=== PATIENT | male | born 1960 | race Caucasian/White ===

== ENCOUNTER 2025-04-17 09:00 | Inpatient (IN) | payer MEDICARE, MEDICAID, SELFPAY ==
[2025-04-17] VITALS (22 sets, daily range): BP systolic 114–154; BP diastolic 58–95; PULSE 70–99; RESP 13–99; TEMP 36.7–36.9; O2SAT 93–100; BMI 30.4; BMI 10.5
--- NOTE | 2025-04-17 09:22 | XR_ITS ---
Examination: Abdomen AP single view Technique: AP portable supine abdomen, single view Exam date and time: April 17 2025, 0936 hours INDICATIONS: Painful abdomen 2 weeks constipation 7 days. FINDINGS: Large amounts of stool throughout the colon No obstruction No free air Moderate osteopenia IMPRESSION: Large amounts of stool throughout the colon
--- NOTE | 2025-04-17 09:22 | EKG_ITS ---
[facility] Test Date: 2025-04-17 Pat Name: KARLENE PAGAN Department: Room: - Gender: Male [employer]: : [id number] Requested By: Letha Gil Order Number: [id number] Reading MD: Letha Gil Measurements Intervals [place] Rate: 82 P: 71 MI: 146 QRS: 76 QRSD: 109 T: 40 QT: 389 QTc: 457 Interpretive Statements SINUS RHYTHM WITH OCCASIONAL VENTRICULAR PREMATURE COMPLEXES NONSPECIFIC T-WAVE ABNORMALITY Compared to ECG 09/17/2021 10:21:31 Ventricular premature complex(es) now present T-wave abnormality still present /store/S0/[id number]/ecg/[id number].pdf
--- NOTE | 2025-04-17 09:24 | PD.EDABDPN ---
ED Abdominal Pain RME/HPI General Chief Complaint: Abdominal Pain Stated complaint: SEVERE ABD DISTENTION/PAIN; NO BM X 2 WKS Time seen by provider: 04/17/25 09:31 Arrival date/time: 04/17/25 09:00 RME / HPI RME / HPI narrative: CC: Abdominal Pain & distention Patient is a 64-year-old male with a past medical history of hypertension, hyperlipidemia, diabetes mellitus type 2 [id number], CAD s/p stents, history of diverticulosis who presented to the emergency room via private vehicle with a chief complaint of severe abdominal pain and increased distention. Stated several days of abdominal pain which was first noted March 30, 2025. Patient has not had a bowel movements over 2 weeks. No bowel movements, previously never noted blood in stool. No opioid use. Previous abdominal surgeries include appendectomy as child (required second revision) and history of hernia repair s/p mesh (2022). No vomiting. Increasing abdominal distention. Related Data Home Medications ?Medication ?Instructions ?Recorded ?Confirmed albuterol sulfate 90 mcg/actuation 90 mcg inhalation Q4HR PRN WHEEZING 08/28/21 09/18/21 aerosol inhaler (Ventolin HFA) aripiprazole 2 mg tablet 2 mg PO HS 08/28/21 09/18/21 atorvastatin 20 mg tablet 20 mg PO DAILY 08/28/21 09/18/21 bupropion HCl 150 mg 24 hr tablet, 150 mg PO DAILY 08/28/21 09/18/21 extended release losartan 25 mg tablet 25 mg PO DAILY 08/28/21 09/18/21 metformin 500 mg tablet 500 mg PO BID 08/28/21 09/18/21 tamsulosin 0.4 mg capsule 0.4 mg PO BID 08/28/21 09/18/21 tiotropium bromide 2.5 2 puff inhalation DAILY 08/28/21 09/18/21 mcg/actuation mist for inhalation (Spiriva Respimat) ascorbic acid (vitamin C) 1,000 mg 1 g PO DAILY 09/18/21 09/18/21 tablet (Vitamin C) aspirin 81 mg tablet,delayed 81 mg PO QDAY 09/18/21 09/18/21 release glucosamine sulf dipot 2 cap PO DAILY 09/18/21 09/18/21 chlr,msm,chond 550 mg-C 30 mg-francisco 1 mg capsule (Glucosamine Chondroitin) Previous Rx's ?Medication ?Instructions ?Recorded docusate sodium 100 mg capsule 100 mg PO BID #40 caps 09/18/21 (Colace) hydrocodone 5 mg-acetaminophen 325 1 tab PO Q6H PRN pain (scale score 09/18/21 mg tablet 7-10) #20 tabs ibuprofen 600 mg tablet 600 mg PO Q8H PRN pain (scale 09/18/21 score 4-6) #15 tabs Allergies Allergy/AdvReac Type Severity Reaction Status Date / Time Sulfa (Sulfonamide Allergy Difficulty Verified 04/17/25 09:01 Antibiotics) Breathing Review of Systems Review of Systems Narrative Review of Systems: General appearance: NO weight change, NO fatigue, NO weakness, NO fever, NO chills, NO night sweats, No cough Skin: NO rash, NO itching, NO sores, NO moles HEENT: NO Trauma, NO nausea, NO vomiting, NO visual changes, NO blurry vision, NO double vision, NO tinnitus, NO vertigo, NO ear discharge, NO rhinorrhea, NO stuffiness, NO sneezing, NO allergy, NO epistaxis. NO Hoarseness, NO sore throat, NO swollen neck. Cardiac: NO Palpitations, NO dyspnea on exertion, NO orthopnea, NO paroxysmal nocturnal dyspnea, NO edema Respiratory: NO Shortness of Breath, NO Wheezing, NO Cough, NO Sputum, NO hemoptysis GI:NO appetite, Yes nausea, NO vomiting, NO dysphagia, NO changes in bowel frequency, NO stool color, NO diarrhea, NO constipation, NO hemetemesis, NO hemorrhoids, NO melena, NO hematechezia, Yes abdominal pain, Yes Distention, NO jaundice Renal: NO frequency, NO hesitancy, NO urgency, NO hematuria, NO nocturia, NO incontinence MSK: NO muscle weakness, NO gout, NO arthritis, NO muscle stiffness Neuro: NO headaches, NO tremors, NO weakness, NO paralysis, NO seizures, NO loss of consciousness, NO numbness. Hem: NO anemia, NO easy bruising/bleeding, NO petechiae, NO purpura Endo: NO heat/cold intolerance, NO excessive sweating, NO polyuria, NO polydipsia, NO polyphagia, NO thyroid problems, NO diabetes Pysch: NO mood, NO anxiety, NO depression ED Exam Narrative Physical exam: General Appearance: Alert & Oriented X3, well-nourished male who is lying in bed in mild distress HEENT: Skull symmetrical and atraumatic. Conjunctivae pin and moist. Pupils equal, round, reactive to light and accommodation (PERRL). External ear without lesion or discharge. Straight, nares patient, mucosa pink, no discharge. No thyroid nodule appreciated. No cervical lymphadenopathy. Cardio: Normal Rate and Rhythm with S1 and S2 heart sounds. No murmurs or extra heart sounds auscultated. No bruits on carotid auscultation. No peripheral edema or cyanosis. Lungs: Symmetric with good expansion. Chest and back non-tender. Breath sounds vesicular without crackles, wheezing or rhonchi Abdomen: Yes Diffuse tenderness to mild palpation, Yes distended, Hypoactive Reactive Bowel Sounds Neuro: Alert, cooperative, oriented to person, place, and time. Speech clear. CN grossly intact. Upper motor strength 5/5 and Lower motor strength 5/5. Sensation intact. Course Quality Measures none Orders Category Date Time Status Admit to Inpatient Status Routine Admission 04/17/25 12:15 Active Patient Condition Routine Admission 04/17/25 12:15 Ordered Bedside Blood Glucose NOW Care 04/17/25 11:[address] Screening NOW Care 04/17/25 09:53 Active Claims Supervisor Q4H START 00 Care 04/17/25 09:25 Active EKG (ED ONLY) *Do not use* NOW Care 04/17/25 09:22 Completed Jones [Urinary Catheter] QS Care 04/17/25 09:22 Active Insert NG / OG tube PRN Care 04/17/25 09:23 Active Notify provider NEEDED Care 04/17/25 12:15 Active Saline [Insert IV] NOW Care 04/17/25 09:51 Active Strict Intake and Output Routine Care 04/17/25 09:31 Ordered Vital Signs, Non-Routine Q2H Care 04/17/25 09:30 Ordered Vital Signs, Non-Routine Q2H Care 04/17/25 11:30 Ordered Vital Signs, Non-Routine Q2H Care 04/17/25 13:30 Ordered Vital Signs, Non-Routine Q2H Care 04/17/25 15:30 Ordered Vital Signs, Non-Routine Q2H Care 04/17/25 17:30 Ordered Vital Signs, Non-Routine Q2H Care 04/17/25 19:30 Ordered Vital Signs, Non-Routine Q2H Care 04/17/25 21:30 Ordered Vital Signs, Non-Routine Q2H Care 04/17/25 23:[address] abdomen pelvis w con Stat Exams 04/17/25 09:53 Completed EKG (ED Only) Stat Exams 04/17/25 09:22 Draft KUB [XR abdomen 1V] Stat Exams 04/17/25 09:22 Completed US gall bladder Stat Exams 04/17/25 09:55 Completed Beta Hydroxybutyrate Stat Lab 04/17/25 11:03 Completed Blood Culture (Lab) Stat Lab 04/17/25 11:03 Ordered CBC Stat Lab 04/17/25 09:29 Completed Comprehensive Metabolic Panel Stat Lab 04/17/25 09:29 Completed Drug Screen,Urine Stat Lab 04/17/25 09:39 Completed Lactic Acid [Lactate (Lactic Acid)] Routine Lab 04/17/25 14:00 Ordered Lactic Acid [Lactate (Lactic Acid)] Stat Lab 04/17/25 09:40 Results Lipase Stat Lab 04/17/25 09:29 Completed Magnesium Stat Lab 04/17/25 09:29 Completed Procalcitonin Stat Lab 04/17/25 09:29 Completed Renal Function Panel Stat Lab 04/17/25 14:00 Ordered Sed Rate (ESR) Stat Lab 04/17/25 09:29 Completed Urinalysis, C/S if Indicated Stat Lab 04/17/25 09:39 Completed HYDROmorphone INJ [Dilaudid Inj] Med 04/17/25 09:51 Discontinued 1 mg IVP X1 ONE Insulin Regular Med 04/17/25 12:30 Discontinued 5 unit SC X1 ONE Ketorolac Inj [Toradol Inj] Med 04/17/25 09:26 Discontinued 30 mg IVP X1 ONE Ondansetron Inj [Zofran Inj] Med 04/17/25 09:45 Active 4 mg IVP Q6HR PRN Piper/Tazo Inj [Zosyn Inj] 4.5 gm Med 04/17/25 10:02 Discontinued Sodium Chloride 0.9% (Pop) [NS 0.9% mini bag] 100 ml IV X1 Sodium Chloride 0.9% 1000 ml [Ns] 1,000 ml Med 04/17/25 09:22 Discontinued IV 80 mls/hr Sodium Chloride 0.9% 1000 ml [Ns] 1,000 ml Med 04/17/25 10:30 Discontinued IV 999 mls/hr Code Status Routine Oth 04/17/25 12:15 Ordered Vital Signs Vital signs: Vital Signs Temperature 98.1 F 04/17/25 09:09 Pulse Rate 99 04/17/25 09:09 Respiratory Rate 16 04/17/25 09:09 Blood Pressure 135/90 H 04/17/25 09:09 Pulse Oximetry (%) 99 04/17/25 09:09 Oxygen Delivery Method Room Air 04/17/25 09:09 Abdominal Pain MDM Patient data External records reviewed:: [facility] previous records Clinical information provided by:: patient Social determinants that could affect healthcare access:: none Patient has the following chronic illnesses:: Patient is a 64 year old male with hypertension, hyperlipidemia, diabetes mellitus type 2 [id number], CAD s/p stents, history of diverticulosis How is presenting disease/condition affected by chronic disease/condition?: uneffected by (HTN DM or CAD ) Evaluation data The following diagnostics were reviewed and interpreted by me:: lab results, radiology exam(s) and EKG tracing(s) Lab and/or radiology exams considered but not ordered:: None Interpretation Summary: Patient is a 64-year-old male with a past medical history of hypertension, hyperlipidemia, diabetes mellitus type 2 [id number], CAD s/p stents, history of diverticulosis who presented with a chief complain of abdominal pain. Leukocytosis noted on CBC with WBC count of 21.7, hypokalemia likely secondary to poor oral intake-denied vomiting, lactic acidosis of 3, beta hydroxybutyrate 1.6 bicarb of 20.2 UA showing ketones and negative for UTI. KUB negative for small bowel obstruction, large amount of stool throughout the colon. CT abdomen noted to show 8 cm upper pole renal cyst, stool throughout the colon, colonic diverticulosis, concern for diverticulitis involving the sigmoid colon. #Diverticulitis #Metabolic Acidosis, anion gap #lactic Acidosis #ketoacidosis - The patient's plan was discussed with attending Dr. Domi Gil MD PGY2 Internal Medicine Medications / Prescriptions Medications or Prescriptions considered but not ordered:: None Medication administrations:: Medication Administration History Ondansetron HCl (Ondansetron Inj 2 Mg/Ml Inj 2 Ml) 4 mg IVP Q6HR PRN; Protocol PRN Reason: NAUSEA OR VOMITING Stop: 05/17/25 09:44 Last Admin: 04/17/25 10:06 Dose: 4 mg Documented By: MYLA Discontinued Medications Hydromorphone HCl (Hydromorphone Inj 2 Mg/Ml Vial) 1 mg IVP X1 ONE Stop: 04/17/25 09:52 Last Admin: 04/17/25 10:06 Dose: 1 mg Documented By: MYLA Sodium Chloride (Ns) 1,000 mls @ 80 mls/hr IV .[id number] ONE Stop: 04/17/25 21:51 Last Admin: 04/17/25 09:33 Dose: 80 mls/hr Documented By: MYLA Piperacillin Sod/Tazobactam (Sod 4.5 gm/ Sodium Chloride) 100 mls @ 200 mls/hr IV X1 ONE; Protocol Stop: 04/17/25 10:31 Last Infusion: 04/17/25 11:51 Dose: Infused Documented By: Admin: 04/17/25 10:58 Dose: 200 mls/hr Documented By: MYLA Sodium Chloride (Ns) 1,000 mls @ 999 mls/hr IV .Q1H1M ONE Stop: 04/17/25 11:30 Last Infusion: 04/17/25 11:55 Dose: Infused Documented By: Admin: 04/17/25 10:59 Dose: 999 mls/hr Documented By: MYLA Insulin Human Regular (Insulin Hum Regular 1 Unit/0.01 Ml (Per Unit)) 5 unit SC X1 ONE Stop: 04/17/25 12:31 Ketorolac Tromethamine (Ketorolac Inj 30 Mg/Ml Vial) 30 mg IVP X1 ONE Stop: 04/17/25 09:27 Last Admin: 04/17/25 09:33 Dose: 30 mg Documented By: MYLA same as above Consultations Consultation(s) initiated? (list below): No Diagnosis Differential diagnosis abdominal pain: abdominal pain, gastroenteritis, pancreatitis and small bowel obstruction Most likely diagnosis given after review of the tests above:: Patient is a 64-year-old male with a past medical history of hypertension, hyperlipidemia, diabetes mellitus type 2 [id number], CAD s/p stents, history of diverticulosis who presented with a chief complain of abdominal pain. Leukocytosis noted on CBC with WBC count of 21.7, hypokalemia likely secondary to poor oral intake-denied vomiting, lactic acidosis of 3, beta hydroxybutyrate 1.6 bicarb of 20.2 UA showing ketones and negative for UTI. KUB negative for small bowel obstruction, large amount of stool throughout the colon. CT abdomen noted to show 8 cm upper pole renal cyst, stool throughout the colon, colonic diverticulosis, concern for diverticulitis involving the sigmoid colon. #Diverticulitis #Metabolic Acidosis, anion gap #lactic Acidosis #ketoacidosis - The patient's plan was discussed with attending Dr. Domi Gil MD PGY2 Internal Medicine Admission Indicated Admission indicated?: indicated Admission Request Was there a request for admission?: Yes Admission Attestation Admission request attestation: Discussed case with Dr. Le from Hospitalist service regarding admission. Discussed patients ED course, exam findings, labs, and radiology results. The Hospitalist agrees to accept the patient for admission. Disposition Plan Disposition Plan: Admit Discharge Plan Plan Patient Disposition: Admit Acute Care w/in Hospital Prescriptions/Referrals Prescriptions/Med Rec: No Action metformin 500 mg tablet 500 mg PO BID Patient Comments: TAKE 1 TABLET BY MOUTH TWICE DAILY atorvastatin 20 mg tablet 20 mg PO DAILY Patient Comments: TAKE 1 TABLET BY MOUTH EVERY DAY tamsulosin 0.4 mg capsule 0.4 mg PO BID Patient Comments: TAKE 2 CAPSULES BY MOUTH AT NIGHT losartan 25 mg tablet 25 mg PO DAILY Patient Comments: TAKE 1 TABLET BY MOUTH DAILY albuterol sulfate [Ventolin HFA] 90 mcg/actuation HFA aerosol inhaler 90 mcg INHALATION Q4HR PRN (Reason: WHEEZING) Patient Comments: INHALE 2 PUFFS BY MOUTH EVERY 4 HOURS NEEDED bupropion HCl 150 mg tablet extended release 24 hr 150 mg PO DAILY Patient Comments: TAKE 1 TABLET BY MOUTH EVERY DAY aripiprazole 2 mg tablet 2 mg PO HS Patient Comments: TAKE 1 TABLET BY MOUTH EVERY NIGHT AT BEDTIME Spiriva Respimat 2.5 mcg/actuation mist 2 puff INHALATION DAILY Patient Comments: INHALE 2 PUFFS BY MOUTH DAILY ascorbic acid (vitamin C) [Vitamin C] 1,000 mg Tablet 1 g PO DAILY Glucosamine Chondroitin 550-30-1 mg Capsule 2 cap PO DAILY aspirin 81 mg Tablet,Delayed Release (Dr/Ec) 81 mg PO QDAY hydrocodone-acetaminophen 5-325 mg tablet 1 tab PO Q6H MDD 4 PRN (Reason: pain (scale score 7-10)) Qty: 20 0RF docusate sodium [Colace] 100 mg capsule 100 mg PO BID Qty: 40 0RF ibuprofen 600 mg tablet 600 mg PO Q8H PRN (Reason: pain (scale score 4-6)) Qty: 15 0RF Referrals: Mae Asher, BILINGUAL ADMINISTRATIVE ASSISTANT [Primary Care Provider] - In 1 week Problem List Clinical Impression: Diverticulitis Patient/Caregiver Discharge Instructions Print Language: Bulgarian Stand Alone Forms: Paulina Award Info., Patient Portal Info Letter
[2025-04-17] MEDS: KETOROLAC INJ 30 MG/ML VIAL IVP (09:33)
[2025-04-17] MEDS: SODIUM CHLORIDE 0.9% 1000 ML 1,000 ML 80 ML IV (09:33)
[2025-04-17 09:43] LABS: Basophils # (Auto) 0.1 Thou/mm3 (0.0-0.2); Basophils % (Auto) 0 % (0-2.5); Eosinophils # (Auto) 0.0 Thou/mm3 (0.0-0.5); Eosinophils % (Auto) 0 % (0-10); Hematocrit 38.4 % (41.0-53.0); Hemoglobin 13.7 g/dL (13.5-16.0); Immature Granulocytes Auto 0.17 Thou/mm3 (0.00-0.00); Lymphocytes # (Auto) 1.1 Thou/mm3 (1.0-4.8); Lymphocytes % (Auto) 5 % (10-50); Mean Corpuscular HGB Conc 35.7 g/dl (31.0-37.0); Mean Corpuscular Hemoglobin 29.1 pg (25.0-35.0); Mean Corpuscular Volume 82 fL (80-100); Monocytes # (Auto) 1.9 Thou/mm3 (0.0-0.8); Monocytes % (Auto) 9 % (0-12); Neutrophils # (Auto) 18.5 Thou/mm3 (1.8-7.7); Neutrophils % (Auto) 85 % (37-80); Nucleated Red Blood Cell # 0.00 Thou/mm3 (0.00-0.00); Nucleated Red Blood Cell % 0 /100 WBC (0); Platelet Count 300 Thou/mm3 (140-440); RDW Standard Deviation 35.1 fL (35.1-43.9); Red Blood Count 4.71 Miln/mm3 (4.50-5.90); White Blood Count 21.7 Thou/mm3 (3.8-10.6)
[2025-04-17 09:47] LABS: Lactate (Lactic Acid) 3.0 mMol/L (0.4-2.0)
[2025-04-17 09:47] LABS: Collection Type, Urine Clean Catch; Squamous Epithelial Cell,Urine 0 /hpf (0-5)
[2025-04-17 09:51] LABS: Bilirubin,Urine Negative (Negative); Blood,Urine Negative (Negative); Clarity,Urine Clear (Clear/Hazy); Color,Urine Yellow (Lt Yel-Yel); Culture Indicated,Urine Not Indicated; Glucose, Urine 3+ (Negative); Hyaline Casts,Urine < 1 /hpf (0-1); Ketones,Urine 4+ (Negative); Leukocyte Esterase,Urine Negative (Negative); Nitrite,Urine Negative (Negative); PH,Urine 6.5 (5.0-7.0); Protein,Urine 2+ (Neg - Trace); RBC,Urine 3 /hpf (0-3); Specific Gravity,Urine 1.041 (1.001-1.035); Urobilinogen,Urine 2.0 mg/dL (0.0-1.0); WBC,Urine 1 /hpf (0-5)
[2025-04-17 09:53] LABS: Alanine Aminotransferase 12 U/L (10-49); Albumin, Serum 5.2 gm/dL (3.4-4.8); Albumin/Globulin Ratio 2.3 (1.2-2.2); Alkaline Phosphatase 116 U/L (46-116); Anion Gap 15 (7-16); Aspartate Amino Transferase 14 U/L (0-34); BUN/Creatinine Ratio 18 Ratio (12-20); Bilirubin,Total 0.7 mg/dL (0.3-1.2); Blood Urea Nitrogen 16 mg/dL (9-23); Calcium 9.5 mg/dL (8.3-10.6); Calcium (Corrected) 9.5 mg/dL (8.5-10.1); Carbon Dioxide 20.2 mMol/L (20.0-31.0); Chloride 100 mMol/L (98-107); Creatinine (Component) 0.9 mg/dL (0.6-1.3); Estimated Creatinine Clearance 89.0 mL/min (>60); Globulin 2.3 gm/dL (2.3-3.5); Glucose 243 mg/dL (74-106); Lipase 26 U/L (12-53); Magnesium 1.7 mg/dL (1.6-2.6); Osmolality,Calculated 279 (275-295); Potassium 3.3 mMol/L (3.4-5.1); Sodium 135 mMol/L (136-145); Total Protein 7.5 gm/dL (5.7-8.2); eGFR > 60 See Note
--- NOTE | 2025-04-17 09:53 | XR_ITS ---
Examination: CT abdomen with intravenous contrast CT pelvis with intravenous contrast 2-D coronal reconstructions 2-D sagittal reconstructions Date and time of exam: April 17, 2025, 1114 hours INDICATIONS: Severe abdominal distention and no bowel movement 2 weeks. CTDI: vol (mGy) 8.75 DLP: (mGycm) 543 Technique: Multiple axial sections of the abdomen and pelvis have been obtained. 64 slice high-resolution scanner used. 3 mm axial sections have been obtained, post intravenous injection 60 cc [id number] 2-D sagittal, coronal reconstructions obtained. Low dose protocols were performed. One or more of the following dose reduction techniques were used; automated exposure control, adjustment of the mA and/or KV according to patient size, use of iterative reconstruction technique. Findings: Diffuse fatty infiltration throughout the liver Mildly distended gallbladder no gallstones No pancreatic or adrenal mass 8 cm upper pole right renal cyst No renal or ureteral calculi Aorta normal size Abundant stool throughout the colon Colonic diverticulosis Diverticulitis involving the sigmoid colon versus nonspecific colitis Trace free fluid in the pelvis No significant prostatomegaly Urinary bladder contracted Moderate disc narrowing L5-S1 IMPRESSION: Abundant stool throughout the entire colon Diverticulitis versus nonspecific colitis involving the sigmoid colon The sigmoid colon is diffusely thickened, recommend elective colonoscopy follow-up also to exclude underlying malignant neoplasm of the sigmoid colon
--- NOTE | 2025-04-17 09:55 | XR_ITS ---
Examination: Abdomen sonogram, Limited Date and time of exam: April 17, 2025, 11:21 a.m. INDICATIONS: Right upper abdominal pain beginning 2 weeks ago. TECHNIQUE: Real-time grayscale sonographic images of abdomen FINDINGS: Distended gallbladder, no gallstones Gallbladder wall 0.3 cm no edema Common bile duct 0.5 cm Pancreatic head 3.3 cm Hepatomegaly 19 cm fatty infiltration Normal hepatopetal portal venous flow Patent IVC IMPRESSION: Negative for cholelithiasis, negative for cholecystitis Moderate hepatomegaly
[2025-04-17] MEDS: HYDROmorphone INJ 2 MG/ML VIAL 1 MG IVP (10:06)
[2025-04-17] MEDS: ONDANSETRON INJ 2 MG/ML INJ 2 ML 4 MG IVP (10:06)
[2025-04-17 10:20] LABS: Amphetamine/Methamp Scrn,U Negative (Negative); Barbiturate Screen,Urine Negative (Negative); Benzodiazepines Screen,Urine Negative (Negative); Benzoylecgonine Screen, Ur Negative (Negative); Fentanyl Screen,Urine Negative (Negative); Opiate Screen,Urine Negative (Negative); THC Screen,Urine Positive (Negative)
[2025-04-17 10:28] LABS: Sed Rate (ESR) 66 mm/hr (0-20)
[2025-04-17 10:31] LABS: Procalcitonin 0.19 ng/ml (0.0-0.49)
[2025-04-17] MEDS: PIPER/TAZO INJ 4.5 GM in SODIUM CHLORIDE 0.9% (POP) 100 ML IV (10:58)
[2025-04-17] MEDS: SODIUM CHLORIDE 0.9% 1000 ML 1,000 ML 999 ML IV (10:59)
[2025-04-17 11:14] LABS: Beta Hydroxybutyrate 1.6 mmol/L (<0.6)
[2025-04-17 12:45] LABS: Reflex Lactate? Y
[2025-04-17] MEDS: INSULIN HUM REGULAR 1 UNIT/0.01 ML (PER UNIT) 5 UNIT SC (12:59)
[2025-04-17] MEDS: cefTRIAXone 2 GM in SODIUM CHLORIDE 0.9% (Popper) 50 ML IV (13:00)
[2025-04-17 13:12] LABS: Lactic Acid, 3 HR 1.9 mMol/L (0.4-2.0)
[2025-04-17 13:54] LABS: Glucose Estimated Average 148 mg/dL (80-131); Hemoglobin A1C 6.8 % Hgb (4.8-6.0)
[2025-04-17 14:06] LABS: Lactate (Lactic Acid) 2.7 mMol/L (0.4-2.0)
[2025-04-17] MEDS: LACTULOSE SYRUP 20 GM/30 ML UDC PO (14:16)
[2025-04-17 14:26] LABS: Albumin, Serum 4.7 gm/dL (3.4-4.8); Anion Gap 12 (7-16); BUN/Creatinine Ratio 16 Ratio (12-20); Blood Urea Nitrogen 14 mg/dL (9-23); Calcium 9.0 mg/dL (8.3-10.6); Calcium (Corrected) 9.0 mg/dL (8.5-10.1); Carbon Dioxide 22.9 mMol/L (20.0-31.0); Chloride 103 mMol/L (98-107); Creatinine (Component) 0.9 mg/dL (0.6-1.3); Estimated Creatinine Clearance 89.0 mL/min (>60); Glucose 173 mg/dL (74-106); Osmolality,Calculated 280 (275-295); Phosphorous 1.6 mg/dL (2.4-5.1); Potassium 3.4 mMol/L (3.4-5.1); Sodium 138 mMol/L (136-145); eGFR > 60 See Note
--- NOTE | 2025-04-17 15:15 | PC.NURSE ---
spoke with resident at bedside about K+ order and he will change K+ to po tab.
--- NOTE | 2025-04-17 15:19 | PC.NURSE ---
report given to nurse on m/s floor. nurse will resume care for pt. bed [id number]
--- NOTE | 2025-04-17 15:56 | ESHP_ITS ---
<Statement entered by Yas Le MD - 04/17/25 17:42> Patient was seen and examined by me personally. I have directly supervised and reviewed documentation by the team resident and agree with its findings with any exceptions or additional findings as below. Plan of care was discussed with the attending, Dr. Gardiner. Patient is a 64-year-old male with past medical history of diverticulosis who presented to the ED on 04/27/2025 with lower abdominal pain and severe constipation, stating that he has not had a proper bowel movement in 2 weeks. He has tried various laxatives including Colace and suppositories but states that he was only able to have very small amounts of ball-like stools and feels increasingly distended. Patient has had similar episodes in the past but not this severe and was always able to eventually pass stools. Patient will be admitted for severe obstipation likely leading to diverticulitis and will be started on IV antibiotics including ceftriaxone and metronidazole. Will keep the patient NPO except sips of water and start lactulose. Patient was given senna. Will try to avoid opioid analgesics as they can worsen the constipation. Tomorrow will reassess and consider Golytely and possible manual disimpaction should laxatives fail. Yas Le, PGY-3 Documentation for date of: 04/17/25 HPI History of Present Illness History of present illness: Patient is a 64-year-old M with a PMH of diverticulosis, previous significant abdominal surgeries (1974 appendectomy with rupture requiring second surgery for wound clean-out and 2021 laparoscopic-assisted repair of incarcerated umbilical hernia with mesh), CAD status post 2016 coronary stent placement x 2, COPD, asthma, T2DM, HTN, and HLD who presented on 04/17/25 with a chief complaint of abdominal pain and intractable constipation. He reports that the abdominal pain started 2 weeks ago and that he also has not had any BM since the onset of this pain. He endorses feeling an urge to defecate but denies being able to have any BM nor passing any flatulence since arriving at the ED. He states that he has had similar prior episodes of abdominal pain and constipation beginning after one of his abdominal surgeries but that they have always been responsive to laxatives or stool softeners. At the time of interview, patient reported the pain as a 6 or 7 out of 10 but endorses that he had recently been given some morphine while in the ED. He denies any symptoms of nausea or vomiting. PMH: As above PSH: As above Medications: Medication reconciliation ordered, pending Allergies: Sulfa drugs (reaction: anaphylaxis) FH: Father of Parkinson's and colorectal cancer. Mother from Alzheimer's. Both had HTN. SH: Non-significant drinking history, smoked an average of 1 pack/day from age [age], no recreational drug use In the ED, vitals showed: BP 135/90 HR 99 RR 16 Temp 98.1 SpO2 99% on room air CBC showed WBC 21.7, ESR 66. CMP showed sodium 135, potassium 3.3, blood glucose 243, hemoglobin A1c 6.8, lactic acid 3.0, phosphorus 1.6, magnesium 1.7, BHB 1.6, and procalcitonin 0.19. UA showed specific gravity 1.041, 2+ protein, 3+ glucose, 4+ ketones (not suggestive of UTI). UDS (+) for marijuana. Imagin/18 abdominal XR showed large amounts of stool throughout the colon. 04/17 CTAP showed abundant stool throughout the entire colon, diverticulitis or nonspecific colitis involving the sigmoid colon, diffuse thickening of the sigmoid colon, colonic diverticulosis, and diffuse fatty infiltration throughout the liver. 04/17 EKG showed sinus rhythm 82 with occasional VPCs and mildly prolonged QTc 457. 04/17 gallbladder US showed moderate hepatomegaly but was negative for cholecystitis or cholelithiasis. In the ED, patient was given Ketorolac IV, Dilaudid IV, Zofran IV, Zosyn IV + Rocephin IV, regular human insulin SC, Senna + Lactulose PO, and 2 L NS fluid. Patient was admitted for the work-up and management of diverticulitis and obstipation. Review of Systems Review of Systems Systems Reviewed: All systems reviewed, normal except as documented Exam Vital Signs Temp Pulse Resp BP Pulse Ox O2 Del Method 98.2 F 80 21 H 154/87 H 99 Room Air 04/17/25 13:52 04/17/25 14:00 04/17/25 14:00 04/17/25 14:00 04/17/25 14:00 04/17/25 13:52 Narrative Exam General: A/O x3, uncomfortable. Skin: Warm, dry, intact, no obvious rash. Head: Normocephalic, atraumatic. Eyes: PERRL, EOMI. Anicteric, vision grossly intact. Ears: No ear pain, no ear discharge, Hearing grossly intact. Nose: No nasal discharge. Mouth/Throat: Oral mucosa moist. No obvious lesions in oropharynx. Neck: Neck supple, non-tender, no cervical lymphadenopathy. Cardiovascular: Tachycardic rate and rhythm, no murmur, no JVD or carotid bruits. +S1/S2. Respiratory: Bilateral lungs are clear to auscultation, respirations unlabored, no crackles, no wheezing. No accessory muscle use. Gastrointestinal: Distended abdomen that is tender to palpation, especially at lower abdominal regions, with pain that radiates to the back. Soft, no palpable masses. No guarding or rebound tenderness. Peristalsis present. Extremities: Symmetrical, no significant deformities. No edema, no cyanosis, no clubbing. 2+ radial pulse bilaterally, 2+ posterior tibial pulse bilaterally. Neuro: No focal deficits observed. Conversant, moving all extremities. No overt cerebellar signs/incoordination. Psychiatric: Cooperative, appropriate affect. Results: Labs 04/17/25 09:29 04/17/25 13:55 Labs: Short CBC 04/17/25 Range/Units 09: WBC 21.7 H (3.8-10.6) Thou/mm3 Hgb 13.7 (13.5-16.0) g/dL Hct 38.4 L (41.0-53.0) % Plt Count 300 (140-440) Thou/mm3 [facility] 04/17/25 04/17/25 09:29 13:55 Sodium 135 L 138 Potassium 3.3 L 3.4 Chloride 100 103 Carbon Dioxide 20.2 22.9 BUN 16 14 Creatinine 0.9 0.9 Glucose 243 H 173 H D Calcium 9.5 9.0 Liver Function 04/17/25 04/17/25 Range/Units 09:29 13:55 Total Bilirubin 0.7 (0.3-1.2) mg/dL AST 14 (0-34) U/L ALT 12 (10-49) U/L Alkaline Phosphatase 116 (46-116) U/L Albumin 5.2 H 4.7 D (3.4-4.8) gm/dL Urine 04/17/25 Range/Units 09:39 Urine Color Yellow (Lt Yel-Yel) Urine Clarity Clear (Clear/Hazy) Urine pH 6.5 (5.0-7.0) Ur Specific Orwell 1.041 H (1.001-1.035) Urine Protein 2+ A (Neg - Trace) Urine Glucose (UA) 3+ A (Negative) Quality Measures Quality Measures none Medications Home Medications and Allergies Home Medications ?Medication ?Instructions ?Recorded ?Confirmed ?Type albuterol sulfate 90 mcg/actuation 90 mcg inhalation Q 4HR PRN WHEEZING 08/28/21 09/18/21 History aerosol inhaler (Ventolin HFA) aripiprazole 2 mg tablet 2 mg PO HS 08/28/21 09/18/21 History atorvastatin 20 mg tablet 20 mg PO DAILY 08/28/2108/30 History bupropion HCl 150 mg 24 hr tablet, 150 mg PO DAILY 09/18/21 History extended release losartan 25 mg tablet 25 mg PO DAILY 08/28/2108/30 History metformin 500 mg tablet 500 mg PO BID 08/28/2109/18 History tamsulosin 0.4 mg capsule 0.4 mg PO BID 08/28/2109/18 History tiotropium bromide 2.5 2 puff inhalation DAILY 07/3109/18/21 History mcg/actuation mist for inhalation (Spiriva Respimat) ascorbic acid (vitamin C) 1,000 mg 1 g PO DAILY 09/18/21 History tablet (Vitamin C) aspirin 81 mg tablet,delayed 81 mg PO QDAY 09/18/21 History release glucosamine sulf dipot 2 cap PO DAILY 09/18/2108/30 History chlr,msm,chond 550 mg-C 30 mg-francisco 1 mg capsule (Glucosamine Chondroitin) Allergies Allergy/AdvReac Type Severity Reaction Status Date / Time Sulfa (Sulfonamide Allergy Difficulty Verified 04/17/25 09:01 Antibiotics) Breathing Visit Medications Acetaminophen (Acetaminophen 325 Mg Tablet) 650 mg PO Q6H PRN PRN Reason: Fever >100.4 or Pain 1-10 Stop: 05/17/25 13:26 Enoxaparin Sodium (Enoxaparin Sod Inj 40 Mg/0.4 Ml Syringe) 40 mg SC QDAY [facility] Stop: 05/02/25 08:59 Metronidazole (Flagyl 500 Mg Iv) 500 mg in 100 mls @ 200 mls/hr IV Q8HR [facility] Stop: 04/24/25 18:59 Ceftriaxone Sodium 2 gm/ (Sodium Chloride) 50 mls @ 100 mls/hr IV QDAY [facility] Stop: 04/24/25 12:43 Last Infusion: 04/17/25 14:11 Dose: Infused Sodium Chloride (Ns) 1,000 mls @ 100 mls/hr IV .Q10H [facility] Stop: 05/17/25 15:36 Potassium Phosphate (Pot Phos 15 Mmol In Ns 250 Ml) 15 mmol in 250 mls @ 62.5 mls/hr IV Q4H [facility] Stop: 04/17/25 23:38 Magnesium Sulfate (Magnesium Sulfate Ivpb) 4 gm in 50 mls @ 12.5 mls/hr IV X1 ONE Stop: 04/17/25 19:39 Ketorolac Tromethamine (Ketorolac Inj 30 Mg/Ml Vial) 15 mg IVP Q6HR PRN PRN Reason: pain 7-10 Stop: 04/22/25 15:39 Lactulose (Lactulose Syrup 20 Gm/30 Ml Udc) 30 gm PO TID [facility]; Protocol Stop: 05/17/25 15:44 Ondansetron HCl (Ondansetron Inj 2 Mg/Ml Inj 2 Ml) 4 mg IVP Q6HR PRN; Protocol PRN Reason: NAUSEA OR VOMITING Stop: 05/17/25 09:44 Last Admin: 04/17/25 10:06 Dose: 4 mg Sennosides (Senna Tablet) 1 tab PO QDAY [facility]; Protocol Stop: 05/17/25 13:44 Last Admin: 04/17/25 14:16 Dose: 1 tab Discontinued Medications Hydromorphone HCl (Hydromorphone Inj 2 Mg/Ml Vial) 1 mg IVP X1 ONE Stop: 04/17/25 09:52 Last Admin: 04/17/25 10:06 Dose: 1 mg Sodium Chloride (Ns) 1,000 mls @ 80 mls/hr IV .[id number] ONE Stop: 04/17/25 21:51 Last Admin: 04/17/25 09:33 Dose: 80 mls/hr Piperacillin Sod/Tazobactam (Sod 4.5 gm/ Sodium Chloride) 100 mls @ 200 mls/hr IV X1 ONE; Protocol Stop: 04/17/25 10:31 Last Infusion: 04/17/25 11:51 Dose: Infused Sodium Chloride (Ns) 1,000 mls @ 999 mls/hr IV .[id number] ONE Stop: 04/17/25 11:30 Last Infusion: 04/17/25 11:55 Dose: Infused Insulin Human Regular (Insulin Hum Regular 1 Unit/0.01 Ml (Per Unit)) 5 unit SC X1 ONE Stop: 04/17/25 12:31 Last Admin: 04/17/25 12:59 Dose: 5 unit Ketorolac Tromethamine (Ketorolac Inj 30 Mg/Ml Vial) 30 mg IVP X1 ONE Stop: 04/17/25 09:27 Last Admin: 04/17/25 09:33 Dose: 30 mg Lactulose (Lactulose Syrup 20 Gm/30 Ml Udc) 20 gm PO TID LYRIC; Protocol Stop: 05/17/25 13:59 Last Admin: 04/17/25 14:16 Dose: 20 gm Potassium Chloride (Potassium Chloride 10% 20 Meq/15 Ml Udc) 40 meq GT X1 ONE Stop: 04/17/25 13:37 Last Admin: 04/17/25 15:20 Dose: Not Given Assessment & Plan Plan Patient is a 64-year-old M with a PMH of diverticulosis, previous significant abdominal surgeries (1974 appendectomy with rupture requiring second surgery for wound clean-out and 2021 laparoscopic-assisted repair of incarcerated umbilical hernia with mesh), CAD status post 2016 coronary stent placement x 2, COPD, asthma, T2DM, HTN, and HLD who presented on 04/17/25 with a chief complaint of abdominal pain and intractable constipation. Patient was admitted for the work- up and management of diverticulitis and obstipation. #Acute diverticulitis i/s/o severe diverticulosis #Obstipation #Hx of diverticulosis #Hx of multiple abdominal surgeries Initial presentation: abdominal pain and inability to have a BM for over 2 weeks, afebrile 04/17 CTAP showed abundant stool throughout the entire colon, diverticulitis or nonspecific colitis involving the sigmoid colon, diffuse thickening of the sigmoid colon, and colonic diverticulosis Patient's diverticulitis is likely 2/2 prolonged stool build-up from obstipation forming hardened fecaliths that have blocked colonic diverticula, allowing for a sequestered nidus for bacterial growth Obstipation itself is likely 2/2 patient's significant history of abdominal surgery which may have caused adhesions leading to impaired peristaltic movement through the bowel Rx: -Rocephin 2 g IV qD [04/17--] -Flagyl 500 mg IV TID [04/17--] -Senna 1 tab qD -Lactulose syrup 30 g TID -Pain control #Lactic acidosis, mild and resolving 04/17 admission lactic acid 3.0, down-trended to 2.7 on the same day Likely 2/2 acute diverticulitis causing immune activation, cytokine activity, and possible local tissue hypoxia Rx: -No need to continue trending lactic acid as of 04/17 #Hypertension 04/17 admission BP 135/90 Rx: -Continue to monitor BP, may start home medications if uncontrolled #T2DM 04/17 admission blood glucose 243, hemoglobin A1c 6.8 Possibly on home metformin 500 mg BID (pending medication reconciliation) Rx: -Continue to monitor blood glucose levels, will consider starting ISS if uncontrolled Hospital Management: Disposition: Med Surg Diet: NPO (may take PO meds w/ sips of water) GI Prophylaxis: Not Indicated Bowel Prophylaxis: Senna 1 tab qD, lactulose syrup 30 g TID DVT Prophylaxis: Lovenox 40 mg SC qD CODE STATUS: Full Code I have examined the patient and conferred with my attending, Dr. Gardiner, and my senior resident, Dr. Le, regarding them. Jl Durant DO PGY-1 Internal Medicine Attending Provider Attestation/Addendum I or my resident physicians have discussed care with the ED physician and I have made the decision to admit. I have discussed and was present for the essential components of the history, physical examination, diagnosis, and treatment plan with the resident. I agree with the patient's care as documented by the resident and amended herein by me. Bong Gardiner DO. Although this document has been carefully reviewed, there may still be some phonetic and other typographical errors. These errors are purely grammatical due to imperfections in the software program and should not be construed in any way to compromise the substance of the patient's medical care during this visit.
[2025-04-17 17:05] LABS: Reflex Lactate? Y
[2025-04-17] MEDS: Magnesium Sulfate 4 GM Ivpb 4 GM/50 ML BAG IV (17:05)
[2025-04-17] MEDS: POT PHOS 15 mMol in NS 250 ML 15 MMOL/250 ML BAG 62.5 MMOL IV ×2 (17:06→21:50)
[2025-04-17] MEDS: KETOROLAC INJ 30 MG/ML VIAL 15 MG IVP ×2 (17:06→23:48)
[2025-04-17] MEDS: LACTULOSE SYRUP 20 GM/30 ML UDC 30 GM PO (17:07)
[2025-04-17] MEDS: SODIUM CHLORIDE 0.9% 1000 ML 1,000 ML 100 ML IV (17:12)
[2025-04-17 17:57] LABS: Lactic Acid, 3 HR 1.2 mMol/L (0.4-2.0)
[2025-04-17] MEDS: ACETAMINOPHEN IVPB 1,000 MG/100 ML VIAL 250 MG IV (18:49)
[2025-04-17] MEDS: metroNIDAZOLE/NS 500 MG IVPB 500 MG/100 ML BAG 200 MG IV (20:02)
[2025-04-17] MEDS: HYDROmorphone INJ 2 MG/ML VIAL 0.5 MG IVP (20:35)
--- NOTE | 2025-04-17 20:46 | XR_ITS ---
Examination: CT abdomen with intravenous contrast CT pelvis with intravenous contrast 2-D coronal reconstructions 2-D sagittal reconstructions Date and time of exam: April 17, 2025 2107 hours COMPARISON: April 17, 2025 1118 hours INDICATIONS: Abdominal pain rebound tenderness, diverticulitis on noncontrast study. CTDI: vol (mGy) 9.52 DLP: (mGycm) 550 Technique: Multiple axial sections of the abdomen and pelvis have been obtained. 64 slice high-resolution scanner used. 3 mm axial sections have been obtained, post intravenous injection 60 cc [id number] 2-D sagittal, coronal reconstructions obtained. Low dose protocols were performed. One or more of the following dose reduction techniques were used; automated exposure control, adjustment of the mA and/or KV according to patient size, use of iterative reconstruction technique. Findings: Air in the liver which may right be in the portal venous system No solid liver lesion No definite gallstones Biliary tree is poorly visualized Spleen not enlarged No pancreatic mass 8 cm upper pole right renal cyst No pancreatitis No hydronephrosis Aortic calcification no aneurysmal dilatation Inflammatory change around the sigmoid colon with air droplets which project in the mesentery outside the bowel in this area suspicious for venous air seen with ischemic bowel Peritoneal's pattern in the pelvis Urinary bladder intact Prostatomegaly IMPRESSION: Abnormal sigmoid colon with wall thickening and marked inflammatory change and air droplets in the wall of the colon and outside the wall of the colon which appear to be an venous channels, likely ischemic sigmoid colon, recommend surgical consultation
--- NOTE | 2025-04-17 20:58 | PC.NURSE ---
to ct scan per wheelchair accompanied by global position system technician. Saline locked iv.
--- NOTE | 2025-04-17 22:08 | PC.NURSE ---
seen and examined by Dr. Patel.
--- NOTE | 2025-04-17 22:53 | PC.NURSE ---
re guerrier cath order this morning, verified w/ pt. Per pt cannot handle guerrier cath, has been voiding ok per pt.
[2025-04-18] VITALS (7 sets, daily range): BP systolic 112–147; BP diastolic 69–85; PULSE 75–89; RESP 18–99; TEMP 36.3–37; O2SAT 92–98
--- NOTE | 2025-04-18 01:50 | PC.NURSE ---
seen and examined by Dr. Malone- maykel/ orders made and carried out.
--- NOTE | 2025-04-18 01:54 | PD.SURCONS ---
HPI Consult details Consult date: 04/18/25 Reason for consultation narrative: Diverticulitis History of present illness: 64-year-old obese male with history of diabetes, hypertension, hyperlipidemia, CAD status post stent placement, diverticular disease presented to the emergency department with worsening abdominal pain. His symptoms started about 2 weeks ago after he took Imodium. He started developing abdominal pain that has been getting progressively worse. His last bowel movement was about a week ago according to the patient. He denies history of blood per rectum, changes in bowel habits or history of blood per rectum. He also denies dysuria, fecal urea or pneumaturia. His last colonoscopy was in July 2021 that revealed diverticular disease and polyps (tubular adenoma). CT scan revealed large amount of stool throughout the colon with sigmoid diverticulitis without evidence of abscess. Review of Systems Constitutional Constitutional: Denies chills and Denies fever(s) Cardiovascular Cardiovascular: Denies chest pain Respiratory Respiratory: Denies cough Gastrointestinal Gastrointestinal: Reports abdominal pain, Denies nausea and Denies vomiting Genitourinary Genitourinary: Denies difficulty urinating Hematologic/Lymphatic Hematologic/Lymphatic: Denies easy bleeding and Denies easy bruising Past Medical History Surgical History OTHER SURGICAL HX: Appendectomy, tonsillectomy, umbilical hernia repair with mesh, cardiac catheterization with stent placement Social History SMOKING STATUS: Former smoker SUBSTANCE USE: does not use ALCOHOL: Current Meds Home Medications and Allergies Home Medications ?Medication ?Instructions ?Recorded ?Confirmed ?Type albuterol sulfate 90 mcg/actuation 90 mcg inhalation Q4HR PRN WHEEZING 08/28/21 04/17/25 History aerosol inhaler (Ventolin HFA) aripiprazole 2 mg tablet 2 mg PO HS 08/28/21 04/17/25 History atorvastatin 20 mg tablet 20 mg PO HS 08/28/21 04/17/25 History bupropion HCl 150 mg 24 hr tablet, 150 mg PO DAILY 08/28/21 04/17/25 History extended release losartan 25 mg tablet 25 mg PO DAILY 08/28/21 04/17/25 History metformin 500 mg tablet 500 mg PO BID 08/28/21 04/17/25 History tamsulosin 0.4 mg capsule 0.8 mg PO HS 08/28/21 04/17/25 History tiotropium bromide 2.5 2 puff inhalation DAILY 08/28/21 04/17/25 History mcg/actuation mist for inhalation (Spiriva Respimat) ascorbic acid (vitamin C) 1,000 mg 1 g PO DAILY 09/18/21 04/17/25 History tablet (Vitamin C) aspirin 81 mg tablet,delayed 81 mg PO QDAY 09/18/21 04/17/25 History release glucosamine sulf dipot 1 cap PO BID 09/18/21 04/17/25 History chlr,msm,chond 550 mg-C 30 mg-francisco 1 mg capsule (Glucosamine Chondroitin) [id number] 2 tab PO BID PRN abdominal pain 04/17/25 04/17/25 History 500 mg-60 mg-15 mg tablet (Midol Complete) aspirin 81 mg tablet 81 mg PO QDAY 04/17/25 04/17/25 History fluticasone fur. 100 mcg-umeclid 1 inh inhalation QDAY 04/17/25 04/17/25 History 62.5 mcg-vilant 25 mcg inhalat.powder (Trelegy Ellipta) hydroxyzine HCl 25 mg tablet 25 mg PO .Qevening 04/17/25 04/17/25 History ibuprofen 200 mg tablet 200 mg PO QDAY PRN abdominal pain 04/17/25 04/17/25 History losartan 50 mg tablet 50 mg PO HS 04/17/25 04/17/25 History melatonin 5 mg tablet 25 mg PO HS 04/17/25 04/17/25 History meloxicam 15 mg tablet 15 mg PO DAILY 04/17/25 04/17/25 History montelukast 10 mg tablet 10 mg PO DAILY 04/17/25 04/17/25 History ondansetron HCl 4 mg tablet 4 mg PO Q8H PRN nausea and vomiting 04/17/25 04/17/25 History pantoprazole 40 mg tablet,delayed 40 mg PO HS 04/17/25 04/17/25 History release sennosides 8.6 mg-docusate sodium 1 tab-cap PO QDAY PRN constipation 04/17/25 04/17/25 History 50 mg tablet (Colace 2-In-1) Allergies Allergy/AdvReac Type Severity Reaction Status Date / Time Sulfa (Sulfonamide Allergy Difficulty Verified 04/17/25 09:01 Antibiotics) Breathing Exam Vital Signs Temp Pulse Resp BP Pulse Ox O2 Del Method 98.2 F 74 20 114/58 L 98 Room Air 04/17/25 23:31 04/17/25 23:31 04/17/25 23:31 04/17/25 23:31 04/17/25 23:31 04/17/25 23:31 Constitutional Constitutional: no acute distress Routine Abdominal Exam Comments: Abdomen is soft and nondistended. He has localized tenderness to palpation over left lower abdomen, no rebound tenderness or peritonitis at this time Results Results: Laboratory Laboratory results: results reviewed Results: Imaging CT scan - abdomen: report reviewed and image reviewed CT scan - pelvis: report reviewed and image reviewed Assessment & Plan Additional Assessment Additional comments: Acute sigmoid diverticulitis. Plan Keep n.p.o. with IV fluids and IV antibiotics. If his symptoms improve we will continue to course. However, if his symptoms worsen and or clinical course deteriorate he will require exploratory laparotomy with colostomy. I will follow.
[2025-04-18] MEDS: SODIUM CHLORIDE 0.9% 1000 ML 1,000 ML 100 ML IV ×2 (03:49→14:49)
[2025-04-18 05:25] LABS: Basophils # (Auto) 0.1 Thou/mm3 (0.0-0.2); Basophils % (Auto) 0 % (0-2.5); Eosinophils # (Auto) 0.0 Thou/mm3 (0.0-0.5); Eosinophils % (Auto) 0 % (0-10); Hematocrit 33.5 % (41.0-53.0); Hemoglobin 12.0 g/dL (13.5-16.0); Immature Granulocytes Auto 0.30 Thou/mm3 (0.00-0.00); Lymphocytes # (Auto) 0.9 Thou/mm3 (1.0-4.8); Lymphocytes % (Auto) 4 % (10-50); Mean Corpuscular HGB Conc 35.8 g/dl (31.0-37.0); Mean Corpuscular Hemoglobin 29.2 pg (25.0-35.0); Mean Corpuscular Volume 82 fL (80-100); Monocytes # (Auto) 2.0 Thou/mm3 (0.0-0.8); Monocytes % (Auto) 9 % (0-12); Neutrophils # (Auto) 18.3 Thou/mm3 (1.8-7.7); Neutrophils % (Auto) 85 % (37-80); Nucleated Red Blood Cell # 0.00 Thou/mm3 (0.00-0.00); Nucleated Red Blood Cell % 0 /100 WBC (0); Platelet Count 212 Thou/mm3 (140-440); RDW Standard Deviation 36.2 fL (35.1-43.9); Red Blood Count 4.11 Miln/mm3 (4.50-5.90); White Blood Count 21.5 Thou/mm3 (3.8-10.6)
[2025-04-18] MEDS: metroNIDAZOLE/NS 500 MG IVPB 500 MG/100 ML BAG 200 MG IV ×3 (05:32→22:03)
[2025-04-18] MEDS: ACETAMINOPHEN 325 MG TABLET 650 MG PO ×3 (05:47→19:36)
[2025-04-18 06:06] LABS: Alanine Aminotransferase 16 U/L (10-49); Albumin, Serum 4.1 gm/dL (3.4-4.8); Albumin/Globulin Ratio 2.3 (1.2-2.2); Alkaline Phosphatase 108 U/L (46-116); Anion Gap 14 (7-16); Aspartate Amino Transferase 17 U/L (0-34); BUN/Creatinine Ratio 18 Ratio (12-20); Bilirubin,Total 0.2 mg/dL (0.3-1.2); Blood Urea Nitrogen 14 mg/dL (9-23); Calcium 8.2 mg/dL (8.3-10.6); Calcium (Corrected) 8.2 mg/dL (8.5-10.1); Carbon Dioxide 19.3 mMol/L (20.0-31.0); Chloride 107 mMol/L (98-107); Creatinine (Component) 0.8 mg/dL (0.6-1.3); Estimated Creatinine Clearance 40.6 mL/min (>60); Globulin 1.8 gm/dL (2.3-3.5); Glucose 243 mg/dL (74-106); Magnesium 2.0 mg/dL (1.6-2.6); Osmolality,Calculated 287 (275-295); Phosphorous 3.2 mg/dL (2.4-5.1); Potassium 3.6 mMol/L (3.4-5.1); Sodium 140 mMol/L (136-145); Total Protein 5.9 gm/dL (5.7-8.2); eGFR > 60 See Note
[2025-04-18] MEDS: cefTRIAXone 2 GM in SODIUM CHLORIDE 0.9% (Popper) 50 ML IV (08:06)
[2025-04-18] MEDS: ENOXAPARIN SOD INJ 40 MG/0.4 ML SYRINGE SC (08:07)
--- NOTE | 2025-04-18 08:58 | PC.SS ---
Patient Fawad Blank is a 64 Year old male admitted for Diverticulitis. SS met with patient and patient's life partner at bedside to discuss discharge plan and verify demographic information. Patient reports he lives at home with his life partner, Virginia Acevedo who he reports is his surrogate decision maker, [phone]. Patient reports that prior to being admitted he was able to complete all ADL's independently. Patient does not utilize any source of DME to assist with ambulation. Choice of pharmacy [facility]. PCP is Mae Asher. At time of discharge patient would like to discharge home. Family requesting Ambulance transport. SS will need to assist with and set up transportation through [facility]. No further needs at the time. Discharge Plan: Home Next of kin: Life partner, Francesca Acevedo PCP Mae Asher
[2025-04-18] MEDS: LIDOCAINE 5% 1 PATCH TOP (10:34)
--- NOTE | 2025-04-18 11:41 | PC.SS ---
SS follow up note; Patient is on IV ABX. Patient will discharge home when medically cleared.
--- NOTE | 2025-04-18 14:26 | ESPR_ITS ---
<Statement entered by Yas Le MD - 04/18/25 15:33> Patient was seen and examined by me personally. I have directly supervised and reviewed documentation by the team resident and agree with its findings with any exceptions or additional findings as below. Plan of care was discussed with the attending, Dr. Gardiner. Overnight, patient continued to have pain and IV Tylenol was ordered. Patient got IV Torodol at the maximum frequency as well. Night resident was called and came to bedside to evaluate the patient. Reportedly had rebound abdominal tenderness despite medications therefore a repeat CT abdomen/pelvis with contrast was ordered which read as abnormal sigmoid colon with air droplets in the wall of the colon and outside the wall of the colon which appear to be in venous channels, possible ischemic sigmoid colon, therefore recommended surgical consultation. Dr. Malone was consulted and saw the patient, determined no need for surgical intervention at this time however will continue to follow closely and recommended strict NPO and holding laxatives. At this time will continue with IV ceftriaxone and IV metronidazole for diverticulosis and with bowel rest. Yas Le, PGY-3 Documentation for date of: 04/18/25 Subjective Subjective Interval history: Overnight, patient's pain worsened and was refractory to Tylenol IV and Torodol IV. The night resident was called to evaluate the patient at bedside and patient was reportedly exhibiting rebound abdominal tenderness which prompted a repeat CTAP with contrast to be ordered; it showed abnormal sigmoid colon with wall thickening and marked inflammatory and air droplets in the wall of the colon which was concerning for ischemic sigmoid colon. General Surgery (Dr. Malone) was consulted and recommended that the patient be kept NPO with IV fluids and IV antibiotics and be given a chance to spontaneously have a BM with the contingency plan of exploratory laparotomy with colostomy should the patient's presentation acutely deteriorate. It was also recommended that we refrain from using any laxatives or suppositories on the patient at this time. Today, patient was examined at bedside; they appear A&Ox3 and in NAD. Patient actually reports feeling somewhat better today after having a small bowel movement in the morning but continues to have difficulty having a complete BM. Vitals/labs today significant for WBC 21.7->21.5, hemoglobin 12.0, blood glucose 243, corrected calcium 9.0->8.2. Physical exam notable for continued abdominal distention but bowel sounds are present. Other than continuing to monitor patient for possible need of surgical intervention, patient will continue being treated with Rocephin IV and Flagyl IV for diverticulosis and maintained on bowel rest. Exam Vital Signs Temp Pulse Resp BP Pulse Ox O2 Del Method 98.6 F 82 18 122/80 98 Room Air 04/18/25 12:00 04/18/25 12:00 04/18/25 12:00 04/18/25 12:00 04/18/25 12:00 04/18/25 12:00 Narrative Exam General: A/O x3, uncomfortable. Skin: Warm, dry, intact, no obvious rash. Head: Normocephalic, atraumatic. Eyes: PERRL, EOMI. Anicteric, vision grossly intact. Ears: No ear pain, no ear discharge, Hearing grossly intact. Nose: No nasal discharge. Mouth/Throat: Oral mucosa moist. No obvious lesions in oropharynx. Neck: Neck supple, non-tender, no cervical lymphadenopathy. Cardiovascular: Tachycardic rate and rhythm, no murmur, no JVD or carotid bruits. +S1/S2. Respiratory: Bilateral lungs are clear to auscultation, respirations unlabored, no crackles, no wheezing. No accessory muscle use. Gastrointestinal: Distended abdomen that is tender to palpation, especially at lower abdominal regions, with pain that radiates to the back. Soft, no palpable masses. No guarding or rebound tenderness. Peristalsis present. Extremities: Symmetrical, no significant deformities. No edema, no cyanosis, no clubbing. 2+ radial pulse bilaterally, 2+ posterior tibial pulse bilaterally. Neuro: No focal deficits observed. Conversant, moving all extremities. No overt cerebellar signs/incoordination. Psychiatric: Cooperative, appropriate affect. Objective Labs 04/18/25 04:52 04/18/25 04:52 Labs: Laboratory Results - last 24 hr 04/17/25 04/17/25 04/18/25 13:55 17:46 04:52 WBC 21.5 H RBC 4.11 L Hgb 12.0 L Hct 33.5 L MCV 82 MCH 29.2 MCHC 35.8 RDW Std Deviation 36.2 Plt Count 212 D Neut % (Auto) 85 H Lymph % (Auto) 4 L [place] % (Auto) 9 Eos % (Auto) 0 Baso % (Auto) 0 Neut # (Auto) 18.3 H Lymph # (Auto) 0.9 L [place] # (Auto) 2.0 H Eos # (Auto) 0.0 Baso # (Auto) 0.1 Immature Gran # (Auto) 0.30 H Absolute Nucleated RBC 0.00 Immature Gran % 1 H Nucleated RBC % 0 Sodium 138 140 Potassium 3.4 3.6 Chloride 103 107 Carbon Dioxide 22.9 19.3 L Anion Gap 12 14 BUN 14 14 Creatinine 0.9 0.8 Estim Creat Clear Calc 89.0 40.6 L eGFR > 60 > 60 BUN/Creatinine Ratio 16 18 Glucose 173 H D 243 H D Calculated Osmolality 280 287 Lactic Acid 1.2 Calcium 9.0 8.2 L Corrected Calcium 9.0 8.2 L Phosphorus 1.6 L 3.2 Magnesium 2.0 Total Bilirubin 0.2 L D AST 17 ALT 16 Alkaline Phosphatase 108 Total Protein 5.9 Albumin 4.7 D 4.1 D Globulin 1.8 L Albumin/Globulin Ratio 2.3 H Quality Measures Quality Measures none Assessment & Plan Assessment Current Active Medications: Generic Name Dose Route Start Last Admin Trade Name Freq PRN Reason Stop Dose Admin Acetaminophen 650 mg 04/17/25 13:27 04/18/25 11:40 Acetaminophen 325 Mg Tablet PO 05/17/25 13:26 650 mg Q6H PRN Administration Fever >100.4 or Pain 1-10 Enoxaparin Sodium 40 mg 04/18/25 09:00 04/18/25 08:07 Enoxaparin Sod Inj 40 Mg/0.4 Ml Syringe SC 05/02/25 08:59 40 mg QDAY LYRIC Administration Metronidazole 500 mg in 100 mls @ 200 mls/hr 04/17/25 19:00 04/18/25 05:32 Flagyl 500 Mg Iv IV 04/24/25 18:59 200 mls/hr Q8HR LYRIC Administration Ceftriaxone Sodium 2 gm/ 50 mls @ 100 mls/hr 04/17/25 12:44 04/18/25 08:06 Sodium Chloride IV 04/24/25 12:43 100 mls/hr QDAY LYRIC Administration Sodium Chloride 1,000 mls @ 100 mls/hr 04/17/25 15:37 04/18/25 03:49 Ns IV 05/17/25 15:36 100 mls/hr .Q10H LYRIC Administration Ondansetron HCl 4 mg 04/17/25 09:45 04/17/25 10:06 Ondansetron Inj 2 Mg/Ml Inj 2 Ml IVP 05/17/25 09:44 4 mg Q6HR PRN Administration NAUSEA OR VOMITING Protocol Plan Patient is a 64-year-old M with a PMH of diverticulosis, previous significant abdominal surgeries (1974 appendectomy with rupture requiring second surgery for wound clean-out and 2021 laparoscopic-assisted repair of incarcerated umbilical hernia with mesh), CAD status post 2016 coronary stent placement x 2, COPD, asthma, T2DM, HTN, and HLD who presented on 04/17/25 with a chief complaint of abdominal pain and intractable constipation. Patient was admitted for the work- up and management of diverticulitis and obstipation. #Acute diverticulitis i/s/o severe diverticulosis #Obstipation #Hx of diverticulosis #Hx of multiple abdominal surgeries Initial presentation: abdominal pain and inability to have a BM for over 2 weeks, afebrile 04/17 CTAP showed abundant stool throughout the entire colon, diverticulitis or nonspecific colitis involving the sigmoid colon, diffuse thickening of the sigmoid colon, and colonic diverticulosis Patient's diverticulitis is likely 2/2 prolonged stool build-up from obstipation forming hardened fecaliths that have blocked colonic diverticula, allowing for a sequestered nidus for bacterial growth Obstipation itself is likely 2/2 patient's significant history of abdominal surgery which may have caused adhesions leading to impaired peristaltic movement through the bowel In the evening of 04/17, patient was reported to have rebound tenderness which led to a repeat CTAP with contrast that showed findings concerning for ischemic sigmoid colon Rx: -NPO with IV fluids -Rocephin 2 g IV qD [04/17--] -Flagyl 500 mg IV TID [04/17--] -Pain control -Avoid laxatives and suppositories -Continue to monitor for successful BM, may require an exploratory laparotomy with colostomy by General Surgery if symptoms worsen or clinical picture deteriorates #Lactic acidosis, mild and resolving 04/17 admission lactic acid 3.0, down-trended to 2.7 on the same day Likely 2/2 acute diverticulitis causing immune activation, cytokine activity, and possible local tissue hypoxia Rx: -No need to continue trending lactic acid as of 04/17 #Hypertension 04/17 admission BP 135/90 Rx: -Continue to monitor BP, may start home medications if uncontrolled #T2DM 04/17 admission blood glucose 243, hemoglobin A1c 6.8 On home metformin 500 mg BID Rx: -Continue to monitor blood glucose levels q6HR -Will consider starting ISS if uncontrolled Hospital Management: Disposition: Med Surg Diet: NPO (may take PO meds w/ sips of water) GI Prophylaxis: Not Indicated Bowel Prophylaxis: Per General Surgery, avoid for now DVT Prophylaxis: Lovenox 40 mg SC qD CODE STATUS: Full Code I have examined the patient and conferred with my attending, Dr. Gardiner, and my senior resident, Dr. Le, regarding them. Jl Durant DO PGY-1 Internal Medicine Attending Provider Attestation/Addendum I have discussed and was present for the essential components of the history, physical examination, diagnosis, and treatment plan with the resident. I agree with the patient's care as documented by the resident and amended herein by me. Bong Gardiner DO. Although this document has been carefully reviewed, there may still be some phonetic and other typographical errors. These errors are purely grammatical due to imperfections in the software program and should not be construed in any way to compromise the substance of the patient's medical care during this visit. Will continue broad-spectrum antibiotics to include ceftriaxone and Flagyl, patient made n.p.o., will hold all laxatives for now, general surgery consulted will follow, patient stable for now actually feels improved today, will continue to monitor closely, likely DC in 2 to 3 days pending improvement and specialist recommendations
[2025-04-19] VITALS (33 sets, daily range): BP systolic 81–189; BP diastolic 56–117; PULSE 79–132; RESP 12–28; TEMP 36.4–37.1; O2SAT 93–100; BMI 31.8
[2025-04-19] MEDS: MORPHINE SULF INJ 4 MG/ML VIAL 2 MG IVP ×2 (00:04→05:22)
[2025-04-19] MEDS: SODIUM CHLORIDE 0.9% 1000 ML 1,000 ML 100 ML IV ×2 (00:46→19:28)
--- NOTE | 2025-04-19 04:17 | XR_ITS ---
EXAMINATION: AP chest single view TECHNIQUE: AP portable upright chest single view Date and time: April 19, 2025, 0440 hours INDICATIONS: Post orogastric tube placement FINDINGS: Orogastric tube sidehole at the GE junction Normal heart size Lungs are clear. IMPRESSION: Advance the orogastric tube 5 cm
--- NOTE | 2025-04-19 04:22 | PC.NURSE ---
seen and examined by Dr. Steph brar/ orders made and carried out.
[2025-04-19] MEDS: metroNIDAZOLE/NS 500 MG IVPB 500 MG/100 ML BAG 200 MG IV ×2 (05:23→21:03)
--- NOTE | 2025-04-19 05:44 | XR_ITS ---
Examination: CT abdomen with intravenous contrast CT pelvis with intravenous contrast 2-D coronal reconstructions 2-D sagittal reconstructions Date and time of exam: April 19, 2025, 1018 hours, comparison April 17, 2025 INDICATIONS: Abdominal pain rebound tenderness, peritoneum peritonitis clinical diagnosis, abnormal sigmoid colon with marked wall thickening and inflammatory change air droplets in the wall of the colon on CT study April 17, 2025. CTDI: vol (mGy) 8.66 DLP: (mGycm) 600 Technique: Multiple axial sections of the abdomen and pelvis have been obtained. 64 slice high-resolution scanner used. 3 mm axial sections have been obtained, post intravenous injection 70 cc [id number] 2-D sagittal, coronal reconstructions obtained. Low dose protocols were performed. One or more of the following dose reduction techniques were used; automated exposure control, adjustment of the mA and/or KV according to patient size, use of iterative reconstruction technique. Findings: Pericardial effusion anteriorly measuring up to 13 mm Prominent pneumoperitoneum Fluid peripheral subcapsular to the liver, fatty infiltration throughout the liver Large right renal cyst again noted The spleen is not enlarged No pancreatic mass No renal or ureteral calculi Abdominal artery calcification no aneurysmal dilatation Multiple free droplets of air outside the irvin of the colon and small bowel Markedly abnormal sigmoid colon with wall thickening and inflammatory change and air droplets in the wall of the sigmoid colon Contracted urinary bladder Prominent osteopenia IMPRESSION: Pericardial effusion Prominent pneumoperitoneum Free fluid in the abdomen including peripheral to the liver Markedly abnormal sigmoid colon, wall thickening, marked inflammatory change air droplets in the wall of the sigmoid colon and outside of the sigmoid colon, consider ischemic colon, clinical correlation advised
[2025-04-19 05:54] LABS: Basophils # (Auto) 0.1 Thou/mm3 (0.0-0.2); Basophils % (Auto) 1 % (0-2.5); Eosinophils # (Auto) 0.0 Thou/mm3 (0.0-0.5); Eosinophils % (Auto) 1 % (0-10); Hematocrit 38.3 % (41.0-53.0); Hemoglobin 13.2 g/dL (13.5-16.0); Immature Granulocytes Auto 0.03 Thou/mm3 (0.00-0.00); Lymphocytes # (Auto) 0.6 Thou/mm3 (1.0-4.8); Lymphocytes % (Auto) 9 % (10-50); Mean Corpuscular HGB Conc 34.5 g/dl (31.0-37.0); Mean Corpuscular Hemoglobin 28.8 pg (25.0-35.0); Mean Corpuscular Volume 83 fL (80-100); Monocytes # (Auto) 0.5 Thou/mm3 (0.0-0.8); Monocytes % (Auto) 7 % (0-12); Neutrophils # (Auto) 5.6 Thou/mm3 (1.8-7.7); Neutrophils % (Auto) 82 % (37-80); Nucleated Red Blood Cell # 0.00 Thou/mm3 (0.00-0.00); Nucleated Red Blood Cell % 0 /100 WBC (0); Platelet Count 334 Thou/mm3 (140-440); RDW Standard Deviation 38.8 fL (35.1-43.9); Red Blood Count 4.59 Miln/mm3 (4.50-5.90); White Blood Count 6.8 Thou/mm3 (3.8-10.6)
--- NOTE | 2025-04-19 06:01 | PC.NURSE ---
called watch train inspector re stat ct abdomen/pelvis with contrast ordered- Per watch train inspector pt had 2 ct scan abdomen with contrast done yesterday, and he will first check if it's okay to do a 3rd one or wait a few more days before getting another one due to the contrast.
[2025-04-19 06:15] LABS: Alanine Aminotransferase 17 U/L (10-49); Albumin, Serum 4.1 gm/dL (3.4-4.8); Albumin/Globulin Ratio 2.1 (1.2-2.2); Alkaline Phosphatase 111 U/L (46-116); Anion Gap 14 (7-16); Aspartate Amino Transferase 15 U/L (0-34); BUN/Creatinine Ratio 16 Ratio (12-20); Bilirubin,Total 0.6 mg/dL (0.3-1.2); Blood Urea Nitrogen 13 mg/dL (9-23); Calcium 9.4 mg/dL (8.3-10.6); Calcium (Corrected) 9.4 mg/dL (8.5-10.1); Carbon Dioxide 21.7 mMol/L (20.0-31.0); Chloride 105 mMol/L (98-107); Creatinine (Component) 0.8 mg/dL (0.6-1.3); Estimated Creatinine Clearance 100.4 mL/min (>60); Globulin 2.0 gm/dL (2.3-3.5); Glucose 258 mg/dL (74-106); Osmolality,Calculated 290 (275-295); Potassium 3.4 mMol/L (3.4-5.1); Sodium 141 mMol/L (136-145); Total Protein 6.1 gm/dL (5.7-8.2); eGFR > 60 See Note
[2025-04-19] MEDS: ENOXAPARIN SOD INJ 40 MG/0.4 ML SYRINGE SC (08:49)
[2025-04-19] MEDS: cefTRIAXone 2 GM in SODIUM CHLORIDE 0.9% (Popper) 50 ML IV (09:31)
--- NOTE | 2025-04-19 10:31 | PD.SURPROG ---
Documentation for date of: 04/19/25 Subjective Subjective Narrative: Patient is seen and examined. He states that his pain is improving. He had an episode of emesis last night, an NG tube was placed. Exam Vital Signs Temp Pulse Resp BP Pulse Ox O2 Del Method O2 Flow Rate 97.6 F 86 18 126/68 93 L Nasal Cannula 2 04/19/25 07:31 04/19/25 07:31 04/19/25 07:31 04/19/25 07:31 04/19/25 07:31 04/19/25 07:31 04/19/25 07:31 Constitutional Constitutional: no acute distress Routine Abdominal Exam Comments: Abdomen is soft and nondistended. He has localized left lower quadrant tenderness and suprapubic tenderness to palpation with guarding, no rebound tenderness or peritonitis at this time Assessment & Plan Assessment Additional comments: Sigmoid diverticulitis. His pain is improving and his WBC is normal Plan Continue IV antibiotics. May clamp the NG tube and keep NPO. May use incentive spirometer and increase ambulation
[2025-04-19] MEDS: INSULIN LISPRO (AdmeLOG) 1 UNIT/0.01 ML UNIT SC ×3 (11:58→23:39)
--- NOTE | 2025-04-19 16:16 | PD.RESPRO ---
Documentation for date of: 04/19/25 Subjective Subjective Interval history: Patient is seen and examined at bedside. Overnight, patient noted to have worsening abdominal pain for which NG tube was placed and repeat CT angio abdomen/pelvis is done and noted to have pneumoperitoneum this morning. On examination, patient noted to have brownish fluid from the NG tube suction and reported that he is feeling better but on examination noted to have severe tenderness. Consulted general surgeon, Dr. Malone and he took the patient to the OR. Exam Vital Signs Temp Pulse Resp BP Pulse Ox O2 Del Method O2 Flow Rate 98.8 F 103 H 20 127/72 96 Nasal Cannula 2 04/19/25 11:42 04/19/25 11:42 04/19/25 11:42 04/19/25 11:42 04/19/25 11:42 04/19/25 11:42 04/19/25 11:42 Narrative Exam General: Awake. HEENT: Normocephalic, atraumatic, mucous membranes moist. Heart: Regular rate and rhythm, no murmurs. Lungs: Clear to auscultation with no wheezing or crackles. Abdomen: Soft, moderate to severely distended, severe tenderness throuhout the abdomen, decreased to absent bowel sounds. ? Neurologic: Alert and oriented x3, no gross neurological deficit, and patient able to move all 4 extremities. Extremities: No edema. Skin: No rash or ecchymoses. Objective Labs 04/19/25 04:55 04/19/25 04:55 Labs: Laboratory Results - last 24 hr 04/19/25 04:55 WBC 6.8 D RBC 4.59 Hgb 13.2 L Hct 38.3 L MCV 83 MCH 28.8 MCHC 34.5 RDW Std Deviation 38.8 Plt Count 334 D Neut % (Auto) 82 H Lymph % (Auto) 9 L [place] % (Auto) 7 Eos % (Auto) 1 Baso % (Auto) 1 Neut # (Auto) 5.6 Lymph # (Auto) 0.6 L [place] # (Auto) 0.5 Eos # (Auto) 0.0 Baso # (Auto) 0.1 Immature Gran # (Auto) 0.03 H Absolute Nucleated RBC 0.00 Immature Gran % 0 Nucleated RBC % 0 Sodium 141 Potassium 3.4 Chloride 105 Carbon Dioxide 21.7 Anion Gap 14 BUN 13 Creatinine 0.8 Estim Creat Clear Calc 100.4 eGFR > 60 BUN/Creatinine Ratio 16 Glucose 258 H Calculated Osmolality 290 Calcium 9.4 Corrected Calcium 9.4 Total Bilirubin 0.6 AST 15 ALT 17 Alkaline Phosphatase 111 Total Protein 6.1 Albumin 4.1 Globulin 2.0 L Albumin/Globulin Ratio 2.1 Quality Measures Quality Measures none Assessment & Plan Assessment Current Active Medications: Generic Name Dose Route Start Last Admin Trade Name Freq PRN Reason Stop Dose Admin Acetaminophen 650 mg 04/19/25 08:33 Acetaminophen 325 Mg Tablet PO 05/17/25 13:26 Q6H PRN Fever >100.4 or Pain 1-3 Dextrose 25 ml 04/19/25 08:30 Dextrose 50%-Water Inj 50 Ml Syringe IV 05/19/25 08:29 Q15MIN PRN BG 50-70 responsive npo pt Dextrose 50 ml 04/19/25 08:30 Dextrose 50%-Water Inj 50 Ml Syringe IV 05/19/25 08:29 Q15MIN PRN BG <50 OR BG <70 & pt unresponsive Enoxaparin Sodium 40 mg 04/18/25 09:00 04/19/25 08:49 Enoxaparin Sod Inj 40 Mg/0.4 Ml Syringe SC 05/02/25 08:59 40 mg QDAY LYRIC Administration Glucagon 1 mg 04/19/25 08:30 Glucagon Inj 1 Mg Vial IM Q15MIN PRN BG <70, and no IV access Hydromorphone HCl 0.5 mg 04/19/25 08:32 Hydromorphone Inj 2 Mg/Ml Vial IVP 04/24/25 08:31 Q4HR PRN BREAKTHROUGH PAIN (SEVERE) Metronidazole 500 mg in 100 mls @ 200 mls/hr 04/17/25 19:00 04/19/25 14:06 Flagyl 500 Mg Iv IV 04/24/25 18:59 Not Given Q8HR LYRIC Ceftriaxone Sodium 2 gm/ 50 mls @ 100 mls/hr 04/17/25 12:44 04/19/25 09:31 Sodium Chloride IV 04/24/25 12:43 100 mls/hr QDAY LYRIC Administration Sodium Chloride 1,000 mls @ 100 mls/hr 04/17/25 15:37 04/19/25 00:46 Ns IV 05/17/25 15:36 100 mls/hr .Q10H LYRIC Administration Insulin Human Lispro 0 unit 04/19/25 12:00 04/19/25 11:58 Insulin Lispro (Admelog) 1 Unit/0.01 Ml Unit SC 05/19/25 11:59 3 unit Q6HR LYRIC Administration Protocol Ondansetron HCl 4 mg 04/17/25 09:45 04/17/25 10:06 Ondansetron Inj 2 Mg/Ml Inj 2 Ml IVP 05/17/25 09:44 4 mg Q6HR PRN Administration NAUSEA OR VOMITING Protocol Plan Patient is a 64-year-old M with a PMH of diverticulosis, previous significant abdominal surgeries (1974 appendectomy with rupture requiring second surgery for wound clean-out and 2021 laparoscopic-assisted repair of incarcerated umbilical hernia with mesh), CAD status post 2016 coronary stent placement x 2, COPD, asthma, T2DM, HTN, and HLD who presented on 04/17/25 with a chief complaint of abdominal pain and intractable constipation. Patient was admitted for the work-up and management of diverticulitis and obstipation. #Bowel perforation #Pneumoperitoneum in setting of bowel perforation and diverticulitis #Acute diverticulitis #Exploratory laparotomy #Obstipation #Hx of diverticulosis #Hx of multiple abdominal surgeries Initial presentation: abdominal pain and inability to have a BM for over 2 weeks, afebrile 04/17 CTAP showed abundant stool throughout the entire colon, diverticulitis or nonspecific colitis involving the sigmoid colon, diffuse thickening of the sigmoid colon, and colonic diverticulosis Patient's diverticulitis is likely 2/2 prolonged stool build-up from obstipation forming hardened fecaliths that have blocked colonic diverticula, allowing for a sequestered nidus for bacterial growth Obstipation itself is likely 2/2 patient's significant history of abdominal surgery which may have caused adhesions leading to impaired peristaltic movement through the bowel In the evening of 04/17, patient was reported to have rebound tenderness which led to a repeat CTAP with contrast that showed findings concerning for ischemic sigmoid colon Rx: -NPO with IV fluids -Exploratory Laparotomy -Rocephin 2 g IV qD [04/17--] -Flagyl 500 mg IV TID [04/17--] -Pain control #Lactic acidosis, resolved 04/17 admission lactic acid 3.0, down-trended to 1.7 on 04/17 Likely 2/2 acute diverticulitis causing immune activation, cytokine activity, and possible local tissue hypoxia Rx: -No need to continue trending lactic acid as of 04/17 #Hypertension 04/17 admission BP 135/90 Rx: -Continue to monitor BP, may start home medications if uncontrolled #T2DM 04/17 admission blood glucose 243, hemoglobin A1c 6.8 On home metformin 500 mg BID Rx: -Continue to monitor blood glucose levels q6HR -Will consider starting ISS if uncontrolled Hospital Management: Disposition: Med Surg Diet: NPO (may take PO meds w/ sips of water) GI Prophylaxis: Not Indicated Bowel Prophylaxis: Per General Surgery, avoid for now DVT Prophylaxis: Lovenox 40 mg SC qD CODE STATUS: Full Code Patient plan of care was discussed with the attending physician, Dr. Abdifatah Scott, PGY2 Attending Provider Attestation/Addendum I have discussed and was present for the essential components of the history, physical examination, diagnosis, and treatment plan with the resident. I agree with the patient's care as documented by the resident and amended herein by me. Bong Gardiner DO. Although this document has been carefully reviewed, there may still be some phonetic and other typographical errors. These errors are purely grammatical due to imperfections in the software program and should not be construed in any way to compromise the substance of the patient's medical care during this visit.
--- NOTE | 2025-04-19 17:24 | PD.SUROPNT ---
Date of Procedure 04/19/25 Pre Op Diagnosis Perforated sigmoid diverticulitis Post Op Diagnosis Perforated sigmoid diverticulitis with feculent peritonitis Procedure Exploratory laparotomy sigmoid colectomy and abdominal washout Findings Dilated and inflamed sigmoid colon with perforation, copious amount of feces and feculent fluid throughout the abdomen Procedure Description Patient brought into operating room and spine position. After administration of general endotracheal anesthesia, patient's abdomen prepped and draped in standard surgical manner. A laparotomy incision was made from the umbilicus and extended to suprapubic region. Anterior abdominal fascia was divided. Patient was noted to have a periumbilical mesh from previous operation with some adhesions of omentum. Upon entering the abdominal cavity patient was noted to have copious amount of foul-smelling feculent fluid and significant amount of feces throughout the abdomen. The incision was extended to above the umbilicus and a Bookwalter retractor was placed for adequate exposure. The abdomen and pelvis then copiously and thoroughly washed and irrigated. There were significant amount of inflammatory reaction in the pelvis. The small bowel was from the sigmoid colon and retracted cephalad. The sigmoid colon was significantly dilated, with purpleish discoloration and perforation. Sigmoid colon and descending colon was mobilized by dividing the white line of [place]. The junction between sigmoid colon and descending colon was divided with MELANIE stapling device. The mesocolon was ligated with Enseal harmonic device. Inferior mesenteric artery and vein were ligated with 0 silk tie. The proximal aspect of the rectum was mobilized by dividing the mesorectum. The proximal rectum was divided with TA stapling device. The mesentery was ligated with Enseal harmonic device. Sigmoid colon was removed. Abdomen and pelvis copiously and thoroughly washed and irrigated. Because of the amount of contamination I elected to leave the abdomen open and bring the patient back in 24 to 48 hours for abdominal washout and creation of colostomy. Omentum was retracted to the pelvis to cover the bowel. I sterile plastic covering was placed over the omentum and this was covered with a wet towel. Wound VAC sponge was placed over the wet towel and the wound VAC was connected to suction. Patient remained intubated and will be transferred to intensive care unit. Instruments, needles and sponge counts were reported to be correct x 2. Anesthesia GETA Pathology / specimen Other (Sigmoid colon) Estimated Blood Loss 50 Condition Stable Disposition ICU Surgeon Tania Malone MD Surgical Staff Operation Date: 04/21/25 09:15 <No data on this case meets the specified criteria>
[2025-04-19] MEDS: DEXMEDETOMIDINE 400 MCG IVPB 400 MCG/100 ML BAG IV (18:16)
[2025-04-19] MEDS: fentaNYL 2,500 MCG/250 ML BAG 2,500 MCG/250 ML BAG IV (18:17)
--- NOTE | 2025-04-19 18:20 | EKG_ITS ---
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
--- NOTE | 2025-04-19 18:20 | XR_ITS ---
EXAMINATION: AP chest single view TECHNIQUE: AP portable semiupright chest single view Date and time: April 19, 2025, 1831 hours INDICATIONS: Chest pain post laparotomy today. FINDINGS: Opacity left base, atelectasis versus pneumonia Endotracheal tube tip 5.4 cm above puma Orogastric tube sidehole is at the GE junction Normal heart size IMPRESSION: Atelectasis versus mild aspiration pneumonia right base, clinical correlation advised Advance the orogastric tube 5 cm
[2025-04-19] MEDS: MIDAZOLAM INJ 1 MG/ML VIAL 2 ML 2 MG IVP (18:34)
[2025-04-19] MEDS: PROPOFOL 1,000 MG IVPB 1,000 MG/100 ML VIAL 2.764 MG IV (18:34)
--- NOTE | 2025-04-19 18:38 | PC.RT ---
Patient recieved from OR intubated with an 8.0 ETT at 23 cm to the teeth, and patient placed on mechanical ventilation, targeting 6-7 mL/kg with VT of 500, RR 16, .+5. ETT patent and secured. Patient tolerating settings as charted. ventilator alarms on and audible.
--- NOTE | 2025-04-19 18:46 | PC.RT ---
ETT advanced from 23 cm to the teeth to 25 cm to the teeth per Yuliya
[2025-04-19 19:18] LABS: Base Excess -6 (-3-3); HCO3 21 mEq/L (20-26); Inspired Oxygen, FIO2 21 %; O2 Saturation 100 % (91-98); PCO2 44 mmHg (32.0-48.0); PO2 297 mmHg (83-108); pH, Arterial 7.29 (7.35-7.45)
[2025-04-19 19:19] LABS: Allen Test Performed/OK; Puncture Site Left Radial
[2025-04-19] MEDS: Magnesium Sulfate 2 GM Ivpb 2 GM/50 ML BAG IV ×3 (19:28→20:48)
--- NOTE | 2025-04-19 19:31 | ESPR_ITS ---
Documentation for date of: 04/19/25 Subjective Subjective Interval history: This patient is a 64-year-old male with a history of diverticulosis, appendectomy, s/p repair of incarcerated hernia, CAD status post stents x 2, COPD, asthma, hypertension, HLD, and T2DM who presented to [facility] ED on 04/17 for lower abdominal pain and lack of bowel movement for 1 to 2 weeks. The patient was initially admitted to the medical floors for management of diverticulitis and obstipation, but was upgraded to the ICU for continued mechanical ventilation after an exploratory laparotomy performed on 04/19. According to chart review, the patient was taking loperamide prior to his symptoms about 2 weeks ago, and since then, the patient has been having abdominal pain and lack of bowel movements. Initial CT abdomen/pelvis showed wall thickening and marked inflammatory changes in the sigmoid colon, suspicious for venous air seen with ischemic bowel. The patient was initially managed conservatively with being made n.p.o. with IV fluids and a combination of ceftriaxone and metronidazole. However, on 04/19, repeat CT abdomen/pelvis showed prominent pneumoperitoneum and free fluid in the abdomen, so the patient was urgently taken to the operating room for exploratory laparotomy. During the procedure, it was found that the patient had a perforated sigmoid diverticulitis with feculent peritonitis. The patient's sigmoid colon was removed and the abdomen and pelvis were copiously washed and irrigated during the procedure. General surgery left the abdomen open and plans to have an abdominal washout, creation of colostomy, and closure of the abdomen on Saturday 04/21. Until then, general surgery would like to keep the patient intubated and sedated, hence the need for ICU level care. Exam Vital Signs Temp Pulse Resp BP Pulse Ox O2 Del Method O2 Flow Rate 98.8 F 130 H 20 189/117 H 100 Nasal Cannula 2 04/19/25 11:42 04/19/25 18:09 04/19/25 11:42 04/19/25 18:09 04/19/25 18:09 04/19/25 11:42 04/19/25 11:42 FiO2 100 04/19/25 18:09 Narrative Exam Physical Exam: General: Sedated, no acute distress. Intubated. Skin: Warm, dry, intact. Head: Normocephalic, atraumatic. Throat: No obvious lesions in oropharynx. NG tube in place. Cardiovascular: Tachycardic rate and regular rhythm, no murmur, +S1/S2. Respiratory: Lungs are clear to auscultation, respirations unlabored, no crackles, no wheezing. Gastrointestinal: Distended with longitudinal incision across a significant length of patient's abdomen, covered by black material over the incision. Transparent wound vac in place with wound vac tube present. : Scrotum erythematous in color but did not appear swollen or inflammed. Jones catheter in place. Extremities: No edema, no cyanosis, no clubbing. 1-2s capillary refill in fingers bilaterally. Lower extremities pale, cool to touch, with 1+ edema and difficulty appreciating capillary refill, but 2+ pedal pulse present bilaterally. Objective Labs 04/19/25 04:55 04/19/25 04:55 Labs: Laboratory Results - last 24 hr 04/19/25 04/19/25 04:55 19:07 WBC 6.8 D RBC 4.59 Hgb 13.2 L Hct 38.3 L MCV 83 MCH 28.8 MCHC 34.5 RDW Std Deviation 38.8 Plt Count 334 D Neut % (Auto) 82 H Lymph % (Auto) 9 L [place] % (Auto) 7 Eos % (Auto) 1 Baso % (Auto) 1 Neut # (Auto) 5.6 Lymph # (Auto) 0.6 L [place] # (Auto) 0.5 Eos # (Auto) 0.0 Baso # (Auto) 0.1 Immature Gran # (Auto) 0.03 H Absolute Nucleated RBC 0.00 Immature Gran % 0 Nucleated RBC % 0 Puncture Site Left Radial ABG pH 7.29 L ABG pCO2 44 ABG pO2 297 H ABG HCO3 21 ABG O2 Saturation 100 H ABG Base Excess -6 L FiO2 21 Sodium 141 Potassium 3.4 Chloride 105 Carbon Dioxide 21.7 Anion Gap 14 BUN 13 Creatinine 0.8 Estim Creat Clear Calc 100.4 eGFR > 60 BUN/Creatinine Ratio 16 Glucose 258 H Calculated Osmolality 290 Calcium 9.4 Corrected Calcium 9.4 Total Bilirubin 0.6 AST 15 ALT 17 Alkaline Phosphatase 111 Total Protein 6.1 Albumin 4.1 Globulin 2.0 L Albumin/Globulin Ratio 2.1 ABG Interpretation ABG results: 04/19/25 19:07 ABG pH 7.29 L ABG pCO2 44 ABG pO2 297 H ABG HCO3 21 ABG O2 Saturation 100 H ABG Base Excess -6 L Quality Measures Quality Measures VTE prophylaxis Assessment & Plan Assessment Current Active Medications: Generic Name Dose Route Start Last Admin Trade Name Tamir PRN Reason Stop Dose Admin Acetaminophen 650 mg 04/19/25 08:33 Acetaminophen 325 Mg Tablet PO 05/17/25 13:26 Q6H PRN Fever >100.4 or Pain 1-3 Dextrose 25 ml 04/19/25 08:30 Dextrose 50%-Water Inj 50 Ml Syringe IV 05/19/25 08:29 Q15MIN PRN BG 50-70 responsive npo pt Dextrose 50 ml 04/19/25 08:30 Dextrose 50%-Water Inj 50 Ml Syringe IV 05/19/25 08:29 Q15MIN PRN BG <50 OR BG <70 & pt unresponsive Enoxaparin Sodium 40 mg 04/18/25 09:00 04/19/25 08:49 Enoxaparin Sod Inj 40 Mg/0.4 Ml Syringe SC 05/02/25 08:59 40 mg QDAY LYRIC Administration Glucagon 1 mg 04/19/25 08:30 Glucagon Inj 1 Mg Vial IM Q15MIN PRN BG <70, and no IV access Hydromorphone HCl 0.5 mg 04/19/25 08:32 Hydromorphone Inj 2 Mg/Ml Vial IVP 04/24/25 08:31 Q4HR PRN BREAKTHROUGH PAIN (SEVERE) Metronidazole 500 mg in 100 mls @ 200 mls/hr 04/17/25 19:00 04/19/25 14:06 Flagyl 500 Mg Iv IV 04/24/25 18:59 Not Given Q8HR LYRIC Ceftriaxone Sodium 2 gm/ 50 mls @ 100 mls/hr 04/17/25 12:44 04/19/25 09:31 Sodium Chloride IV 04/24/25 12:43 100 mls/hr QDAY LYRIC Administration Sodium Chloride 1,000 mls @ 100 mls/hr 04/17/25 15:37 04/19/25 19:28 Ns IV 05/17/25 15:36 100 mls/hr .Q10H LYRIC Administration Fentanyl Citrate 2,500 mcg in 250 mls @ 2.5 mls/hr 04/19/25 18:03 04/19/25 19:00 Sublimaze Inj 2,500 Mcg/250 Ml Bag IV 04/24/25 18:02 100 mcg/hr .Q24H PRN 10 mls/hr PER PROTOCOL Titration Protocol 25 MCG/HR Propofol 1,000 mg in 100 mls @ 2.764 mls/hr 04/19/25 18:18 04/19/25 19:05 Diprivan Ivpb IV 05/19/25 18:17 30 mcg/kg/min .Q24H PRN 16.584 mls/hr PER PROTOCOL Titration Protocol 5 MCG/KG/MIN Magnesium Sulfate 2 gm in 50 mls @ 25 mls/hr 04/19/25 19:05 04/19/25 19:28 Magnesium Sulfate Ivpb IV 04/19/25 21:04 25 mls/hr X1 ONE Administration Insulin Human Lispro 0 unit 04/19/25 12:00 04/19/25 11:58 Insulin Lispro (Admelog) 1 Unit/0.01 Ml Unit SC 05/19/25 11:59 3 unit Q6HR LYRIC Administration Protocol Ondansetron HCl 4 mg 04/17/25 09:45 04/17/25 10:06 Ondansetron Inj 2 Mg/Ml Inj 2 Ml IVP 05/17/25 09:44 4 mg Q6HR PRN Administration NAUSEA OR VOMITING Protocol Pantoprazole Sodium 40 mg 04/19/25 18:45 04/19/25 19:28 Pantoprazole Inj 40 Mg Vial IVP 05/19/25 18:44 40 mg QDAY LYRIC Administration Sodium Chloride 5 ml 04/19/25 18:06 Sodium Chloride Rt 10% 15 Ml Nebu INH 05/19/25 18:05 X1 PRN SECRETIONS Plan This patient is a 64-year-old male with a history of diverticulosis, appendectomy, s/p repair of incarcerated hernia, CAD status post stents x 2, COPD, asthma, hypertension, HLD, and T2DM who presented to [facility] ED on 04/17 for lower abdominal pain and lack of bowel movement for 1 to 2 weeks. The patient was initially admitted to the medical floors for management of diverticulitis and obstipation, but was upgraded to the ICU for continued mechanical ventilation after an exploratory laparotomy performed on 04/19. NEURO #Sedated Dx: Patient is sedated postop, will remain sedated until patient is taken for closure on 04/21 Rx: Fentanyl gtt. Propofol gtt. 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 Cobb and the patient's family regarding the patient's cardiac history and if the patient should resume his home aspirin 81 mg daily PULM #Intubated, on mechanical ventilation Dx: Patient was sedated, intubated, and mechanically ventilated during his exploratory laparotomy on 04/19 and remains intubated on transferred to the ICU on 04/19 Rx: Will continue mechanical ventilation without plans to wean the patient off until 04/21 when the patient is planned to have closure of his abdomen Will start with low tidal volume of 6 cc/kg and PEEP 5-10 as to not put too much pressure on the patient's abdomen CXR ordered post op 04/19, pending GI #Perforated diverticulitis #Surgical removal of sigmoid colon Dx: CT abdomen/pelvis on showed prominent pneumoperitoneum and free fluid in the patient's abdomen, so the patient was taken urgently to the operating room for exploratory laparotomy Patient was found to have perforated sigmoid diverticulitis with feculent peritonitis during 04/19 exploratory laparotomy Per operative note, the patient's sigmoid colon was removed Blood cultures collected 04/17 negative for growth after 48 hours Rx: General Surgery plans to perform washout, create colostomy, and close the abdomen on 04/21 Continue ceftriaxone and metronidazole (04/17?) Patient n.p.o. NG and wound VAC tube set to low intermittent suction Repeat CBC and CMP postop Follow-up: If patient shows signs of shock, will have low threshold to broaden antibiotic coverage with Zosyn NEPHRO #Lactic acidosis, resolved #Hypokalemia, resolved #Hyponatremia, resolved URO #Jones catheter inserted Dx: Patient was transferred to the ICU with Jones catheter in place Patient does take tamsulosin at home, but does not have any documented history of BPH at this institution Rx: Will keep Jones catheter in place for closer monitoring of urine output as a surrogate for renal perfusion HEME #Leukocytosis Dx: Patient presented with WBC of 21.7 on admission Patient did have a sharp drop of WBC to 6.8 on 04/19 in the a.m. prior to surgery Leukocytosis is likely secondary to the patient's diverticulitis on admission Rx: Continue with antibiotics as noted above Repeat CBC Will expect continued elevation as the patient is postop ENDO #Jrn-coiccia-yqzsuyjoc type 2 diabetes mellitus Dx: Patient has takes metformin at home Hemoglobin A1c 6.8% on admission Rx: Sliding scale insulin Bedside glucose checks every 6 hours Will plan for carb consistent diet once patient has been cleared for oral diet ID #No active problems MSK #No active problems SKIN #No active problems Feeding/fluids: NPO Analgesia: Fentanyl Sedation: Propofol and Fentanyl Thromboprophylaxis: Lovenox Head up position: 30 degrees Ulcer prophylaxis: Protonix Glycemic control: Q6h glucose checks Spontaneous breathing trial: N/A, AC/VC Bowel care: N/A Indwelling catheters: Jones Deescalation of antibiotics: Ceftriaxone & Metronidazole CODE STATUS: Full Reason for ICU care: Intubated patient mechanically ventilated and sedated s/p ex lap Patient plan of care was discussed with the attending tractor operator helper, Dr. Teixeira. Schuyler Kovacs, PGY-1
--- NOTE | 2025-04-19 19:53 | ECHO_ITS ---
Patient Info Name: Fawad Blank Age: 64 years : 1960 Gender: Male Ht: 168 cm Wt: 92 kg BSA: 2.10 m2 BP: 91 / 58 mmHg HR: 86 bpm Exam Date: 04/20/2025 8:58 AM Admit Date: 04/17/2025 Site: [facility] Room Number: [id number] Patient Status: I Technical Quality: Poor Exam Type: CA echo doppler complete Reason for Poor Study: patient intubated, poor echocardiographic windows Epic [facility] Specialists: Shira Garcia Ordering Physician: Schuyler Kovacs Study Info Indications BLE edema, want to assess for any heart failure - Primary Location: S2SX Left Ventricular Outflow Tract Name Value Normal LVOT 2D LVOT Diameter 2.0 cm LVOT Doppler LVOT Peak Velocity 67 cm/s LVOT Mean Gradient 1 mmHg LVOT VTI 11 cm LVOT VTI/AV VTI Ratio 0.9 LVOT Stroke Volume 34 ml Mitral Valve Name Value Normal MV Doppler MV Decel Mcdonough 160 cm/s2 MV PHT 64 ms MV Area (PHT) 3.4 cm2 4.0-5.0 MV Diastolic Function MV E Peak Velocity 35 cm/s MV A Peak Velocity 58 cm/s MV E/A 0.6 MV Annular TDI MV Septal e' Velocity 7.9 cm/s MV E/e' (Septal) 4.5 MV Lateral e' Velocity 9.4 cm/s MV E/e' (Lateral) 3.8 MV e' Average 8.62 cm/s MV E/e' (Average) 4.1 Tricuspid Valve Name Value Normal TV Regurgitation Doppler TR Peak Velocity 150 cm/s Estimated PAP/RSVP RA Pressure 8 mmHg <=5 PA Systolic Pressure 17 mmHg <36 RV Systolic Pressure 17 mmHg <36 Aortic Valve Name Value Normal AV Doppler AV Peak Velocity 94 cm/s AV Mean Gradient 2 mmHg AV VTI 13 cm AV Area (Cont Eq VTI) 2.7 cm2 >=3.0 AV Area (Cont Eq Amandeep) 2.2 cm2 AV DI (Amandeep) 0.71 AV Regurgitation 2D LVOT Area 3.1 cm2 Ventricles Name Value Normal LV Dimensions 2D/MM IVS Diastolic Thickness (2D) 1.0 cm 0.6-1.0 LVID Diastole (2D) 4.8 cm 4.2-5.8 LVIW Diastolic Thickness (2D) 1.0 cm 0.6-1.0 LVID Systole (2D) 3.7 cm 2.5-4.0 LVOT Diameter 2.0 cm LV Mass (2D Cubed) 170.19 g 88.00-224.00 LV Mass Index (2D Cubed) 81 g/m2 49-115 Relative Wall Thickness (2D) 0.42 <=0.42 IVS/LVIW Diastolic Thickness (2D) 1.00 0.00-1.50 LV Fractional Shortening/Ejection Fraction 2D/MM LV Fractional Shortening (2D) 23 % 25-43 LV EF (2D Teichholz) 46 % Atria Name Value Normal LA Dimensions LA Volume (4C A-L) 23 ml LA Volume (BP A-L) 34 ml Left Ventricle Left ventricular chamber dimension is normal. Left ventricular systolic function is mildly reduced with visually estimated ejection fraction of 45-50%. There is normal geometry noted in the left ventricle. Left ventricular segmental wall motion is normal. There is grade I diastolic dysfunction in the left ventricle. Right Ventricle Right ventricular chamber dimension is normal. Right ventricular systolic function is normal. Left Atrium Left atrial chamber dimension is normal. Right Atrium Right atrial chamber dimension is normal. Aortic Valve The aortic valve is trileaflet. There is no aortic valve sclerosis. There is no aortic valve stenosis with a peak velocity of 94 cm/s, mean gradient of 2 mmHg, and aortic valve area of 2.7 cm2. There is no aortic valve regurgitation. Pulmonic Valve The pulmonic valve is normal. There is no pulmonic valve stenosis. There is no pulmonic regurgitation. Mitral Valve The mitral valve has not well visualized leaflets. There is no mitral valve stenosis. There is no mitral valve regurgitation. Tricuspid Valve The tricuspid valve leaflets are not well visualized. There is no tricuspid valve stenosis. There is trace tricuspid valve regurgitation. No pulmonary hypertension, estimated pulmonary arterial systolic pressure is 17 mmHg and systemic blood pressure of 91 mmHg in systole. Pericardium/Pleural The pericardium appears normal. There is trivial pericardial effusion with no tamponade. Pleural effusion visualized. Inferior Vena Cava Normal inferior vena cava with >50% collapse upon inspiration consistent with normal right atrial pressure, 8 mmHg. Aorta The aortic measurements are indexed to age and body surface area. The aortic root at the sinus of Valsalva is not well visualized. The prox ascending aorta is not well visualized. Summary 1. Left ventricle size is normal and systolic function is midly reduced. Estimated ejection fraction is 45-50%. There is grade I diastolic dysfunction. 2. The right ventricle is not well visualized. 3. There is trace tricuspid valve regurgitation. 4. Normal IVC with estimated RA pressure 8 mmHg. 5. No pulmonary hypertension, estimated pulmonary arterial systolic pressure is 17 mmHg and systemic blood pressure of 91 mmHg in systole. Report Signatures Finalized by Shant Rangel on 04/20/2025 05:15 PM
[2025-04-19 19:58] LABS: Alanine Aminotransferase 14 U/L (10-49); Albumin, Serum 3.6 gm/dL (3.4-4.8); Albumin/Globulin Ratio 1.9 (1.2-2.2); Alkaline Phosphatase 94 U/L (46-116); Anion Gap 12 (7-16); Aspartate Amino Transferase 18 U/L (0-34); BUN/Creatinine Ratio 17 Ratio (12-20); Bilirubin,Total 0.5 mg/dL (0.3-1.2); Blood Urea Nitrogen 17 mg/dL (9-23); Calcium 8.8 mg/dL (8.3-10.6); Calcium (Corrected) 9.1 mg/dL (8.5-10.1); Carbon Dioxide 22.2 mMol/L (20.0-31.0); Chloride 110 mMol/L (98-107); Creatinine (Component) 1.0 mg/dL (0.6-1.3); Estimated Creatinine Clearance 80.4 mL/min (>60); Globulin 1.9 gm/dL (2.3-3.5); Glucose 230 mg/dL (74-106); Magnesium 1.7 mg/dL (1.6-2.6); Osmolality,Calculated 295 (275-295); Phosphorous 3.2 mg/dL (2.4-5.1); Potassium 3.7 mMol/L (3.4-5.1); Sodium 144 mMol/L (136-145); Total Protein 5.5 gm/dL (5.7-8.2); eGFR > 60 See Note
[2025-04-19 20:42] LABS: Basophils # (Auto) 0.0 Thou/mm3 (0.0-0.2); Basophils % (Auto) 0 % (0-2.5); Eosinophils # (Auto) 0.0 Thou/mm3 (0.0-0.5); Eosinophils % (Auto) 0 % (0-10); Hematocrit 41.3 % (41.0-53.0); Hemoglobin 14.3 g/dL (13.5-16.0); Immature Granulocytes Auto 0.55 Thou/mm3 (0.00-0.00); Lymphocytes # (Auto) 0.7 Thou/mm3 (1.0-4.8); Lymphocytes % (Auto) 9 % (10-50); Mean Corpuscular HGB Conc 34.6 g/dl (31.0-37.0); Mean Corpuscular Hemoglobin 28.9 pg (25.0-35.0); Mean Corpuscular Volume 83 fL (80-100); Monocytes # (Auto) 0.5 Thou/mm3 (0.0-0.8); Monocytes % (Auto) 7 % (0-12); Neutrophils # (Auto) 5.8 Thou/mm3 (1.8-7.7); Neutrophils % (Auto) 77 % (37-80); Nucleated Red Blood Cell # 0.00 Thou/mm3 (0.00-0.00); Nucleated Red Blood Cell % 0 /100 WBC (0); Platelet Count 369 Thou/mm3 (140-440); RDW Standard Deviation 39.7 fL (35.1-43.9); Red Blood Count 4.95 Miln/mm3 (4.50-5.90); White Blood Count 7.6 Thou/mm3 (3.8-10.6)
[2025-04-19] MEDS: RINGERS LACTATED 1000 ML 1,000 ML 999 ML IV ×3 (20:43→23:40)
[2025-04-19 23:25] LABS: Base Excess -2 (-3-3); HCO3 24 mEq/L (20-26); Inspired Oxygen, FIO2 60 %; O2 Saturation 79 % (91-98); PCO2 45 mmHg (32.0-48.0); pH, Arterial 7.34 (7.35-7.45)
[2025-04-19] MEDS: PROPOFOL 1,000 MG IVPB 1,000 MG/100 ML VIAL 16.584 MG IV (23:25)
[2025-04-19 23:29] LABS: PO2 43 mmHg (83-108)
[2025-04-19 23:30] LABS: Allen Test Performed/OK; Puncture Site Left Radial
[2025-04-20] VITALS (116 sets, daily range): BP systolic 74–124; BP diastolic 41–88; PULSE 52–140; RESP 14–24; TEMP 37.1–38.3; O2SAT 95–100; BMI 31.8
--- NOTE | 2025-04-20 | XR_ITS ---
Examination: Retroperitoneal ultrasound, complete Technique: Multiple high resolution grayscale images of the retroperitoneum obtained, including kidneys and bladder. Exam date and time: April 20, 2025, 0049 hours INDICATIONS: Decreased urine output today FINDINGS: Right kidney 16.9 cm renal cortex 2.0 cm 9.3 cm cyst upper pole Left kidney 14.1 cm renal cortex 1.9 cm Moderate renal scarring No hydronephrosis No diagnostic visualization of the bladder IMPRESSION: Large right renal cyst Moderate renal scarring No hydronephrosis or renal calculi
[2025-04-20] MEDS: Norepinephrine/D5W 8mg/250ml 8 MG/250 ML BAG 8.638 MG IV (00:52)
[2025-04-20 01:03] LABS: Hematocrit 36.5 % (41.0-53.0); Hemoglobin 12.5 g/dL (13.5-16.0)
[2025-04-20 01:26] LABS: Albumin, Serum 2.9 gm/dL (3.4-4.8); Anion Gap 10 (7-16); BUN/Creatinine Ratio 13 Ratio (12-20); Blood Urea Nitrogen 17 mg/dL (9-23); Calcium 8.4 mg/dL (8.3-10.6); Calcium (Corrected) 9.3 mg/dL (8.5-10.1); Carbon Dioxide 24.2 mMol/L (20.0-31.0); Chloride 109 mMol/L (98-107); Creatinine (Component) 1.3 mg/dL (0.6-1.3); Estimated Creatinine Clearance 61.8 mL/min (>60); Glucose 199 mg/dL (74-106); Osmolality,Calculated 292 (275-295); Phosphorous 2.6 mg/dL (2.4-5.1); Potassium 3.6 mMol/L (3.4-5.1); Sodium 143 mMol/L (136-145); eGFR > 60 See Note
--- NOTE | 2025-04-20 02:11 | PRELIM_ITS ---
Renal/Retroperitoneal ultrasound. April 20, 2025 at 0049 hours Clinical history: Decreased urine output. Findings: The evaluation is limited due to patient condition. Right: The right kidney measures 16.9 x 6.9 x 6.7 cm with cortical thickness of 2 cm and demonstrates 9.3 x 9.2 x 7 cm cyst in the superior pole. There is cortical scarring. There is no hydronephrosis or renal calculus. The corticomedullary differentiation is maintained. Left: The left kidney measures 14.1 x 6.8 x 5.9 cm with cortical thickness of 1.9 cm and demonstrates cortical scarring. There is no hydronephrosis or renal calculus. The corticomedullary differentiation is maintained. The urinary bladder and prostate are not demonstrated, due to overlying dressing. Impression: Limited evaluation as described. Large right renal cyst. Bilateral renal cortical scarring. Other findings as described above. Report Electronically Signed By: David Rodriguez 04/20/2025 2:10:47 AM [EST]
--- NOTE | 2025-04-20 03:13 | XR_ITS ---
EXAMINATION: AP chest single view TECHNIQUE: AP portable supine chest single view Date and time: April 20, 2025, 0329 hours, comparison April 19, 2025 INDICATIONS: Post central line placement, hypoxic respiratory failure FINDINGS: Interval right internal jugular central line tip right atrium satisfactory position No pneumothorax Pneumonia right base obscuring detail right hemidiaphragm Endotracheal tube tip 6.6 cm above puma Mild prominence left ventricle Mild to moderate vascular congestion Orogastric tube in the stomach satisfactory position IMPRESSION: Interval right internal jugular central line, tip in satisfactory position, no pneumothorax
--- NOTE | 2025-04-20 03:27 | ESOP_ITS ---
PROCEDURES: Procedure Date / Time 04/20/25 0327 Procedural Time Out Time out performed: Yes at 2:40 Central Line Placement Right IJ: Indication(s): shock Informed consent obtained: obtained from surrogate decision maker Time out done, and the following verified: correct patient, side and site, procedure, patient position and implants and/or equipment Patient placed on monitor/pulse ox: Yes Hand Hygiene: scrub Max Sterile Barrier Techniques used: cap, mask, sterile gown, sterile gloves and sterile full body drape Central line prep: Chlorhexidine scrub and sterile drapes applied Local anesthesia used: lidocaine 1% Amount of anesthesia used (mL): 5 Ultrasound used for placement: Yes Sterile Technique if Ultrasound used, including sterile gel: yes Central line lumen inserted: triple Post procedure: sutured in place, good blood return, all ports aspirated, flushed, capped and sterile dressing applied Patient tolerated procedure: well and no complications EBL(ml): 5 Complications: none Procedure comment: Proceedure Name: Right IJV central Line placement Consent: From surrogate decision maker Indication: Shock A time out was performed. Hands were washed immediately prior to the procedure. Wore a surgical cap, mask with protective eyewear, full gown and sterile gloves throughout the procedure. The patient was placed in Trendelenburg position. Right chest region was prepped using chlorhexidine scrub and draped in sterile fashion using a full drape and sterile probe cover and sterile gel employed. The medial and lateral heads of the sternocleidomastoid muscle were identified along with carotid pulse. Right Internal Jugular vein was identified using ultrasound. Anesthesia was achieved over the vein using 1% lidocaine. Using real-time out of plane guidance, the introducer needle was inserted into the left Internal Jugular vein under direct ultrasound visualization. Venous blood was withdrawn. The syringe was removed and a guidewire was advanced into the introducer needle. The guidewire was visualized in the Internal Jugular Vein by ultrasound. A small incision was made at the skin surface with a scalpel. Introducer needle was exchanged for a dilator over the guidewire. After appropriate, dilation was obtained. Dilator was exchanged over the wire for a c entral venous catheter. The wire was removed and catheter was sutured in place. A sterile sorbaview shield was placed over the catheter at the insertion site. Patient tolerated procedure without any hemodynamic compromise. At time of procedure completion, all ports aspirated and flushed properly. Post-procedure chest x-ray confirmed correct placement. Estimated blood loss is around 5cc. Proceedure performed under the supervision of senior Dr. Arnett. Rebecca Henao, PGY-2
[2025-04-20] MEDS: VASOPRESSIN IN NS IVPB 20 UNIT/100 ML BAG 9 UNIT IV ×3 (03:47→20:30)
[2025-04-20 04:44] LABS: Base Excess -3 (-3-3); HCO3 22 mEq/L (20-26); Inspired Oxygen, FIO2 50 %; O2 Saturation 100 % (91-98); PCO2 39 mmHg (32.0-48.0); PO2 146 mmHg (83-108); pH, Arterial 7.37 (7.35-7.45)
[2025-04-20 04:46] LABS: Allen Test Performed/OK; Puncture Site Left Radial
[2025-04-20] MEDS: INSULIN LISPRO (AdmeLOG) 1 UNIT/0.01 ML UNIT SC ×4 (05:20→23:37)
[2025-04-20] MEDS: PROPOFOL 1,000 MG IVPB 1,000 MG/100 ML VIAL 22.113 MG IV (05:20)
[2025-04-20] MEDS: metroNIDAZOLE/NS 500 MG IVPB 500 MG/100 ML BAG 200 MG IV (05:21)
[2025-04-20 06:05] LABS: Lactate (Lactic Acid) 3.1 mMol/L (0.4-2.0)
[2025-04-20 06:06] LABS: Basophils # (Auto) 0.0 Thou/mm3 (0.0-0.2); Basophils % (Auto) 0 % (0-2.5); Eosinophils # (Auto) 0.0 Thou/mm3 (0.0-0.5); Eosinophils % (Auto) 0 % (0-10); Hematocrit 38.7 % (41.0-53.0); Hemoglobin 12.9 g/dL (13.5-16.0); Immature Granulocytes Auto 0.96 Thou/mm3 (0.00-0.00); Lymphocytes # (Auto) 1.0 Thou/mm3 (1.0-4.8); Lymphocytes % (Auto) 5 % (10-50); Mean Corpuscular HGB Conc 33.3 g/dl (31.0-37.0); Mean Corpuscular Hemoglobin 28.4 pg (25.0-35.0); Mean Corpuscular Volume 85 fL (80-100); Monocytes # (Auto) 0.8 Thou/mm3 (0.0-0.8); Monocytes % (Auto) 4 % (0-12); Neutrophils # (Auto) 16.1 Thou/mm3 (1.8-7.7); Neutrophils % (Auto) 85 % (37-80); Nucleated Red Blood Cell # 0.00 Thou/mm3 (0.00-0.00); Nucleated Red Blood Cell % 0 /100 WBC (0); Platelet Count 374 Thou/mm3 (140-440); RDW Standard Deviation 42.8 fL (35.1-43.9); Red Blood Count 4.54 Miln/mm3 (4.50-5.90); White Blood Count 19.0 Thou/mm3 (3.8-10.6)
[2025-04-20 06:28] LABS: B-Type Natriuretic Peptide 74 pg/mL (0-100)
[2025-04-20 06:35] LABS: Alanine Aminotransferase 11 U/L (10-49); Albumin, Serum 3.2 gm/dL (3.4-4.8); Albumin/Globulin Ratio 2.1 (1.2-2.2); Anion Gap 14 (7-16); Aspartate Amino Transferase 17 U/L (0-34); BUN/Creatinine Ratio 14 Ratio (12-20); Bilirubin,Total 0.3 mg/dL (0.3-1.2); Blood Urea Nitrogen 20 mg/dL (9-23); Calcium 8.5 mg/dL (8.3-10.6); Calcium (Corrected) 9.1 mg/dL (8.5-10.1); Carbon Dioxide 21.4 mMol/L (20.0-31.0); Chloride 108 mMol/L (98-107); Creatinine (Component) 1.4 mg/dL (0.6-1.3); Estimated Creatinine Clearance 57.4 mL/min (>60); Globulin 1.5 gm/dL (2.3-3.5); Glucose 186 mg/dL (74-106); Magnesium 2.9 mg/dL (1.6-2.6); Osmolality,Calculated 292 (275-295); Phosphorous 3.1 mg/dL (2.4-5.1); Potassium 3.8 mMol/L (3.4-5.1); Sodium 143 mMol/L (136-145); Total Protein 4.7 gm/dL (5.7-8.2); eGFR 56 See Note
[2025-04-20 06:36] LABS: Alkaline Phosphatase 78 U/L (46-116)
[2025-04-20] MEDS: ENOXAPARIN SOD INJ 40 MG/0.4 ML SYRINGE SC (08:34)
[2025-04-20] MEDS: PIPER/TAZO 3.375 GM PREMIX 3.375 GM/50 ML BAG IV ×4 (08:34→23:37)
[2025-04-20 08:59] LABS: Reflex Lactate? Y
[2025-04-20 09:57] LABS: Lactate (Lactic Acid) 2.7 mMol/L (0.4-2.0)
[2025-04-20 09:58] LABS: Base Excess, Venous -3 (-3-3); O2 Saturation, Venous 83 % (96-97); PCO2, Venous 46 mmHg (36-56); PO2, Venous 47 mmHg (15-58); pH, Venous 7.31 (7.33-7.66)
--- NOTE | 2025-04-20 10:24 | ESPR_ITS ---
<Statement entered by Moe Garcia MD - 04/20/25 16:33> I have reviewed the note and agree with the resident's assessment & plan with exceptions as below. I have personally reviewed labs, imaging, home meds/prior records, examined the patient, formulated and discussed management plan with my attending. Patient was seen examined bedside's morning. No acute overnight events. Switch patient's antibiotics from Rocephin and metronidazole to Zosyn given that patient's clinical status has changed and has been requiring vasopressors and has a wound VAC secondary to necessity for another surgical intervention likely tomorrow morning. Did a sedation holiday and patient's neurological status he was able to follow commands and he was also tracking with his eyes. Ordered blood cultures again today. Patient's urine output has been minimal throughout the night and dayshift therefore will give another 500 cc bolus this afternoon given that his output from the wound VAC has been 600 and from the NG tube has been 200. Will continue to monitor patient's lactic acid which continues to downtrend and we will continue to monitor closely urine output. Otherwise pending surgical intervention tomorrow. Moe Garcia PGY2 Disclaimer: Even though this this note was dictated by speech recognition and even though it was carefully revised there may still be minor errors in asbestos abatement worker due to voice recognition software. Documentation for date of: 04/20/25 Subjective Subjective Interval history: This patient is a 64-year-old male with a history of diverticulosis, appendectomy, s/p repair of incarcerated hernia, CAD status post stents x 2, COPD, asthma, hypertension, HLD, and T2DM who presented to [facility] ED on 04/17 for lower abdominal pain and lack of bowel movement for 1 to 2 weeks. The patient was initially admitted to the medical floors for management of diverticulitis and obstipation, but was upgraded to the ICU for continued mechanical ventilation after an exploratory laparotomy performed on 04/19. According to chart review, the patient was taking loperamide prior to his symptoms about 2 weeks ago, and since then, the patient has been having abdominal pain and lack of bowel movements. Initial CT abdomen/pelvis showed wall thickening and marked inflammatory changes in the sigmoid colon, suspicious for venous air seen with ischemic bowel. The patient was initially managed conservatively with being made n.p.o. with IV fluids and a combination of ceftriaxone and metronidazole. However, on 04/19, repeat CT abdomen/pelvis showed prominent pneumoperitoneum and free fluid in the abdomen, so the patient was urgently taken to the operating room for exploratory laparotomy. During the procedure, it was found that the patient had a perforated sigmoid diverticulitis with feculent peritonitis. The patient's sigmoid colon was removed and the abdomen and pelvis were copiously washed and irrigated during the procedure. General surgery left the abdomen open and plans to have an abdominal washout, creation of colostomy, and closure of the abdomen on Saturday 04/21. Until then, general surgery would like to keep the patient intubated and sedated, hence the need for ICU level care. Interval History: Overnight, the patient had significant and sustained drop in blood pressure. Night team did bedside ultrasound to visualize the IVC, and noted that it was small and compressible, so the patient was given 3 L of LR. Since the patient remained hypotensive after the 3 L, central line was placed and the patient was started on Levophed and vasopressin. The patient had 400 mL of urine output over the past 24 hours. Patient remained sedated without significant changes on physical exam this morning, however the patient did spike a fever of 100.8 earlier in the morning. Sedation was briefly decreased to assess the patient's mental status, to which the patient was able to follow simple commands. Sedation was increased back to RASS of -2. Echocardiogram was taken and read, which showed an ejection fraction of 45 to 50% with grade 1 diastolic dysfunction. The patient's ceftriaxone and metronidazole was broadened to Zosyn given the patient's worsening hemodynamic status and fevers, concerning for septic shock. Repeat blood cultures were drawn as patient continued to have fevers throughout the day. Renal function throughout the day continue to worsen as urine output was low throughout the day, and morning labs did show worsening renal function. Will have night team follow-up with a repeat renal panel in the evening to continue to monitor renal function. Patient is scheduled to have closure of abdomen with washout and colostomy creation tomorrow 04/21. Exam Vital Signs Temp Pulse Resp BP Pulse Ox O2 Del Method O2 Flow Rate 98.8 F 87 22 H 103/65 99 Nasal Cannula 2 04/19/25 11:42 04/20/25 07:15 04/20/25 07:00 04/20/25 07:15 04/20/25 07:15 04/19/25 11:42 04/19/25 11:42 FiO2 50 04/20/25 07:00 Narrative Exam General: Sedated, no acute distress. Intubated. Skin: Warm, dry, intact. Head: Normocephalic, atraumatic. Throat: No obvious lesions in oropharynx. NG tube in place. Cardiovascular: Tachycardic rate and regular rhythm, no murmur, +S1/S2. Respiratory: Lungs are clear to auscultation, respirations unlabored, no crackles, no wheezing. Gastrointestinal: Distended with longitudinal incision across a significant length of patient's abdomen, covered by black material over the incision. Transparent wound vac in place with wound vac tube present. : Scrotum erythematous in color but did not appear swollen or inflammed. Jones catheter in place. Extremities: No edema, no cyanosis, no clubbing. 1-2s capillary refill in fingers bilaterally. Lower extremities pale, cool to touch, with 1+ edema and difficulty appreciating capillary refill, but 2+ pedal pulse present bilaterally. Objective Labs 04/20/25 04:02 04/20/25 13:35 Labs: Laboratory Results - last 24 hr 04/19/25 04/19/25 04/19/25 19:07 19:25 20:14 WBC 7.6 RBC 4.95 Hgb 14.3 Hct 41.3 MCV 83 MCH 28.9 MCHC 34.6 RDW Std Deviation 39.7 Plt Count 369 D Neut % (Auto) 77 Lymph % (Auto) 9 L Williamson % (Auto) 7 Eos % (Auto) 0 Baso % (Auto) 0 Neut # (Auto) 5.8 Lymph # (Auto) 0.7 L Williamson # (Auto) 0.5 Eos # (Auto) 0.0 Baso # (Auto) 0.0 Immature Gran # (Auto) 0.55 H Absolute Nucleated RBC 0.00 Immature Gran % 7 H Nucleated RBC % 0 Puncture Site Left Radial ABG pH 7.29 L ABG pCO2 44 ABG pO2 297 H ABG HCO3 21 ABG O2 Saturation 100 H ABG Base Excess -6 L VBG pH VBG pCO2 VBG pO2 VBG O2 Sat (Yelena) VBG Base Excess FiO2 21 Sodium 144 Potassium 3.7 Chloride 110 H Carbon Dioxide 22.2 Anion Gap 12 BUN 17 Creatinine 1.0 Estim Creat Clear Calc 80.4 eGFR > 60 BUN/Creatinine Ratio 17 Glucose 230 H Calculated Osmolality 295 Lactic Acid Calcium 8.8 Corrected Calcium 9.1 Phosphorus 3.2 Magnesium 1.7 Total Bilirubin 0.5 AST 18 ALT 14 Alkaline Phosphatase 94 B-Natriuretic Peptide Total Protein 5.5 L Albumin 3.6 D Globulin 1.9 L Albumin/Globulin Ratio 1.9 04/19/25 04/20/25 04/20/25 22:38 00:59 04:02 WBC 19.0 H D RBC 4.54 Hgb 12.5 L 12.9 L Hct 36.5 L 38.7 L MCV 85 MCH 28.4 MCHC 33.3 RDW Std Deviation 42.8 Plt Count 374 Neut % (Auto) 85 H Lymph % (Auto) 5 L Williamson % (Auto) 4 Eos % (Auto) 0 Baso % (Auto) 0 Neut # (Auto) 16.1 H Lymph # (Auto) 1.0 Williamson # (Auto) 0.8 Eos # (Auto) 0.0 Baso # (Auto) 0.0 Immature Gran # (Auto) 0.96 H Absolute Nucleated RBC 0.00 Immature Gran % 5 H Nucleated RBC % 0 Puncture Site Left Radial ABG pH 7.34 L ABG pCO2 45 ABG pO2 43 L* D ABG HCO3 24 ABG O2 Saturation 79 L ABG Base Excess -2 VBG pH VBG pCO2 VBG pO2 VBG O2 Sat (Yelena) VBG Base Excess FiO2 60 Sodium 143 143 Potassium 3.6 3.8 Chloride 109 H 108 H Carbon Dioxide 24.2 21.4 Anion Gap 10 14 BUN 17 20 Creatinine 1.3 1.4 H Estim Creat Clear Calc 61.8 57.4 L eGFR > 60 56 L BUN/Creatinine Ratio 13 14 Glucose 199 H 186 H Calculated Osmolality 292 292 Lactic Acid Calcium 8.4 8.5 Corrected Calcium 9.3 9.1 Phosphorus 2.6 3.1 Magnesium 2.9 H Total Bilirubin 0.3 AST 17 ALT 11 Alkaline Phosphatase 78 B-Natriuretic Peptide 74 Total Protein 4.7 L Albumin 2.9 L D 3.2 L Globulin 1.5 L Albumin/Globulin Ratio 2.1 04/20/25 04/20/25 04/20/25 04:38 05:40 09:42 WBC RBC Hgb Hct MCV MCH MCHC RDW Std Deviation Plt Count Neut % (Auto) Lymph % (Auto) Williamson % (Auto) Eos % (Auto) Baso % (Auto) Neut # (Auto) Lymph # (Auto) Williamson # (Auto) Eos # (Auto) Baso # (Auto) Immature Gran # (Auto) Absolute Nucleated RBC Immature Gran % Nucleated RBC % Puncture Site Left Radial ABG pH 7.37 ABG pCO2 39 ABG pO2 146 H D ABG HCO3 22 ABG O2 Saturation 100 H ABG Base Excess -3 VBG pH 7.31 L VBG pCO2 46 VBG pO2 47 VBG O2 Sat (Yelena) 83 L VBG Base Excess -3 FiO2 50 Sodium Potassium Chloride Carbon Dioxide Anion Gap BUN Creatinine Estim Creat Clear Calc eGFR BUN/Creatinine Ratio Glucose Calculated Osmolality Lactic Acid 3.1 H 2.7 H Calcium Corrected Calcium Phosphorus Magnesium Total Bilirubin AST ALT Alkaline Phosphatase B-Natriuretic Peptide Total Protein Albumin Globulin Albumin/Globulin Ratio ABG Interpretation ABG results: 04/19/25 04/19/25 04/20/25 19:07 22:38 04:38 ABG pH 7.29 L 7.34 L 7.37 ABG pCO2 44 45 39 ABG pO2 297 H 43 L* D 146 H D ABG HCO3 21 24 22 ABG O2 Saturation 100 H 79 L 100 H ABG Base Excess -6 L -2 -3 VBG pH VBG pCO2 VBG pO2 VBG Base Excess 04/20/25 09:42 ABG pH ABG pCO2 ABG pO2 ABG HCO3 ABG O2 Saturation ABG Base Excess VBG pH 7.31 L VBG pCO2 46 VBG pO2 47 VBG Base Excess -3 Quality Measures Quality Measures VTE prophylaxis Assessment & Plan Assessment Current Active Medications: Generic Name Dose Route Start Last Admin Trade Name Freq PRN Reason Stop Dose Admin Acetaminophen 650 mg 04/19/25 08:33 Acetaminophen 325 Mg Tablet PO 05/17/25 13:26 Q6H PRN Fever >100.4 or Pain 1-3 Dextrose 25 ml 04/19/25 08:30 Dextrose 50%-Water Inj 50 Ml Syringe IV 05/19/25 08:29 Q15MIN PRN BG 50-70 responsive npo pt Dextrose 50 ml 04/19/25 08:30 Dextrose 50%-Water Inj 50 Ml Syringe IV 05/19/25 08:29 Q15MIN PRN BG <50 OR BG <70 & pt unresponsive Enoxaparin Sodium 40 mg 04/18/25 09:00 04/20/25 08:34 Enoxaparin Sod Inj 40 Mg/0.4 Ml Syringe SC 05/02/25 08:59 40 mg QDAY LYRIC Administration Glucagon 1 mg 04/19/25 08:30 Glucagon Inj 1 Mg Vial IM Q15MIN PRN BG <70, and no IV access Hydromorphone HCl 0.5 mg 04/19/25 08:32 Hydromorphone Inj 2 Mg/Ml Vial IVP 04/24/25 08:31 Q4HR PRN BREAKTHROUGH PAIN (SEVERE) Fentanyl Citrate 2,500 mcg in 250 mls @ 2.5 mls/hr 04/19/25 18:03 04/20/25 08:15 Sublimaze Inj 2,500 Mcg/250 Ml Bag IV 04/24/25 18:02 50 mcg/hr .Q24H PRN 5 mls/hr PER PROTOCOL Titration Protocol 25 MCG/HR Propofol 1,000 mg in 100 mls @ 2.764 mls/hr 04/19/25 18:18 04/20/25 08:50 Diprivan Ivpb IV 05/19/25 18:17 25 mcg/kg/min .Q24H PRN 13.82 mls/hr PER PROTOCOL Titration Protocol 5 MCG/KG/MIN Norepinephrine/Dextrose 8 mg in 250 mls @ 8.638 mls/hr 04/20/25 00:49 04/20/25 08:00 Levophed In D5w 8mg/250ml IV 05/20/25 00:48 0.09 mcg/kg/min .Q24H PRN 15.548 mls/hr PER PROTOCOL Titration Protocol 0.05 MCG/KG/MIN Vasopressin/Sodium Chloride 20 unit in 100 mls @ 9 mls/hr 04/20/25 02:18 04/20/25 03:47 Vasostrict/Ns Ivpb IV 05/20/25 02:17 0.03 unit/min .Q11H7M PRN 9 mls/hr PER PROTOCOL Administration Protocol 0.03 UNIT/MIN Piperacillin/Tazobactam/Dextrose 3.375 gm in 50 mls @ 100 mls/hr 04/20/25 07:46 04/20/25 08:34 Zosyn IV 04/27/25 07:45 100 mls/hr Q6HR LYRIC Administration Protocol Insulin Human Lispro 0 unit 04/19/25 12:00 04/20/25 05:20 Insulin Lispro (Admelog) 1 Unit/0.01 Ml Unit SC 05/19/25 11:59 2 unit Q6HR LYRIC Administration Protocol Ondansetron HCl 4 mg 04/17/25 09:45 04/17/25 10:06 Ondansetron Inj 2 Mg/Ml Inj 2 Ml IVP 05/17/25 09:44 4 mg Q6HR PRN Administration NAUSEA OR VOMITING Protocol Pantoprazole Sodium 40 mg 04/19/25 18:45 04/20/25 08:34 Pantoprazole Inj 40 Mg Vial IVP 05/19/25 18:44 40 mg QDAY LYRIC Administration Sodium Chloride 5 ml 04/19/25 18:06 Sodium Chloride Rt 10% 15 Ml Nebu INH 05/19/25 18:05 X1 PRN SECRETIONS Plan This patient is a 64-year-old male with a history of diverticulosis, appendectomy, s/p repair of incarcerated hernia, CAD status post stents x 2, COPD, asthma, hypertension, HLD, and T2DM who presented to [facility] ED on 04/17 for lower abdominal pain and lack of bowel movement for 1 to 2 weeks. The patient was initially admitted to the medical floors for management of diverticulitis and obstipation, but was upgraded to the ICU for continued mechanical ventilation after an exploratory laparotomy performed on 04/19. NEURO #Sedated Dx: Patient is sedated postop, will remain sedated until patient is taken for closure on 04/21 Rx: Fentanyl gtt. Propofol gtt. RASS goal -2 CARDIO #Shock DDx: Distributive shock Dx: Patient remained hypotensive with MAP below 65 even with 3 L of LR on 04/19- 04/20 overnight Patient spiked fevers Patient had feculent peritonitis secondary to perforated diverticulitis, which puts patient at significant risk of infection Blood cultures initially collected 04/17 negative after 48 hours Sputum culture collected 04/19, pending Rx: Antibiotics broadened form ceftriaxone and metronidazole (04/17?04/20) to Zosyn (04/20-) to treat suspected underlying infection Blood cultures repeated, collected 04/20 Levophed gtt. Vasopressin gtt. 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 Cobb in [place] Echocardiogram taken 04/20 shows ejection fraction of 45 to 50% with grade 1 diastolic dysfunction Rx: Patient to follow up with outpatient cardiology Consider GDMT once patient has been stabilized, off pressors, off sedation, and extubated PULM #Intubated, on mechanical ventilation Dx: Patient was sedated, intubated, and mechanically ventilated during his exploratory laparotomy on 04/19 and remains intubated on transferred to the ICU on 04/19 Rx: Will continue mechanical ventilation without plans to wean the patient off until 04/21 when the patient is planned to have closure of his abdomen GI #Perforated diverticulitis #Surgical removal of sigmoid colon #Feculent peritonitis Dx: CT abdomen/pelvis on showed prominent pneumoperitoneum and free fluid in the patient's abdomen, so the patient was taken urgently to the operating room for exploratory laparotomy Patient was found to have perforated sigmoid diverticulitis with feculent peritonitis during 04/19 exploratory laparotomy Per operative note, the patient's sigmoid colon was removed Blood cultures collected 04/17 negative for growth after 48 hours Rx: General Surgery plans to perform washout, create colostomy, and close the abdomen on 04/21 Zosyn 3.375 g every 6 hours (04/20-) Discontinued ceftriaxone and metronidazole (04/17?04/20) Patient n.p.o. NG and wound VAC tube set to low intermittent suction NEPHRO #Acute kidney injury DDx: Prerenal, ATN Dx: Patient's creatinine increased to 1.4 on 04/20 in AM with decreased urine output Likely secondary to hypoperfusion to kidneys from shock Rx: Manage underlying shock with vasopressors and fluid resuscitation Continue Zosyn, renally dosed Follow-up on repeat renal panel 04/20 in the evening #Lactic acidosis Dx: Patient initially presented with a lactic acid of 3.0 on 04/17 in ED Lactic acid initially decreased, however noted to be elevated on 04/20 at 3.1, and has since been downtrending #Right renal cyst Dx: CT abdomen/pelvis 04/17 and 04/19 as well as renal ultrasound identified large renal cyst Rx: Patient to follow up outpatient #Hypokalemia, resolved #Hyponatremia, resolved URO #Jones catheter inserted Dx: Patient was transferred to the ICU with Jones catheter in place Patient does take tamsulosin at home, but does not have any documented history of BPH at this institution Rx: Will keep Jones catheter in place for closer monitoring of urine output as a surrogate for renal perfusion HEME #Leukocytosis Dx: Patient presented with WBC of 21.7 on admission Patient did have a sharp drop of WBC to 6.8 on 04/19 in the a.m. prior to surgery Leukocytosis is likely secondary to the patient's diverticulitis on admission Rx: Continue with antibiotics as noted above Follow CBC daily Will expect continued elevation as the patient is postop ENDO #[id number] type 2 diabetes mellitus Dx: Patient has takes metformin at home Hemoglobin A1c 6.8% on admission Rx: Sliding scale insulin Bedside glucose checks every 6 hours Will plan for carb consistent diet once patient has been cleared for oral diet ID #No active problems MSK #No active problems SKIN #No active problems Feeding/fluids: NPO Analgesia: Fentanyl Sedation: Propofol and Fentanyl Thromboprophylaxis: Lovenox Head up position: 30 degrees Ulcer prophylaxis: Protonix Glycemic control: Q6h glucose checks Spontaneous breathing trial: N/A, AC/PRVC Bowel care: N/A Indwelling catheters: Jones Deescalation of antibiotics: Zosyn CODE STATUS: Full Reason for ICU care: Intubated patient mechanically ventilated and sedated s/p ex lap; shock requiring vasopressors Patient plan of care was discussed with the attending precision honing machine operator, Dr. Teixeira and senior resident Dr. Leiva (PGY-2). Schuyler Kovacs, PGY-1
--- NOTE | 2025-04-20 10:27 | PD.INTPROG ---
Documentation for date of: 04/20/25 Subjective Subjective Interval history: This is a 64yo M who presented to the hospital on 17 April. He presented for abdominal pain was found to have obstipation and then diverticulitis. Follow-up CT showed air droplets in the wall of the colon and a Surgical eval was obtained. Conservative management was recommended on the the patient had increasing abdominal pain a repeat CT was performed. At this point in time a pneumoperitoneum was noted and the patient was taken to the OR for surgical exploration. The patient was found to have stool in the abdomen and a washout was performed. The sigmoid colon was resected. The patient was left open and in discontinuity and brought to the ICU intubated. Overnight the patient became hypotensive and was initially given 3 L of IV fluids. Patient had persistent hypotension with limited response to fluids and therefore vasopressors were started. This morning the patient has had a low urinary output. He remains with a RASS of -2. Plan is to return to the OR tomorrow with surgery. Critical Care Note Critical care time (min.): 40 Exam Vital Signs Temp Pulse Resp BP Pulse Ox O2 Del Method O2 Flow Rate 98.8 F 87 22 H 103/65 99 Nasal Cannula 2 04/19/25 11:42 04/20/25 07:15 04/20/25 07:00 04/20/25 07:15 04/20/25 07:15 04/19/25 11:42 04/19/25 11:42 FiO2 50 04/20/25 08:00 Narrative Exam General-no acute distress, intubated, sedated, normal body habitus HEENT-normocephalic, atraumatic, sclera icteric, pupils are pinpoint, oral mucosa is hydrated, ET tube and NG tube in place Chest-lungs clear to auscultation bilaterally, heart regular, no bruits murmurs auscultated times exam Abdomen-no bowel sounds appreciated, wound VAC in place, no facial grimacing on palpation, abdomen appears soft Extremities-no edema, pulses palpable, no clubbing, no cyanosis, no mottling Vent PRVC Drips Fentanyl Propofol Levophed Vasopressin Physical Exam Completion Physical Exam Complete?: Yes 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 04/21/25 04:52 04/21/25 04:52 Labs: Laboratory Results - last 24 hr 04/19/25 04/19/2504/19/25 19:07 19:25 20:14 WBC 7.6 RBC 4.95 Hgb 14.3 Hct 41.3 MCV 83 MCH 28.9 MCHC 34.6 RDW Std Deviation 39.7 Plt Count 369 D Neut % (Auto) 77 Lymph % (Auto) 9 L Pender % (Auto) 7 Eos % (Auto) 0 Baso % (Auto) 0 Neut # (Auto) 5.8 Lymph # (Auto) 0.7 L Pender # (Auto) 0.5 Eos # (Auto) 0.0 Baso # (Auto) 0.0 Immature Gran # (Auto) 0.55 H Absolute Nucleated RBC 0.00 Immature Gran % 7 H Nucleated RBC % 0 Puncture Site Left Radial ABG pH 7.29 L ABG pCO2 44 ABG pO2 297 H ABG HCO3 21 ABG O2 Saturation 100 H ABG Base Excess -6 L VBG pH VBG pCO2 VBG pO2 VBG O2 Sat (Yelena) VBG Base Excess FiO2 21 Sodium 144 Potassium 3.7 Chloride 110 H Carbon Dioxide 22.2 Anion Gap 12 BUN 17 Creatinine 1.0 Estim Creat Clear Calc 80.4 eGFR > 60 BUN/Creatinine Ratio 17 Glucose 230 H Calculated Osmolality 295 Lactic Acid Calcium 8.8 Corrected Calcium 9.1 Phosphorus 3.2 Magnesium 1.7 Total Bilirubin 0.5 AST 18 ALT 14 Alkaline Phosphatase 94 B-Natriuretic Peptide Total Protein 5.5 L Albumin 3.6 D Globulin 1.9 L Albumin/Globulin Ratio 1.9 04/19/25 04/20/25 04/20/25 22:38 00:59 04:02 WBC 19.0 H D RBC 4.54 Hgb 12.5 L 12.9 L Hct 36.5 L 38.7 L MCV 85 MCH 28.4 MCHC 33.3 RDW Std Deviation 42.8 Plt Count 374 Neut % (Auto) 85 H Lymph % (Auto) 5 L Pender % (Auto) 4 Eos % (Auto) 0 Baso % (Auto) 0 Neut # (Auto) 16.1 H Lymph # (Auto) 1.0 Pender # (Auto) 0.8 Eos # (Auto) 0.0 Baso # (Auto) 0.0 Immature Gran # (Auto) 0.96 H Absolute Nucleated RBC 0.00 Immature Gran % 5 H Nucleated RBC % 0 Puncture Site Left Radial ABG pH 7.34 L ABG pCO2 45 ABG pO2 43 L* D ABG HCO3 24 ABG O2 Saturation 79 L ABG Base Excess -2 VBG pH VBG pCO2 VBG pO2 VBG O2 Sat (Yelena) VBG Base Excess FiO2 60 Sodium 143 143 Potassium 3.6 3.8 Chloride 109 H 108 H Carbon Dioxide 24.2 21.4 Anion Gap 10 14 BUN 17 20 Creatinine 1.3 1.4 H Estim Creat Clear Calc 61.8 57.4 L eGFR > 60 56 L BUN/Creatinine Ratio 13 14 Glucose 199 H 186 H Calculated Osmolality 292 292 Lactic Acid Calcium 8.4 8.5 Corrected Calcium 9.3 9.1 Phosphorus 2.6 3.1 Magnesium 2.9 H Total Bilirubin 0.3 AST 17 ALT 11 Alkaline Phosphatase 78 B-Natriuretic Peptide 74 Total Protein 4.7 L Albumin 2.9 L D 3.2 L Globulin 1.5 L Albumin/Globulin Ratio 2.1 04/20/25 04/20/25 04/20/25 04:38 05:40 09:42 WBC RBC Hgb Hct MCV MCH MCHC RDW Std Deviation Plt Count Neut % (Auto) Lymph % (Auto) Pender % (Auto) Eos % (Auto) Baso % (Auto) Neut # (Auto) Lymph # (Auto) Pender # (Auto) Eos # (Auto) Baso # (Auto) Immature Gran # (Auto) Absolute Nucleated RBC Immature Gran % Nucleated RBC % Puncture Site Left Radial ABG pH 7.37 ABG pCO2 39 ABG pO2 146 H D ABG HCO3 22 ABG O2 Saturation 100 H ABG Base Excess -3 VBG pH 7.31 L VBG pCO2 46 VBG pO2 47 VBG O2 Sat (Yelena) 83 L VBG Base Excess -3 FiO2 50 Sodium Potassium Chloride Carbon Dioxide Anion Gap BUN Creatinine Estim Creat Clear Calc eGFR BUN/Creatinine Ratio Glucose Calculated Osmolality Lactic Acid 3.1 H 2.7 H Calcium Corrected Calcium Phosphorus Magnesium Total Bilirubin AST ALT Alkaline Phosphatase B-Natriuretic Peptide Total Protein Albumin Globulin Albumin/Globulin Ratio Assessment & Plan Additional Assessment Additional Assessment: In summary this is 64-year-old male admitted to the ICU status post ex lap with washout and resection of sigmoid colon s/p perf currently intubated and 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 Cheetah for hemodynamics was placed, no evidence of cardiogenic or obstructive etiology. Patient received 3 L of fluid for hypovolemia and appears to have a distributive picture likely secondary to sepsis and patient's GI contamination of his abdominal cavity. Patient's propofol and fentanyl for sedation is also likely contributing to his vasodilated state. He is on vasopressin and low-dose Levophed at this point in time. Continue with broad-spectrum antibiotics. Follow-up on cultures Resp Acute resp failure- intubated and on MV, fu on ABG and CXR Renal SHEMAR-patient has had a slight increase in his creatinine from baseline 0.9-1.4. He has had a decrease in his urinary output with only approximately 400 cc in the last 24 hours. Continue to monitor I's and O's, avoid nephrotoxins as able Lactic acidosis-secondary to shock and currently improving GI s/p colon perf 2/2 diverticulitis now s/p ex lap with abd washout- pt is for return to OR tmw for ostomy and closure - NPO for now - NGT LIS GI proph- PPI Endo stable Heme Leukocytosis-secondary to sepsis and recent surgical procedure Anemia-minimal, monitor Dvt proph- lovenox ID Sepsis- intraabdominal source , on zosyn. if decompensates low thresh hold to start micafungin case d/w ICU team labs, imaging, records reviewed ~40ccmin required for eval, exam, review, intervention, discussion and formulation of POC for this critically ill pt with septic shock s/p ex lap Provider Notation Provider Notation: Although this document has been carefully reviewed, there may still be some phonetic and other typographical errors. These errors are purely grammatical due to imperfections in the software program and should not be construed in any way to compromise the substance of the patient's medical care during this visit. Thank you for the opportunity and privilege in assisting you with this patient's care and management.
[2025-04-20] MEDS: PROPOFOL 1,000 MG IVPB 1,000 MG/100 ML VIAL 19.349 MG IV ×3 (11:15→20:29)
[2025-04-20] MEDS: Norepinephrine/D5W 8mg/250ml 8 MG/250 ML BAG 15.548 MG IV (11:36)
--- NOTE | 2025-04-20 12:32 | PD.SURPROG ---
Documentation for date of: 04/20/25 Subjective Subjective Narrative: Patient is seen and examined. He is intubated and sedated Exam Vital Signs Temp Pulse Resp BP Pulse Ox O2 Del Method O2 Flow Rate 100.8 F H 95 22 H 94/60 98 Mechanical Ventilation 2 04/20/25 08:00 04/20/25 11:36 04/20/25 07:00 04/20/25 11:36 04/20/25 10:15 04/20/25 08:00 04/19/25 11:42 FiO2 50 04/20/25 08:00 Constitutional Constitutional: no acute distress Routine Abdominal Exam Comments: Abdomen is mildly distended. Wound VAC in place and intact Assessment & Plan Assessment Additional comments: Postop day #1 status post exploratory laparotomy with sigmoid colectomy and abdominal washout Plan Continue care as directed. Will take patient back to the operating room for reexploration, abdominal washout, possible bowel resection with end colostomy tomorrow. Risks, benefits and alternatives explained to patient's via telephone conversation and all her questions answered. She voiced understanding, agreed and gave verbal consent to proceed with the operation. PROCEDURES: Procedures Exploratory laparotomy sigmoid colectomy and abdominal washout
[2025-04-20 12:55] LABS: Reflex Lactate? Y
[2025-04-20 13:33] LABS: Lactate (Lactic Acid) 2.3 mMol/L (0.4-2.0)
[2025-04-20] MEDS: ACETAMINOPHEN IVPB 1,000 MG/100 ML VIAL 250 MG IV (13:46)
[2025-04-20 14:15] LABS: Albumin, Serum 3.2 gm/dL (3.4-4.8); Anion Gap 11 (7-16); BUN/Creatinine Ratio 17 Ratio (12-20); Blood Urea Nitrogen 34 mg/dL (9-23); Calcium 8.2 mg/dL (8.3-10.6); Calcium (Corrected) 8.8 mg/dL (8.5-10.1); Carbon Dioxide 23.1 mMol/L (20.0-31.0); Chloride 108 mMol/L (98-107); Creatinine (Component) 2.0 mg/dL (0.6-1.3); Estimated Creatinine Clearance 40.2 mL/min (>60); Glucose 203 mg/dL (74-106); Osmolality,Calculated 296 (275-295); Phosphorous 4.3 mg/dL (2.4-5.1); Potassium 3.9 mMol/L (3.4-5.1); Sodium 142 mMol/L (136-145); eGFR 37 See Note
[2025-04-20] MEDS: RINGERS LACTATED 500 ML 500 ML 999 ML IV (15:40)
--- NOTE | 2025-04-20 15:55 | PC.SS ---
Update:Patient intubated/sedated. On pressor support. Receiving IV antibiotics. NG tube in place. Currently NPO. Surgery planned for tomorrow. Dr. Malone consulting.
[2025-04-20 16:31] LABS: Reflex Lactate? Y
[2025-04-20] MEDS: fentaNYL 2,500 MCG/250 ML BAG 2,500 MCG/250 ML BAG 15 MCG IV (17:07)
[2025-04-20 17:35] LABS: Lactate (Lactic Acid) 2.4 mMol/L (0.4-2.0)
[2025-04-20 19:40] LABS: Albumin, Serum 3.1 gm/dL (3.4-4.8); Anion Gap 10 (7-16); BUN/Creatinine Ratio 19 Ratio (12-20); Blood Urea Nitrogen 37 mg/dL (9-23); Calcium 8.6 mg/dL (8.3-10.6); Calcium (Corrected) 9.3 mg/dL (8.5-10.1); Carbon Dioxide 23.7 mMol/L (20.0-31.0); Chloride 108 mMol/L (98-107); Creatinine (Component) 2.0 mg/dL (0.6-1.3); Estimated Creatinine Clearance 40.2 mL/min (>60); Glucose 189 mg/dL (74-106); Osmolality,Calculated 296 (275-295); Phosphorous 3.5 mg/dL (2.4-5.1); Potassium 3.6 mMol/L (3.4-5.1); Sodium 142 mMol/L (136-145); eGFR 37 See Note
[2025-04-20 20:31] LABS: Reflex Lactate? Y
[2025-04-20 21:27] LABS: Lactic Acid, 3 HR 2.4 mMol/L (0.4-2.0)
--- NOTE | 2025-04-20 23:55 | EKG_ITS ---
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 : 1960 Requested By: Jacques Hickman Order Number: [id number] Reading MD: Jacques Hickman Measurements Intervals [place] Rate: 120 P: IN: QRS: 34 QRSD: 117 T: -37 QT: 267 QTc: 377 Interpretive Statements ATRIAL FIBRILLATION WITH RAPID VENTRICULAR RESPONSE LOW QRS VOLTAGE IN PRECORDIAL LEADS MODERATE INTRAVENTRICULAR CONDUCTION DELAY MINIMAL ST DEPRESSION ABNORMAL QRS-T ANGLE Compared to ECG 04/19/2025 19:30:52 Intraventricular conduction delay now present ST (T wave) deviation now present Sinus tachycardia no longer present T-wave abnormality no longer present /store/S0/[id number]/[id number].pdf
[2025-04-21] VITALS (118 sets, daily range): BP systolic 65–154; BP diastolic 45–113; PULSE 57–140; RESP 13–27; TEMP 37.4–38; O2SAT 89–100; BMI 31.8
[2025-04-21] MEDS: AMIODARONE 150 MG IVPB 150 MG/100 ML BAG 600 MG IV (00:16)
[2025-04-21] MEDS: AMIODARONE 360 MG IVPB 360 MG/200 ML BAG 33.333 MG IV (00:21)
[2025-04-21] MEDS: Norepinephrine/D5W 8mg/250ml 8 MG/250 ML BAG 25.913 MG IV (02:32)
[2025-04-21] MEDS: PROPOFOL 1,000 MG IVPB 1,000 MG/100 ML VIAL 19.349 MG IV (03:11)
[2025-04-21 04:34] LABS: Allen Test Performed/OK; Base Excess -2 (-3-3); HCO3 24 mEq/L (20-26); Inspired Oxygen, FIO2 50 %; O2 Saturation 98 % (91-98); PCO2 44 mmHg (32.0-48.0); PO2 96 mmHg (83-108); Puncture Site Left Brachial; pH, Arterial 7.35 (7.35-7.45)
[2025-04-21] MEDS: INSULIN LISPRO (AdmeLOG) 1 UNIT/0.01 ML UNIT SC (05:12)
[2025-04-21] MEDS: PIPER/TAZO 3.375 GM PREMIX 3.375 GM/50 ML BAG IV ×4 (05:12→23:05)
[2025-04-21 05:33] LABS: Basophils # (Auto) 0.0 Thou/mm3 (0.0-0.2); Basophils % (Auto) 0 % (0-2.5); Eosinophils # (Auto) 0.0 Thou/mm3 (0.0-0.5); Eosinophils % (Auto) 0 % (0-10); Hematocrit 33.3 % (41.0-53.0); Hemoglobin 11.1 g/dL (13.5-16.0); Immature Granulocytes Auto 1.71 Thou/mm3 (0.00-0.00); Lymphocytes # (Auto) 1.2 Thou/mm3 (1.0-4.8); Lymphocytes % (Auto) 6 % (10-50); Mean Corpuscular HGB Conc 33.3 g/dl (31.0-37.0); Mean Corpuscular Hemoglobin 28.5 pg (25.0-35.0); Mean Corpuscular Volume 85 fL (80-100); Monocytes # (Auto) 0.8 Thou/mm3 (0.0-0.8); Monocytes % (Auto) 4 % (0-12); Neutrophils # (Auto) 16.7 Thou/mm3 (1.8-7.7); Neutrophils % (Auto) 82 % (37-80); Nucleated Red Blood Cell # 0.08 Thou/mm3 (0.00-0.00); Nucleated Red Blood Cell % 0 /100 WBC (0); Platelet Count 307 Thou/mm3 (140-440); RDW Standard Deviation 44.5 fL (35.1-43.9); Red Blood Count 3.90 Miln/mm3 (4.50-5.90); White Blood Count 20.5 Thou/mm3 (3.8-10.6)
[2025-04-21 05:46] LABS: Alanine Aminotransferase 15 U/L (10-49); Albumin, Serum 3.1 gm/dL (3.4-4.8); Anion Gap 10 (7-16); Aspartate Amino Transferase 30 U/L (0-34); BUN/Creatinine Ratio 26 Ratio (12-20); Bilirubin,Total 0.3 mg/dL (0.3-1.2); Blood Urea Nitrogen 41 mg/dL (9-23); Calcium 8.4 mg/dL (8.3-10.6); Calcium (Corrected) 9.1 mg/dL (8.5-10.1); Carbon Dioxide 24.8 mMol/L (20.0-31.0); Chloride 106 mMol/L (98-107); Creatinine (Component) 1.6 mg/dL (0.6-1.3); Estimated Creatinine Clearance 50.2 mL/min (>60); Glucose 221 mg/dL (74-106); Magnesium 2.9 mg/dL (1.6-2.6); Osmolality,Calculated 298 (275-295); Phosphorous 3.6 mg/dL (2.4-5.1); Potassium 3.4 mMol/L (3.4-5.1); Sodium 141 mMol/L (136-145); Total Protein 5.1 gm/dL (5.7-8.2); eGFR 48 See Note
[2025-04-21 05:47] LABS: Albumin/Globulin Ratio 1.6 (1.2-2.2); Alkaline Phosphatase 85 U/L (46-116); Globulin 2.0 gm/dL (2.3-3.5)
[2025-04-21] MEDS: AMIODARONE 360 MG IVPB 360 MG/200 ML BAG 16.667 MG IV ×2 (06:06→15:59)
--- NOTE | 2025-04-21 06:10 | XR_ITS ---
EXAMINATION: AP chest single view TECHNIQUE: AP portable semiupright chest single view Date and time: April 21, 2025, 0649 hours, comparison April 20, 2025 INDICATIONS: Hypoxic respiratory failure FINDINGS: Large tension right pneumothorax, greater than 70% Shift of the heart mediastinum and trachea to the left Pneumonia left base Right internal jugular central line tip satisfactory position Tracheal tube tip 6.6 cm above puma Vascular congestion Orogastric tube in the stomach IMPRESSION: Large tension right pneumothorax
[2025-04-21] MEDS: VASOPRESSIN IN NS IVPB 20 UNIT/100 ML BAG 9 UNIT IV (06:12)
[2025-04-21 06:54] LABS: Path Review Blood Smear Sent to Pathologist
[2025-04-21] MEDS: PROPOFOL 1,000 MG IVPB 1,000 MG/100 ML VIAL 27.641 MG IV (08:00)
[2025-04-21] MEDS: POTASSIUM CHL 20 mEq IVPB 20 MEQ/100 ML BAG 50 MEQ IV ×2 (08:47→10:15)
[2025-04-21] MEDS: fentaNYL 2,500 MCG/250 ML BAG 2,500 MCG/250 ML BAG 25 MCG IV (09:00)
[2025-04-21] MEDS: ENOXAPARIN SOD INJ 40 MG/0.4 ML SYRINGE SC (09:36)
[2025-04-21] MEDS: MIDAZOLAM INJ 1 MG/ML VIAL 2 ML 2 MG IVP (09:40)
--- NOTE | 2025-04-21 10:11 | XR_ITS ---
EXAMINATION: AP chest single view TECHNIQUE: AP portable supine chest single view Date and time: April 21, 2025, 10:22 a.m., comparison April 21, 2025 0649 hours INDICATIONS: Tension pneumothorax post chest tube placement FINDINGS: Interval insertion chest tube with reexpansion right lung, minimal inferior right lateral pneumothorax Chest film is otherwise unchanged including satisfactory position central line tip IMPRESSION: Interval insertion right chest tube with satisfactory reexpansion right lung
--- NOTE | 2025-04-21 11:18 | PD.INTPROC ---
PROCEDURES: Procedure Date / Time 04/21/25 1118 Percutaneous Chest Tube Indication(s): Pneumothorax Informed consent obtained: obtained from surrogate decision maker Time out done and verified the following: correct patient, side and site, procedure and patient position Site cleansed with: Chlorhexidine Site: right, anterior and axillary Anesthetic used: 1% Lidocaine Catheter sized used: 14 F Seldinger technique used: yes Chest tube connected to evacuation container: yes CXR ordered post procedure: yes EBL(ml): 5
--- NOTE | 2025-04-21 11:54 | ESPR_ITS ---
<Statement entered by Moe Garcia MD - 04/21/25 17:50> I have reviewed the note and agree with the resident's assessment & plan with exceptions as below. I have personally reviewed labs, imaging, home meds/prior records, examined the patient, formulated and discussed management plan with my attending. Patient was seen and examined at bedside this morning. Overnight patient did have a episode of A-fib with RVR therefore was placed on amiodarone drip and converted back to sinus rhythm shortly after. Patient also had chest x-ray done this morning which showed right-sided pneumothorax, but yesterday afternoon and overnight no changes in ventilatory changes nor any increase in peak pressures or plateau pressures and no desaturations were noted. Chest tube was placed with reexpansion of the lung on repeat chest x-ray. Patient also had surgical intervention today and had a colostomy bag placed. Otherwise patient's vasopressor support has decreased and currently only on Levophed this afternoon. Will continue to wean off vasopressors and tomorrow will assess patient's mental status and possibility of extubation if patient meets parameters. Otherwise we will continue Zosyn given GNR's on the blood cultures. Moe Garcia PGY2 Disclaimer: Even though this this note was dictated by speech recognition and even though it was carefully revised there may still be minor errors in tub attendant due to voice recognition software. Documentation for date of: 04/21/25 Subjective Subjective Interval history: This patient is a 64-year-old male with a history of diverticulosis, appendectomy, s/p repair of incarcerated hernia, CAD status post stents x 2, COPD, asthma, hypertension, HLD, and T2DM who presented to [facility] ED on 04/17 for lower abdominal pain and lack of bowel movement for 1 to 2 weeks. The patient was initially admitted to the medical floors for management of diverticulitis and obstipation, but was upgraded to the ICU for continued mechanical ventilation after an exploratory laparotomy performed on 04/19. According to chart review, the patient was taking loperamide prior to his symptoms about 2 weeks ago, and since then, the patient has been having abdominal pain and lack of bowel movements. Initial CT abdomen/pelvis showed wall thickening and marked inflammatory changes in the sigmoid colon, suspicious for venous air seen with ischemic bowel. The patient was initially managed conservatively with being made n.p.o. with IV fluids and a combination of ceftriaxone and metronidazole. However, on 04/19, repeat CT abdomen/pelvis showed prominent pneumoperitoneum and free fluid in the abdomen, so the patient was urgently taken to the operating room for exploratory laparotomy. During the procedure, it was found that the patient had a perforated sigmoid diverticulitis with feculent peritonitis. The patient's sigmoid colon was removed and the abdomen and pelvis were copiously washed and irrigated during the procedure. General surgery left the abdomen open and plans to have an abdominal washout, creation of colostomy, and closure of the abdomen on Saturday 04/21. Until then, general surgery would like to keep the patient intubated and sedated, hence the need for ICU level care. Interval History: 04/20/2025 Overnight, the patient had significant and sustained drop in blood pressure. Night team did bedside ultrasound to visualize the IVC, and noted that it was small and compressible, so the patient was given 3 L of LR. Since the patient remained hypotensive after the 3 L, central line was placed and the patient was started on Levophed and vasopressin. The patient had 400 mL of urine output over the past 24 hours. Patient remained sedated without significant changes on physical exam this morning, however the patient did spike a fever of 100.8 earlier in the morning. Sedation was briefly decreased to assess the patient's mental status, to which the patient was able to follow simple commands. Sedation was increased back to RASS of -2. Echocardiogram was taken and read, which showed an ejection fraction of 45 to 50% with grade 1 diastolic dysfunction. The patient's ceftriaxone and metronidazole was broadened to Zosyn given the patient's worsening hemodynamic status and fevers, concerning for septic shock. Repeat blood cultures were drawn as patient continued to have fevers throughout the day. Renal function throughout the day continue to worsen as urine output was low throughout the day, and morning labs did show worsening renal function. Will have night team follow-up with a repeat renal panel in the evening to continue to monitor renal function. Patient is scheduled to have closure of abdomen with washout and colostomy creation tomorrow 04/21. 04/21/2025 Overnight, the patient had an episode of A-fib with RVR, so the patient was started on amiodarone drip, which resolved the A-fib with RVR. Urine output over the past 24 hours improved and blood cultures resulted as gram-negative rods in both bottles. Obtained repeat chest x-ray this morning, which showed tension pneumothorax on the right lung, however the patient did not have any acute changes in his hemodynamic status and Levophed was actually down titrated throughout the evening and in the morning. Case was discussed with anesthesiology, who recommended management prior to bringing the patient to the OR and possible placement of arterial line for closer blood pressure monitoring. Attending physician Dr. Teixeira placed chest tube into the right lung and connected the chest tube to Pleur-evac. Checks x-ray was taken after procedure to confirm placement of the chest tube. Arterial line was attempted, but unsuccessful before the patient was taken to the OR. In the OR, the patient had reexploration of the abdomen with abdominal washout, partial colectomy with end colostomy. The patient was successfully transferred back to the ICU and was noted to be hypertensive upon arrival. Repeat chest x-ray was taken to confirm placement of chest tube and ET tube postsurgery. Will continue to manage the patient's GNR bacteremia with Zosyn until final results allow for narrowing of antibiotics. Patient is started on parenteral nutrition by general surgery. Exam Vital Signs Temp Pulse Resp BP Pulse Ox O2 Del Method O2 Flow Rate 99.7 F 65 20 90/53 L 99 Mechanical Ventilation 2 04/21/25 08:00 04/21/25 10:41 04/21/25 07:00 04/21/25 10:41 04/21/25 10:41 04/21/25 08:00 04/19/25 11:42 FiO2 40 04/21/25 10:41 Narrative Exam General: Sedated, no acute distress. Intubated. Skin: Warm, dry, intact. Head: Normocephalic, atraumatic. Throat: No obvious lesions in oropharynx. NG tube in place. Cardiovascular: Tachycardic rate and regular rhythm, no murmur, +S1/S2. Respiratory: Lungs are clear to auscultation, respirations unlabored, no crackles, no wheezing. Chest tube in place. Gastrointestinal: Distended with longitudinal incision, stapled and wound dressed, across a significant length of patient's abdomen. Colostomy bag in place with bright red tissue in place and small red drainage. : Scrotum erythematous in color but did not appear swollen or inflammed. Jones catheter in place. Extremities: No edema, no cyanosis, no clubbing. 1-2s capillary refill in fingers bilaterally. Lower extremities pale, cool to touch, with 1+ edema and 2- 3s capillary refill, 2+ pedal pulse present bilaterally. Objective Labs 04/22/25 04:42 04/22/25 04:42 Labs: Laboratory Results - last 24 hr 04/20/25 04/20/25 04/20/25 13:30 13:35 17:12 WBC RBC Hgb Hct MCV MCH MCHC RDW Std Deviation Plt Count Neut % (Auto) Lymph % (Auto) [place] % (Auto) Eos % (Auto) Baso % (Auto) Neut # (Auto) Lymph # (Auto) [place] # (Auto) Eos # (Auto) Baso # (Auto) Immature Gran # (Auto) Absolute Nucleated RBC Immature Gran % Nucleated RBC % Smear Path Review Puncture Site ABG pH ABG pCO2 ABG pO2 ABG HCO3 ABG O2 Saturation ABG Base Excess FiO2 Sodium 142 Potassium 3.9 Chloride 108 H Carbon Dioxide 23.1 Anion Gap 11 BUN 34 H Creatinine 2.0 H D Estim Creat Clear Calc 40.2 L eGFR 37 L BUN/Creatinine Ratio 17 Glucose 203 H Calculated Osmolality 296 H Lactic Acid 2.3 H 2.4 H Calcium 8.2 L Corrected Calcium 8.8 Phosphorus 4.3 Magnesium Total Bilirubin AST ALT Alkaline Phosphatase Total Protein Albumin 3.2 L Globulin Albumin/Globulin Ratio 04/20/25 04/20/25 04/21/25 19:00 21:05 04:23 WBC RBC Hgb Hct MCV MCH MCHC RDW Std Deviation Plt Count Neut % (Auto) Lymph % (Auto) [place] % (Auto) Eos % (Auto) Baso % (Auto) Neut # (Auto) Lymph # (Auto) [place] # (Auto) Eos # (Auto) Baso # (Auto) Immature Gran # (Auto) Absolute Nucleated RBC Immature Gran % Nucleated RBC % Smear Path Review Puncture Site Left Brachial ABG pH 7.35 ABG pCO2 44 ABG pO2 96 D ABG HCO3 24 ABG O2 Saturation 98 ABG Base Excess -2 FiO2 50 Sodium 142 Potassium 3.6 Chloride 108 H Carbon Dioxide 23.7 Anion Gap 10 BUN 37 H Creatinine 2.0 H Estim Creat Clear Calc 40.2 L eGFR 37 L BUN/Creatinine Ratio 19 Glucose 189 H Calculated Osmolality 296 H Lactic Acid 2.4 H Calcium 8.6 Corrected Calcium 9.3 Phosphorus 3.5 Magnesium Total Bilirubin AST ALT Alkaline Phosphatase Total Protein Albumin 3.1 L Globulin Albumin/Globulin Ratio 04/21/25 04:52 WBC 20.5 H RBC 3.90 L Hgb 11.1 L Hct 33.3 L MCV 85 MCH 28.5 MCHC 33.3 RDW Std Deviation 44.5 H Plt Count 307 D Neut % (Auto) 82 H Lymph % (Auto) 6 L [place] % (Auto) 4 Eos % (Auto) 0 Baso % (Auto) 0 Neut # (Auto) 16.7 H Lymph # (Auto) 1.2 [place] # (Auto) 0.8 Eos # (Auto) 0.0 Baso # (Auto) 0.0 Immature Gran # (Auto) 1.71 H Absolute Nucleated RBC 0.08 H Immature Gran % 8 H Nucleated RBC % 0 Smear Path Review Sent to Pathologist Puncture Site ABG pH ABG pCO2 ABG pO2 ABG HCO3 ABG O2 Saturation ABG Base Excess FiO2 Sodium 141 Potassium 3.4 Chloride 106 Carbon Dioxide 24.8 Anion Gap 10 BUN 41 H Creatinine 1.6 H Estim Creat Clear Calc 50.2 L eGFR 48 L BUN/Creatinine Ratio 26 H Glucose 221 H Calculated Osmolality 298 H Lactic Acid Calcium 8.4 Corrected Calcium 9.1 Phosphorus 3.6 Magnesium 2.9 H Total Bilirubin 0.3 AST 30 ALT 15 Alkaline Phosphatase 85 Total Protein 5.1 L Albumin 3.1 L Globulin 2.0 L Albumin/Globulin Ratio 1.6 ABG Interpretation ABG results: 04/19/25 04/19/25 04/20/25 19:07 22:38 04:38 ABG pH 7.29 L 7.34 L 7.37 ABG pCO2 44 45 39 ABG pO2 297 H 43 L* D 146 H D ABG HCO3 21 24 22 ABG O2 Saturation 100 H 79 L 100 H ABG Base Excess -6 L -2 -3 VBG pH VBG pCO2 VBG pO2 VBG Base Excess 04/20/25 04/21/25 09:42 04:23 ABG pH 7.35 ABG pCO2 44 ABG pO2 96 D ABG HCO3 24 ABG O2 Saturation 98 ABG Base Excess -2 VBG pH 7.31 L VBG pCO2 46 VBG pO2 47 VBG Base Excess -3 Quality Measures Quality Measures VTE prophylaxis Assessment & Plan Assessment Current Active Medications: Generic Name Dose Route Start Last Admin Trade Name Maikolq PRN Reason Stop Dose Admin Acetaminophen 650 mg 04/19/25 08:33 Acetaminophen 325 Mg Tablet PO 05/17/25 13:26 Q6H PRN Fever >100.4 or Pain 1-3 Dextrose 25 ml 04/19/25 08:30 Dextrose 50%-Water Inj 50 Ml Syringe IV 05/19/25 08:29 Q15MIN PRN BG 50-70 responsive npo pt Dextrose 50 ml 04/19/25 08:30 Dextrose 50%-Water Inj 50 Ml Syringe IV 05/19/25 08:29 Q15MIN PRN BG <50 OR BG <70 & pt unresponsive Enoxaparin Sodium 40 mg 04/18/25 09:00 04/21/25 09:36 Enoxaparin Sod Inj 40 Mg/0.4 Ml Syringe SC 05/02/25 08:59 40 mg QDAY LYRIC Administration Glucagon 1 mg 04/19/25 08:30 Glucagon Inj 1 Mg Vial IM Q15MIN PRN BG <70, and no IV access Hydromorphone HCl 0.5 mg 04/19/25 08:32 Hydromorphone Inj 2 Mg/Ml Vial IVP 04/24/25 08:31 Q4HR PRN BREAKTHROUGH PAIN (SEVERE) Fentanyl Citrate 2,500 mcg in 250 mls @ 2.5 mls/hr 04/19/25 18:03 04/21/25 11:00 Sublimaze Inj 2,500 Mcg/250 Ml Bag IV 04/24/25 18:02 0 mcg/hr .Q24H PRN 0 mls/hr PER PROTOCOL Titration Protocol 25 MCG/HR Propofol 1,000 mg in 100 mls @ 2.764 mls/hr 04/19/25 18:18 04/21/25 11:00 Diprivan Ivpb IV 05/19/25 18:17 0 mcg/kg/min .Q24H PRN 0 mls/hr PER PROTOCOL Titration Protocol 5 MCG/KG/MIN Norepinephrine/Dextrose 8 mg in 250 mls @ 8.638 mls/hr 04/20/25 00:49 04/21/25 11:00 Levophed In D5w 8mg/250ml IV 05/20/25 00:48 0.17 mcg/kg/min .Q24H PRN 29.368 mls/hr PER PROTOCOL Titration Protocol 0.05 MCG/KG/MIN Vasopressin/Sodium Chloride 20 unit in 100 mls @ 9 mls/hr 04/20/25 02:18 04/21/25 11:00 Vasostrict/Ns Ivpb IV 05/20/25 02:17 0.03 unit/min .Q11H7M PRN 9 mls/hr PER PROTOCOL Titration Protocol 0.03 UNIT/MIN Piperacillin/Tazobactam/Dextrose 3.375 gm in 50 mls @ 100 mls/hr 04/20/25 07:46 04/21/25 05:12 Zosyn IV 04/27/25 07:45 100 mls/hr Q6HR LYRIC Administration Protocol Acetaminophen 1,000 mg in 100 mls @ 250 mls/hr 04/20/25 14:00 04/20/25 14:10 Ofirmev Inj IV Infused Q8HR PRN Infusion FEVER >101 Amiodarone HCl/Dextrose 360 mg in 200 mls @ 16.667 mls/hr 04/21/25 00:04 04/21/25 06:06 Nexterone Ivpb IV 04/22/25 00:03 16.667 mls/hr .Q12H LYRIC Administration Insulin Human Lispro 0 unit 04/19/25 12:00 04/21/25 05:12 Insulin Lispro (Admelog) 1 Unit/0.01 Ml Unit SC 05/19/25 11:59 3 unit Q6HR LYRIC Administration Protocol Ondansetron HCl 4 mg 04/17/25 09:45 04/17/25 10:06 Ondansetron Inj 2 Mg/Ml Inj 2 Ml IVP 05/17/25 09:44 4 mg Q6HR PRN Administration NAUSEA OR VOMITING Protocol Pantoprazole Sodium 40 mg 04/19/25 18:45 04/21/25 08:40 Pantoprazole Inj 40 Mg Vial IVP 05/19/25 18:44 40 mg QDAY LYRIC Administration Sodium Chloride 5 ml 04/19/25 18:06 Sodium Chloride Rt 10% 15 Ml Nebu INH 05/19/25 18:05 X1 PRN SECRETIONS Plan This patient is a 64-year-old male with a history of diverticulosis, appendectomy, s/p repair of incarcerated hernia, CAD status post stents x 2, COPD, asthma, hypertension, HLD, and T2DM who presented to [facility] ED on 04/17 for lower abdominal pain and lack of bowel movement for 1 to 2 weeks. The patient was initially admitted to the medical floors for management of diverticulitis and obstipation, but was upgraded to the ICU for continued mechanical ventilation after an exploratory laparotomy performed on 04/19. NEURO #Sedated Dx: Patient is sedated postop, will remain sedated until patient is taken for closure on 04/21 Rx: Fentanyl gtt. Propofol gtt. RASS goal -2 CARDIO #Shock DDx: Distributive shock Dx: Patient remained hypotensive with MAP below 65 even with 3 L of LR on 04/19- 04/20 overnight Patient spiked fevers on 04/20 Patient had feculent peritonitis secondary to perforated diverticulitis, which puts patient at significant risk of infection Blood cultures initially collected 04/17 negative after 48 hours Sputum culture collected 04/19, pending Blood cultures collected 04/20, positive for GNR, pending final report Rx: Antibiotics broadened form ceftriaxone and metronidazole (04/17?04/20) to Zosyn (04/20-) to treat suspected underlying infection Levophed gtt. Vasopressin gtt. 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 Keep potassium above 4 and magnesium above 2 Will hold off on anticoagulation at this time given that the patient has had a recent major surgery and had underlying shock, GNR bacteremia, and right lung pneumothorax that may have been the inciting events that resulted in atrial fibrillation Will recommend patient to follow-up with outpatient cardiology PULM #Intubated, on mechanical ventilation Dx: Patient was sedated, intubated, and mechanically ventilated during his exploratory laparotomy on 04/19 and remains intubated on transferred to the ICU on 04/19 Rx: Will continue mechanical ventilation without plans to wean the patient off until 04/21 when the patient is planned to have closure of his abdomen #Pneumothorax, right lung, s/p chest tube placement 04/21 Dx: Chest x-ray ordered 04/21 in the AM identified right-sided tension pneumothorax, however patient did not have any hemodynamic derangements Repeat chest x-rays on 04/21 confirmed stable placement of chest tube Rx: Chest tube placed and connected to Pleur-evac on 04/21 Daily chest x-ray GI #Perforated diverticulitis #Surgical removal of sigmoid colon #Feculent peritonitis Dx: CT abdomen/pelvis on showed prominent pneumoperitoneum and free fluid in the patient's abdomen, so the patient was taken urgently to the operating room for exploratory laparotomy Patient was found to have perforated sigmoid diverticulitis with feculent peritonitis during 04/19 exploratory laparotomy Per operative note, the patient's sigmoid colon was removed Blood cultures collected 04/17 negative for growth after 48 hours General Surgery performed washout, created colostomy, and closed the abdomen on 04/21 Rx: Zosyn 3.375 g every 6 hours (04/20-) Discontinued ceftriaxone and metronidazole (04/17?04/20) Patient n.p.o. Parenteral nutrition per General Surgery NEPHRO #Acute kidney injury, improving DDx: Prerenal, ATN Dx: Patient's creatinine increased to 1.4 on 04/20 in AM with decreased urine output Likely secondary to hypoperfusion to kidneys from shock Rx: Manage underlying shock with vasopressors and fluid resuscitation Continue Zosyn, renally dosed #Lactic acidosis Dx: Patient initially presented with a lactic acid of 3.0 on 04/17 in ED Lactic acid initially decreased, however noted to be elevated on 04/20 at 3.1, and has since been downtrending Rx: Given recent abdominal procedure, will expect continued elevation from baseline #Right renal cyst Dx: CT abdomen/pelvis 04/17 and 04/19 as well as renal ultrasound identified large renal cyst Rx: Patient to follow up outpatient #Hypokalemia, resolved #Hyponatremia, resolved URO #Jones catheter inserted Dx: Patient was transferred to the ICU with Jones catheter in place Patient does take tamsulosin at home, but does not have any documented history of BPH at this institution Rx: Will keep Jones catheter in place for closer monitoring of urine output as a surrogate for renal perfusion HEME #Leukocytosis Dx: Patient presented with WBC of 21.7 on admission Patient did have a sharp drop of WBC to 6.8 on 04/19 in the a.m. prior to surgery Leukocytosis is likely secondary to the patient's diverticulitis on admission Rx: Continue with antibiotics as noted above Follow CBC daily Will expect continued elevation as the patient is postop ENDO #[id number] type 2 diabetes mellitus Dx: Patient has takes metformin at home Hemoglobin A1c 6.8% on admission Rx: Sliding scale insulin Bedside glucose checks every 6 hours Will plan for carb consistent diet once patient has been cleared for oral diet ID #GNR bacteremia Dx: Patient noted to have GNR positive blood cultures collected 04/20 Likely source is from feculent peritonitis after the perforated diverticulitis as the patient's blood cultures were negative from 04/17 Rx: Continue with antibiotics as noted above, will narrow upon final results of blood cultures MSK #No active problems SKIN #No active problems Feeding/fluids: NPO, Parenteral nutrition; Levophed, Vasopressin Analgesia: Fentanyl Sedation: Propofol and Fentanyl Thromboprophylaxis: Lovenox Head up position: 30 degrees Ulcer prophylaxis: Protonix Glycemic control: Q6h glucose checks Spontaneous breathing trial: N/A, AC/PRVC Bowel care: N/A Indwelling catheters: Jones Deescalation of antibiotics: Zosyn CODE STATUS: Full Reason for ICU care: Intubated patient mechanically ventilated and sedated s/p ex lap; shock requiring vasopressors Patient plan of care was discussed with the attending superintendent renting managing, Dr. Teixeira and senior resident Dr. Leiva (PGY-2). Schuyler Kovacs, PGY-1 Attending Provider Attestation/Addendum Patient seen and examined, discussed with resident team. In brief is a 64-year-old male who developed a large pneumothorax this morning of his status post chest tube placement. He had septic shock with peritonitis secondary to perforated colon and is on broad-spectrum antibiotics. His blood cultures do show gram-negative rods. He is scheduled to return to the OR today for washout, closure and colostomy placement. No significant change in his physical exam. He did develop some brief episode of A-fib with RVR requiring amio overnight. Attempt was made to place an A-line however unsuccessful. Overall the patient is stable at this time Case discussed with ICU team Discussed with surgery Labs, imaging and records reviewed Approximately 48 critical care minutes required for evaluation, exam, review, intervention, discussion and formulation of plan of care for this critically ill patient with septic shock and pneumothorax at high risk for further and ongoing decompensation
--- NOTE | 2025-04-21 12:44 | ESOP_ITS ---
Date of Procedure 04/21/25 Pre Op Diagnosis Open abdomen status post sigmoid colectomy with abdominal washout for perforated diverticulitis with feculent peritonitis Post Op Diagnosis Open abdomen status post sigmoid colectomy with abdominal washout for perforated diverticulitis with feculent peritonitis Procedure Reexploration of the abdomen with abdominal washout. Partial colectomy with end colostomy Findings Small bowel and the colon appeared viable without significant inflammation or evidence of perforation. There was no evidence of feces or feculent peritonitis. There was some fibrinous exudate throughout the outer lumen of small bowel Procedure Description Patient brought into the operating room in supine position. After a dministration of general endotracheal anesthesia, patient's abdomen prepped and draped in standard surgical manner. The previously placed wound VAC apparatus was removed. A wet towel and plastic covering that was previously placed were removed. The abdomen was inspected, there was no evidence of feculent peritonitis or infection. The small bowel was eviscerated, there were some minimal amount of adhesions, there was no evidence of infection or perforation. However, there was large amount of fibrinous exudates throughout the outer lumen of small bowel. The abdomen and pelvis copiously and thoroughly washed and irrigated, all the fluids were suctioned and the suction fluid returned clear. The rectal stump was inspected, the stump was intact without leakage or any bleeding. 0 Prolene sutures placed at the rectal stump for future identification during colostomy reversal operation. The end of descending colon with a staple line was then inspected, there were some purpleish discoloration, 1 inch of distal descending colon was divided and removed. 3 cm circular incision was made in left abdomen and dissection was deepened into soft tissue. Anterior abdominal fascia was opened in vertical fashion, rectus muscle was split, posterior abdominal fascia and peritoneum were opened. The opening was accommodating 3 finger breaths. The end of descending colon was brought out of this opening to be matured as end colostomy. There was no tension or kinking. Abdomen and pelvis once again copiously and thoroughly washed and irrigated, all the fluids were suctioned and the suction fluid returned clear. Hemostasis was adequate and satisfactory. Anterior abdominal fascia was closed with running 0 PDS as well as interrupted sutures with #1 Vicryl. The wound was copiously washed and irrigated with Betadine as well as warm saline. Incision was closed with filiberto, an approximately 1 cm opening was left at the inferior aspect of the incision and a drain was placed. The colostomy was then matured in usual Noy fashion with 3-0 Vicryl sutures. Appropriate colostomy appliance is applied. Incision was covered with sterile dressings. Patient tolerated procedure well. He remained intubated and transferred to intensive care unit in stable condition. Instruments, needles and sponge counts were reported to be correct x 2. Anesthesia GETA Pathology / specimen None Estimated Blood Loss 50 Condition Critical Disposition ICU Surgeon Tania Malone MD Surgical Staff Operation Date: 04/21/25 10:15 Case Staff Anesthesiologist: Maciej Shah RNtelephone operator chief: Simon Ko
--- NOTE | 2025-04-21 13:35 | XR_ITS ---
EXAMINATION: AP chest single view TECHNIQUE: AP portable supine chest single view Date and time: April 21, 2025, 1348 hours, comparison April 21, 2025 10:23 a.m. INDICATIONS: History tension pneumothorax post right chest tube placement today. FINDINGS: Right surgical chest tube satisfactory position Right lung is well expanded, minimal air beneath the right lateral lung less than 10% Right internal jugular central line tip right atrium Endotracheal tube remains in satisfactory position Mild enlargement cardiac contour Atelectasis right base Pneumonia left base Orogastric tube in the stomach IMPRESSION: Right chest tube satisfactory position with satisfactory expansion right lung
--- NOTE | 2025-04-21 14:13 | PD.ANESPROG ---
Documentation for date of: 04/21/25 ANESTHESIA NOTE: This patient had initial GETA for emergent ex lap on 04/19/25. 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 Also hx of HTN, DM, COPD. He was having abdominal pain and had nausea and vomiting the night prior. For his initial ex lap on 04/19/25, on arrival to OR, his pre-existing NGT put out about 200 cc of dark liquid on active suction, then he was induced and intubated uneventfully. He overall tolerated the surgery well. He initially needed intermittent IV Phenylephrine and Vasopressin boluses to maintain his BP and rest of his vitals were stable. Ex lap showed significant stool contamination of the abdominal cavity and so the surgeon had decided to keep abdomen open and to admit him to ICU intubated. I gave him about 1600 of crystalloid and 250 cc of 5% Albumin. Towards the end, he was stable without needing any vasopressors. On arrival to ICU, care was transferred over to ICU team with report given. He was infact hypertensive, SBP 140s, and I had given him IV Versed and Fentanyl for sedation and gave another IV Fentanyl bolus in ICU, and further sedation to be started in ICU. Today, for his scheduled repeat ex lap and washout, when I arrived for pre-op eval, I noted this morning's CXR after central line placement showed R tension pthx with mediastinal shift. On my visit to ICU, he was on Propofol and Fentanyl drips, on Vaso and Levo drips for hypotension after initial ex lap, and on Amio drip for A fib RVR earlier. His SBP was 80s on L arm NIBP cuff. He has had low UOP also. I immediately discussed with the ICU resident and recommended pre-op pthx decompression and updated the surgeon also, and I also recommended A line placement in the meantime. Then I did another emergent case in OR, and in the meantime chest tube was placed and ICU resident was attempting A line placement. Then once the OR was ready, A line was unsuccessful, then he was taken to OR with team. His Amio, Vaso and Levo drips were continued with small up/down titration of his Levo. He tolerated the surgery well, vitals remained stable throughout. He received 1400 cc of NS intra-op. Intra-op, I attempted multiple US guided A line attempts with 20 g catheters with sterile technique, some with no blood return despite proper needle placement on US guidance and some with good arterial blood return but failed to thread the wire every time. His R radial site had multiple attempts already, US showed small caliber artery with no flow on color doppler and ulnar branch did show positive pulsatile color flow, I tried once but no blood return. L radial artery showed small caliber vessel again and no flow on color doppler, I tried once but no blood return. I scanned his R AC also for brachial and found two arterial vessels with positive pulsatile color flow and tried twice on both vessels and received good arterial blood return each time but the wire wouldn't thread. So I finally aborted further attempts. His L arm NIBP cuff was reliable throughout the case and his BP remained stable throughout with the 2 vasopressors. End US scan of R AC vessels did show positive pulsatile color doppler. Dressing was applied to R AC. EBL 5 cc. No gross hematoma. B/l hands were on slightly cold to touch, cap refill 5 seconds, R hand Pox read 99-100% with good waveform. At the end, he was transferred back to ICU stable and care transferred to ICU team and report given. Maciej Shah MD Anesthesia Progress Note Progress Note Most recent Vital Signs: Last Vital Signs Temp 99.7 F 04/21/25 08:00 Pulse 65 04/21/25 10:41 Resp 20 04/21/25 07:00 BP 90/53 L 04/21/25 10:41 Pulse Ox 99 04/21/25 10:41 O2 Del Method Mechanical Ventilation 04/21/25 08:00 O2 Flow Rate 2 04/19/25 11:42 FiO2 40 04/21/25 10:41
[2025-04-21] MEDS: Norepinephrine/D5W 8mg/250ml 8 MG/250 ML BAG 5.183 MG IV (16:00)
--- NOTE | 2025-04-21 17:52 | PD.RESPROC ---
PROCEDURES: Procedure Date / Time 04/21/25 9:45 Procedural Time Out Time out performed: yes Procedure Narrative Procedure Narrative: A time out was performed. My hands were washed immediately prior to the procedure. I wore a surgical cap, mask, sterile gown and sterile gloves throughout the procedure.The Right wrist was prepped using chlorhexidine scrub and draped in sterile fashion. The radial pulse was identified and the wrist was positioned in the usual fashion. Using the Arrow Radial Arterial Line Kit, a needle was inserted into the radial artery. Arterial blood was seen to pulsate in the flash chamber. The internal guidewire was advanced, but resistance was felt and retracted guidewire. On US artery seemed to have collapsed therefore procedure was aborted as patient was going for surgery and no emergent need for A-line. Case discussed and supervised by attending Dr. Puneet Garcia MD PGY1 Arterial Line Indication(s): frequent arterial line sampling and shock Informed consent obtained: obtained from surrogate decision maker Time out done, and the following verified: correct patient, side and site, procedure, patient position and implants and/or equipment Size (Gauge): 14 Technique used: direct puncture technique Patient tolerated procedure: well and no complications EBL(ml): 3 Complications: none Site: right and radial Procedure comment: Unsuccessfull A-line
[2025-04-21] MEDS: INSULIN HUM REGULAR 1 UNIT/0.01 ML (PER UNIT) SC (18:08)
[2025-04-22] VITALS (32 sets, daily range): BP systolic 85–147; BP diastolic 54–89; PULSE 30–90; RESP 6–23; TEMP 36.1–37.5; O2SAT 93–98; BMI 32.5
[2025-04-22] MEDS: INSULIN HUM REGULAR 1 UNIT/0.01 ML (PER UNIT) SC ×2 (00:02→06:03)
[2025-04-22] MEDS: AMIODARONE 360 MG IVPB 360 MG/200 ML BAG 16.667 MG IV (02:55)
[2025-04-22 04:45] LABS: Base Excess 1 (-3-3); HCO3 27 mEq/L (20-26); Inspired Oxygen, FIO2 30 %; O2 Saturation 95 % (91-98); PCO2 50 mmHg (32.0-48.0); PO2 73 mmHg (83-108); pH, Arterial 7.34 (7.35-7.45)
[2025-04-22 04:48] LABS: Allen Test Performed/OK; Puncture Site Left Radial
--- NOTE | 2025-04-22 05:00 | XR_ITS ---
EXAMINATION: AP chest single view TECHNIQUE: AP portable semiupright chest single view, comparison April 21 2025 INDICATIONS: History tension pneumothorax post chest tube placement FINDINGS: Right chest tube satisfactory position Satisfactory expansion right lung Atelectasis in the right lower lobe Right internal jugular central line tip SVC satisfactory position Probable mild atelectasis at the left base Orogastric tube is in the stomach the tip is below the level of the film IMPRESSION: Right chest tube satisfactory position Satisfactory expansion right lung
[2025-04-22 05:18] LABS: Basophils # (Auto) 0.0 Thou/mm3 (0.0-0.2); Basophils % (Auto) 0 % (0-2.5); Eosinophils # (Auto) 0.0 Thou/mm3 (0.0-0.5); Eosinophils % (Auto) 0 % (0-10); Hematocrit 36.0 % (41.0-53.0); Hemoglobin 12.3 g/dL (13.5-16.0); Immature Granulocytes Auto 2.70 Thou/mm3 (0.00-0.00); Lymphocytes # (Auto) 1.3 Thou/mm3 (1.0-4.8); Lymphocytes % (Auto) 8 % (10-50); Mean Corpuscular HGB Conc 34.2 g/dl (31.0-37.0); Mean Corpuscular Hemoglobin 29.4 pg (25.0-35.0); Mean Corpuscular Volume 86 fL (80-100); Monocytes # (Auto) 0.7 Thou/mm3 (0.0-0.8); Monocytes % (Auto) 4 % (0-12); Neutrophils # (Auto) 12.7 Thou/mm3 (1.8-7.7); Neutrophils % (Auto) 73 % (37-80); Nucleated Red Blood Cell # 0.04 Thou/mm3 (0.00-0.00); Nucleated Red Blood Cell % 0 /100 WBC (0); Platelet Count 221 Thou/mm3 (140-440); RDW Standard Deviation 45.7 fL (35.1-43.9); Red Blood Count 4.18 Miln/mm3 (4.50-5.90); White Blood Count 17.4 Thou/mm3 (3.8-10.6)
[2025-04-22] MEDS: PIPER/TAZO 3.375 GM PREMIX 3.375 GM/50 ML BAG IV ×4 (05:30→23:55)
[2025-04-22 06:02] LABS: Alanine Aminotransferase 17 U/L (10-49); Albumin, Serum 2.9 gm/dL (3.4-4.8); Albumin/Globulin Ratio 1.3 (1.2-2.2); Alkaline Phosphatase 90 U/L (46-116); Anion Gap 9 (7-16); Aspartate Amino Transferase 35 U/L (0-34); BUN/Creatinine Ratio 32 Ratio (12-20); Bilirubin,Total 0.2 mg/dL (0.3-1.2); Blood Urea Nitrogen 35 mg/dL (9-23); Calcium 8.0 mg/dL (8.3-10.6); Calcium (Corrected) 8.9 mg/dL (8.5-10.1); Carbon Dioxide 26.2 mMol/L (20.0-31.0); Chloride 109 mMol/L (98-107); Creatinine (Component) 1.1 mg/dL (0.6-1.3); Estimated Creatinine Clearance 73.0 mL/min (>60); Globulin 2.3 gm/dL (2.3-3.5); Glucose 237 mg/dL (74-106); Magnesium 2.5 mg/dL (1.6-2.6); Osmolality,Calculated 302 (275-295); Phosphorous 2.3 mg/dL (2.4-5.1); Potassium 3.7 mMol/L (3.4-5.1); Sodium 144 mMol/L (136-145); Total Protein 5.2 gm/dL (5.7-8.2); eGFR > 60 See Note
[2025-04-22] MEDS: POT PHOS 15 mMol in NS 250 ML 15 MMOL/250 ML BAG 62.5 MMOL IV (06:25)
[2025-04-22] MEDS: ENOXAPARIN SOD INJ 40 MG/0.4 ML SYRINGE SC (08:00)
--- NOTE | 2025-04-22 08:09 | PC.SS ---
SS update: ASW spoke to charge nurse to receive updates, patient will be extubated today, on iv antibiotics.
--- NOTE | 2025-04-22 11:08 | PD.RESPRO ---
Documentation for date of: 04/22/25 Subjective Subjective Interval history: This patient is a 64-year-old male with a history of diverticulosis, appendectomy, s/p repair of incarcerated hernia, CAD status post stents x 2, COPD, asthma, hypertension, HLD, and T2DM who presented to [facility] ED on 04/17 for lower abdominal pain and lack of bowel movement for 1 to 2 weeks. The patient was initially admitted to the medical floors for management of diverticulitis and obstipation, but was upgraded to the ICU for continued mechanical ventilation after an exploratory laparotomy performed on 04/19. According to chart review, the patient was taking loperamide prior to his symptoms about 2 weeks ago, and since then, the patient has been having abdominal pain and lack of bowel movements. Initial CT abdomen/pelvis showed wall thickening and marked inflammatory changes in the sigmoid colon, suspicious for venous air seen with ischemic bowel. The patient was initially managed conservatively with being made n.p.o. with IV fluids and a combination of ceftriaxone and metronidazole. However, on 04/19, repeat CT abdomen/pelvis showed prominent pneumoperitoneum and free fluid in the abdomen, so the patient was urgently taken to the operating room for exploratory laparotomy. During the procedure, it was found that the patient had a perforated sigmoid diverticulitis with feculent peritonitis. The patient's sigmoid colon was removed and the abdomen and pelvis were copiously washed and irrigated during the procedure. General surgery left the abdomen open and plans to have an abdominal washout, creation of colostomy, and closure of the abdomen on Saturday 04/21. Until then, general surgery would like to keep the patient intubated and sedated, hence the need for ICU level care. Interval History: 04/20/2025 Overnight, the patient had significant and sustained drop in blood pressure. Night team did bedside ultrasound to visualize the IVC, and noted that it was small and compressible, so the patient was given 3 L of LR. Since the patient remained hypotensive after the 3 L, central line was placed and the patient was started on Levophed and vasopressin. The patient had 400 mL of urine output over the past 24 hours. Patient remained sedated without significant changes on physical exam this morning, however the patient did spike a fever of 100.8 earlier in the morning. Sedation was briefly decreased to assess the patient's mental status, to which the patient was able to follow simple commands. Sedation was increased back to RASS of -2. Echocardiogram was taken and read, which showed an ejection fraction of 45 to 50% with grade 1 diastolic dysfunction. The patient's ceftriaxone and metronidazole was broadened to Zosyn given the patient's worsening hemodynamic status and fevers, concerning for septic shock. Repeat blood cultures were drawn as patient continued to have fevers throughout the day. Renal function throughout the day continue to worsen as urine output was low throughout the day, and morning labs did show worsening renal function. Will have night team follow-up with a repeat renal panel in the evening to continue to monitor renal function. Patient is scheduled to have closure of abdomen with washout and colostomy creation tomorrow 04/21. 04/21/2025 Overnight, the patient had an episode of A-fib with RVR, so the patient was started on amiodarone drip, which resolved the A-fib with RVR. Urine output over the past 24 hours improved and blood cultures resulted as gram-negative rods in both bottles. Obtained repeat chest x-ray this morning, which showed tension pneumothorax on the right lung, however the patient did not have any acute changes in his hemodynamic status and Levophed was actually down titrated throughout the evening and in the morning. Case was discussed with anesthesiology, who recommended management prior to bringing the patient to the OR and possible placement of arterial line for closer blood pressure monitoring. Attending physician Dr. Teixeira placed chest tube into the right lung and connected the chest tube to Pleur-evac. Checks x-ray was taken after procedure to confirm placement of the chest tube. Arterial line was attempted, but unsuccessful before the patient was taken to the OR. In the OR, the patient had reexploration of the abdomen with abdominal washout, partial colectomy with end colostomy. The patient was successfully transferred back to the ICU and was noted to be hypertensive upon arrival. Repeat chest x-ray was taken to confirm placement of chest tube and ET tube postsurgery. Will continue to manage the patient's GNR bacteremia with Zosyn until final results allow for narrowing of antibiotics. Patient is started on parenteral nutrition by general surgery. 04/22/2025: Patient was seen and examined at bedside morning. No acute overnight events. Patient has been more alert and more awake in mild sedation and this morning he was able to follow all instructions and answer yes or no questions. This morning patient was placed on spontaneous breathing trial after all sedation was shut off and patient passes spontaneous breathing trial with good neph, RSBI, and cuff leak. At this time patient was successfully extubated. Has been having good urine output and creatinine has down trended. General surgery stated that they were okay to start clear liquid diet for now with patient sitting up right while eating or drinking. Patient is currently off all vasopressors. Morning chest x-ray showed improvement on the right lung pneumothorax. Patient still has GNR bacteremia therefore we will continue with Zosyn for now. Discontinue patient's amiodarone as patient has sinus rhythm likely had paroxysmal A-fib in the setting of sepsis and pneumothorax. Otherwise patient stable enough to be downgraded to medical floors today after close monitoring postextubation and if remains stable with downgrade this afternoon. Exam Vital Signs Temp Pulse Resp BP Pulse Ox O2 Del Method O2 Flow Rate 99.1 F 78 12 101/63 98 Mechanical Ventilation 2 04/22/25 08:00 04/22/25 09:00 04/22/25 08:00 04/22/25 09:00 04/22/25 09:00 04/22/25 03:00 04/19/25 11:42 FiO2 30 04/22/25 08:00 Narrative Exam Gen: A&O X 3, NAD HEENT: NCAT, EOMI, Pupils reactive ERICK, not icteric. External ears normal. No rhinorrhea. Dry mucous membranes. Neck: Supple, full range of motion, no observable masses, No meningeal sign. Lungs: No Respiratory distress, clear bilateral, but mildly decreased in R lower. CV: RRR, no murmurs. Abdomen: Soft, mildly distended, No rebound tenderness, Midline incision with clean filiberto and no discharge, L colectomy bag with minimal to no content. MSK: No joint swelling, no redness, peripheral pulses presents, trace peripheral edema. Skin: No rashes, petechiae, lesions. Neuro: No focal neurological deficits appreciated, sensory and motor intact, following commands. Psych: Cooperative, appropriate mood and effect. Objective Labs 04/22/25 04:42 04/22/25 04:42 Labs: Laboratory Results - last 24 hr 04/22/25 04/22/25 04:25 04:42 WBC 17.4 H RBC 4.18 L Hgb 12.3 L Hct 36.0 L MCV 86 MCH 29.4 MCHC 34.2 RDW Std Deviation 45.7 H Plt Count 221 D Neut % (Auto) 73 Lymph % (Auto) 8 L [place] % (Auto) 4 Eos % (Auto) 0 Baso % (Auto) 0 Neut # (Auto) 12.7 H Lymph # (Auto) 1.3 [place] # (Auto) 0.7 Eos # (Auto) 0.0 Baso # (Auto) 0.0 Immature Gran # (Auto) 2.70 H Absolute Nucleated RBC 0.04 H Immature Gran % 16 H Nucleated RBC % 0 Puncture Site Left Radial ABG pH 7.34 L ABG pCO2 50 H ABG pO2 73 L D ABG HCO3 27 H ABG O2 Saturation 95 ABG Base Excess 1 FiO2 30 Sodium 144 Potassium 3.7 Chloride 109 H Carbon Dioxide 26.2 Anion Gap 9 BUN 35 H Creatinine 1.1 D Estim Creat Clear Calc 73.0 eGFR > 60 BUN/Creatinine Ratio 32 H Glucose 237 H Calculated Osmolality 302 H Calcium 8.0 L Corrected Calcium 8.9 Phosphorus 2.3 L Magnesium 2.5 Total Bilirubin 0.2 L AST 35 H ALT 17 Alkaline Phosphatase 90 Total Protein 5.2 L Albumin 2.9 L Globulin 2.3 Albumin/Globulin Ratio 1.3 ABG Interpretation ABG results: 04/19/25 04/19/25 04/20/25 19:07 22:38 04:38 ABG pH 7.29 L 7.34 L 7.37 ABG pCO2 44 45 39 ABG pO2 297 H 43 L* D 146 H D ABG HCO3 21 24 22 ABG O2 Saturation 100 H 79 L 100 H ABG Base Excess -6 L -2 -3 VBG pH VBG pCO2 VBG pO2 VBG Base Excess 04/20/25 04/21/25 04/22/25 09:42 04:23 04:25 ABG pH 7.35 7.34 L ABG pCO2 44 50 H ABG pO2 96 D 73 L D ABG HCO3 24 27 H ABG O2 Saturation 98 95 ABG Base Excess -2 1 VBG pH 7.31 L VBG pCO2 46 VBG pO2 47 VBG Base Excess -3 Quality Measures Quality Measures VTE prophylaxis Assessment & Plan Assessment Current Active Medications: Generic Name Dose Route Start Last Admin Trade Name Freq PRN Reason Stop Dose Admin Acetaminophen 650 mg 04/19/25 08:33 Acetaminophen 325 Mg Tablet PO 05/17/25 13:26 Q6H PRN Fever >100.4 or Pain 1-3 Dextrose 25 ml 04/19/25 08:30 Dextrose 50%-Water Inj 50 Ml Syringe IV 05/19/25 08:29 Q15MIN PRN BG 50-70 responsive npo pt Dextrose 50 ml 04/19/25 08:30 Dextrose 50%-Water Inj 50 Ml Syringe IV 05/19/25 08:29 Q15MIN PRN BG <50 OR BG <70 & pt unresponsive Enoxaparin Sodium 40 mg 04/18/25 09:00 04/22/25 08:00 Enoxaparin Sod Inj 40 Mg/0.4 Ml Syringe SC 05/02/25 08:59 40 mg QDAY LYRIC Administration Glucagon 1 mg 04/19/25 08:30 Glucagon Inj 1 Mg Vial IM Q15MIN PRN BG <70, and no IV access Hydromorphone HCl 0.5 mg 04/19/25 08:32 Hydromorphone Inj 2 Mg/Ml Vial IVP 04/24/25 08:31 Q4HR PRN BREAKTHROUGH PAIN (SEVERE) Fentanyl Citrate 2,500 mcg in 250 mls @ 2.5 mls/hr 04/19/25 18:03 04/22/25 08:45 Sublimaze Inj 2,500 Mcg/250 Ml Bag IV 04/24/25 18:02 0 mcg/hr .Q24H PRN 0 mls/hr PER PROTOCOL Titration Protocol 25 MCG/HR Propofol 1,000 mg in 100 mls @ 2.764 mls/hr 04/19/25 18:18 04/21/25 16:00 Diprivan Ivpb IV 05/19/25 18:17 0 mcg/kg/min .Q24H PRN 0 mls/hr PER PROTOCOL Titration Protocol 5 MCG/KG/MIN Norepinephrine/Dextrose 8 mg in 250 mls @ 8.638 mls/hr 04/20/25 00:49 04/22/25 00:00 Levophed In D5w 8mg/250ml IV 05/20/25 00:48 0 mcg/kg/min .Q24H PRN 0 mls/hr PER PROTOCOL Titration Protocol 0.05 MCG/KG/MIN Vasopressin/Sodium Chloride 20 unit in 100 mls @ 9 mls/hr 04/20/25 02:18 04/21/25 14:15 Vasostrict/Ns Ivpb IV 05/20/25 02:17 0 unit/min .Q11H7M PRN 0 mls/hr PER PROTOCOL Titration Protocol 0.03 UNIT/MIN Piperacillin/Tazobactam/Dextrose 3.375 gm in 50 mls @ 100 mls/hr 04/20/25 07:46 04/22/25 05:30 Zosyn IV 04/27/25 07:45 100 mls/hr Q6HR LYRIC Administration Protocol Acetaminophen 1,000 mg in 100 mls @ 250 mls/hr 04/20/25 14:00 04/20/25 14:10 Ofirmev Inj IV Infused Q8HR PRN Infusion FEVER >101 Fat Emulsion Intravenous 500 mls @ 32 mls/hr 04/23/25 18:00 Intralipid 20% Iv IV 05/23/25 17:59 [id number] LYRIC Potassium Acetate 40 meq/ 1,031 mls @ 10 mls/hr 04/21/25 18:00 04/22/25 06:00 Multivitamins/Minerals 10 ml/ IV 04/22/25 17:59 20 mls/hr Thiamine HCl 100 mg/ Amino .Q24H LYRIC Infusion Acids Potassium Acetate 20 meq/ 1,036 mls @ 30 mls/hr 04/22/25 18:00 Potassium Phosphate 15 mmol/ IV 04/23/25 17:59 Calcium Gluconate 1 gm/ .Q24H LYRIC Multivitamins/Minerals 10 ml/ Thiamine HCl 100 mg/ Amino Acids Insulin Human Regular 0 unit 04/21/25 14:42 04/22/25 06:03 Insulin Hum Regular 1 Unit/0.01 Ml (Per Unit) SC 05/19/25 11:59 4 unit Q6HR LYRIC Administration Protocol Ondansetron HCl 4 mg 04/17/25 09:45 04/17/25 10:06 Ondansetron Inj 2 Mg/Ml Inj 2 Ml IVP 05/17/25 09:44 4 mg Q6HR PRN Administration NAUSEA OR VOMITING Protocol Pantoprazole Sodium 40 mg 04/19/25 18:45 04/22/25 08:00 Pantoprazole Inj 40 Mg Vial IVP 05/19/25 18:44 40 mg QDAY LYRIC Administration Sodium Chloride 5 ml 04/19/25 18:06 Sodium Chloride Rt 10% 15 Ml Nebu INH 05/19/25 18:05 X1 PRN SECRETIONS Plan This patient is a 64-year-old male with a history of diverticulosis, appendectomy, s/p repair of incarcerated hernia, CAD status post stents x 2, COPD, asthma, hypertension, HLD, and T2DM who presented to [facility] ED on 04/17 for lower abdominal pain and lack of bowel movement for 1 to 2 weeks. The patient was initially admitted to the medical floors for management of diverticulitis and obstipation, but was upgraded to the ICU for continued mechanical ventilation after an exploratory laparotomy performed on 04/19. 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 Cobb in [place] Echocardiogram taken 04/20 shows ejection fraction of 45 to 50% with grade 1 diastolic dysfunction Rx: Patient to follow up with outpatient cardiology Consider GDMT one medication at a time at low dose as patient currenlty off pressors, off sedation, and extubated #Atrial fibrilation, with RVR, resolved Patient had paroxysmal atrial fibrillation likely in the setting of sepsis and pneumothorax Patient converted back to sinus rhythm shortly after was found to be on A-fib Currently on sinus rhythm therefore we will discontinue amiodarone at this time. PULM #Pneumothorax, right lung, s/p chest tube placement 04/21 Dx: Could be secondary to barotrauma versus slow leak from previous central line even though chest x-ray after central line was placed did not show any pneumothorax and so satisfactory placement of the central line at this time therefore less likely. Chest x-ray ordered 04/21 in the AM identified right-sided tension pneumothorax, however patient did not have any hemodynamic derangements Repeat chest x-rays on 04/21 confirmed stable placement of chest tube Repeat chest x-ray on 04/22/2025 confirmed reexpansion of the right lung and stable placement of chest tube. Rx: Chest tube placed and connected to Pleur-evac on 04/21 Daily chest x-ray GI #Perforated diverticulitis #Surgical removal of sigmoid colon s/p colostomy bag #Feculent peritonitis Dx: CT abdomen/pelvis on showed prominent pneumoperitoneum and free fluid in the patient's abdomen, so the patient was taken urgently to the operating room for exploratory laparotomy Patient was found to have perforated sigmoid diverticulitis with feculent peritonitis during 04/19 exploratory laparotomy Per operative note, the patient's sigmoid colon was removed Blood cultures collected 04/20/2025 showed GNR in the blood. General Surgery performed washout, created colostomy, and closed the abdomen on 04/21 Rx: Zosyn 3.375 g every 6 hours (04/20-) Discontinued ceftriaxone and metronidazole (04/17?04/20) Start clear liquid diet as per general surgery NEPHRO #Acute kidney injury, resolved #Lactic acidosis, resolved #Right renal cyst Dx: CT abdomen/pelvis 04/17 and 04/19 as well as renal ultrasound identified large renal cyst Rx: Patient to follow up outpatient #Hypokalemia, resolved #Hyponatremia, resolved URO No active disease HEME #Leukocytosis Dx: Patient presented with WBC of 21.7 on admission Patient did have a sharp drop of WBC to 6.8 on 04/19 in the a.m. prior to surgery Leukocytosis is likely infectious in etiology versus reactive Currently downtrending Rx: Continue with antibiotics as noted above Follow CBC daily Will expect continued elevation as the patient is postop ENDO #[id number] type 2 diabetes mellitus Dx: Patient has takes metformin at home Hemoglobin A1c 6.8% on admission Rx: Sliding scale insulin Clear liquid diet with carb consistent low ID #GNR bacteremia Dx: Patient noted to have GNR positive blood cultures collected 04/20 Likely source is from feculent peritonitis after the perforated diverticulitis as the patient's blood cultures were negative from 04/17 Rx: Continue with antibiotics as noted above, will narrow upon final results of blood cultures MSK #No active problems SKIN #No active problems Feeding/fluids: CLL carb cons Analgesia: None Sedation:none Thromboprophylaxis: Lovenox Head up position: 30 degrees Ulcer prophylaxis: Protonix Glycemic control: AC Spontaneous breathing trial: Passes, extubated Bowel care: N/A Indwelling catheters: None Deescalation of antibiotics: Zosyn CODE STATUS: Full Reason for ICU care: Extubated and will downgrade Case disclosed with Attending Dr. Puneet Garcia PGY2 Disclaimer: Even though this this note was dictated by speech recognition and even though it was carefully revised there may still be minor errors in visual coordinator due to voice recognition software.
--- NOTE | 2025-04-22 11:18 | PD.SURPROG ---
Documentation for date of: 04/22/25 Subjective Subjective Narrative: Patient is seen and examined in ICU. He was extubated earlier today, maintaining his airway. He has been off pressors. He is alert and awake and his pain is well-controlled. Exam Vital Signs Temp Pulse Resp BP Pulse Ox O2 Del Method O2 Flow Rate 99.1 F 78 12 101/63 98 Mechanical Ventilation 2 04/22/25 08:00 04/22/25 09:00 04/22/25 08:00 04/22/25 09:00 04/22/25 09:00 04/22/25 03:00 04/19/25 11:42 FiO2 30 04/22/25 08:00 Constitutional Constitutional: no acute distress Routine Abdominal Exam Comments: Abdomen is soft and mildly distended. Incision with dressings clean, dry and intact. Colostomy is present, patent and edematous Assessment & Plan Assessment Additional comments: Postop day #3 status post exploratory laparotomy, sigmoid colectomy and abdominal washout Postop day #1 status post reexploration, partial colectomy with end colostomy Plan Continue IV antibiotics. DC NG tube and start patient on clear liquids. PROCEDURES: Procedures Reexploration of the abdomen with abdominal washout. Partial colectomy with end colostomy
[2025-04-22] MEDS: LACTULOSE SYRUP 20 GM/30 ML UDC 30 GM NG (11:24)
[2025-04-22] MEDS: INSULIN LISPRO (AdmeLOG) 1 UNIT/0.01 ML UNIT SC ×2 (11:57→16:57)
--- NOTE | 2025-04-22 12:24 | ESPR_ITS ---
Documentation for date of: 04/22/25 Subjective Subjective Interval history: This is a 64yo M who presented to the hospital on 17 April. He presented for abdominal pain was found to have obstipation and then diverticulitis. Follow-up CT showed air droplets in the wall of the colon and a Surgical eval was obtained. Conservative management was recommended on the the patient had increasing abdominal pain a repeat CT was performed. At this point in time a pneumoperitoneum was noted and the patient was taken to the OR for surgical exploration. The patient was found to have stool in the abdomen and a washout was performed. The sigmoid colon was resected. The patient was left open and in discontinuity and brought to the ICU intubated. Overnight the patient became hypotensive and was initially given 3 L of IV fluids. Patient had persistent hypotension with limited response to fluids and therefore vasopressors were started. This morning the patient has had a low urinary output. He remains with a RASS of -2. Plan is to return to the OR tomorrow with surgery. 04/22-went back to the OR yesterday with closure of his abdomen and placement of a left-sided colostomy bag, he tolerated procedure well. Yesterday he was found to have very large pneumothorax on the right and a central line was placed. There were no acute overnight events Critical Care Note Critical care time (min.): 42 Exam Vital Signs Temp Pulse Resp BP Pulse Ox O2 Del Method O2 Flow Rate 99.1 F 83 20 104/69 95 Mechanical Ventilation 2 04/22/25 08:00 04/22/25 11:00 04/22/25 11:00 04/22/25 11:00 04/22/25 11:00 04/22/25 03:00 04/19/25 11:42 FiO2 30 04/22/25 08:00 Narrative Exam General-no acute distress, awake alert and following commands, normal body habitus HEENT-normocephalic, atraumatic, pupils are pinpoint, sclera anicteric, oral mucosa is hydrated, ET tube and OG tube in place Chest-lungs clear to auscultation bilaterally, heart regular, no gross murmurs auscultated on exam, no tenderness on palpation of chest wall, right-sided chest tube in place Abdomen-soft, nontender, bowel sounds present, no rebound or guarding, colostomy bag in place, midline surgical site intact and without any discharge noted Extremities-no edema, no focal deficit, no mottling, no clubbing Vent PSV Physical Exam Completion Physical Exam Complete?: Yes 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 04/22/25 04:42 04/22/25 04:42 Labs: Laboratory Results - last 24 hr 04/22/25 04/22/25 04:25 04:42 WBC 17.4 H RBC 4.18 L Hgb 12.3 L Hct 36.0 L MCV 86 MCH 29.4 MCHC 34.2 RDW Std Deviation 45.7 H Plt Count 221 D Neut % (Auto) 73 Lymph % (Auto) 8 L [place] % (Auto) 4 Eos % (Auto) 0 Baso % (Auto) 0 Neut # (Auto) 12.7 H Lymph # (Auto) 1.3 [place] # (Auto) 0.7 Eos # (Auto) 0.0 Baso # (Auto) 0.0 Immature Gran # (Auto) 2.70 H Absolute Nucleated RBC 0.04 H Immature Gran % 16 H Nucleated RBC % 0 Puncture Site Left Radial ABG pH 7.34 L ABG pCO2 50 H ABG pO2 73 L D ABG HCO3 27 H ABG O2 Saturation 95 ABG Base Excess 1 FiO2 30 Sodium 144 Potassium 3.7 Chloride 109 H Carbon Dioxide 26.2 Anion Gap 9 BUN 35 H Creatinine 1.1 D Estim Creat Clear Calc 73.0 eGFR > 60 BUN/Creatinine Ratio 32 H Glucose 237 H Calculated Osmolality 302 H Calcium 8.0 L Corrected Calcium 8.9 Phosphorus 2.3 L Magnesium 2.5 Total Bilirubin 0.2 L AST 35 H ALT 17 Alkaline Phosphatase 90 Total Protein 5.2 L Albumin 2.9 L Globulin 2.3 Albumin/Globulin Ratio 1.3 Assessment & Plan Additional Assessment Additional Assessment: In summary this is 64-year-old male admitted to the ICU status post ex lap with washout and resection of sigmoid colon s/p perf currently intubated and on 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, wakes up well and follows commands CV Shock-secondary to sepsis -Currently resolved and off of vasopressors HFrEF-mild decrease noted on echo from the with an EF of 45 to 50% -Will start low-dose beta-negrita -Continue to follow as outpatient with cardiology Resp Acute resp failure- intubated and on MV, fu on ABG and CXR - Currently on PSV and doing well - Will obtain weaning parameters and plan for extubation [id number] chest tube in place with chest x-ray showing well- expanded right lung - It is noted that the patient had a right-sided IJ placed however this was placed on the and the follow-up chest x-ray after the procedure did not show any pneumothorax - Unclear if the pneumothorax which was first noted on the was secondary to barotrauma from the event or from the prior procedure Renal SHEMAR-patient has had a slight increase in his creatinine from baseline 0.9-1.4. He has had a decrease in his urinary output with only approximately 400 cc in the last 24 hours. Continue to monitor I's and O's, avoid nephrotoxins as able -Good urinary output -Has returned to within normal limits Lactic acidosis-secondary to shock and currently improving GI s/p colon perf 2/2 diverticulitis now s/p ex lap with abd washout-patient is status post closure -Status post colostomy -Okay with surgery to start clear liquids GI proph- PPI Endo stable Heme Leukocytosis-secondary to sepsis and recent surgical procedure -Currently trending down Anemia-minimal, monitor -Remains stable Dvt proph- lovenox ID Sepsis- intraabdominal source , on zosyn. - Doing well - Gram-negative rods in blood cultures pending further speciation case d/w ICU team, d/w surgery labs, imaging, records reviewed ~42ccmin required for eval, exam, review, intervention, discussion and formulation of POC for this critically ill pt with septic shock s/p ex lap Provider Notation Provider Notation: Although this document has been carefully reviewed, there may still be some phonetic and other typographical errors. These errors are purely grammatical due to imperfections in the software program and should not be construed in any way to compromise the substance of the patient's medical care during this visit. Thank you for the opportunity and privilege in assisting you with this patient's care and management.
--- NOTE | 2025-04-22 14:55 | ESPR_ITS ---
Documentation for date of: 04/22/25 Subjective Subjective Interval history: Seen today after ICU downgrade. No complaints, denies abdominal pain, N/V, dyspnea. Reports hunger and thirst, clear liquid diet started; tolerating well. Feels better overall. Exam Vital Signs Temp Pulse Resp BP Pulse Ox O2 Del Method O2 Flow Rate 98.9 F 89 12 124/74 94 L Mechanical Ventilation 2 04/22/25 12:00 04/22/25 14:00 04/22/25 14:00 04/22/25 14:00 04/22/25 14:00 04/22/25 03:00 04/19/25 11:42 FiO2 30 04/22/25 08:00 Narrative Exam General: Awake, alert, conversational. Lungs: No distress, breath sounds slightly decreased at R base (chest tube in place). CV: RRR, no murmurs. Abdomen: Soft, mildly distended. Midline incision clean/dry, colostomy pink, patent, edematous. No rebound or guarding. Extremities: Trace edema. Neuro: No focal deficits, following commands. Skin: No rash. Lines/Tubes: Chest tube in place, NG removed per surgery. Objective Labs 04/25/25 05:20 04/25/25 05:20 Labs: Laboratory Results - last 24 hr 04/22/25 04/22/25 04:25 04:42 WBC 17.4 H RBC 4.18 L Hgb 12.3 L Hct 36.0 L MCV 86 MCH 29.4 MCHC 34.2 RDW Std Deviation 45.7 H Plt Count 221 D Neut % (Auto) 73 Lymph % (Auto) 8 L [place] % (Auto) 4 Eos % (Auto) 0 Baso % (Auto) 0 Neut # (Auto) 12.7 H Lymph # (Auto) 1.3 [place] # (Auto) 0.7 Eos # (Auto) 0.0 Baso # (Auto) 0.0 Immature Gran # (Auto) 2.70 H Absolute Nucleated RBC 0.04 H Immature Gran % 16 H Nucleated RBC % 0 Puncture Site Left Radial ABG pH 7.34 L ABG pCO2 50 H ABG pO2 73 L D ABG HCO3 27 H ABG O2 Saturation 95 ABG Base Excess 1 FiO2 30 Sodium 144 Potassium 3.7 Chloride 109 H Carbon Dioxide 26.2 Anion Gap 9 BUN 35 H Creatinine 1.1 D Estim Creat Clear Calc 73.0 eGFR > 60 BUN/Creatinine Ratio 32 H Glucose 237 H Calculated Osmolality 302 H Calcium 8.0 L Corrected Calcium 8.9 Phosphorus 2.3 L Magnesium 2.5 Total Bilirubin 0.2 L AST 35 H ALT 17 Alkaline Phosphatase 90 Total Protein 5.2 L Albumin 2.9 L Globulin 2.3 Albumin/Globulin Ratio 1.3 ABG Interpretation ABG results: 04/19/25 04/19/25 04/20/25 19:07 22:38 04:38 ABG pH 7.29 L 7.34 L 7.37 ABG pCO2 44 45 39 ABG pO2 297 H 43 L* D 146 H D ABG HCO3 21 24 22 ABG O2 Saturation 100 H 79 L 100 H ABG Base Excess -6 L -2 -3 VBG pH VBG pCO2 VBG pO2 VBG Base Excess 04/20/25 04/21/25 04/22/25 09:42 04:23 04:25 ABG pH 7.35 7.34 L ABG pCO2 44 50 H ABG pO2 96 D 73 L D ABG HCO3 24 27 H ABG O2 Saturation 98 95 ABG Base Excess -2 1 VBG pH 7.31 L VBG pCO2 46 VBG pO2 47 VBG Base Excess -3 Quality Measures Quality Measures VTE prophylaxis Assessment & Plan Assessment Current Active Medications: Generic Name Dose Route Start Last Admin Trade Name Freq PRN Reason Stop Dose Admin Acetaminophen 650 mg 04/19/25 08:33 Acetaminophen 325 Mg Tablet PO 05/17/25 13:26 Q6H PRN Fever >100.4 or Pain 1-3 Carvedilol 3.125 mg 04/22/25 17:30 Carvedilol 3.125 Mg Tablet PO 05/22/25 17:29 BIDWM LYRIC Dextrose 25 ml 04/22/25 11:17 Dextrose 50%-Water Inj 50 Ml Syringe IV 05/22/25 11:16 Q15MIN PRN BG 50-70 responsive npo pt Dextrose 50 ml 04/22/25 11:17 Dextrose 50%-Water Inj 50 Ml Syringe IV 05/22/25 11:16 Q15MIN PRN BG <50 OR BG <70 & pt unresponsive Enoxaparin Sodium 40 mg 04/18/25 09:00 04/22/25 08:00 Enoxaparin Sod Inj 40 Mg/0.4 Ml Syringe SC 05/02/25 08:59 40 mg QDAY LYRIC Administration Glucagon 1 mg 04/22/25 11:17 Glucagon Inj 1 Mg Vial IM Q15MIN PRN BG <70, and no IV access Hydromorphone HCl 1 mg 04/22/25 12:16 Hydromorphone Inj 2 Mg/Ml Vial IVP 04/24/25 08:31 Q4HR PRN BREAKTHROUGH PAIN (SEVERE) Piperacillin/Tazobactam/Dextrose 3.375 gm in 50 mls @ 100 mls/hr 04/20/25 07:46 04/22/25 11:24 Zosyn IV 04/27/25 07:45 100 mls/hr Q6HR LYRIC Administration Protocol Insulin Human Lispro 0 unit 04/22/25 11:30 04/22/25 11:57 Insulin Lispro (Admelog) 1 Unit/0.01 Ml Unit SC 05/22/25 11:29 2 unit AC LYRIC Administration Protocol Ondansetron HCl 4 mg 04/17/25 09:45 04/17/25 10:06 Ondansetron Inj 2 Mg/Ml Inj 2 Ml IVP 05/17/25 09:44 4 mg Q6HR PRN Administration NAUSEA OR VOMITING Protocol Pantoprazole Sodium 40 mg 04/19/25 18:45 04/22/25 08:00 Pantoprazole Inj 40 Mg Vial IVP 05/19/25 18:44 40 mg QDAY LYRIC Administration Sodium Chloride 5 ml 04/19/25 18:06 Sodium Chloride Rt 10% 15 Ml Nebu INH 05/19/25 18:05 X1 PRN SECRETIONS Plan 64-year-old male with perforated sigmoid diverticulitis, feculent peritonitis that led to exploratory laparotomy (04/19) for which a washout, partial colectomy and end colostomy (04/21) was completed, right pneumothorax s/p chest tube (04/21), septic shock and SHEMAR now resolved. Extubated, off pressors, improving clinically. Downgraded from ICU today. # Perforated diverticulitis post-op with feculent peritonitis POD#3 from exploratory laparotomy with sigmoid colectomy POD#1 from washout, partial colectomy and end colostomy. Plan: * Continue Zosyn, pending culture speciation and sensitivities. * Clear liquid diet per surgery * Monitor ostomy output. * Daily CBC and CMP. * Pain control PRN. * Continue PPI. # GNR bacteremia Blood cultures 04/20 grew gram-negative rods. Afebrile, hemodynamically stable. Plan: * Continue Zosyn will narrow once speciation final. # Right pneumothorax s/p chest tube (04/21) Tension PTX on 04/21 -> chest tube placed Improved on 04/22 CXR. No respiratory distress. Plan: * Continue chest tube to Pleurevac per surgery. * Repeat CXR in AM. * Monitor for air leak. # Septic shock, resolved Off pressors, stable MAP, normal lactate, improving urine output. Plan: * Continue current antibiotic coverage. # Acute kidney injury, resolved Creatinine back to baseline (1.1) with good UOP. Plan: * Monitor BMP daily. * Avoid nephrotoxins. # Paroxysmal A-fib with RVR (04/21), resolved Likely secondary to sepsis and pneumothorax. Sinus rhythm today. Plan: * Stop amiodarone (per ICU team). * Telemetry monitoring. * Replete electrolytes (K >4, Mg >2). 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 Plan: * Will restart GDMT one med at a time. * Continue telemetry. # Postoperative leukocytosis Down-trending, likely reactive. Plan: * Continue antibiotics. * Daily CBC. # Type 2 diabetes A1c 6.8%. Plan: * Sliding scale insulin. * Clear liquids diet Health Maintenance: Disposition: Downgraded from ICU to medical floors. Diet: Clear liquid DVT prophylaxis: Lovenox. GI prophylaxis: Protonix. Bowel regimen: None currently; monitor ostomy output. Code Status: Full Code. ----- Plan discussed with attending physician Dr. Abdifatah Tena MD PGY-1 Internal Medicine Attending Provider Attestation/Addendum I have discussed and was present for the essential components of the history, physical examination, diagnosis, and treatment plan with the resident. I agree with the patient's care as documented by the resident and amended herein by me. Bong Gardiner DO. Although this document has been carefully reviewed, there may still be some phonetic and other typographical errors. These errors are purely grammatical due to imperfections in the software program and should not be construed in any way to compromise the substance of the patient's medical care during this visit.
[2025-04-23] VITALS (10 sets, daily range): BP systolic 153–168; BP diastolic 95–106; PULSE 81–94; RESP 16–25; TEMP 36.1–36.7; O2SAT 92–97; BMI 32.5
[2025-04-23] MEDS: PIPER/TAZO 3.375 GM PREMIX 3.375 GM/50 ML BAG IV ×3 (06:05→17:10)
[2025-04-23 06:10] LABS: Basophils # (Auto) 0.0 Thou/mm3 (0.0-0.2); Basophils % (Auto) 0 % (0-2.5); Eosinophils # (Auto) 0.0 Thou/mm3 (0.0-0.5); Eosinophils % (Auto) 0 % (0-10); Hematocrit 35.2 % (41.0-53.0); Hemoglobin 12.1 g/dL (13.5-16.0); Immature Granulocytes Auto 5.52 Thou/mm3 (0.00-0.00); Lymphocytes # (Auto) 1.5 Thou/mm3 (1.0-4.8); Lymphocytes % (Auto) 6 % (10-50); Mean Corpuscular HGB Conc 34.4 g/dl (31.0-37.0); Mean Corpuscular Hemoglobin 29.2 pg (25.0-35.0); Mean Corpuscular Volume 85 fL (80-100); Monocytes # (Auto) 0.8 Thou/mm3 (0.0-0.8); Monocytes % (Auto) 3 % (0-12); Neutrophils # (Auto) 18.8 Thou/mm3 (1.8-7.7); Neutrophils % (Auto) 70 % (37-80); Nucleated Red Blood Cell # 0.02 Thou/mm3 (0.00-0.00); Nucleated Red Blood Cell % 0 /100 WBC (0); Platelet Count 223 Thou/mm3 (140-440); RDW Standard Deviation 44.9 fL (35.1-43.9); Red Blood Count 4.15 Miln/mm3 (4.50-5.90); White Blood Count 26.7 Thou/mm3 (3.8-10.6)
[2025-04-23 06:30] LABS: Alanine Aminotransferase 20 U/L (10-49); Albumin, Serum 3.0 gm/dL (3.4-4.8); Albumin/Globulin Ratio 1.2 (1.2-2.2); Alkaline Phosphatase 100 U/L (46-116); Anion Gap 9 (7-16); Aspartate Amino Transferase 38 U/L (0-34); BUN/Creatinine Ratio 35 Ratio (12-20); Bilirubin,Total 0.3 mg/dL (0.3-1.2); Blood Urea Nitrogen 28 mg/dL (9-23); Calcium 8.4 mg/dL (8.3-10.6); Calcium (Corrected) 9.2 mg/dL (8.5-10.1); Carbon Dioxide 27.9 mMol/L (20.0-31.0); Chloride 106 mMol/L (98-107); Creatinine (Component) 0.8 mg/dL (0.6-1.3); Estimated Creatinine Clearance 101.5 mL/min (>60); Globulin 2.5 gm/dL (2.3-3.5); Glucose 236 mg/dL (74-106); Magnesium 2.0 mg/dL (1.6-2.6); Osmolality,Calculated 298 (275-295); Phosphorous 2.2 mg/dL (2.4-5.1); Potassium 3.8 mMol/L (3.4-5.1); Sodium 143 mMol/L (136-145); Total Protein 5.5 gm/dL (5.7-8.2); eGFR > 60 See Note
--- NOTE | 2025-04-23 07:00 | XR_ITS ---
EXAMINATION: AP chest single view TECHNIQUE: AP portable semiupright chest single view Date and time: April 23, 2025, 0618 hours INDICATIONS: History tension right pneumothorax post chest tube placement COMPARISON: April 22, 2025. FINDINGS: Right chest tube satisfactory position Films demonstrate right apical pneumothorax and possible right lateral lower pneumothorax, estimated 20% No significant shift of the heart to the left Internal jugular line satisfactory position Mild prominence left ventricle IMPRESSION: More prominent right pneumothorax
[2025-04-23] MEDS: INSULIN LISPRO (AdmeLOG) 1 UNIT/0.01 ML UNIT SC ×4 (07:50→20:29)
[2025-04-23] MEDS: ENOXAPARIN SOD INJ 40 MG/0.4 ML SYRINGE SC (09:16)
--- NOTE | 2025-04-23 09:52 | PC.SS ---
Rounding: POD #2 Dr. Malone, advance diet as tolerated, pending BM
--- NOTE | 2025-04-23 11:25 | PD.SURPROG ---
Documentation for date of: 04/23/25 Subjective Subjective Narrative: Patient is seen and examined. He is complaining of incisional pain. He is tolerating liquid diet without nausea or vomiting Exam Vital Signs Temp Pulse Resp BP Pulse Ox O2 Del Method O2 Flow Rate 97.0 F 86 19 159/105 H 93 L Nasal Cannula 1 04/23/25 08:00 04/23/25 11:20 04/23/25 11:20 04/23/25 08:00 04/23/25 11:20 04/23/25 08:00 04/23/25 11:20 FiO2 30 04/22/25 08:00 Constitutional Constitutional: no acute distress Routine Abdominal Exam Comments: Abdomen is soft and mildly distended. Incision with dressings clean, dry and intact. Colostomy is present and functioning with copious amount of soft stool in the bag Assessment & Plan Assessment Additional comments: Postop day #4 status post exploratory laparotomy, sigmoid colectomy and abdominal washout Postop day #2 status post reexploration, partial colectomy with end colostomy Plan Continue IV antibiotics. Advance to full liquids and Glucerna supplements. Physical therapy to increase ambulation. Continue oxygen therapy and repeat daily x-ray for pneumothorax PROCEDURES: Procedures Reexploration of the abdomen with abdominal washout. Partial colectomy with end colostomy
[2025-04-23] MEDS: DOCUSATE SOD 100 MG CAPSULE PO ×2 (11:52→20:29)
[2025-04-23] MEDS: ZINC SULFATE 220 MG CAPSULE PO (11:52)
--- NOTE | 2025-04-23 13:51 | ESPR_ITS ---
<Statement entered by Sarkis Scott MD - 04/23/25 18:53> I have personally seen and examined the patient, agree with residents assessment and plan Patient plan of care was discussed with the attending physician, Dr. Abdifatah Scott, PGY2 Documentation for date of: 04/23/25 Subjective Subjective Interval history: Seen at bedside this morning. Patient has no complaints. Breathing is good, no shortness of breath. No chest pain. No abdominal pain. Good urine output per patient and nursing. Tolerating clear liquids without nausea or vomiting. No fevers, chills, or other concerns. Exam Vital Signs Temp Pulse Resp BP Pulse Ox O2 Del Method O2 Flow Rate 97.4 F 89 17 153/100 H 93 L Nasal Cannula 1 04/23/25 12:00 04/23/25 12:00 04/23/25 12:00 04/23/25 12:00 04/23/25 12:00 04/23/25 12:00 04/23/25 12:00 FiO2 30 04/22/25 08:00 Narrative Exam General: Comfortable, no acute distress. Resp: Decreased breath sounds on right; chest tube in place. No visible respiratory distress. CV: RRR, no murmurs. Abdomen: Soft, mildly distended, non-tender. Incision clean/dry. Colostomy pink, patent, edematous. Ext: Trace edema. Neuro: Alert, oriented, following commands. Skin: No rash. Objective Labs 04/25/25 05:20 04/25/25 05:20 Labs: Laboratory Results - last 24 hr 04/23/25 05:44 WBC 26.7 H D RBC 4.15 L Hgb 12.1 L Hct 35.2 L MCV 85 MCH 29.2 MCHC 34.4 RDW Std Deviation 44.9 H Plt Count 223 Neut % (Auto) 70 Lymph % (Auto) 6 L [place] % (Auto) 3 Eos % (Auto) 0 Baso % (Auto) 0 Neut # (Auto) 18.8 H Lymph # (Auto) 1.5 [place] # (Auto) 0.8 Eos # (Auto) 0.0 Baso # (Auto) 0.0 Immature Gran # (Auto) 5.52 H Absolute Nucleated RBC 0.02 H Immature Gran % 21 H Nucleated RBC % 0 Sodium 143 Potassium 3.8 Chloride 106 Carbon Dioxide 27.9 Anion Gap 9 BUN 28 H Creatinine 0.8 Estim Creat Clear Calc 101.5 eGFR > 60 BUN/Creatinine Ratio 35 H Glucose 236 H Calculated Osmolality 298 H Calcium 8.4 Corrected Calcium 9.2 Phosphorus 2.2 L Magnesium 2.0 Total Bilirubin 0.3 AST 38 H ALT 20 Alkaline Phosphatase 100 Total Protein 5.5 L Albumin 3.0 L Globulin 2.5 Albumin/Globulin Ratio 1.2 ABG Interpretation ABG results: 04/19/25 04/19/25 04/20/25 19:07 22:38 04:38 ABG pH 7.29 L 7.34 L 7.37 ABG pCO2 44 45 39 ABG pO2 297 H 43 L* D 146 H D ABG HCO3 21 24 22 ABG O2 Saturation 100 H 79 L 100 H ABG Base Excess -6 L -2 -3 VBG pH VBG pCO2 VBG pO2 VBG Base Excess 04/20/25 04/21/25 04/22/25 09:42 04:23 04:25 ABG pH 7.35 7.34 L ABG pCO2 44 50 H ABG pO2 96 D 73 L D ABG HCO3 24 27 H ABG O2 Saturation 98 95 ABG Base Excess -2 1 VBG pH 7.31 L VBG pCO2 46 VBG pO2 47 VBG Base Excess -3 Quality Measures Quality Measures VTE prophylaxis Assessment & Plan Assessment Current Active Medications: Generic Name Dose Route Start Last Admin Trade Name Freq PRN Reason Stop Dose Admin Acetaminophen 650 mg 04/19/25 08:33 Acetaminophen 325 Mg Tablet PO 05/17/25 13:26 Q6H PRN Fever >100.4 or Pain 1-3 Ascorbic Acid 500 mg 04/23/25 21:00 Ascorbic Acid 250 Mg Tablet PO 05/23/25 20:59 BID LYRIC Carvedilol 3.125 mg 04/22/25 17:30 04/23/25 07:50 Carvedilol 3.125 Mg Tablet PO 05/22/25 17:29 3.125 mg BIDWM LYRIC Administration Dextrose 25 ml 04/22/25 11:17 Dextrose 50%-Water Inj 50 Ml Syringe IV 05/22/25 11:16 Q15MIN PRN BG 50-70 responsive npo pt Dextrose 50 ml 04/22/25 11:17 Dextrose 50%-Water Inj 50 Ml Syringe IV 05/22/25 11:16 Q15MIN PRN BG <50 OR BG <70 & pt unresponsive Docusate Sodium 100 mg 04/23/25 11:30 04/23/25 11:52 Docusate Sod 100 Mg Capsule PO 05/23/25 11:29 100 mg BID LYRIC Administration Protocol Enoxaparin Sodium 40 mg 04/18/25 09:00 04/23/25 09:16 Enoxaparin Sod Inj 40 Mg/0.4 Ml Syringe SC 05/02/25 08:59 40 mg QDAY LYRIC Administration Glucagon 1 mg 04/22/25 11:17 Glucagon Inj 1 Mg Vial IM Q15MIN PRN BG <70, and no IV access Hydromorphone HCl 1 mg 04/22/25 12:16 Hydromorphone Inj 2 Mg/Ml Vial IVP 04/24/25 08:31 Q4HR PRN BREAKTHROUGH PAIN (SEVERE) Piperacillin/Tazobactam/Dextrose 3.375 gm in 50 mls @ 100 mls/hr 04/20/25 07:46 04/23/25 11:53 Zosyn IV 04/27/25 07:45 100 mls/hr Q6HR LYRIC Administration Protocol Insulin Human Lispro 0 unit 04/23/25 08:00 04/23/25 11:52 Insulin Lispro (Admelog) 1 Unit/0.01 Ml Unit SC 05/23/25 07:59 2 unit ACHS LYRIC Administration Protocol Ondansetron HCl 4 mg 04/17/25 09:45 04/17/25 10:06 Ondansetron Inj 2 Mg/Ml Inj 2 Ml IVP 05/17/25 09:44 4 mg Q6HR PRN Administration NAUSEA OR VOMITING Protocol Pantoprazole Sodium 40 mg 04/19/25 18:45 04/23/25 09:16 Pantoprazole Inj 40 Mg Vial IVP 05/19/25 18:44 40 mg QDAY LYRIC Administration Sodium Chloride 5 ml 04/19/25 18:06 Sodium Chloride Rt 10% 15 Ml Nebu INH 05/19/25 18:05 X1 PRN SECRETIONS Zinc Sulfate 220 mg 04/23/25 11:30 04/23/25 11:52 Zinc Sulfate 220 Mg Capsule PO 05/23/25 11:29 220 mg QDAY LYRIC Administration Plan 64-year-old male postop from perforated sigmoid diverticulitis with feculent peritonitis ? colectomy + end colostomy; right pneumothorax s/p chest tube; ESBL E. coli bacteremia. Now clinically improved but with worsening pneumothorax on CXR and rising leukocytosis (WBC 26.7). # Worsening right pneumothorax s/p chest tube (04/21) Despite clinically stable breathing, imaging shows increased PTX. Plan: * Evaluate chest tube: check air leak, kinks, drainage. * Notify Dr Malone about progression of pneumothorax. * Repeat CXR in AM. * Continue O2 support. # Perforated diverticulitis post-op with feculent peritonitis POD#4 from exploratory laparotomy with sigmoid colectomy POD#2 from washout, partial colectomy and end colostomy. Plan: * Continue Zosyn. * Clear liquid diet per surgery * Monitor ostomy output. * Daily CBC and CMP. * Pain control PRN. * Continue PPI. # ESBL E. coli bacteremia Clinically stable but WBC rising significantly. Afebrile, hemodynamically stable. Plan: * Continue Zosyn. # Leukocytosis with left shift, worsening (WBC 26.7, 21% immature grans) Likely infectious but patient clinically well. Plan: * Continue antibiotics, will consider escalation depending on trend. * Monitor vitals . * Repeat CBC tomorrow. # Septic shock, resolved Off pressors, stable MAP, normal lactate, improving urine output. Plan: * Continue current antibiotic coverage. # Acute kidney injury, resolved Creatinine back to baseline (0.8) with good UOP. Plan: * Monitor BMP daily. * Avoid nephrotoxins. # Paroxysmal A-fib with RVR (04/21), resolved Likely secondary to sepsis and pneumothorax. Sinus rhythm today. Plan: * Stop amiodarone (per ICU team). * Telemetry monitoring. * Replete electrolytes (K >4, Mg >2). 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 Plan: * Will restart GDMT one med at a time. * Continue telemetry. # Type 2 diabetes A1c 6.8%. Plan: * Sliding scale insulin. * Clear liquids diet Health Maintenance: Disposition: Downgraded from ICU to medical floors. Diet: Clear liquid DVT prophylaxis: Lovenox. GI prophylaxis: Protonix. Bowel regimen: None currently; monitor ostomy output. Code Status: Full Code. ----- Plan discussed with attending physician Dr. Gardiner and senior resident Dr. Sonia Tena MD PGY-1 Internal Medicine Attending Provider Attestation/Addendum I have discussed and was present for the essential components of the history, physical examination, diagnosis, and treatment plan with the resident. I agree with the patient's care as documented by the resident and amended herein by me. Bong Gardiner, DO. Although this document has been carefully reviewed, there may still be some phonetic and other typographical errors. These errors are purely grammatical due to imperfections in the software program and should not be construed in any way to compromise the substance of the patient's medical care during this visit.
[2025-04-23] MEDS: ASCORBIC ACID 250 MG TABLET 500 MG PO (20:29)
[2025-04-24] VITALS (10 sets, daily range): BP systolic 144–160; BP diastolic 89–106; PULSE 68–89; RESP 15–22; TEMP 35.6–36.1; O2SAT 93–98; BMI 33.3
[2025-04-24] MEDS: PIPER/TAZO 3.375 GM PREMIX 3.375 GM/50 ML BAG IV ×4 (00:04→18:12)
[2025-04-24] MEDS: ACETAMINOPHEN 325 MG TABLET 650 MG PO (05:25)
[2025-04-24] MEDS: HYDROmorphone INJ 2 MG/ML VIAL 1 MG IVP (05:51)
--- NOTE | 2025-04-24 07:00 | XR_ITS ---
EXAMINATION: AP chest single view TECHNIQUE: AP portable upright chest single view Date and time: April 24, 2025, 0501 hours INDICATIONS: Right apicolateral pneumothorax on chest film April 23, 2025 FINDINGS: Right chest tube satisfactory position Small pneumothorax lateral inferior to the right lung, less than 10% Mild enlargement left ventricle Mild atelectasis right lower lobe IMPRESSION: Right chest tube satisfactory position, minor pneumothorax lateral inferior to the right lung
[2025-04-24 07:46] LABS: Basophils # (Auto) 0.0 Thou/mm3 (0.0-0.2); Basophils % (Auto) 0 % (0-2.5); Eosinophils # (Auto) 0.0 Thou/mm3 (0.0-0.5); Eosinophils % (Auto) 0 % (0-10); Hematocrit 35.1 % (41.0-53.0); Hemoglobin 11.8 g/dL (13.5-16.0); Immature Granulocytes Auto 3.35 Thou/mm3 (0.00-0.00); Lymphocytes # (Auto) 1.3 Thou/mm3 (1.0-4.8); Lymphocytes % (Auto) 6 % (10-50); Mean Corpuscular HGB Conc 33.6 g/dl (31.0-37.0); Mean Corpuscular Hemoglobin 28.3 pg (25.0-35.0); Mean Corpuscular Volume 84 fL (80-100); Monocytes # (Auto) 1.0 Thou/mm3 (0.0-0.8); Monocytes % (Auto) 5 % (0-12); Neutrophils # (Auto) 14.8 Thou/mm3 (1.8-7.7); Neutrophils % (Auto) 73 % (37-80); Nucleated Red Blood Cell # 0.00 Thou/mm3 (0.00-0.00); Nucleated Red Blood Cell % 0 /100 WBC (0); Platelet Count 187 Thou/mm3 (140-440); RDW Standard Deviation 44.1 fL (35.1-43.9); Red Blood Count 4.17 Miln/mm3 (4.50-5.90); White Blood Count 20.5 Thou/mm3 (3.8-10.6)
[2025-04-24 08:32] LABS: Alanine Aminotransferase < 7 U/L (10-49); Albumin, Serum 2.8 gm/dL (3.4-4.8); Albumin/Globulin Ratio 1.2 (1.2-2.2); Anion Gap 9 (7-16); Aspartate Amino Transferase 31 U/L (0-34); BUN/Creatinine Ratio 30 Ratio (12-20); Bilirubin,Total 0.4 mg/dL (0.3-1.2); Blood Urea Nitrogen 21 mg/dL (9-23); Calcium 8.5 mg/dL (8.3-10.6); Calcium (Corrected) 9.5 mg/dL (8.5-10.1); Carbon Dioxide 28.4 mMol/L (20.0-31.0); Chloride 104 mMol/L (98-107); Creatinine (Component) 0.7 mg/dL (0.6-1.3); Estimated Creatinine Clearance 117.3 mL/min (>60); Globulin 2.4 gm/dL (2.3-3.5); Glucose 234 mg/dL (74-106); Magnesium 1.7 mg/dL (1.6-2.6); Osmolality,Calculated 292 (275-295); Phosphorous 2.5 mg/dL (2.4-5.1); Potassium 3.8 mMol/L (3.4-5.1); Sodium 141 mMol/L (136-145); Total Protein 5.2 gm/dL (5.7-8.2); eGFR > 60 See Note
[2025-04-24] MEDS: DOCUSATE SOD 100 MG CAPSULE PO ×2 (08:33→20:50)
[2025-04-24] MEDS: ZINC SULFATE 220 MG CAPSULE PO (08:33)
[2025-04-24] MEDS: ASCORBIC ACID 250 MG TABLET 500 MG PO ×2 (08:33→20:49)
[2025-04-24] MEDS: ENOXAPARIN SOD INJ 40 MG/0.4 ML SYRINGE SC (08:34)
[2025-04-24] MEDS: INSULIN LISPRO (AdmeLOG) 1 UNIT/0.01 ML UNIT SC ×4 (08:35→21:02)
[2025-04-24 08:56] LABS: Alkaline Phosphatase 85 U/L (46-116)
[2025-04-24] MEDS: MORPHINE SULF INJ 4 MG/ML VIAL 2 MG IVP ×2 (10:23→14:32)
--- NOTE | 2025-04-24 10:56 | ESPR_ITS ---
Documentation for date of: 04/24/25 Subjective Subjective Interval history: Patient seen this morning, breathing better on 5 L NC, saturating well. No chest pain, no abdominal pain, no bloating. Right hip pain only complaint. No pain around chest tube, ostomy functioning well. Reports good energy levels, no nausea/vomiting, tolerating diet. Exam Vital Signs Temp Pulse Resp BP Pulse Ox O2 Del Method O2 Flow Rate 96.1 F L 77 20 144/89 H 97 Nasal Cannula 5 04/24/25 08:00 04/24/25 08:33 04/24/25 08:00 04/24/25 08:33 04/24/25 08:00 04/24/25 08:00 04/24/25 08:00 FiO2 30 04/22/25 08:00 Narrative Exam General: Comfortable, no acute distress. Resp: Decreased breath sounds on right; chest tube in place. No visible respiratory distress. CV: RRR, no murmurs. Abdomen: Soft, mildly distended, non-tender. Incision clean/dry. Colostomy pink, patent, edematous. Ext: Trace edema. Neuro: Alert, oriented, following commands. Skin: No rash. Objective Labs 04/25/25 05:20 04/25/25 05:20 Labs: Laboratory Results - last 24 hr 04/24/25 06:59 WBC 20.5 H D RBC 4.17 L Hgb 11.8 L Hct 35.1 L MCV 84 MCH 28.3 MCHC 33.6 RDW Std Deviation 44.1 H Plt Count 187 D Neut % (Auto) 73 Lymph % (Auto) 6 L [place] % (Auto) 5 Eos % (Auto) 0 Baso % (Auto) 0 Neut # (Auto) 14.8 H Lymph # (Auto) 1.3 [place] # (Auto) 1.0 H Eos # (Auto) 0.0 Baso # (Auto) 0.0 Immature Gran # (Auto) 3.35 H Absolute Nucleated RBC 0.00 Immature Gran % 16 H Nucleated RBC % 0 Sodium 141 Potassium 3.8 Chloride 104 Carbon Dioxide 28.4 Anion Gap 9 BUN 21 Creatinine 0.7 Estim Creat Clear Calc 117.3 eGFR > 60 BUN/Creatinine Ratio 30 H Glucose 234 H Calculated Osmolality 292 Calcium 8.5 Corrected Calcium 9.5 Phosphorus 2.5 Magnesium 1.7 Total Bilirubin 0.4 AST 31 ALT < 7 L Alkaline Phosphatase 85 Total Protein 5.2 L Albumin 2.8 L Globulin 2.4 Albumin/Globulin Ratio 1.2 ABG Interpretation ABG results: 04/19/25 04/19/25 04/20/25 19:07 22:38 04:38 ABG pH 7.29 L 7.34 L 7.37 ABG pCO2 44 45 39 ABG pO2 297 H 43 L* D 146 H D ABG HCO3 21 24 22 ABG O2 Saturation 100 H 79 L 100 H ABG Base Excess -6 L -2 -3 VBG pH VBG pCO2 VBG pO2 VBG Base Excess 04/20/25 04/21/25 04/22/25 09:42 04:23 04:25 ABG pH 7.35 7.34 L ABG pCO2 44 50 H ABG pO2 96 D 73 L D ABG HCO3 24 27 H ABG O2 Saturation 98 95 ABG Base Excess -2 1 VBG pH 7.31 L VBG pCO2 46 VBG pO2 47 VBG Base Excess -3 Quality Measures Quality Measures VTE prophylaxis Assessment & Plan Assessment Current Active Medications: Generic Name Dose Route Start Last Admin Trade Name Freq PRN Reason Stop Dose Admin Acetaminophen 650 mg 04/19/25 08:33 04/24/25 05:25 Acetaminophen 325 Mg Tablet PO 05/17/25 13:26 650 mg Q6H PRN Administration Fever >100.4 or Pain 1-3 Hydrocodone Bitart/Acetaminophen 1 tab 04/24/25 10:15 Hydrocodone/Apap 5/325 Tablet PO 04/29/25 10:12 Q6HR PRN PAIN 4-6 Ascorbic Acid 500 mg 04/23/25 21:00 04/24/25 08:33 Ascorbic Acid 250 Mg Tablet PO 05/23/25 20:59 500 mg BID LYRIC Administration Carvedilol 3.125 mg 04/22/25 17:30 04/24/25 08:33 Carvedilol 3.125 Mg Tablet PO 05/22/25 17:29 3.125 mg BIDWM LYRIC Administration Dextrose 25 ml 04/22/25 11:17 Dextrose 50%-Water Inj 50 Ml Syringe IV 05/22/25 11:16 Q15MIN PRN BG 50-70 responsive npo pt Dextrose 50 ml 04/22/25 11:17 Dextrose 50%-Water Inj 50 Ml Syringe IV 05/22/25 11:16 Q15MIN PRN BG <50 OR BG <70 & pt unresponsive Docusate Sodium 100 mg 04/23/25 11:30 04/24/25 08:33 Docusate Sod 100 Mg Capsule PO 05/23/25 11:29 100 mg BID LYRIC Administration Protocol Enoxaparin Sodium 40 mg 04/18/25 09:00 04/24/25 08:34 Enoxaparin Sod Inj 40 Mg/0.4 Ml Syringe SC 05/02/25 08:59 40 mg QDAY LYRIC Administration Glucagon 1 mg 04/22/25 11:17 Glucagon Inj 1 Mg Vial IM Q15MIN PRN BG <70, and no IV access Piperacillin/Tazobactam/Dextrose 3.375 gm in 50 mls @ 100 mls/hr 04/20/25 07:46 04/24/25 05:24 Zosyn IV 04/27/25 07:45 100 mls/hr Q6HR LYRIC Administration Protocol Insulin Human Lispro 0 unit 04/23/25 08:00 04/24/25 08:35 Insulin Lispro (Admelog) 1 Unit/0.01 Ml Unit SC 05/23/25 07:59 2 unit ACHS LYRIC Administration Protocol Morphine Sulfate 2 mg 04/24/25 10:13 04/24/25 10:23 Morphine Sulf Inj 4 Mg/Ml Vial IVP 2 mg Q4HR PRN Administration pain 7-10 Ondansetron HCl 4 mg 04/17/25 09:45 04/17/25 10:06 Ondansetron Inj 2 Mg/Ml Inj 2 Ml IVP 05/17/25 09:44 4 mg Q6HR PRN Administration NAUSEA OR VOMITING Protocol Pantoprazole Sodium 40 mg 04/19/25 18:45 04/24/25 08:34 Pantoprazole Inj 40 Mg Vial IVP 05/19/25 18:44 40 mg QDAY LYRIC Administration Sodium Chloride 5 ml 04/19/25 18:06 Sodium Chloride Rt 10% 15 Ml Nebu INH 05/19/25 18:05 X1 PRN SECRETIONS Zinc Sulfate 220 mg 04/23/25 11:30 04/24/25 08:33 Zinc Sulfate 220 Mg Capsule PO 05/23/25 11:29 220 mg QDAY LYRCI Administration Plan 64-year-old male with perforated sigmoid diverticulitis complicated by feculent peritonitis, status post exploratory laparotomy and sigmoid colectomy, re- exploration with partial colectomy and end colostomy, ESBL E. coli bacteremia, and right pneumothorax status post chest tube placement. Currently improving with WBC trending down to 20. # Improving right pneumothorax, now <10% S/p chest tube placement 04/21 CXR today shows interval improvement from 20% to <10%. Breathing better on 5 L NC. Plan: * Continue monitoring chest tube for air leak, tidaling, kinks. * Daily CXR or sooner if symptoms worsen. * Maintain SpO2 >94%. * Will discuss removal timing with surgery once pneumothorax resolves. # Perforated diverticulitis post-op with feculent peritonitis POD#5 from exploratory laparotomy with sigmoid colectomy POD#3 from washout, partial colectomy and end colostomy. Plan: * Continue Zosyn (04/20- ) * Started levoquin 750 IV qday per surgery. (04/24- ) * Dysphagia 3 diet per surgery * Monitor ostomy output. * Daily CBC and CMP. * Pain control PRN. * Continue PPI. # ESBL E. coli bacteremia Clinically stable but WBC rising significantly. Afebrile, hemodynamically stable. Plan: * Continue Zosyn. # Leukocytosis with left shift, improving (WBC 20.5) Likely infectious but patient clinically well. Plan: * Continue antibiotics, will consider descalation depending on trend. * Monitor vitals . * Repeat CBC tomorrow. # Septic shock, resolved Off pressors, stable MAP, normal lactate, improving urine output. Plan: * Continue current antibiotic coverage. # Acute kidney injury, resolved Creatinine back to normal with good UOP. Plan: * Monitor BMP daily. * Avoid nephrotoxins. # Paroxysmal A-fib with RVR (04/21), resolved Likely secondary to sepsis and pneumothorax. Sinus rhythm today. Plan: * Stop amiodarone (per ICU team). * Telemetry monitoring. * Replete electrolytes (K >4, Mg >2). 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 Plan: * Will restart GDMT one med at a time. * Continue telemetry. # Type 2 diabetes A1c 6.8%. Plan: * Sliding scale insulin. * Clear liquids diet Health Maintenance: Disposition: Downgraded from ICU to medical floors. Diet: Dysphagia 3 diet. DVT prophylaxis: Lovenox. GI prophylaxis: Protonix. Bowel regimen: None currently; monitor ostomy output. Code Status: Full Code. ----- Plan discussed with attending physician Dr. Abe Tena MD PGY-1 Internal Medicine Attending Provider Attestation/Addendum I have examined the patient, reviewed labs and imaging findings, discussed the case with the resident(s), and reviewed entered orders. I agree with the plan of care as outlined in this note. Dr. Abe MD
[2025-04-24] MEDS: HYDROcodone/APAP 5/325 TABLET 1 TAB PO ×2 (11:49→18:12)
--- NOTE | 2025-04-24 11:52 | PD.SURPROG ---
Documentation for date of: 04/24/25 Subjective Subjective Narrative: Patient is seen and examined. He is tolerating liquids without nausea or vomiting and his colostomy is functioning. He has had some incisional and right-sided abdominal pain Exam Vital Signs Temp Pulse Resp BP Pulse Ox O2 Del Method O2 Flow Rate 96.1 F L 77 20 144/89 H 97 Nasal Cannula 5 04/24/25 08:00 04/24/25 08:33 04/24/25 08:00 04/24/25 08:33 04/24/25 08:00 04/24/25 08:00 04/24/25 08:00 FiO2 30 04/22/25 08:00 Constitutional Constitutional: no acute distress Routine Chest/Breast/Axilla Exam Comments: Right-sided chest tube in place and intact without airleak at this time Routine Abdominal Exam Comments: His abdomen is soft and mildly distended. Incision is clean, dry and intact. Colostomy is present and functioning Assessment & Plan Assessment Additional comments: Postop day #5 status post exploratory laparotomy, sigmoid colectomy and abdominal washout Postop day #3 status post reexploration, partial colectomy with end colostomy Plan Continue IV antibiotics, will also add oral Bactrim for double coverage. Patient is advised to increase ambulation, will consult physical therapy. Use incentive spirometer. Advance to soft diet PROCEDURES: Procedures Reexploration of the abdomen with abdominal washout. Partial colectomy with end colostomy
[2025-04-24] MEDS: LEVOFLOXACIN/D5W 750MG IVPB 750 MG/150 ML BAG 100 MG IV (14:32)
--- NOTE | 2025-04-24 14:46 | PC.PT ---
Patient was approached at 1030 and 1440 for PT evaluation. Patient refused both times due to severe pain in the abdomen even with pain medication prior to evaluation. Per RN, Dr. Malone instructed patient to participate and PT was called to return in the afternoon to assess patient again. Patient again requested to be seen tomorrow due to his intense abdominal pain that was not controlled by pain meds. Will re-attempt PT evaluation again tomorrow 04/25/25.
[2025-04-24] MEDS: HYDROmorphone INJ 2 MG/ML VIAL 0.5 MG IVP ×2 (16:08→22:08)
[2025-04-25] VITALS (11 sets, daily range): BP systolic 117–156; BP diastolic 92–113; PULSE 94–108; RESP 13–36; TEMP 36.1–36.7; O2SAT 91–96; BMI 33.5; BMI 12.0
[2025-04-25] MEDS: PIPER/TAZO 3.375 GM PREMIX 3.375 GM/50 ML BAG IV ×2 (00:07→06:09)
[2025-04-25] MEDS: HYDROcodone/APAP 5/325 TABLET 1 TAB PO ×2 (00:07→09:11)
[2025-04-25] MEDS: HYDROmorphone INJ 2 MG/ML VIAL 0.5 MG IVP ×4 (04:07→22:43)
[2025-04-25 06:06] LABS: Basophils # (Auto) 0.0 Thou/mm3 (0.0-0.2); Basophils % (Auto) 0 % (0-2.5); Eosinophils # (Auto) 0.0 Thou/mm3 (0.0-0.5); Eosinophils % (Auto) 0 % (0-10); Hematocrit 42.8 % (41.0-53.0); Hemoglobin 14.6 g/dL (13.5-16.0); Immature Granulocytes Auto 2.26 Thou/mm3 (0.00-0.00); Lymphocytes # (Auto) 1.1 Thou/mm3 (1.0-4.8); Lymphocytes % (Auto) 3 % (10-50); Mean Corpuscular HGB Conc 34.1 g/dl (31.0-37.0); Mean Corpuscular Hemoglobin 29.0 pg (25.0-35.0); Mean Corpuscular Volume 85 fL (80-100); Monocytes # (Auto) 1.6 Thou/mm3 (0.0-0.8); Monocytes % (Auto) 4 % (0-12); Neutrophils # (Auto) 32.0 Thou/mm3 (1.8-7.7); Neutrophils % (Auto) 86 % (37-80); Nucleated Red Blood Cell # 0.02 Thou/mm3 (0.00-0.00); Nucleated Red Blood Cell % 0 /100 WBC (0); Platelet Count 259 Thou/mm3 (140-440); RDW Standard Deviation 43.8 fL (35.1-43.9); Red Blood Count 5.04 Miln/mm3 (4.50-5.90)
[2025-04-25 06:20] LABS: Alanine Aminotransferase 18 U/L (10-49); Albumin, Serum 2.9 gm/dL (3.4-4.8); Albumin/Globulin Ratio 1.0 (1.2-2.2); Alkaline Phosphatase 82 U/L (46-116); Anion Gap 10 (7-16); Aspartate Amino Transferase 22 U/L (0-34); BUN/Creatinine Ratio 38 Ratio (12-20); Bilirubin,Total 0.8 mg/dL (0.3-1.2); Blood Urea Nitrogen 23 mg/dL (9-23); Calcium 8.3 mg/dL (8.3-10.6); Calcium (Corrected) 9.2 mg/dL (8.5-10.1); Carbon Dioxide 27.6 mMol/L (20.0-31.0); Chloride 100 mMol/L (98-107); Creatinine (Component) 0.6 mg/dL (0.6-1.3); Estimated Creatinine Clearance 137.4 mL/min (>60); Globulin 2.8 gm/dL (2.3-3.5); Glucose 241 mg/dL (74-106); Magnesium 1.6 mg/dL (1.6-2.6); Osmolality,Calculated 287 (275-295); Phosphorous 3.0 mg/dL (2.4-5.1); Potassium 3.9 mMol/L (3.4-5.1); Sodium 138 mMol/L (136-145); Total Protein 5.7 gm/dL (5.7-8.2); eGFR > 60 See Note
[2025-04-25 07:06] LABS: White Blood Count 37.1 Thou/mm3 (3.8-10.6)
[2025-04-25] MEDS: INSULIN LISPRO (AdmeLOG) 1 UNIT/0.01 ML UNIT SC ×4 (07:37→21:09)
--- NOTE | 2025-04-25 08:17 | PD.SURPROG ---
Documentation for date of: 04/25/25 Subjective Subjective Narrative: Patient is seen and examined. He still having incisional pain. He is tolerating diet without nausea or vomiting and the colostomy is functioning. He is not ambulating much Exam Vital Signs Temp Pulse Resp BP Pulse Ox O2 Del Method O2 Flow Rate 98.0 F 106 H 22 H 137/107 H 91 L Nasal Cannula 4 04/25/25 04:00 04/25/25 07:41 04/25/25 07:19 04/25/25 07:41 04/25/25 07:19 04/25/25 04:00 04/25/25 07:19 FiO2 30 04/22/25 08:00 Constitutional Constitutional: no acute distress Routine Abdominal Exam Comments: Abdomen is soft and distended. Incision is clean, dry and intact. Colostomy is present, patent and productive Assessment & Plan Assessment Additional comments: Postop day #6 status post exploratory laparotomy, sigmoid colectomy and abdominal washout Postop day #4 status post reexploration, partial colectomy with end colostomy Plan Continue IV antibiotics. Daily chest x-ray to evaluate for resolution of pneumothorax. Use incentive spirometer and increase ambulation PROCEDURES: Procedures Reexploration of the abdomen with abdominal washout. Partial colectomy with end colostomy
--- NOTE | 2025-04-25 08:19 | XR_ITS ---
EXAMINATION: AP chest single view TECHNIQUE: AP portable semiupright chest single view Date and time: April 25, 2025, 0847 hours, comparison April 24, 2025 INDICATIONS: History tension pneumothorax post right chest tube placement. FINDINGS: Right chest tube satisfactory position Atelectasis right lower lobe with elevation right hemidiaphragm No current pneumothorax Mild prominence left ventricle IMPRESSION: Right chest tube satisfactory position No current pneumothorax
--- NOTE | 2025-04-25 08:24 | PC.SS ---
Update: Plan is to advance patient's diet. Dr. Malone consulting.
[2025-04-25] MEDS: INSULIN DEGLUDEC 5 UNIT/0.05 ML (PER 5 UNITS) 8 UNIT SC (09:10)
[2025-04-25] MEDS: DOCUSATE SOD 100 MG CAPSULE PO ×2 (09:11→21:08)
[2025-04-25] MEDS: ZINC SULFATE 220 MG CAPSULE PO (09:11)
[2025-04-25] MEDS: ENOXAPARIN SOD INJ 40 MG/0.4 ML SYRINGE SC (09:11)
[2025-04-25] MEDS: ASCORBIC ACID 250 MG TABLET 500 MG PO ×2 (09:11→21:09)
[2025-04-25 10:20] LABS: Path Review Blood Smear Sent to Pathologist
[2025-04-25] MEDS: LEVOFLOXACIN/D5W 750MG IVPB 750 MG/150 ML BAG 100 MG IV (10:37)
[2025-04-25 12:23] LABS: Basophils # (Auto) 0.0 Thou/mm3 (0.0-0.2); Basophils % (Auto) 0 % (0-2.5); Eosinophils # (Auto) 0.0 Thou/mm3 (0.0-0.5); Eosinophils % (Auto) 0 % (0-10); Hematocrit 38.3 % (41.0-53.0); Hemoglobin 13.1 g/dL (13.5-16.0); Immature Granulocytes Auto 1.79 Thou/mm3 (0.00-0.00); Lymphocytes # (Auto) 1.2 Thou/mm3 (1.0-4.8); Lymphocytes % (Auto) 3 % (10-50); Mean Corpuscular HGB Conc 34.2 g/dl (31.0-37.0); Mean Corpuscular Hemoglobin 29.0 pg (25.0-35.0); Mean Corpuscular Volume 85 fL (80-100); Monocytes # (Auto) 1.4 Thou/mm3 (0.0-0.8); Monocytes % (Auto) 4 % (0-12); Neutrophils # (Auto) 33.0 Thou/mm3 (1.8-7.7); Neutrophils % (Auto) 88 % (37-80); Nucleated Red Blood Cell # 0.02 Thou/mm3 (0.00-0.00); Nucleated Red Blood Cell % 0 /100 WBC (0); Platelet Count 232 Thou/mm3 (140-440); RDW Standard Deviation 43.5 fL (35.1-43.9); Red Blood Count 4.52 Miln/mm3 (4.50-5.90)
[2025-04-25 12:28] LABS: White Blood Count 37.4 Thou/mm3 (3.8-10.6)
--- NOTE | 2025-04-25 13:11 | ESPR_ITS ---
<Statement entered by Sarkis Scott MD - 04/25/25 16:15> Patient is seen and examined at bedside. No acute overnight events. Vitals are stable. Patient appears to be more tired and complaining of abdominal pain. CBC done today showed elevated WBC, 37.1 and repeat WBC is almost the same. Blood glucose is 241 on a.m. labs. 8 units of insulin degludec is given and 12 units of insulin degludec at bedtime is scheduled. Infectious disease, Dr Francois is consulted and he recommended p.o. meds and discontinued the IV medications. Still noted to have air bubbling in the Pleur-evac. Repeat chest x-ray showed resolution of pneumothorax. Anticipating removal of chest tube and 24 to 48 [address]. General surgeon, Dr. Malone is following the patient and recommended to continue current management. I have personally seen and examined the patient, agree with residents assessment and plan Patient plan of care was discussed with the attending physician, Dr. Abe Scott, PGY2 Documentation for date of: 04/25/25 Subjective Subjective Interval history: No acute overnight events. Dietary reports that the patient has not been eating, checked with the patient states he does not have an appetite, helped feed him breakfast he ate about a third of the meal and drank a glucerna shake. No complaints of pain, chest discomfort, or worsening shortness of breath. No new symptoms other than decreased appetite and some fatigue. Exam Vital Signs Temp Pulse Resp BP Pulse Ox O2 Del Method O2 Flow Rate 97.3 F 96 17 117/93 H 93 L Nasal Cannula 4 04/25/25 12:00 04/25/25 12:00 04/25/25 12:00 04/25/25 12:00 04/25/25 12:00 04/25/25 12:00 04/25/25 12:00 FiO2 30 04/22/25 08:00 Narrative Exam General: Comfortable, no acute distress. Resp: Decreased breath sounds on right; chest tube in place. No visible respiratory distress. CV: RRR, no murmurs. Abdomen: Soft, mildly distended, non-tender. Incision clean/dry. Colostomy pink, patent, edematous. Ext: Trace edema. Neuro: Alert, oriented, following commands. Skin: No rash. Objective Labs 04/25/25 11:58 04/26/25 05:10 Labs: Laboratory Results - last 24 hr 04/25/25 04/25/25 05:20 11:58 WBC 37.1 H* D 37.4 H* RBC 5.04 4.52 Hgb 14.6 D 13.1 L Hct 42.8 38.3 L MCV 85 85 MCH 29.0 29.0 MCHC 34.1 34.2 RDW Std Deviation 43.8 43.5 Plt Count 259 D 232 Neut % (Auto) 86 H 88 H Lymph % (Auto) 3 L 3 L [place] % (Auto) 4 4 Eos % (Auto) 0 0 Baso % (Auto) 0 0 Neut # (Auto) 32.0 H 33.0 H Lymph # (Auto) 1.1 1.2 [place] # (Auto) 1.6 H 1.4 H Eos # (Auto) 0.0 0.0 Baso # (Auto) 0.0 0.0 Immature Gran # (Auto) 2.26 H 1.79 H Absolute Nucleated RBC 0.02 H 0.02 H Immature Gran % 6 H 5 H Nucleated RBC % 0 0 Smear Path Review Sent to Pathologist Cancelled Sodium 138 Potassium 3.9 Chloride 100 Carbon Dioxide 27.6 Anion Gap 10 BUN 23 Creatinine 0.6 Estim Creat Clear Calc 137.4 eGFR > 60 BUN/Creatinine Ratio 38 H Glucose 241 H Calculated Osmolality 287 Calcium 8.3 Corrected Calcium 9.2 Phosphorus 3.0 Magnesium 1.6 Total Bilirubin 0.8 AST 22 ALT 18 Alkaline Phosphatase 82 Total Protein 5.7 Albumin 2.9 L Globulin 2.8 Albumin/Globulin Ratio 1.0 L ABG Interpretation ABG results: 04/19/25 04/19/25 04/20/25 19:07 22:38 04:38 ABG pH 7.29 L 7.34 L 7.37 ABG pCO2 44 45 39 ABG pO2 297 H 43 L* D 146 H D ABG HCO3 21 24 22 ABG O2 Saturation 100 H 79 L 100 H ABG Base Excess -6 L -2 -3 VBG pH VBG pCO2 VBG pO2 VBG Base Excess 04/20/25 04/21/25 04/22/25 09:42 04:23 04:25 ABG pH 7.35 7.34 L ABG pCO2 44 50 H ABG pO2 96 D 73 L D ABG HCO3 24 27 H ABG O2 Saturation 98 95 ABG Base Excess -2 1 VBG pH 7.31 L VBG pCO2 46 VBG pO2 47 VBG Base Excess -3 Quality Measures Quality Measures VTE prophylaxis Assessment & Plan Assessment Current Active Medications: Generic Name Dose Route Start Last Admin Trade Name Tamir PRN Reason Stop Dose Admin Acetaminophen 650 mg 04/19/25 08:33 04/24/25 05:25 Acetaminophen 325 Mg Tablet PO 05/17/25 13:26 650 mg Q6H PRN Administration Fever >100.4 or Pain 1-3 Hydrocodone Bitart/Acetaminophen 1 tab 04/24/25 15:41 04/25/25 09:11 Hydrocodone/Apap 5/325 Tablet PO 04/29/25 10:12 1 tab Q6HR PRN Administration PAIN 4-10 Ascorbic Acid 500 mg 04/23/25 21:00 04/25/25 09:11 Ascorbic Acid 250 Mg Tablet PO 05/23/25 20:59 500 mg BID LYRIC Administration Carvedilol 3.125 mg 04/22/25 17:30 04/25/25 07:41 Carvedilol 3.125 Mg Tablet PO 05/22/25 17:29 3.125 mg BIDWM LYRIC Administration Dextrose 25 ml 04/22/25 11:17 Dextrose 50%-Water Inj 50 Ml Syringe IV 05/22/25 11:16 Q15MIN PRN BG 50-70 responsive npo pt Dextrose 50 ml 04/22/25 11:17 Dextrose 50%-Water Inj 50 Ml Syringe IV 05/22/25 11:16 Q15MIN PRN BG <50 OR BG <70 & pt unresponsive Docusate Sodium 100 mg 04/23/25 11:30 04/25/25 09:11 Docusate Sod 100 Mg Capsule PO 05/23/25 11:29 100 mg BID LYRIC Administration Protocol Enoxaparin Sodium 40 mg 04/18/25 09:00 04/25/25 09:11 Enoxaparin Sod Inj 40 Mg/0.4 Ml Syringe SC 05/02/25 08:59 40 mg QDAY LYRIC Administration Glucagon 1 mg 04/22/25 11:17 Glucagon Inj 1 Mg Vial IM Q15MIN PRN BG <70, and no IV access Hydromorphone HCl 0.5 mg 04/24/25 15:38 04/25/25 10:37 Hydromorphone Inj 2 Mg/Ml Vial IVP 04/29/25 15:37 0.5 mg Q6H PRN Administration BREAKTHROUGH PAIN (SEVERE) Protocol Levofloxacin/Dextrose 750 mg in 150 mls @ 100 mls/hr 04/24/25 13:30 04/25/25 10:37 Levaquin Ivpb IV 05/01/25 13:29 100 mls/hr QDAY LYRIC Administration Piperacillin/Tazobactam/Dextrose 3.375 gm in 50 mls @ 12.5 mls/hr 04/25/25 14:00 Zosyn IV 05/02/25 13:59 Q8HR LYRIC Protocol Insulin Human Lispro 0 unit 04/23/25 08:00 04/25/25 11:50 Insulin Lispro (Admelog) 1 Unit/0.01 Ml Unit SC 05/23/25 07:59 3 unit ACHS LYRIC Administration Protocol Ondansetron HCl 4 mg 04/17/25 09:45 04/17/25 10:06 Ondansetron Inj 2 Mg/Ml Inj 2 Ml IVP 05/17/25 09:44 4 mg Q6HR PRN Administration NAUSEA OR VOMITING Protocol Pantoprazole Sodium 40 mg 04/19/25 18:45 04/25/25 09:11 Pantoprazole Inj 40 Mg Vial IVP 05/19/25 18:44 40 mg QDAY LYRIC Administration Sodium Chloride 5 ml 04/19/25 18:06 Sodium Chloride Rt 10% 15 Ml Nebu INH 05/19/25 18:05 X1 PRN SECRETIONS Zinc Sulfate 220 mg 04/23/25 11:30 04/25/25 09:11 Zinc Sulfate 220 Mg Capsule PO 05/23/25 11:29 220 mg QDAY LYRIC Administration Plan 64-year-old male postop from perforated sigmoid diverticulitis with colectomy and colostomy, ESBL E. coli bacteremia, and right pneumothorax s/p chest tube placement; clinically improving with stable infection, improving pneumothorax, and ongoing management of poor oral intake and hyperglycemia. # Improving right pneumothorax, now resolved S/p chest tube placement 04/21 CXR on 04/24 shows interval improvement from 20% to <10%. Breathing better on 5 L NC. CXR 04/25 shows complete resolution. Plan: * Keep chest tube another [address] Malone * CXR tomorrow AM * Continue incentive spirometry * Encourage ambulation as tolerated # Perforated diverticulitis post-op with feculent peritonitis POD#6 from exploratory laparotomy with sigmoid colectomy POD#4 from washout, partial colectomy and end colostomy. Plan: * Continue Zosyn (04/20- ) * Started levoquin 750 IV qday per surgery. (04/24- ) * Dysphagia 3 diet per surgery * Monitor ostomy output. * Daily CBC and CMP. * Pain control PRN. * Continue PPI. # ESBL E. coli bacteremia Clinically stable but WBC rising significantly. Afebrile, hemodynamically stable. Plan: * Continue Zosyn. # Leukocytosis with left shift, improving (WBC 37) Likely infectious but patient clinically well. Plan: * Continue antibiotics, will consider escalation depending on trend. * Pending recs from ID Dr Francois * Monitor vitals . * Repeat CBC tomorrow. # Septic shock, resolved Off pressors, stable MAP, normal lactate, improving urine output. Plan: * Continue current antibiotic coverage. # Acute kidney injury, resolved Creatinine back to normal with good UOP. Plan: * Monitor BMP daily. * Avoid nephrotoxins. # Paroxysmal A-fib with RVR (04/21), resolved Likely secondary to sepsis and pneumothorax. Sinus rhythm today. Plan: * Stop amiodarone (per ICU team). * Telemetry monitoring. * Replete electrolytes (K >4, Mg >2). 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 Plan: * Will restart GDMT one med at a time. * Continue telemetry. # Type 2 diabetes A1c 6.8%. Plan: * Sliding scale insulin. * Clear liquids diet Health Maintenance: Disposition: Downgraded from ICU to medical floors. Diet: Dysphagia 3 diet. DVT prophylaxis: Lovenox. GI prophylaxis: Protonix. Bowel regimen: None currently; monitor ostomy output. Code Status: Full Code. ----- Plan discussed with attending physician Dr. Fish and senior resident Dr. Sonia Tena MD PGY-1 Internal Medicine Attending Provider Attestation/Addendum I have examined the patient, reviewed labs and imaging findings, discussed the case with the resident(s), and reviewed entered orders. I agree with the plan of care as outlined in this note. Dr. Abe MD
--- NOTE | 2025-04-25 13:21 | PD.IDPROG ---
Subjective Subjective Interval history: asked to see today. 64 y/o with pmh as noted. wbc higher so everyone is worried. Exam Vital Signs Temp Pulse Resp BP Pulse Ox O2 Del Method O2 Flow Rate 97.3 F 96 17 117/93 H 93 L Nasal Cannula 4 04/25/25 12:00 04/25/25 12:00 04/25/25 12:00 04/25/25 12:00 04/25/25 12:00 04/25/25 12:00 04/25/25 12:00 FiO2 30 04/22/25 08:00 Narrative Exam abd benign but pt prefers not to move stating that his abd hurts if he does so Objective - Internal Medicine Labs 04/25/25 11:58 04/25/25 05:20 Labs: Laboratory Results - last 24 hr 04/25/25 04/25/25 05:20 11:58 WBC 37.1 H* D 37.4 H* RBC 5.04 4.52 Hgb 14.6 D 13.1 L Hct 42.8 38.3 L MCV 85 85 MCH 29.0 29.0 MCHC 34.1 34.2 RDW Std Deviation 43.8 43.5 Plt Count 259 D 232 Neut % (Auto) 86 H 88 H Lymph % (Auto) 3 L 3 L [place] % (Auto) 4 4 Eos % (Auto) 0 0 Baso % (Auto) 0 0 Neut # (Auto) 32.0 H 33.0 H Lymph # (Auto) 1.1 1.2 [place] # (Auto) 1.6 H 1.4 H Eos # (Auto) 0.0 0.0 Baso # (Auto) 0.0 0.0 Immature Gran # (Auto) 2.26 H 1.79 H Absolute Nucleated RBC 0.02 H 0.02 H Immature Gran % 6 H 5 H Nucleated RBC % 0 0 Smear Path Review Sent to Pathologist Cancelled Sodium 138 Potassium 3.9 Chloride 100 Carbon Dioxide 27.6 Anion Gap 10 BUN 23 Creatinine 0.6 Estim Creat Clear Calc 137.4 eGFR > 60 BUN/Creatinine Ratio 38 H Glucose 241 H Calculated Osmolality 287 Calcium 8.3 Corrected Calcium 9.2 Phosphorus 3.0 Magnesium 1.6 Total Bilirubin 0.8 AST 22 ALT 18 Alkaline Phosphatase 82 Total Protein 5.7 Albumin 2.9 L Globulin 2.8 Albumin/Globulin Ratio 1.0 L ABG Interpretation ABG results: 04/19/25 04/19/25 04/20/25 19:07 22:38 04:38 ABG pH 7.29 L 7.34 L 7.37 ABG pCO2 44 45 39 ABG pO2 297 H 43 L* D 146 H D ABG HCO3 21 24 22 ABG O2 Saturation 100 H 79 L 100 H ABG Base Excess -6 L -2 -3 VBG pH VBG pCO2 VBG pO2 VBG Base Excess 04/20/25 04/21/25 04/22/25 09:42 04:23 04:25 ABG pH 7.35 7.34 L ABG pCO2 44 50 H ABG pO2 96 D 73 L D ABG HCO3 24 27 H ABG O2 Saturation 98 95 ABG Base Excess -2 1 VBG pH 7.31 L VBG pCO2 46 VBG pO2 47 VBG Base Excess -3 Assessment & Plan A&P Narrative abd. process with 2 prior surgeries noted. 04/19 and 04/21 hld htn dm II. metformin rx, A1c 6.8 noted on admit bph changed to all po rx for abd process. zosyn will work but levaquin is same po as iv. he complains that po does not work but iv is problematic for correction rx. Time Spent With Patient Time: Total time spent is greater than 50% in coordination of care (as documented) at patient's floor/unit and/or counseling patient:
--- NOTE | 2025-04-25 14:30 | ESCONSULT_ITS ---
RE: KARLENE PAGAN : 1960 DATE OF CONSULTATION: 04/25/2025 REFERRING PHYSICIAN:Hospitalist team REASON FOR CONSULTATION: Diverticulitis with 2 prior surgeries this admission and slow recovery and possibly a chronic abscess HISTORY OF PRESENT ILLNESS: The patient is a 64-year-old heavy-set man. He has been for 6 years, he lives with his , takes meds for hyperlipidemia, BPH, which he has not been taking lately and doxy, which he is not been taking and some inhalers which he apparently has been taking and COPD/asthma history. He does not know why he was taking aripiprazole before but he was on atorvastatin and some other medications as listed. He is on losartan 50 mg at bedtime, as well as melatonin and meloxicam. He does report some chronic constipation and BPH and diabetes A1c was 6.8 on admission. PAST SURGICAL HISTORY: Includes 2 surgeries this admission. No other prior surgeries. Surgeries appeared to have been done on 04/19 and 04/21. At each time, feculent peritonitis was discovered. Repeat blood cultures a couple days ago showed an E. coli that was resistant to some of the other to various antibiotics, but should have been sensitive to Zosyn. Patient has not been febrile since. White count is a bit higher today though, so that is a source of some concern. It is not entirely clear when the antibiotics were changed. Looks like he was on Zosyn from the through and IV Flagyl was used for a period of time as well but that has subsequently stopped. It does not usually add much to Zosyn which has good anaerobic coverage. The patient reports sensitivity to sulfa drugs. His last tetanus shot was less than 10 years ago. He does have a flu shot most every year and has had 4 COVID vaccines and has had pneumococcal vaccines as well. FAMILY HISTORY: Positive for his father having colon cancer but dying from Parkinson's disease or complications. Mother from complications of Alzheimer's disease. SOCIAL HISTORY: Lives at home with his of 6 years, his first . PHYSICAL EXAMINATION: Patient is has a benign abdomen but he complains of some abdominal pain that worsens when he tries to do much, so he does not do much. He is not getting around much. He has had a couple of surgeries it looks like and according to his was constipated for about a week prior to admission so also has a lot of abdominal pain. ASSESSMENT: Diverticulitis with perforated peritonitis. This patient is doing fairly well but still is somewhat ill. I am going to switch his medicines to oral. He is taking orally, so I am going to give him oral Flagyl and oral Levaquin. Those should be adequate for him. He is a good size at 213 pounds with a BMI of 33.6, so that is an acceptable regimen for him. I will check on him Wednesday if he remains. If he needs higher doses of medication you may make changes but please stay with the Levaquin and Flagyl for now. I will check on him Wednesday as again as it is mentioned but I will be away on Wednesday. DT: 13:53:19 TT: 14:29:00 Ref: [id number] - TID: [id number] MTDD
--- NOTE | 2025-04-25 14:59 | PC.SS ---
Rounding Note: Patient receiving IV antibiotics. Chest tube in place. Dr. Chandler and Dr. Malone consulting.
[2025-04-25 16:27] LABS: Band Neutrophils (Manual) 20 % (0-6); Lymphocytes (Manual) 4 % (20-44); Monocytes (Manual) 4 % (2-9); Neutrophils (Manual) 72 % (50-70)
[2025-04-25] MEDS: INSULIN DEGLUDEC 5 UNIT/0.05 ML (PER 5 UNITS) 12 UNIT SC (21:10)
[2025-04-25] MEDS: SODIUM CHLORIDE RT SOL 0.9% 3 ML NEBU INH (21:50)
[2025-04-25] MEDS: ALBUTEROL RT 2.5 MG/0.5 ML NEBU INH (21:50)
[2025-04-26] VITALS (12 sets, daily range): BP systolic 104–144; BP diastolic 77–96; PULSE 90–98; RESP 16–26; TEMP 35.9–36.4; O2SAT 93–97; BMI 33.5
[2025-04-26] MEDS: ALBUTEROL RT 2.5 MG/0.5 ML NEBU INH (03:25)
[2025-04-26] MEDS: SODIUM CHLORIDE RT SOL 0.9% 3 ML NEBU INH (03:26)
[2025-04-26] MEDS: HYDROmorphone INJ 2 MG/ML VIAL 0.5 MG IVP ×3 (05:02→17:29)
[2025-04-26 06:15] LABS: Alanine Aminotransferase 16 U/L (10-49); Albumin, Serum 2.9 gm/dL (3.4-4.8); Albumin/Globulin Ratio 1.1 (1.2-2.2); Alkaline Phosphatase 90 U/L (46-116); Anion Gap 9 (7-16); Aspartate Amino Transferase 27 U/L (0-34); BUN/Creatinine Ratio 33 Ratio (12-20); Bilirubin,Total 0.5 mg/dL (0.3-1.2); Blood Urea Nitrogen 26 mg/dL (9-23); Calcium 8.4 mg/dL (8.3-10.6); Calcium (Corrected) 9.3 mg/dL (8.5-10.1); Carbon Dioxide 28.2 mMol/L (20.0-31.0); Chloride 97 mMol/L (98-107); Creatinine (Component) 0.8 mg/dL (0.6-1.3); Estimated Creatinine Clearance 102.9 mL/min (>60); Globulin 2.7 gm/dL (2.3-3.5); Glucose 218 mg/dL (74-106); Magnesium 1.7 mg/dL (1.6-2.6); Osmolality,Calculated 279 (275-295); Phosphorous 2.6 mg/dL (2.4-5.1); Potassium 4.2 mMol/L (3.4-5.1); Sodium 134 mMol/L (136-145); Total Protein 5.6 gm/dL (5.7-8.2); eGFR > 60 See Note
[2025-04-26 06:48] LABS: Hepatitis C Antibody Non Reactive (Non React)
[2025-04-26 06:55] LABS: HIV (1&2) Antibody Rapid Non-Reactive
[2025-04-26] MEDS: INSULIN LISPRO (AdmeLOG) 1 UNIT/0.01 ML UNIT SC ×3 (07:52→17:28)
--- NOTE | 2025-04-26 07:56 | XR_ITS ---
EXAMINATION: AP chest single view TECHNIQUE: AP portable semiupright chest single view Date and time: April 26, 2025, 0835 hours, comparison April 25, 2025 INDICATIONS: History right pneumothorax post chest tube placement FINDINGS: Right chest tube satisfactory position Atelectasis in the right lower lung zone Minimal right pleural fluid Soft tissue air along the lateral right chest wall Normal heart size Minor atelectasis left base Reduced inspiratory effort IMPRESSION: Right chest tube satisfactory position with satisfactory expansion right lung
--- NOTE | 2025-04-26 08:00 | PD.SURPROG ---
Documentation for date of: 04/26/25 Subjective Subjective Narrative: The patient's WBC has gone up suddenly to 37,000. Patient is complaining of abdominal pain Exam Vital Signs Temp Pulse Resp BP Pulse Ox O2 Del Method O2 Flow Rate 96.9 F 93 25 H 119/86 H 95 Humidified Nasal Cannula 5 04/26/25 04:00 04/26/25 07:43 04/26/25 04:00 04/26/25 07:43 04/26/25 04:00 04/26/25 04:00 04/26/25 04:00 FiO2 30 04/25/25 16:00 His vital signs are normal other than tachycardia Routine Abdominal Exam Comments: Lower portion of the abdominal incision is draining some cloudy fluid and the nurses describe it as stool Assessment & Plan Assessment Additional comments: Impression: Status post diverticulitis treated with Diego procedure Pneumothorax on the right side Plan Plan: Lungs seem to be expanded and the tube could be removed today. PROCEDURES: Procedures Reexploration of the abdomen with abdominal washout. Partial colectomy with end colostomy
--- NOTE | 2025-04-26 08:15 | PC.NURSE ---
DR. WATTS ROUNDING THIS MORNING, WAS MADE AWARE OF MODERATE YELLOW DRAINAGE COMING FROM OPEN WOUND AND ABDOMEN DISTENSION. PER MD HE WILL PUT IN ORDERS.
[2025-04-26] MEDS: ZINC SULFATE 220 MG CAPSULE PO (08:24)
[2025-04-26] MEDS: ASCORBIC ACID 250 MG TABLET 500 MG PO ×2 (08:24→21:09)
[2025-04-26] MEDS: HYDROcodone/APAP 5/325 TABLET 1 TAB PO ×2 (08:24→14:10)
[2025-04-26] MEDS: LEVOFLOXACIN 250 MG TABLET 500 MG PO (08:24)
[2025-04-26] MEDS: ENOXAPARIN SOD INJ 40 MG/0.4 ML SYRINGE SC (08:24)
[2025-04-26] MEDS: DOCUSATE SOD 100 MG CAPSULE PO ×2 (08:24→21:13)
[2025-04-26 08:58] LABS: Basophils # (Auto) 0.1 Thou/mm3 (0.0-0.2); Basophils % (Auto) 0 % (0-2.5); Eosinophils # (Auto) 0.0 Thou/mm3 (0.0-0.5); Eosinophils % (Auto) 0 % (0-10); Hematocrit 39.8 % (41.0-53.0); Hemoglobin 13.3 g/dL (13.5-16.0); Immature Granulocytes Auto 1.44 Thou/mm3 (0.00-0.00); Lymphocytes # (Auto) 1.0 Thou/mm3 (1.0-4.8); Lymphocytes % (Auto) 3 % (10-50); Mean Corpuscular HGB Conc 33.4 g/dl (31.0-37.0); Mean Corpuscular Hemoglobin 28.4 pg (25.0-35.0); Mean Corpuscular Volume 85 fL (80-100); Monocytes # (Auto) 1.1 Thou/mm3 (0.0-0.8); Monocytes % (Auto) 3 % (0-12); Neutrophils # (Auto) 35.1 Thou/mm3 (1.8-7.7); Neutrophils % (Auto) 91 % (37-80); Nucleated Red Blood Cell # 0.00 Thou/mm3 (0.00-0.00); Nucleated Red Blood Cell % 0 /100 WBC (0); Platelet Count 288 Thou/mm3 (140-440); RDW Standard Deviation 43.2 fL (35.1-43.9); Red Blood Count 4.69 Miln/mm3 (4.50-5.90)
[2025-04-26 09:08] LABS: White Blood Count 38.7 Thou/mm3 (3.8-10.6)
[2025-04-26 11:30] LABS: Path Review Blood Smear Sent to Pathologist
--- NOTE | 2025-04-26 12:38 | PC.NURSE ---
DR. BRAUN AT BEDSIDE REMOVED CHEST TUBE, PT TOLERATED WELL.
--- NOTE | 2025-04-26 13:30 | PC.NURSE ---
PT REFUSED TO WORK WITH PHYSICAL THERAPY.
--- NOTE | 2025-04-26 13:43 | PC.NURSE ---
DR. BRAUN AT B ED=
--- NOTE | 2025-04-26 15:59 | ESPR_ITS ---
Documentation for date of: 04/26/25 Subjective Subjective Interval history: No acute events overnight.?Patient seen and examined at bedside this AM, continues to have severe pain in the abdomen. He states that the pain prevents him from moving and he dislikes when staff have to move him to get cleaned. Reports that the condom catheter has some leakage which contributes to needing to be cleaned more often. He reports being most comfortable laying completely flat, and will not even lean forward to sit up. Per PT notes patient was able to move to the edge of the bed with max assistance but required a lot of reassurance and easily fatigued following. Labs and vitals were reviewed.?WBC still elevated at 38.7. ID who was consulted changed antibiotics from IV Zosyn to PO levofloxacin and PO metronidazole. Abdominal exam remains the same. Will continue to follow trend. Chest tube was taken out today after clamping for an hour without complications. Output for the last 24 hours is about 110 ml of light yellow translucent fluid. Patient is reporting very little appetite, is trying to take in Glucerna. Because of poor meal intake patient will be started on PPN. Review of systems otherwise negative except what is mentioned above. Exam Vital Signs Temp Pulse Resp BP Pulse Ox O2 Del Method O2 Flow Rate 96.6 F L 91 20 123/96 H 93 L Humidified Nasal Cannula 5 04/26/25 11:56 04/26/25 12:00 04/26/25 11:56 04/26/25 11:56 04/26/25 11:56 04/26/25 11:56 04/26/25 11:56 FiO2 30 04/26/25 11:56 Narrative Exam General: Comfortable, no acute distress. Resp: Decreased breath sounds on right; chest tube in place. No visible respiratory distress. CV: RRR, no murmurs. Abdomen: Soft, mildly distended, non-tender. Incision clean/dry. Colostomy pink, patent, edematous. Ext: Trace edema. Neuro: Alert, oriented, following commands. Skin: No rash. Objective Labs 04/27/25 05:13 04/27/25 05:13 Labs: Laboratory Results - last 24 hr 04/25/25 04/26/25 04/26/25 05:20 05:10 08:45 WBC Cancelled 38.7 H* RBC Cancelled 4.69 Hgb Cancelled 13.3 L Hct Cancelled 39.8 L MCV Cancelled 85 MCH Cancelled 28.4 MCHC Cancelled 33.4 RDW Std Deviation Cancelled 43.2 Plt Count Cancelled 288 D Neut % (Auto) Cancelled 91 H Lymph % (Auto) Cancelled 3 L Jones % (Auto) Cancelled 3 Eos % (Auto) Cancelled 0 Baso % (Auto) Cancelled 0 Neut # (Auto) Cancelled 35.1 H Lymph # (Auto) Cancelled 1.0 Jones # (Auto) Cancelled 1.1 H Eos # (Auto) Cancelled 0.0 Baso # (Auto) Cancelled 0.1 Immature Gran # (Auto) Cancelled 1.44 H Absolute Nucleated RBC Cancelled 0.00 Immature Gran % Cancelled 4 H Neutrophils % (Manual) 72 H Monocytes % (Manual) 4 Nucleated RBC % Cancelled 0 Band Neutrophils 20 H Lymphocytes (Manual) 4 L Smear Path Review Cancelled Sent to Pathologist Sodium 134 L Potassium 4.2 Chloride 97 L Carbon Dioxide 28.2 Anion Gap 9 BUN 26 H Creatinine 0.8 Estim Creat Clear Calc 102.9 eGFR > 60 BUN/Creatinine Ratio 33 H Glucose 218 H Calculated Osmolality 279 Calcium 8.4 Corrected Calcium 9.3 Phosphorus 2.6 Magnesium 1.7 Total Bilirubin 0.5 AST 27 ALT 16 Alkaline Phosphatase 90 Total Protein 5.6 L Albumin 2.9 L Globulin 2.7 Albumin/Globulin Ratio 1.1 L Hepatitis C Antibody Non Reactive HIV 1&2 Antibody Rapid Non-Reactive ABG Interpretation ABG results: 04/19/25 04/19/25 04/20/25 19:07 22:38 04:38 ABG pH 7.29 L 7.34 L 7.37 ABG pCO2 44 45 39 ABG pO2 297 H 43 L* D 146 H D ABG HCO3 21 24 22 ABG O2 Saturation 100 H 79 L 100 H ABG Base Excess -6 L -2 -3 VBG pH VBG pCO2 VBG pO2 VBG Base Excess 04/20/25 04/21/25 04/22/25 09:42 04:23 04:25 ABG pH 7.35 7.34 L ABG pCO2 44 50 H ABG pO2 96 D 73 L D ABG HCO3 24 27 H ABG O2 Saturation 98 95 ABG Base Excess -2 1 VBG pH 7.31 L VBG pCO2 46 VBG pO2 47 VBG Base Excess -3 Quality Measures Quality Measures VTE prophylaxis Assessment & Plan Assessment Current Active Medications: Generic Name Dose Route Start Last Admin Trade Name Freq PRN Reason Stop Dose Admin Acetaminophen 650 mg 04/19/25 08:33 04/24/25 05:25 Acetaminophen 325 Mg Tablet PO 05/17/25 13:26 650 mg Q6H PRN Administration Fever >100.4 or Pain 1-3 Hydrocodone Bitart/Acetaminophen 1 tab 04/24/25 15:41 04/26/25 14:10 Hydrocodone/Apap 5/325 Tablet PO 04/29/25 10:12 1 tab Q6HR PRN Administration PAIN 4-10 Albuterol 2.5 mg 04/25/25 21:39 04/26/25 03:25 Albuterol Rt 2.5 Mg/0.5 Ml Nebu INH 05/25/25 22:59 2.5 mg Q4HRRT PRN Administration SHORTNESS OF BREATH OR WHEEZE Ascorbic Acid 500 mg 04/23/25 21:00 04/26/25 08:24 Ascorbic Acid 250 Mg Tablet PO 05/23/25 20:59 500 mg BID LYRIC Administration Carvedilol 3.125 mg 04/22/25 17:30 04/26/25 07:43 Carvedilol 3.125 Mg Tablet PO 05/22/25 17:29 3.125 mg BIDWM LYRIC Administration Dextrose 25 ml 04/22/25 11:17 Dextrose 50%-Water Inj 50 Ml Syringe IV 05/22/25 11:16 Q15MIN PRN BG 50-70 responsive npo pt Dextrose 50 ml 04/22/25 11:17 Dextrose 50%-Water Inj 50 Ml Syringe IV 05/22/25 11:16 Q15MIN PRN BG <50 OR BG <70 & pt unresponsive Docusate Sodium 100 mg 04/23/25 11:30 04/26/25 08:24 Docusate Sod 100 Mg Capsule PO 05/23/25 11:29 100 mg BID LYRIC Administration Protocol Enoxaparin Sodium 40 mg 04/18/25 09:00 04/26/25 08:24 Enoxaparin Sod Inj 40 Mg/0.4 Ml Syringe SC 05/02/25 08:59 40 mg QDAY LYRIC Administration Glucagon 1 mg 04/22/25 11:17 Glucagon Inj 1 Mg Vial IM Q15MIN PRN BG <70, and no IV access Hydromorphone HCl 0.5 mg 04/24/25 15:38 04/26/25 11:34 Hydromorphone Inj 2 Mg/Ml Vial IVP 04/29/25 15:37 0.5 mg Q6H PRN Administration BREAKTHROUGH PAIN (SEVERE) Protocol Fat Emulsion Intravenous 500 mls @ 32 mls/hr 04/27/25 18:00 Intralipid 20% Iv IV 05/27/25 17:59 [id number] [facility] Multivitamins/Minerals 10 ml/ 2,015 mls @ 45 mls/hr 04/26/25 18:00 Sodium Phosphate 15 mmol/ IV 04/27/25 17:59 Amino Acids Q24H [facility] Insulin Degludec 12 unit 04/25/25 21:00 04/25/25 21:10 Insulin Degludec 5 Unit/0.05 Ml (Per 5 Units) SC 05/25/25 20:59 12 unit HS LYRIC Administration Insulin Human Lispro 0 unit 04/26/25 18:00 Insulin Lispro (Admelog) 1 Unit/0.01 Ml Unit SC 05/26/25 17:59 Q6HR [facility] Protocol Levofloxacin 500 mg 04/26/25 09:00 04/26/25 08:24 Levofloxacin 250 Mg Tablet PO 05/03/25 08:59 500 mg QDAY LYRIC Administration Metronidazole 500 mg 04/25/25 14:00 04/26/25 14:09 Metronidazole 250 Mg Tablet PO 05/02/25 13:59 500 mg TID LYRIC Administration Ondansetron HCl 4 mg 04/17/25 09:45 04/17/25 10:06 Ondansetron Inj 2 Mg/Ml Inj 2 Ml IVP 05/17/25 09:44 4 mg Q6HR PRN Administration NAUSEA OR VOMITING Protocol Pantoprazole Sodium 40 mg 04/27/25 09:00 Pantoprazole 40 Mg Tablet PO 05/27/25 08:59 QDAY [facility] Protocol Sodium Chloride 5 ml 04/19/25 18:06 Sodium Chloride Rt 10% 15 Ml Nebu INH 05/19/25 18:05 X1 PRN SECRETIONS Sodium Chloride 3 ml 04/25/25 21:39 04/26/25 03:26 Sodium Chloride Rt Malou 0.9% 3 Ml Nebu INH 05/25/25 21:38 3 ml Q4HR PRN Administration SOLN Thiamine HCl 100 mg 04/26/25 18:00 Thiamine Inj 100 Mg/Ml Vial 2 Ml IVP 05/26/25 17:59 QDAY LYRIC Zinc Sulfate 220 mg 04/23/25 11:30 04/26/25 08:24 Zinc Sulfate 220 Mg Capsule PO 05/23/25 11:29 220 mg QDAY LYRIC Administration Plan 64-year-old male postop from perforated sigmoid diverticulitis with colectomy and colostomy, ESBL E. coli bacteremia, and right pneumothorax s/p chest tube placement; clinically improving with stable infection, improving pneumothorax, and ongoing management of poor oral intake and hyperglycemia. # Perforated diverticulitis with feculent peritonitis s/p colostomy placement POD#7 from exploratory laparotomy with sigmoid colectomy POD#5 from washout, partial colectomy and end colostomy. Plan: * ID discontinued IV Zosyn (04/20-04/25) * ID discontinued IV levofloxacin 750 IV qday per surgery. (04/24-04/25) * Continue PO levofloxacin 500 qday * Continue PO metronidazole 500 mg TID * Dysphagia 3 diet per surgery * Monitor ostomy output. * Continue zinc 220 mg qday * Continue ascorbic acid 500 mg BID * Daily CBC and CMP. * Pain control PRN. * Continue PPI. # ESBL E. coli bacteremia Clinically stable but WBC rising significantly. Afebrile, hemodynamically stable. Plan: * Continue PO levofloxacin 500 qday * Continue PO metronidazole 500 mg TID # Leukocytosis with left shift, (WBC 37) Likely infectious but patient clinically has unchanged physical examination. 04/25/2025 ID changed antibiotic choice from IV Zosyn to PO levofloxacin and PO metronidazole Plan: * Continue antibiotics, will consider escalation depending on trend. * Monitor vitals. * Serial examinations. * Repeat CBC tomorrow. # Poor PO intake Patient on dysphagia diet however not meeting nutritional needs. Reports poor appetite. 04/26/2025 PPN was started. Plan: * Consulted monotype machinist * Started PPN * Continue thiamine 100 mg IV qday # Right pneumothorax, resolved S/p chest tube placement 04/21 CXR on 04/24 shows interval improvement from 20% to <10%. Breathing better on 5 L NC. CXR 04/25 shows complete resolution. 04/26 removed chest tube, 110 ml of translucent yellow fluid Plan: * Continue incentive spirometry * Work with PT towards ambulation # Paroxysmal A-fib with RVR (04/21), resolved Likely secondary to sepsis and pneumothorax. Sinus rhythm today. Plan: * Stop amiodarone (per ICU team). * Telemetry monitoring. * Replete electrolytes (K >4, Mg >2). 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 Plan: * Will restart GDMT one med at a time. * Continue carvedilol 3.125 mg BID * Continue telemetry. # Type 2 diabetes A1c 6.8%. Plan: * Insulin degludec 12 U HS * Sliding scale insulin. * Clear liquids diet # Septic shock, resolved Off pressors, stable MAP, normal lactate, improving urine output. Plan: * Continue current antibiotic coverage. # Acute kidney injury, resolved Creatinine back to normal with good UOP. Plan: * Monitor BMP daily. * Avoid nephrotoxins. Health Maintenance: Disposition: Telemetry. Diet: Dysphagia 3 diet. DVT prophylaxis: Lovenox. GI prophylaxis: Protonix. Bowel regimen: None currently; monitor ostomy output. Code Status: Full Code. ----- Patient plan of care was discussed with the attending physician, Dr. Fish. Yas Le, PGY-3 Attending Provider Attestation/Addendum I have examined the patient, reviewed labs and imaging findings, discussed the case with the resident(s), and reviewed entered orders. I agree with the plan of care as outlined in this note, with these additional summaries/recommendations: Patient seen at bedside. No acute overnight events. Patient continues to endorse abdominal pain although slightly improved. Patient has had little to no oral intake and case discussed with dietary. Patient will be started on CPN today. Chest x-ray today shows a right chest tube in satisfactory position with satisfactory expansion of right lung with no pneumothorax noted. We will clamp chest tube and if patient stable will remove later this afternoon. Patient was seen by infectious disease specialist yesterday and antibiotics adjusted to levofloxacin and metronidazole for ESBL bacteremia and perforated diverticulitis. General surgery following. Continue pain management. Significant leukocytosis persist which is likely multifactorial. Continue daily CBC. Continue insulin sliding scale for diabetes mellitus type 2 with Accu- Cheks. Target blood sugar 140-180 while hospitalized. Continue Jones catheter. Patient updated on the plan and in agreement. All questions answered to satisfaction. Please see residents note for additional details and management. Dr. Abe MD
[2025-04-26] MEDS: THIAMINE INJ 100 MG/ML VIAL 2 ML IVP (17:08)
[2025-04-26] MEDS: INSULIN DEGLUDEC 5 UNIT/0.05 ML (PER 5 UNITS) 12 UNIT SC (21:09)
[2025-04-27] VITALS (14 sets, daily range): BP systolic 108–135; BP diastolic 75–93; PULSE 78–100; RESP 11–24; TEMP 36.1–36.7; O2SAT 91–97; BMI 34.2
[2025-04-27] MEDS: SODIUM CHLORIDE RT SOL 0.9% 3 ML NEBU INH ×2 (00:24→20:28)
[2025-04-27] MEDS: INSULIN LISPRO (AdmeLOG) 1 UNIT/0.01 ML UNIT SC ×5 (00:24→23:41)
[2025-04-27] MEDS: ALBUTEROL RT 2.5 MG/0.5 ML NEBU INH ×2 (00:24→20:28)
[2025-04-27 05:42] LABS: Basophils # (Auto) 0.1 Thou/mm3 (0.0-0.2); Basophils % (Auto) 0 % (0-2.5); Eosinophils # (Auto) 0.0 Thou/mm3 (0.0-0.5); Eosinophils % (Auto) 0 % (0-10); Hematocrit 35.1 % (41.0-53.0); Hemoglobin 12.1 g/dL (13.5-16.0); Immature Granulocytes Auto 0.95 Thou/mm3 (0.00-0.00); Lymphocytes # (Auto) 0.9 Thou/mm3 (1.0-4.8); Lymphocytes % (Auto) 3 % (10-50); Mean Corpuscular HGB Conc 34.5 g/dl (31.0-37.0); Mean Corpuscular Hemoglobin 29.1 pg (25.0-35.0); Mean Corpuscular Volume 84 fL (80-100); Monocytes # (Auto) 1.1 Thou/mm3 (0.0-0.8); Monocytes % (Auto) 3 % (0-12); Neutrophils # (Auto) 28.9 Thou/mm3 (1.8-7.7); Neutrophils % (Auto) 90 % (37-80); Nucleated Red Blood Cell # 0.00 Thou/mm3 (0.00-0.00); Nucleated Red Blood Cell % 0 /100 WBC (0); Platelet Count 404 Thou/mm3 (140-440); RDW Standard Deviation 43.3 fL (35.1-43.9); Red Blood Count 4.16 Miln/mm3 (4.50-5.90); White Blood Count 31.9 Thou/mm3 (3.8-10.6)
[2025-04-27 06:01] LABS: Alanine Aminotransferase 14 U/L (10-49); Albumin, Serum 2.8 gm/dL (3.4-4.8); Albumin/Globulin Ratio 1.1 (1.2-2.2); Alkaline Phosphatase 100 U/L (46-116); Anion Gap 7 (7-16); Aspartate Amino Transferase 20 U/L (0-34); BUN/Creatinine Ratio 40 Ratio (12-20); Bilirubin,Total 0.4 mg/dL (0.3-1.2); Blood Urea Nitrogen 28 mg/dL (9-23); Calcium 8.1 mg/dL (8.3-10.6); Calcium (Corrected) 9.1 mg/dL (8.5-10.1); Carbon Dioxide 28.5 mMol/L (20.0-31.0); Chloride 95 mMol/L (98-107); Creatinine (Component) 0.7 mg/dL (0.6-1.3); Estimated Creatinine Clearance 119.0 mL/min (>60); Globulin 2.5 gm/dL (2.3-3.5); Glucose 240 mg/dL (74-106); Magnesium 1.7 mg/dL (1.6-2.6); Osmolality,Calculated 274 (275-295); Phosphorous 2.5 mg/dL (2.4-5.1); Potassium 4.0 mMol/L (3.4-5.1); Sodium 130 mMol/L (136-145); Total Protein 5.3 gm/dL (5.7-8.2); eGFR > 60 See Note
[2025-04-27] MEDS: HYDROcodone/APAP 5/325 TABLET 1 TAB PO (07:22)
[2025-04-27] MEDS: HYDROmorphone INJ 2 MG/ML VIAL 0.5 MG IVP ×2 (08:57→16:43)
[2025-04-27] MEDS: LEVOFLOXACIN 250 MG TABLET 500 MG PO (08:58)
[2025-04-27] MEDS: ENOXAPARIN SOD INJ 40 MG/0.4 ML SYRINGE SC (08:58)
[2025-04-27] MEDS: THIAMINE INJ 100 MG/ML VIAL 2 ML IVP (08:58)
[2025-04-27] MEDS: ASCORBIC ACID 250 MG TABLET 500 MG PO ×2 (08:59→20:44)
[2025-04-27] MEDS: ZINC SULFATE 220 MG CAPSULE PO (09:01)
[2025-04-27] MEDS: DOCUSATE SOD 100 MG CAPSULE PO ×2 (09:01→20:44)
[2025-04-27] MEDS: PANTOPRAZOLE 40 MG TABLET PO (09:01)
--- NOTE | 2025-04-27 10:47 | PC.SS ---
SS follow up note; POST OP # 6. Patient is on IV ABX and now on PPN. Patient will discharge home when medically cleared.
--- NOTE | 2025-04-27 13:07 | ESPR_ITS ---
Documentation for date of: 04/27/25 Subjective Subjective Interval history: No acute events overnight.?Patient seen and examined at bedside this AM.?Patient states that he is doing better today. However, he continues to describe severe lower abdominal pain whenever he is moving around or eating, which is a barrier to sitting up. is seen at bedside. Emphasized the importance of practicing incentive spirometry. Patient states that he feels motivated to work with PT today. Labs and vitals were reviewed.?Patient is saturating low 90s on 4-5L NC. Other vitals are good and patient has remained afebrile. WBC downtrended from 38.7 to 31.9. Noted sodium decrease from 134 to 130 and chloride 97 to 95. Will continue to encourage oral intake and help for patient to be fed during meal times due to difficulty in sitting up. Meanwhile patient was started on PPN yesterday. Patient's Homer was increased in dose from 5 to 10 mg to improve pain control. Ostomy continues to have regular stool output. Will continue the patient on levofloxacin and metronidazole. Review of systems otherwise negative except what is mentioned above. Exam Vital Signs Temp Pulse Resp BP Pulse Ox O2 Del Method O2 Flow Rate 96.9 F 98 18 135/81 H 92 L Nasal Cannula 4 04/27/25 08:00 04/27/25 08:59 04/27/25 08:00 04/27/25 08:59 04/27/25 08:00 04/27/25 08:00 04/27/25 08:00 FiO2 30 04/26/25 16:00 Narrative Exam General: Comfortable, no acute distress. Wears cooling rag on forehead Resp: Clear to auscultation bilaterally, right axillary dressing in place from previous chest tube removal. CV: RRR, no murmurs. Abdomen: Soft, mildly distended, non-tender. Incision clean/dry. Colostomy pink, patent, edematous. Ext: Trace edema. Neuro: Alert, oriented, following commands. Skin: No rash. Objective Labs 04/28/25 06:05 04/28/25 06:05 Labs: Laboratory Results - last 24 hr 04/27/25 05:13 WBC 31.9 H D RBC 4.16 L Hgb 12.1 L Hct 35.1 L MCV 84 MCH 29.1 MCHC 34.5 RDW Std Deviation 43.3 Plt Count 404 D Neut % (Auto) 90 H Lymph % (Auto) 3 L [place] % (Auto) 3 Eos % (Auto) 0 Baso % (Auto) 0 Neut # (Auto) 28.9 H Lymph # (Auto) 0.9 L [place] # (Auto) 1.1 H Eos # (Auto) 0.0 Baso # (Auto) 0.1 Immature Gran # (Auto) 0.95 H Absolute Nucleated RBC 0.00 Immature Gran % 3 H Nucleated RBC % 0 Sodium 130 L Potassium 4.0 Chloride 95 L Carbon Dioxide 28.5 Anion Gap 7 BUN 28 H Creatinine 0.7 Estim Creat Clear Calc 119.0 eGFR > 60 BUN/Creatinine Ratio 40 H Glucose 240 H Calculated Osmolality 274 L Calcium 8.1 L Corrected Calcium 9.1 Phosphorus 2.5 Magnesium 1.7 Total Bilirubin 0.4 AST 20 ALT 14 Alkaline Phosphatase 100 Total Protein 5.3 L Albumin 2.8 L Globulin 2.5 Albumin/Globulin Ratio 1.1 L ABG Interpretation ABG results: 04/19/25 04/19/25 04/20/25 19:07 22:38 04:38 ABG pH 7.29 L 7.34 L 7.37 ABG pCO2 44 45 39 ABG pO2 297 H 43 L* D 146 H D ABG HCO3 21 24 22 ABG O2 Saturation 100 H 79 L 100 H ABG Base Excess -6 L -2 -3 VBG pH VBG pCO2 VBG pO2 VBG Base Excess 04/20/25 04/21/25 04/22/25 09:42 04:23 04:25 ABG pH 7.35 7.34 L ABG pCO2 44 50 H ABG pO2 96 D 73 L D ABG HCO3 24 27 H ABG O2 Saturation 98 95 ABG Base Excess -2 1 VBG pH 7.31 L VBG pCO2 46 VBG pO2 47 VBG Base Excess -3 Quality Measures Quality Measures VTE prophylaxis Assessment & Plan Assessment Current Active Medications: Generic Name Dose Route Start Last Admin Trade Name Freq PRN Reason Stop Dose Admin Acetaminophen 650 mg 04/19/25 08:33 04/24/25 05:25 Acetaminophen 325 Mg Tablet PO 05/17/25 13:26 650 mg Q6H PRN Administration Fever >100.4 or Pain 1-3 Hydrocodone Bitart/Acetaminophen 1 tab 04/27/25 09:51 Hydrocodone/Apap 10/325 Tab PO 05/02/25 09:50 Q6HR PRN PAIN SCALE 4-6 Albuterol 2.5 mg 04/25/25 21:39 04/27/25 00:24 Albuterol Rt 2.5 Mg/0.5 Ml Nebu INH 05/25/25 22:59 2.5 mg Q4HRRT PRN Administration SHORTNESS OF BREATH OR WHEEZE Ascorbic Acid 500 mg 04/23/25 21:00 04/27/25 08:59 Ascorbic Acid 250 Mg Tablet PO 05/23/25 20:59 500 mg BID LYRIC Administration Aspirin 81 mg 04/28/25 09:00 Aspirin Ec 81 Mg Tabec PO 05/28/25 08:59 QDAY LYRIC Carvedilol 3.125 mg 04/22/25 17:30 04/27/25 08:59 Carvedilol 3.125 Mg Tablet PO 05/22/25 17:29 3.125 mg BIDWM LYRIC Administration Dextrose 25 ml 04/22/25 11:17 Dextrose 50%-Water Inj 50 Ml Syringe IV 05/22/25 11:16 Q15MIN PRN BG 50-70 responsive npo pt Dextrose 50 ml 04/22/25 11:17 Dextrose 50%-Water Inj 50 Ml Syringe IV 05/22/25 11:16 Q15MIN PRN BG <50 OR BG <70 & pt unresponsive Docusate Sodium 100 mg 04/23/25 11:30 04/27/25 09:01 Docusate Sod 100 Mg Capsule PO 05/23/25 11:29 100 mg BID LYRIC Administration Protocol Enoxaparin Sodium 40 mg 04/18/25 09:00 04/27/25 08:58 Enoxaparin Sod Inj 40 Mg/0.4 Ml Syringe SC 05/02/25 08:59 40 mg QDAY LYRIC Administration Glucagon 1 mg 04/22/25 11:17 Glucagon Inj 1 Mg Vial IM Q15MIN PRN BG <70, and no IV access Hydromorphone HCl 0.5 mg 04/24/25 15:38 04/27/25 08:57 Hydromorphone Inj 2 Mg/Ml Vial IVP 04/29/25 15:37 0.5 mg Q6H PRN Administration BREAKTHROUGH PAIN (SEVERE) Protocol Fat Emulsion Intravenous 500 mls @ 32 mls/hr 04/27/25 18:00 Intralipid 20% Iv IV 05/27/25 17:59 [id number] [facility] Multivitamins/Minerals 10 ml/ 2,015 mls @ 45 mls/hr 04/26/25 18:00 04/27/25 01:15 Sodium Phosphate 15 mmol/ IV 04/27/25 17:59 90 mls/hr Amino Acids Q24H LYRIC Infusion Sodium Phosphate 15 mmol/ 2,007 mls @ 90 mls/hr 04/27/25 18:00 Magnesium Sulfate 1 gm/ Amino IV 04/28/25 16:17 Acids/Electrolytes/Dextrose Q24H [facility] Insulin Degludec 20 unit 04/27/25 21:00 Insulin Degludec 5 Unit/0.05 Ml (Per 5 Units) SC 05/27/25 20:59 HS [facility] Insulin Human Lispro 0 unit 04/26/25 18:00 04/27/25 12:31 Insulin Lispro (Admelog) 1 Unit/0.01 Ml Unit SC 05/26/25 17:59 4 unit Q6HR [facility] Administration Protocol Levofloxacin 500 mg 04/26/25 09:00 04/27/25 08:58 Levofloxacin 250 Mg Tablet PO 05/03/25 08:59 500 mg QDAY LYRIC Administration Metronidazole 500 mg 04/25/25 14:00 04/27/25 05:26 Metronidazole 250 Mg Tablet PO 05/02/25 13:59 500 mg TID LYRIC Administration Ondansetron HCl 4 mg 04/17/25 09:45 04/17/25 10:06 Ondansetron Inj 2 Mg/Ml Inj 2 Ml IVP 05/17/25 09:44 4 mg Q6HR PRN Administration NAUSEA OR VOMITING Protocol Pantoprazole Sodium 40 mg 04/27/25 09:00 04/27/25 09:01 Pantoprazole 40 Mg Tablet PO 05/27/25 08:59 40 mg QDAY LYRIC Administration Protocol Sodium Chloride 5 ml 04/19/25 18:06 Sodium Chloride Rt 10% 15 Ml Nebu INH 05/19/25 18:05 X1 PRN SECRETIONS Sodium Chloride 3 ml 04/25/25 21:39 04/27/25 00:24 Sodium Chloride Rt Malou 0.9% 3 Ml Nebu INH 05/25/25 21:38 3 ml Q4HR PRN Administration SOLN Thiamine HCl 100 mg 04/26/25 18:00 11/28/25 08:58 Thiamine Inj 100 Mg/Ml Vial 2 Ml IVP 05/26/25 17:59 100 mg QDAY LYRIC Administration Zinc Sulfate 220 mg 04/23/25 11:30 04/27/25 09:01 Zinc Sulfate 220 Mg Capsule PO 05/23/25 11:29 220 mg QDAY LYRIC Administration Plan 64-year-old male postop from perforated sigmoid diverticulitis with colectomy and colostomy, ESBL E. coli bacteremia, and right pneumothorax s/p chest tube placement; clinically improving with stable infection, improving pneumothorax, and ongoing management of poor oral intake and hyperglycemia. # Perforated diverticulitis with feculent peritonitis s/p colostomy placement POD#8 from exploratory laparotomy with sigmoid colectomy POD#6 from washout, partial colectomy and end colostomy IV Zosyn was given 04/20-04/25 IV levofloxacin was given 04/24-04/25 Plan: * Continue PO levofloxacin 500 qday * Continue PO metronidazole 500 mg TID * Dysphagia 3 diet per surgery * Monitor ostomy output * Continue zinc 220 mg qday * Continue ascorbic acid 500 mg BID * Daily CBC and CMP * Pain control PRN - increased Homer 5 mg to 10 mg * Continue PPI # ESBL E. coli bacteremia # Leukocytosis with left shift, improved Likely infectious but patient clinically has unchanged physical examination. 04/25/2025 ID changed antibiotic choice from IV Zosyn to PO levofloxacin and PO metronidazole. Patient was started on Zosyn 04/20/2025, started levothyroxine and metronidazole 04/24 will continue current antibiotic until 05/03/2025 for total course of 14 days effective antibiotics. Consider switching IV treatment to carbapenem antibiotic if no clinical improvement. Plan: * Continue PO levofloxacin 500 qday * Continue PO metronidazole 500 mg TID * Monitor vitals * Serial examinations * Repeat CBC tomorrow # Poor PO intake Patient on dysphagia diet however not meeting nutritional needs. Reports poor appetite. 04/26/2025 PPN was started. 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 CXR 04/25 shows complete resolution. 04/26 removed chest tube, 110 ml of translucent yellow fluid Plan: * Continue incentive spirometry * Work with PT towards ambulation # Paroxysmal A-fib with RVR (04/21), resolved Likely secondary to underlying sepsis at that time and pneumothorax. Sinus rhythm since. Stopped amiodarone (per ICU team). Plan: * Telemetry monitoring. * Replete electrolytes (K >4, Mg >2). 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 Plan: * Will restart GDMT one med at a time. * Continue carvedilol 3.125 mg BID * Continue telemetry. # Type 2 diabetes A1c 6.8%. Plan: * Insulin degludec 12 U HS * Sliding scale insulin. * Clear liquids diet # Septic shock, resolved Off pressors, stable MAP, normal lactate, improving urine output. Plan: * Continue current antibiotic coverage. # Acute kidney injury, resolved Creatinine back to normal with good UOP. Plan: * Monitor BMP daily. * Avoid nephrotoxins. Health Maintenance: Disposition: Telemetry. Diet: Dysphagia 3 diet. DVT prophylaxis: Lovenox. GI prophylaxis: Protonix. Bowel regimen: None currently; monitor ostomy output. Code Status: Full Code. ----- Patient plan of care was discussed with the attending physician, Dr. Fish. Yas Le, PGY-3 Attending Provider Attestation/Addendum I have examined the patient, reviewed labs and imaging findings, discussed the case with the resident(s), and reviewed entered orders. I agree with the plan of care as outlined in this note, with these additional summaries/recommendations: Patient seen at bedside. No acute overnight events. Patient reports today he feels his lack of appetite is mostly secondary to postprandial pain. We will increase Homer dosage today and continue artificial nutrition. Encourage special diet request including ice cream and Jell-O. Patient had chest tube removed yesterday and tolerated well. Continue supplemental oxygen for acute hypoxic respiratory failure and wean as tolerated. Continue IV antibiotics for ESBL bacteremia and perforated diverticulitis. Patient is postoperative day #6 status post sigmoid colectomy with abdominal washout for perforated diverticulitis with feculent peritonitis. General surgery following. Patient encouraged to work with physical therapy as tolerated and continue incentive spirometry. Significant leukocytosis still present although improving. Continue insulin sliding scale for diabetes mellitus type 2 with Accu-Cheks. Target blood sugar 140-180 while hospitalized. Continue Jones catheter. Patient updated on the plan and in agreement. All questions answered to satisfaction. Please see residents note for additional details and management. Dr. Abe MD
--- NOTE | 2025-04-27 13:10 | PC.SS ---
SS was contacted by Brandon from PT informing SS that patient would like SNF placement however patient was not participating with PT. SS met with patient at bedside to discuss discharge plan. Patient reports he would like to discharge to SNF. SS informed patient that SS would be submitting to SNF. SS informed him the importance of participating with PT. Patient verbalized understanding. SS submitted inquiry to local SNF facilities. Patient's was provided list of facilities and contact number, she informed SS she would like to visit SNF facilities before making a decision. SS will stand by for further needs.
--- NOTE | 2025-04-27 15:00 | PC.NURSE ---
at bedside notified of wound draining and looking like stool content
--- NOTE | 2025-04-27 15:22 | ESPR_ITS ---
Documentation for date of: 04/27/25 Subjective Subjective Narrative: Pt reports ongoing pain, he does have some relief with dilaudid. He has minimal appetite but relates this to his ozempic use before admission. Colostomy is functioning and pt is having similar output from the inferior aspect of the incision first noted yesterday. WBC 32 from 39 and remaining afebrile Exam Vital Signs Temp Pulse Resp BP Pulse Ox O2 Del Method O2 Flow Rate 96.9 F 88 18 135/81 H 92 L Nasal Cannula 4 04/27/25 08:00 04/27/25 12:00 04/27/25 08:00 04/27/25 08:59 04/27/25 08:00 04/27/25 08:00 04/27/25 08:00 FiO2 30 04/26/25 16:00 Constitutional Constitutional: no acute distress Routine Respiratory Exam Respiratory: Present no resp distress Routine Abdominal Exam Abdominal: Present soft, distended (mild distention), wound (midline incision with filiberto c/d/i, no erythema. the inferior aspect of the incision is open and draining feculent material, also no surrounding erythema in this area) and ostomy (colostomy pink with stool in appliance) Results Results: Laboratory Laboratory results: results reviewed Assessment & Plan Plan 64M who underwent sigmoidectomy with abdomen left open 04/19 for perforated diverticulitis, followed by colostomy 04/21, course complicated by R pneumothorax which has resolved, now gradually recovering. 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 Partial colectomy with end colostomy
[2025-04-27] MEDS: ACETAMINOPHEN IVPB 1,000 MG/100 ML VIAL 250 MG IV ×2 (15:35→20:54)
[2025-04-27] MEDS: FAT EMULSIONS 20% IV 500 ML 32 ML IV (17:47)
[2025-04-27] MEDS: INSULIN DEGLUDEC 5 UNIT/0.05 ML (PER 5 UNITS) 20 UNIT SC (20:46)
[2025-04-27] MEDS: oxyCODONE HCL 5 MG IR TAB 10 MG PO (21:43)
[2025-04-28] VITALS (14 sets, daily range): BP systolic 104–125; BP diastolic 66–77; PULSE 70–95; RESP 18–20; TEMP 36–36.4; O2SAT 16–96; BMI 34.7
[2025-04-28] MEDS: ALBUTEROL RT 2.5 MG/0.5 ML NEBU INH ×2 (02:33→08:15)
[2025-04-28] MEDS: SODIUM CHLORIDE RT SOL 0.9% 3 ML NEBU INH ×2 (02:33→08:15)
[2025-04-28] MEDS: ACETAMINOPHEN IVPB 1,000 MG/100 ML VIAL 250 MG IV ×3 (03:23→21:54)
[2025-04-28] MEDS: INSULIN LISPRO (AdmeLOG) 1 UNIT/0.01 ML UNIT SC ×3 (05:34→18:16)
[2025-04-28 06:37] LABS: Basophils # (Auto) 0.1 Thou/mm3 (0.0-0.2); Basophils % (Auto) 0 % (0-2.5); Eosinophils # (Auto) 0.0 Thou/mm3 (0.0-0.5); Eosinophils % (Auto) 0 % (0-10); Hematocrit 33.9 % (41.0-53.0); Hemoglobin 11.6 g/dL (13.5-16.0); Immature Granulocytes Auto 0.47 Thou/mm3 (0.00-0.00); Lymphocytes # (Auto) 0.8 Thou/mm3 (1.0-4.8); Lymphocytes % (Auto) 3 % (10-50); Mean Corpuscular HGB Conc 34.2 g/dl (31.0-37.0); Mean Corpuscular Hemoglobin 29.6 pg (25.0-35.0); Mean Corpuscular Volume 87 fL (80-100); Monocytes # (Auto) 1.3 Thou/mm3 (0.0-0.8); Monocytes % (Auto) 5 % (0-12); Neutrophils # (Auto) 23.7 Thou/mm3 (1.8-7.7); Neutrophils % (Auto) 90 % (37-80); Nucleated Red Blood Cell # 0.00 Thou/mm3 (0.00-0.00); Nucleated Red Blood Cell % 0 /100 WBC (0); Platelet Count 481 Thou/mm3 (140-440); RDW Standard Deviation 43.0 fL (35.1-43.9); Red Blood Count 3.92 Miln/mm3 (4.50-5.90); White Blood Count 26.3 Thou/mm3 (3.8-10.6)
[2025-04-28 07:03] LABS: Alanine Aminotransferase 17 U/L (10-49); Albumin, Serum 2.6 gm/dL (3.4-4.8); Albumin/Globulin Ratio 1.1 (1.2-2.2); Alkaline Phosphatase 111 U/L (46-116); Anion Gap 7 (7-16); Aspartate Amino Transferase 22 U/L (0-34); BUN/Creatinine Ratio 35 Ratio (12-20); Bilirubin,Total 0.3 mg/dL (0.3-1.2); Blood Urea Nitrogen 21 mg/dL (9-23); Calcium 8.2 mg/dL (8.3-10.6); Calcium (Corrected) 9.3 mg/dL (8.5-10.1); Carbon Dioxide 26.2 mMol/L (20.0-31.0); Chloride 94 mMol/L (98-107); Creatinine (Component) 0.6 mg/dL (0.6-1.3); Estimated Creatinine Clearance 139.9 mL/min (>60); Globulin 2.3 gm/dL (2.3-3.5); Glucose 241 mg/dL (74-106); Magnesium 1.7 mg/dL (1.6-2.6); Osmolality,Calculated 266 (275-295); Phosphorous 3.2 mg/dL (2.4-5.1); Potassium 4.1 mMol/L (3.4-5.1); Sodium 127 mMol/L (136-145); Total Protein 4.9 gm/dL (5.7-8.2); eGFR > 60 See Note
[2025-04-28] MEDS: DOCUSATE SOD 100 MG CAPSULE PO ×2 (09:05→21:38)
[2025-04-28] MEDS: ASCORBIC ACID 250 MG TABLET 500 MG PO ×2 (09:05→21:38)
[2025-04-28] MEDS: PANTOPRAZOLE 40 MG TABLET PO (09:06)
[2025-04-28] MEDS: ENOXAPARIN SOD INJ 40 MG/0.4 ML SYRINGE SC (09:06)
[2025-04-28] MEDS: ZINC SULFATE 220 MG CAPSULE PO (09:06)
[2025-04-28] MEDS: LEVOFLOXACIN 250 MG TABLET 500 MG PO (09:06)
[2025-04-28] MEDS: ASPIRIN EC 81 MG TABEC PO (09:06)
[2025-04-28] MEDS: oxyCODONE HCL 5 MG IR TAB 10 MG PO ×3 (09:31→21:40)
[2025-04-28] MEDS: THIAMINE INJ 100 MG/ML VIAL 2 ML IVP (09:49)
--- NOTE | 2025-04-28 11:42 | XR_ITS ---
EXAMINATION: AP chest single view TECHNIQUE: AP portable supine chest single view Date and time: April 28, 2025, 12:24 p.m. INDICATIONS: History hydropneumothorax close right surgical chest tube placement FINDINGS: Right chest tube has been removed compared with April 26, 2025 Atelectasis in the right lung however no right pneumothorax Mild prominence cardiac contour IMPRESSION: Right chest tube has been removed with satisfactory expansion right lung
--- NOTE | 2025-04-28 13:57 | ESPR_ITS ---
Documentation for date of: 04/28/25 Subjective Subjective Interval history: Patient is seen and examined at bedside. No acute overnight events. Reported that today he is feeling good and noted to have improved appetite, ate 50% of the meals today in the morning. Vitals are stable. Labs done this morning showed downtrending leukocytosis, 26.3, hyponatremia 127, hypochloremia 94, glucose 241 Hyponatremia is likely from the PPN. Talked to dietitian and recommended that she cannot concentrate PPN as it is already at its maximum concentration As patient is noted to have improved oral intake, will decrease the PPN rate today and if patient is tolerating diet adequately, we will try to decrease PPN and continue oral intake If patient appetite and diet are not improved, patient might need central line for TPN in view of worsening hyponatremia A dose of salt tablet is given after talking with the dietitian General surgeon, Dr. Osborn is following the patient as he noted to have suspicion of fistula formation but noted to have decreased output from the site. So recommended to monitor for now and if the output gets worsen, patient might need 1 more revision Will continue IV antibiotics, monitoring of sodium, WBC, general condition Exam Vital Signs Temp Pulse Resp BP Pulse Ox O2 Del Method O2 Flow Rate 97.6 F 95 20 115/77 95 Nasal Cannula 5 04/28/25 08:00 04/28/25 09:06 04/28/25 08:16 04/28/25 09:06 04/28/25 08:16 04/28/25 08:00 04/28/25 08:16 FiO2 30 04/26/25 16:00 Narrative Exam General: Comfortable, no acute distress. Wears cooling rag on forehead Resp: Clear to auscultation bilaterally, right axillary dressing in place from previous chest tube removal. CV: RRR, no murmurs. Abdomen: Soft, mildly distended, non-tender. Incision clean/dry. Colostomy pink, patent, edematous. Ext: Trace edema. Neuro: Alert, oriented, following commands. Skin: No rash. Objective Labs 04/29/25 05:06 04/29/25 05:06 Labs: Laboratory Results - last 24 hr 04/28/25 06:05 WBC 26.3 H D RBC 3.92 L Hgb 11.6 L Hct 33.9 L MCV 87 MCH 29.6 MCHC 34.2 RDW Std Deviation 43.0 Plt Count 481 H D Neut % (Auto) 90 H Lymph % (Auto) 3 L [place] % (Auto) 5 Eos % (Auto) 0 Baso % (Auto) 0 Neut # (Auto) 23.7 H Lymph # (Auto) 0.8 L [place] # (Auto) 1.3 H Eos # (Auto) 0.0 Baso # (Auto) 0.1 Immature Gran # (Auto) 0.47 H Absolute Nucleated RBC 0.00 Immature Gran % 2 H Nucleated RBC % 0 Sodium 127 L Potassium 4.1 Chloride 94 L Carbon Dioxide 26.2 Anion Gap 7 BUN 21 Creatinine 0.6 Estim Creat Clear Calc 139.9 eGFR > 60 BUN/Creatinine Ratio 35 H Glucose 241 H Calculated Osmolality 266 L Calcium 8.2 L Corrected Calcium 9.3 Phosphorus 3.2 Magnesium 1.7 Total Bilirubin 0.3 AST 22 ALT 17 Alkaline Phosphatase 111 Total Protein 4.9 L Albumin 2.6 L Globulin 2.3 Albumin/Globulin Ratio 1.1 L ABG Interpretation ABG results: 04/19/25 04/19/25 04/20/25 19:07 22:38 04:38 ABG pH 7.29 L 7.34 L 7.37 ABG pCO2 44 45 39 ABG pO2 297 H 43 L* D 146 H D ABG HCO3 21 24 22 ABG O2 Saturation 100 H 79 L 100 H ABG Base Excess -6 L -2 -3 VBG pH VBG pCO2 VBG pO2 VBG Base Excess 04/20/25 04/21/25 04/22/25 09:42 04:23 04:25 ABG pH 7.35 7.34 L ABG pCO2 44 50 H ABG pO2 96 D 73 L D ABG HCO3 24 27 H ABG O2 Saturation 98 95 ABG Base Excess -2 1 VBG pH 7.31 L VBG pCO2 46 VBG pO2 47 VBG Base Excess -3 Quality Measures Quality Measures VTE prophylaxis Assessment & Plan Assessment Current Active Medications: Generic Name Dose Route Start Last Admin Trade Name Freq PRN Reason Stop Dose Admin Albuterol 2.5 mg 04/25/25 21:39 04/28/25 08:15 Albuterol Rt 2.5 Mg/0.5 Ml Nebu INH 05/25/25 22:59 2.5 mg Q4HRRT PRN Administration SHORTNESS OF BREATH OR WHEEZE Ascorbic Acid 500 mg 04/23/25 21:00 04/28/25 09:05 Ascorbic Acid 250 Mg Tablet PO 05/23/25 20:59 500 mg BID LYRIC Administration Aspirin 81 mg 04/28/25 09:00 04/28/25 09:06 Aspirin Ec 81 Mg Tabec PO 05/28/25 08:59 81 mg QDAY LYRIC Administration Carvedilol 3.125 mg 04/22/25 17:30 04/28/25 09:06 Carvedilol 3.125 Mg Tablet PO 05/22/25 17:29 3.125 mg BIDWM LYRIC Administration Dextrose 25 ml 04/22/25 11:17 Dextrose 50%-Water Inj 50 Ml Syringe IV 05/22/25 11:16 Q15MIN PRN BG 50-70 responsive npo pt Dextrose 50 ml 04/22/25 11:17 Dextrose 50%-Water Inj 50 Ml Syringe IV 05/22/25 11:16 Q15MIN PRN BG <50 OR BG <70 & pt unresponsive Docusate Sodium 100 mg 04/23/25 11:30 04/28/25 09:05 Docusate Sod 100 Mg Capsule PO 05/23/25 11:29 100 mg BID LYRIC Administration Protocol Enoxaparin Sodium 40 mg 04/18/25 09:00 04/28/25 09:06 Enoxaparin Sod Inj 40 Mg/0.4 Ml Syringe SC 05/02/25 08:59 40 mg QDAY LYRIC Administration Glucagon 1 mg 04/22/25 11:17 Glucagon Inj 1 Mg Vial IM Q15MIN PRN BG <70, and no IV access Hydromorphone HCl 0.5 mg 04/24/25 15:38 04/27/25 16:43 Hydromorphone Inj 2 Mg/Ml Vial IVP 04/29/25 15:37 0.5 mg Q6H PRN Administration BREAKTHROUGH PAIN (SEVERE) Protocol Fat Emulsion Intravenous 500 mls @ 32 mls/hr 04/27/25 18:00 04/27/25 17:47 Intralipid 20% Iv IV 05/27/25 17:59 32 mls/hr [id number] LYRIC Administration Sodium Phosphate 15 mmol/ 2,007 mls @ 90 mls/hr 04/27/25 18:00 04/27/25 17:47 Magnesium Sulfate 1 gm/ Amino IV 04/28/25 16:17 90 mls/hr Acids/Electrolytes/Dextrose Q24H LYRIC Administration Acetaminophen 1,000 mg in 100 mls @ 250 mls/hr 04/27/25 15:30 04/28/25 09:55 Ofirmev Inj IV 05/01/25 09:53 Not Given Q6H LYRIC Sodium Chloride 90 meq/ Amino 2,022.5 mls @ 74.723 mls/hr 04/28/25 16:00 Acids IV 04/29/25 15:59 Q24H LYRIC Insulin Degludec 20 unit 04/27/25 21:00 04/27/25 20:46 Insulin Degludec 5 Unit/0.05 Ml (Per 5 Units) SC 05/27/25 20:59 20 unit HS LYRIC Administration Insulin Human Lispro 0 unit 04/26/25 18:00 04/28/25 11:17 Insulin Lispro (Admelog) 1 Unit/0.01 Ml Unit SC 05/26/25 17:59 5 unit Q6HR LYRIC Administration Protocol Levofloxacin 500 mg 04/26/25 09:00 04/28/25 09:06 Levofloxacin 250 Mg Tablet PO 05/03/25 08:59 500 mg QDAY LYRIC Administration Lidocaine 2 patch 04/27/25 15:20 Lidocaine 5% 1 Patch TOP 05/27/25 15:19 UD PRN PAIN Metronidazole 500 mg 04/25/25 14:00 04/28/25 05:28 Metronidazole 250 Mg Tablet PO 05/02/25 13:59 500 mg TID LYRIC Administration Ondansetron HCl 4 mg 04/17/25 09:45 04/17/25 10:06 Ondansetron Inj 2 Mg/Ml Inj 2 Ml IVP 05/17/25 09:44 4 mg Q6HR PRN Administration NAUSEA OR VOMITING Protocol Oxycodone HCl 10 mg 04/27/25 15:20 04/28/25 09:31 Oxycodone Hcl 5 Mg Ir Tab PO 05/02/25 15:19 10 mg Q4H PRN Administration PAIN SCALE 4-10(Mod-Sev Pantoprazole Sodium 40 mg 04/27/25 09:00 04/28/25 09:06 Pantoprazole 40 Mg Tablet PO 05/27/25 08:59 40 mg QDAY LYRIC Administration Protocol Sodium Chloride 5 ml 04/19/25 18:06 Sodium Chloride Rt 10% 15 Ml Nebu INH 05/19/25 18:05 X1 PRN SECRETIONS Sodium Chloride 3 ml 04/25/25 21:39 04/28/25 08:15 Sodium Chloride Rt Malou 0.9% 3 Ml Nebu INH 05/25/25 21:38 3 ml Q4HR PRN Administration SOLN Thiamine HCl 100 mg 04/26/25 18:00 04/28/25 09:49 Thiamine Inj 100 Mg/Ml Vial 2 Ml IVP 05/26/25 17:59 100 mg QDAY LYRIC Administration Zinc Sulfate 220 mg 04/23/25 11:30 04/28/25 09:06 Zinc Sulfate 220 Mg Capsule PO 05/23/25 11:29 220 mg QDAY LYRIC Administration Plan 64-year-old male postop from perforated sigmoid diverticulitis with colectomy and colostomy, ESBL E. coli bacteremia, and right pneumothorax s/p chest tube placement; clinically improving with stable infection, improving pneumothorax, and ongoing management of poor oral intake and hyperglycemia. # Perforated diverticulitis with feculent peritonitis s/p colostomy placement POD#9 from exploratory laparotomy with sigmoid colectomy POD#7 from washout, partial colectomy and end colostomy IV Zosyn was given 04/20-04/25 IV levofloxacin was given 04/24-04/25 Plan: * Continue PO levofloxacin 500 qday * Continue PO metronidazole 500 mg TID * Dysphagia 3 diet per surgery * Monitor ostomy output * Continue zinc 220 mg qday * Continue ascorbic acid 500 mg BID * Daily CBC and CMP * Pain control PRN - increased [place] 5 mg to 10 mg * Continue PPI # ESBL E. coli bacteremia # Leukocytosis with left shift, improved Likely infectious but patient clinically has unchanged physical examination. 04/25/2025 ID changed antibiotic choice from IV Zosyn to PO levofloxacin and PO metronidazole. Patient was started on Zosyn 04/20/2025, started levothyroxine and metronidazole 04/24 will continue current antibiotic until 05/03/2025 for total course of 14 days effective antibiotics. Consider switching IV treatment to carbapenem antibiotic if no clinical improvement. Plan: * Continue PO levofloxacin 500 qday * Continue PO metronidazole 500 mg TID * Monitor vitals * Serial examinations * Repeat CBC tomorrow # Poor PO intake, improving # Hyponatremia secondary to PPN Patient on dysphagia diet however not meeting nutritional needs. Reports poor appetite. 04/26/2025 PPN was started. Sodium as of today is 127 Plan: * Consulted crew member * Started PPN, patient noted to have hyponatremia for the last 2 days which is likely due to PPN and could not concentrate PPN more As patient's oral intake is improving, will hold central line placement for today and if the oral intake is not improved, will place central line and start TPN * Continue thiamine 100 mg IV qday # Acute hypoxic respiratory failure # Right lung atelectasis Patient has been hypoxic saturating low 90s on 4-5L NC Likely secondary to pulmonary atelectasis CXRs have not shown any pneumonia, there is however atelectasis in the right lower lung zone Plan: * Incentive spirometry * Aggressive pulmonary toilet # History of CAD Patient reports history of 2 stents Plan: * Continue home aspirin 81 mg qday # Right pneumothorax, resolved S/p chest tube placement 04/21, removed 04/26 CXR on 04/24 shows interval improvement from 20% to <10%. CXR 04/25 shows complete resolution. 04/26 removed chest tube, 110 ml of translucent yellow fluid Plan: * Continue incentive spirometry * Work with PT towards ambulation * Repeatchest Xray showed no pneumothorax but noted to have mild atelectasis # Paroxysmal A-fib with RVR (04/21), resolved Likely secondary to underlying sepsis at that time and pneumothorax. Sinus rhythm since. Stopped amiodarone (per ICU team). Plan: * Telemetry monitoring. * Replete electrolytes (K >4, Mg >2). 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 Plan: * Will restart GDMT one med at a time. * Continue carvedilol 3.125 mg BID * Continue telemetry. # Type 2 diabetes A1c 6.8%. Plan: * Insulin degludec 12 U HS * Sliding scale insulin. * Clear liquids diet # Septic shock, resolved Off pressors, stable MAP, normal lactate, improving urine output. Plan: * Continue current antibiotic coverage. # Acute kidney injury, resolved Creatinine back to normal with good UOP. Plan: * Monitor BMP daily. * Avoid nephrotoxins. Health Maintenance: Disposition: Telemetry. Diet: Dysphagia 3 diet. DVT prophylaxis: Lovenox. GI prophylaxis: Protonix. Bowel regimen: None currently; monitor ostomy output. Code Status: Full Code. Patient plan of care was discussed with the attending physician, Dr. Abe Scott, PGY2 Attending Provider Attestation/Addendum I have examined the patient, reviewed labs and imaging findings, discussed the case with the resident(s), and reviewed entered orders. I agree with the plan of care as outlined in this note, with these additional summaries/recommendations: Patient seen at bedside. No acute overnight events. Patient reports his pain is more well-controlled after adjusting pain regimen yesterday. We will continue to adjust as needed. He endorses slight improvement in appetite. We will continue artificial nutrition and wean as tolerated. Encourage oral intake and special diet request as desired. Patient is postoperative day #7 status post sigmoid colectomy with abdominal washout for perforated diverticulitis with feculent peritonitis. General surgery following. Patient encouraged to work with physical therapy as tolerated and continue incentive spirometry. Significant leukocytosis still present although improving. 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 Patient is status post chest tube for pneumothorax. Acute hypoxic respiratory failure still present although improving and we will continue supplemental oxygen and wean as tolerated. Continue IV antibiotics for ESBL bacteremia and perforated diverticulitis. Continue insulin sliding scale for diabetes mellitus type 2 with Accu-Cheks. Target blood sugar 140-180 while hospitalized. Continue Jones catheter. Patient updated on the plan and in agreement. All questions answered to satisfaction. Please see residents note for additional details and management. Dr. Abe MD
--- NOTE | 2025-04-28 16:19 | PC.SS ---
Rounding: Dr. Loja to reassess for possible sx, DC plan pending SNF choice
--- NOTE | 2025-04-28 16:43 | ESPR_ITS ---
Documentation for date of: 04/28/25 Subjective Subjective Narrative: Improvement in pain and appetite today, no nausea, remaining afebrile with WBC decreasing to 20s, having appropriate colostomy output and also drainage of enteric contents from inferior aspect of wound Exam Vital Signs Temp Pulse Resp BP Pulse Ox O2 Del Method O2 Flow Rate 97.4 F 70 18 117/71 16 L Nasal Cannula 2 04/28/25 15:56 04/28/25 15:56 04/28/25 15:56 04/28/25 15:56 04/28/25 15:56 04/28/25 12:00 04/28/25 12:00 FiO2 30 04/26/25 16:00 Constitutional Constitutional: no acute distress Routine Respiratory Exam Respiratory: Present no resp distress Routine Abdominal Exam Abdominal: Present soft, wound (midline wound with filiberto intact, no erythema, enteric drainage from inferior aspect ) and ostomy (colostomy pink with brown stool in appliance); Absent tenderness or distended Results Results: Laboratory Laboratory results: results reviewed Assessment & Plan Plan 64M who underwent sigmoidectomy with abdomen left open 04/19 for perforated d iverticulitis, followed by colostomy 04/21, course complicated by R pneumothorax which has resolved, now gradually recovering. On exam he has signs of an enteric fistula, however is clinically stable not warranting emergent intervention Strict I&O Pain control prn Continue abx PROCEDURES: Procedures Reexploration of the abdomen with abdominal washout. Partial colectomy with end colostomy
[2025-04-28] MEDS: SODIUM CHLORIDE 1 GM TABLET PO (18:15)
[2025-04-28] MEDS: INSULIN DEGLUDEC 5 UNIT/0.05 ML (PER 5 UNITS) 24 UNIT SC (21:41)
[2025-04-29] VITALS (12 sets, daily range): BP systolic 113–136; BP diastolic 74–90; PULSE 73–106; RESP 16–97; TEMP 36.2–36.7; O2SAT 93–97; BMI 34.4; BMI 11.0
[2025-04-29] MEDS: HYDROmorphone INJ 2 MG/ML VIAL 0.5 MG IVP ×2 (00:19→16:30)
[2025-04-29] MEDS: INSULIN LISPRO (AdmeLOG) 1 UNIT/0.01 ML UNIT SC ×4 (00:20→17:27)
[2025-04-29] MEDS: ACETAMINOPHEN IVPB 1,000 MG/100 ML VIAL 250 MG IV ×4 (04:00→22:07)
[2025-04-29 06:16] LABS: Basophils # (Auto) 0.1 Thou/mm3 (0.0-0.2); Basophils % (Auto) 0 % (0-2.5); Eosinophils # (Auto) 0.0 Thou/mm3 (0.0-0.5); Eosinophils % (Auto) 0 % (0-10); Hematocrit 32.2 % (41.0-53.0); Hemoglobin 11.0 g/dL (13.5-16.0); Immature Granulocytes Auto 0.32 Thou/mm3 (0.00-0.00); Lymphocytes # (Auto) 0.9 Thou/mm3 (1.0-4.8); Lymphocytes % (Auto) 4 % (10-50); Mean Corpuscular HGB Conc 34.2 g/dl (31.0-37.0); Mean Corpuscular Hemoglobin 28.9 pg (25.0-35.0); Mean Corpuscular Volume 85 fL (80-100); Monocytes # (Auto) 1.7 Thou/mm3 (0.0-0.8); Monocytes % (Auto) 8 % (0-12); Neutrophils # (Auto) 19.9 Thou/mm3 (1.8-7.7); Neutrophils % (Auto) 87 % (37-80); Nucleated Red Blood Cell # 0.00 Thou/mm3 (0.00-0.00); Nucleated Red Blood Cell % 0 /100 WBC (0); Platelet Count 407 Thou/mm3 (140-440); RDW Standard Deviation 42.4 fL (35.1-43.9); Red Blood Count 3.81 Miln/mm3 (4.50-5.90); White Blood Count 22.9 Thou/mm3 (3.8-10.6)
[2025-04-29 06:37] LABS: Alanine Aminotransferase 12 U/L (10-49); Albumin, Serum 2.5 gm/dL (3.4-4.8); Albumin/Globulin Ratio 1.1 (1.2-2.2); Alkaline Phosphatase 101 U/L (46-116); Anion Gap 7 (7-16); Aspartate Amino Transferase 16 U/L (0-34); BUN/Creatinine Ratio 32 Ratio (12-20); Bilirubin,Total 0.4 mg/dL (0.3-1.2); Blood Urea Nitrogen 19 mg/dL (9-23); Calcium 7.9 mg/dL (8.3-10.6); Calcium (Corrected) 9.1 mg/dL (8.5-10.1); Carbon Dioxide 28.3 mMol/L (20.0-31.0); Chloride 94 mMol/L (98-107); Creatinine (Component) 0.6 mg/dL (0.6-1.3); Estimated Creatinine Clearance 139.2 mL/min (>60); Globulin 2.2 gm/dL (2.3-3.5); Glucose 181 mg/dL (74-106); Magnesium 1.6 mg/dL (1.6-2.6); Osmolality,Calculated 266 (275-295); Phosphorous 3.0 mg/dL (2.4-5.1); Potassium 4.2 mMol/L (3.4-5.1); Sodium 129 mMol/L (136-145); Total Protein 4.7 gm/dL (5.7-8.2); eGFR > 60 See Note
[2025-04-29] MEDS: INSULIN DEGLUDEC 5 UNIT/0.05 ML (PER 5 UNITS) SC (08:48)
[2025-04-29] MEDS: THIAMINE INJ 100 MG/ML VIAL 2 ML IVP (08:49)
[2025-04-29] MEDS: ENOXAPARIN SOD INJ 40 MG/0.4 ML SYRINGE SC (08:49)
[2025-04-29] MEDS: LEVOFLOXACIN 250 MG TABLET 500 MG PO (08:50)
[2025-04-29] MEDS: ZINC SULFATE 220 MG CAPSULE PO (08:50)
[2025-04-29] MEDS: PANTOPRAZOLE 40 MG TABLET PO (08:50)
[2025-04-29] MEDS: ASPIRIN EC 81 MG TABEC PO (08:50)
[2025-04-29] MEDS: SODIUM CHLORIDE 1 GM TABLET PO (08:50)
[2025-04-29] MEDS: DOCUSATE SOD 100 MG CAPSULE PO ×2 (08:51→22:07)
[2025-04-29] MEDS: ASCORBIC ACID 250 MG TABLET 500 MG PO ×2 (08:51→22:07)
[2025-04-29] MEDS: Magnesium Sulfate 2 GM Ivpb 2 GM/50 ML BAG IV (09:31)
--- NOTE | 2025-04-29 10:06 | ESPR_ITS ---
Documentation for date of: 04/29/25 Subjective Subjective Interval history: Patient seen and examined at bedside this morning. He states he is doing good. Pain is not bad, denies abdominal pain at rest, no pain at prior chest tube site. Reports feeling hungry and thirsty, encouraged to eat and he expresses motivation to continue eating. Reports he ate well yesterday, today will attempt breakfast with assistance from who will help feed and encourage intake. Denies nausea/vomiting, no bloating or abdominal discomfort today, ostomy functioning with normal stool output, no leakage. Breathing is good, no shortness of breath, no chest pain, maintaining sats on NC oxygen. Reports urinating fine, adequate urine output without dysuria. He expresses he would like to get up and move around when PT comes today, motivated for ambulation. Exam Vital Signs Temp Pulse Resp BP Pulse Ox O2 Del Method O2 Flow Rate 97.4 F 91 20 127/74 95 Nasal Cannula 5 04/29/25 08:00 04/29/25 09:47 04/29/25 09:47 04/29/25 08:50 04/29/25 09:47 04/29/25 08:00 04/29/25 09:47 FiO2 30 04/26/25 16:00 Narrative Exam General: Comfortable, no acute distress. Wears cooling rag on forehead Resp: Clear to auscultation bilaterally, right axillary dressing in place from previous chest tube removal. CV: RRR, no murmurs. Abdomen: Soft, mildly distended, non-tender. Incision clean/dry. Colostomy pink, patent, edematous. Ext: Trace edema. Neuro: Alert, oriented, following commands. Skin: No rash. Objective Labs 04/30/25 04:44 04/30/25 04:44 Labs: Laboratory Results - last 24 hr 04/29/25 05:06 WBC 22.9 H RBC 3.81 L Hgb 11.0 L Hct 32.2 L MCV 85 MCH 28.9 MCHC 34.2 RDW Std Deviation 42.4 Plt Count 407 D Neut % (Auto) 87 H Lymph % (Auto) 4 L [place] % (Auto) 8 Eos % (Auto) 0 Baso % (Auto) 0 Neut # (Auto) 19.9 H Lymph # (Auto) 0.9 L [place] # (Auto) 1.7 H Eos # (Auto) 0.0 Baso # (Auto) 0.1 Immature Gran # (Auto) 0.32 H Absolute Nucleated RBC 0.00 Immature Gran % 1 H Nucleated RBC % 0 Sodium 129 L Potassium 4.2 Chloride 94 L Carbon Dioxide 28.3 Anion Gap 7 BUN 19 Creatinine 0.6 Estim Creat Clear Calc 139.2 eGFR > 60 BUN/Creatinine Ratio 32 H Glucose 181 H D Calculated Osmolality 266 L Calcium 7.9 L Corrected Calcium 9.1 Phosphorus 3.0 Magnesium 1.6 Total Bilirubin 0.4 AST 16 ALT 12 Alkaline Phosphatase 101 Total Protein 4.7 L Albumin 2.5 L Globulin 2.2 L Albumin/Globulin Ratio 1.1 L ABG Interpretation ABG results: 04/19/25 04/19/25 04/20/25 19:07 22:38 04:38 ABG pH 7.29 L 7.34 L 7.37 ABG pCO2 44 45 39 ABG pO2 297 H 43 L* D 146 H D ABG HCO3 21 24 22 ABG O2 Saturation 100 H 79 L 100 H ABG Base Excess -6 L -2 -3 VBG pH VBG pCO2 VBG pO2 VBG Base Excess 04/20/25 04/21/25 04/22/25 09:42 04:23 04:25 ABG pH 7.35 7.34 L ABG pCO2 44 50 H ABG pO2 96 D 73 L D ABG HCO3 24 27 H ABG O2 Saturation 98 95 ABG Base Excess -2 1 VBG pH 7.31 L VBG pCO2 46 VBG pO2 47 VBG Base Excess -3 Quality Measures Quality Measures VTE prophylaxis Assessment & Plan Assessment Current Active Medications: Generic Name Dose Route Start Last Admin Trade Name Maikolq PRN Reason Stop Dose Admin Albuterol 2.5 mg 04/25/25 21:39 04/28/25 08:15 Albuterol Rt 2.5 Mg/0.5 Ml Nebu INH 05/25/25 22:59 2.5 mg Q4HRRT PRN Administration SHORTNESS OF BREATH OR WHEEZE Ascorbic Acid 500 mg 04/23/25 21:00 04/29/25 08:51 Ascorbic Acid 250 Mg Tablet PO 05/23/25 20:59 500 mg BID LYRIC Administration Aspirin 81 mg 04/28/25 09:00 04/29/25 08:50 Aspirin Ec 81 Mg Tabec PO 05/28/25 08:59 81 mg QDAY LYRIC Administration Carvedilol 3.125 mg 04/22/25 17:30 04/29/25 08:50 Carvedilol 3.125 Mg Tablet PO 05/22/25 17:29 3.125 mg BIDWM LYRIC Administration Dextrose 25 ml 04/22/25 11:17 Dextrose 50%-Water Inj 50 Ml Syringe IV 05/22/25 11:16 Q15MIN PRN BG 50-70 responsive npo pt Dextrose 50 ml 04/22/25 11:17 Dextrose 50%-Water Inj 50 Ml Syringe IV 05/22/25 11:16 Q15MIN PRN BG <50 OR BG <70 & pt unresponsive Docusate Sodium 100 mg 04/23/25 11:30 04/29/25 08:51 Docusate Sod 100 Mg Capsule PO 05/23/25 11:29 100 mg BID LYRIC Administration Protocol Enoxaparin Sodium 40 mg 04/18/25 09:00 04/29/25 08:49 Enoxaparin Sod Inj 40 Mg/0.4 Ml Syringe SC 05/02/25 08:59 40 mg QDAY LYRIC Administration Glucagon 1 mg 04/22/25 11:17 Glucagon Inj 1 Mg Vial IM Q15MIN PRN BG <70, and no IV access Hydromorphone HCl 0.5 mg 04/24/25 15:38 04/29/25 00:19 Hydromorphone Inj 2 Mg/Ml Vial IVP 04/29/25 15:37 0.5 mg Q6H PRN Administration BREAKTHROUGH PAIN (SEVERE) Protocol Fat Emulsion Intravenous 500 mls @ 32 mls/hr 04/27/25 18:00 04/27/25 17:47 Intralipid 20% Iv IV 05/27/25 17:59 32 mls/hr [id number] LYRIC Administration Acetaminophen 1,000 mg in 100 mls @ 250 mls/hr 04/27/25 15:30 04/29/25 08:48 Ofirmev Inj IV 05/01/25 09:53 250 mls/hr Q6H LYRIC Administration Sodium Chloride 100 meq/ Amino 2,025 mls @ 75 mls/hr 04/28/25 16:30 04/28/25 17:01 Acids IV 04/29/25 17:59 75 mls/hr Q24H LYRIC Administration Magnesium Sulfate 2 gm in 50 mls @ 25 mls/hr 04/29/25 08:15 04/29/25 09:31 Magnesium Sulfate Ivpb IV 04/29/25 10:14 25 mls/hr X1 ONE Administration Sodium Phosphate 15 mmol/ 2,007 mls @ 90 mls/hr 04/29/25 18:00 Magnesium Sulfate 1 gm/ Amino IV 04/30/25 16:17 Acids/Electrolytes/Dextrose Q24H [facility] Insulin Degludec 30 unit 04/29/25 21:00 Insulin Degludec 5 Unit/0.05 Ml (Per 5 Units) SC 05/29/25 20:59 HS [facility] Insulin Human Lispro 0 unit 04/26/25 18:00 04/29/25 05:36 Insulin Lispro (Admelog) 1 Unit/0.01 Ml Unit SC 05/26/25 17:59 4 unit Q6HR LYRIC Administration Protocol Levofloxacin 500 mg 04/26/25 09:00 04/29/25 08:50 Levofloxacin 250 Mg Tablet PO 05/03/25 08:59 500 mg QDAY [facility] Administration Lidocaine 2 patch 04/27/25 15:20 Lidocaine 5% 1 Patch TOP 05/27/25 15:19 UD PRN PAIN Metronidazole 500 mg 04/25/25 14:00 04/29/25 05:36 Metronidazole 250 Mg Tablet PO 05/02/25 13:59 500 mg TID LYRIC Administration Ondansetron HCl 4 mg 04/17/25 09:45 04/17/25 10:06 Ondansetron Inj 2 Mg/Ml Inj 2 Ml IVP 05/17/25 09:44 4 mg Q6HR PRN Administration NAUSEA OR VOMITING Protocol Oxycodone HCl 10 mg 04/27/25 15:20 04/28/25 21:40 Oxycodone Hcl 5 Mg Ir Tab PO 05/02/25 15:19 10 mg Q4H PRN Administration PAIN SCALE 4-10(Mod-Sev Pantoprazole Sodium 40 mg 04/27/25 09:00 04/29/25 08:50 Pantoprazole 40 Mg Tablet PO 05/27/25 08:59 40 mg QDAY LYRIC Administration Protocol Sodium Chloride 5 ml 04/19/25 18:06 Sodium Chloride Rt 10% 15 Ml Nebu INH 05/19/25 18:05 X1 PRN SECRETIONS Sodium Chloride 3 ml 04/25/25 21:39 04/28/25 08:15 Sodium Chloride Rt [place] 0.9% 3 Ml Nebu INH 05/25/25 21:38 3 ml Q4HR PRN Administration SOLN Thiamine HCl 100 mg 04/26/25 18:00 04/29/25 08:49 Thiamine Inj 100 Mg/Ml Vial 2 Ml IVP 05/26/25 17:59 100 mg QDAY LYRIC Administration Zinc Sulfate 220 mg 04/23/25 11:30 04/29/25 08:50 Zinc Sulfate 220 Mg Capsule PO 05/23/25 11:29 220 mg QDAY LYRIC Administration Plan 64-year-old male postop from perforated sigmoid diverticulitis with colectomy and colostomy, ESBL E. coli bacteremia, and right pneumothorax s/p chest tube placement; clinically improving with stable infection, improving pneumothorax, and ongoing management of poor oral intake and hyperglycemia. # Perforated diverticulitis with feculent peritonitis s/p colostomy placement POD#10 from exploratory laparotomy with sigmoid colectomy POD#8 from washout, partial colectomy and end colostomy IV Zosyn was given 04/20-04/25 IV levofloxacin was given 04/24-04/25 Plan: * Continue PO levofloxacin 500 qday * Continue PO metronidazole 500 mg TID * Dysphagia 3 diet per surgery * Monitor ostomy output * Continue zinc 220 mg qday * Continue ascorbic acid 500 mg BID * Daily CBC and CMP * Pain control PRN - increased [place] 5 mg to 10 mg * Continue PPI # ESBL E. coli bacteremia # Leukocytosis with left shift, improved Likely infectious but patient clinically has unchanged physical examination. 04/25/2025 ID changed antibiotic choice from IV Zosyn to PO levofloxacin and PO metronidazole. Patient was started on Zosyn 04/20/2025, started levothyroxine and metronidazole 04/24 will continue current antibiotic until 05/03/2025 for total course of 14 days effective antibiotics. Consider switching IV treatment to carbapenem antibiotic if no clinical improvement. Plan: * Continue PO levofloxacin 500 qday * Continue PO metronidazole 500 mg TID * Monitor vitals * Serial examinations * Repeat CBC tomorrow # Poor PO intake, improving # Hyponatremia secondary to PPN Patient on dysphagia diet however not meeting nutritional needs. Reports poor appetite. 04/26/2025 PPN was started. Sodium as of today is 129 given one tab salt tablet. Plan: * Consulted chute operator * Continue PPN, patient noted to have hyponatremia for the last 2 days which is likely due to PPN and could not concentrate PPN more * As patient's oral intake is improving, will hold central line placement for today and if the oral intake is not improved, will place central line and start TPN * Continue thiamine 100 mg IV qday # Acute hypoxic respiratory failure # Right lung atelectasis Patient has been hypoxic saturating low 90s on 4-5L NC Likely secondary to pulmonary atelectasis CXRs have not shown any pneumonia, there is however atelectasis in the right lower lung zone Plan: * Incentive spirometry * Aggressive pulmonary toilet # History of CAD Patient reports history of 2 stents Plan: * Continue home aspirin 81 mg qday # Right pneumothorax, resolved S/p chest tube placement 04/21, removed 04/26 CXR on 04/24 shows interval improvement from 20% to <10%. CXR 04/25 shows complete resolution. 04/26 removed chest tube, 110 ml of translucent yellow fluid Plan: * Continue incentive spirometry * Work with PT towards ambulation * Repeatchest Xray showed no pneumothorax but noted to have mild atelectasis # Paroxysmal A-fib with RVR (04/21), resolved Likely secondary to underlying sepsis at that time and pneumothorax. Sinus rhythm since. Stopped amiodarone (per ICU team). Plan: * Telemetry monitoring. * Replete electrolytes (K >4, Mg >2). 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 Plan: * Will restart GDMT one med at a time. * Continue carvedilol 3.125 mg BID * Continue telemetry. # Type 2 diabetes A1c 6.8%. Plan: * Insulin degludec 12 U HS * Sliding scale insulin. * Clear liquids diet # Septic shock, resolved Off pressors, stable MAP, normal lactate, improving urine output. Plan: * Continue current antibiotic coverage. # Acute kidney injury, resolved Creatinine back to normal with good UOP. Plan: * Monitor BMP daily. * Avoid nephrotoxins. Health Maintenance: Disposition: Telemetry. Diet: Dysphagia 3 diet. DVT prophylaxis: Lovenox. GI prophylaxis: Protonix. Bowel regimen: None currently; monitor ostomy output. Code Status: Full Code. ----- Plan discussed with attending physician Dr. Abe Tena MD PGY-1 Internal Medicine Attending Provider Attestation/Addendum I have examined the patient, reviewed labs and imaging findings, discussed the case with the resident(s), and reviewed entered orders. I agree with the plan of care as outlined in this note, with these additional summaries/recommendations: Patient seen at bedside. No acute overnight events. Patient continues to report improvement in his intractable abdominal pain. Patient is showing increased signs of motivation and motivated to work with physical therapy today. Patient will also continue to increase his incentive spirometry usage. Patient also endorses slight improvement in appetite although there may be a discrepancy between meal documentation and what patient is actually consuming. We will continue artificial nutrition and we will attempt to wean off as appetite improves. Patient is postoperative day #8 status post sigmoid colectomy with abdominal washout for perforated diverticulitis with feculent peritonitis. General surgery following. Significant leukocytosis still present although improving daily. 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 Patient is status post chest tube for pneumothorax. Acute hypoxic respiratory failure still present although improving and we will continue supplemental oxygen and wean as tolerated. Continue IV antibiotics for ESBL bacteremia and perforated diverticulitis. Continue insulin sliding scale for diabetes mellitus type 2 with Accu-Cheks. Target blood sugar 140-180 while hospitalized. Continue Jones catheter. Continue aspirin for history of CAD. Hyponatremia persists which is likely secondary to tube feeds versus pain. Sodium up trended and will continue to monitor for now. Patient updated on the plan and in agreement. All questions answered to satisfaction. Please see residents note for additional details and management. Dr. Abe MD
[2025-04-29] MEDS: oxyCODONE HCL 5 MG IR TAB 10 MG PO ×2 (10:48→19:41)
--- NOTE | 2025-04-29 15:36 | PC.NURSE ---
Patient upset I removed inhalers from room. He had the albuterol sulfate with him in bed and had the trelegegy on his bedside table. Patient being extremely rude to RT. I put the inhalers in the patients belonging list and took them to pharmacy.
[2025-04-29] MEDS: ALBUTEROL RT 2.5 MG/0.5 ML NEBU INH (15:38)
[2025-04-29] MEDS: SODIUM CHLORIDE RT SOL 0.9% 3 ML NEBU INH (15:39)
--- NOTE | 2025-04-29 16:24 | PD.SURPROG ---
Documentation for date of: 04/29/25 Subjective Subjective Narrative: Pt reports pain has been more controlled, no nausea and increased appetite, remaining afebrile and WBC continuing to downtrend. Drainage from midline wound noticeably decreased compared to yesterday. Walked with PT this morning Exam Vital Signs Temp Pulse Resp BP Pulse Ox O2 Del Method O2 Flow Rate 97.1 F 73 18 136/80 H 94 L Nasal Cannula 5 04/29/25 15:59 04/29/25 15:59 04/29/25 15:59 04/29/25 15:59 04/29/25 15:59 04/29/25 15:59 04/29/25 15:59 FiO2 30 04/26/25 16:00 Constitutional Constitutional: no acute distress Routine Respiratory Exam Respiratory: Present no resp distress Routine Abdominal Exam Abdominal: Present soft, wound (midline wound with no erythema, filiberto intact, light brown drainage from inferior aspect) and ostomy (colostomy pink with brown stool in appliance); Absent tenderness or distended Results Results: Laboratory Laboratory results: results reviewed Assessment & Plan Plan 64M who underwent sigmoidectomy with abdomen left open 04/19 for perforated diverticulitis, followed by colostomy 04/21, course complicated by R pneumothorax which has resolved, now gradually recovering. On exam he has signs of an enteric fistula, however is clinically stable with improving leukocytosis not warranting emergent intervention Strict I&O Pain control prn Continue abx PROCEDURES: Procedures Reexploration of the abdomen with abdominal washout. Partial colectomy with end colostomy
[2025-04-29] MEDS: INSULIN DEGLUDEC 5 UNIT/0.05 ML (PER 5 UNITS) 30 UNIT SC (22:04)
[2025-04-30] VITALS (18 sets, daily range): BP systolic 105–127; BP diastolic 62–82; PULSE 1–105; RESP 18–95; TEMP 36.1–37.1; O2SAT 94–98; BMI 34.2; BMI 12.0
[2025-04-30] MEDS: oxyCODONE HCL 5 MG IR TAB 10 MG PO ×4 (00:27→20:14)
[2025-04-30] MEDS: INSULIN LISPRO (AdmeLOG) 1 UNIT/0.01 ML UNIT SC ×4 (00:31→17:42)
[2025-04-30] MEDS: SODIUM CHLORIDE RT SOL 0.9% 3 ML NEBU INH ×3 (05:08→18:05)
[2025-04-30] MEDS: ALBUTEROL RT 2.5 MG/0.5 ML NEBU INH ×3 (05:08→18:05)
[2025-04-30 05:38] LABS: Basophils # (Auto) 0.1 Thou/mm3 (0.0-0.2); Basophils % (Auto) 0 % (0-2.5); Eosinophils # (Auto) 0.0 Thou/mm3 (0.0-0.5); Eosinophils % (Auto) 0 % (0-10); Hematocrit 33.5 % (41.0-53.0); Hemoglobin 11.2 g/dL (13.5-16.0); Immature Granulocytes Auto 0.29 Thou/mm3 (0.00-0.00); Lymphocytes # (Auto) 0.9 Thou/mm3 (1.0-4.8); Lymphocytes % (Auto) 6 % (10-50); Mean Corpuscular HGB Conc 33.4 g/dl (31.0-37.0); Mean Corpuscular Hemoglobin 28.8 pg (25.0-35.0); Mean Corpuscular Volume 86 fL (80-100); Monocytes # (Auto) 1.8 Thou/mm3 (0.0-0.8); Monocytes % (Auto) 11 % (0-12); Neutrophils # (Auto) 13.6 Thou/mm3 (1.8-7.7); Neutrophils % (Auto) 82 % (37-80); Nucleated Red Blood Cell # 0.00 Thou/mm3 (0.00-0.00); Nucleated Red Blood Cell % 0 /100 WBC (0); Platelet Count 328 Thou/mm3 (140-440); RDW Standard Deviation 42.9 fL (35.1-43.9); Red Blood Count 3.89 Miln/mm3 (4.50-5.90); White Blood Count 16.6 Thou/mm3 (3.8-10.6)
[2025-04-30 06:18] LABS: Alanine Aminotransferase 8 U/L (10-49); Albumin, Serum 2.6 gm/dL (3.4-4.8); Albumin/Globulin Ratio 1.1 (1.2-2.2); Alkaline Phosphatase 131 U/L (46-116); Anion Gap 8 (7-16); Aspartate Amino Transferase 17 U/L (0-34); BUN/Creatinine Ratio 25 Ratio (12-20); Bilirubin,Total 0.3 mg/dL (0.3-1.2); Blood Urea Nitrogen 15 mg/dL (9-23); Calcium 8.1 mg/dL (8.3-10.6); Calcium (Corrected) 9.2 mg/dL (8.5-10.1); Carbon Dioxide 26.2 mMol/L (20.0-31.0); Chloride 94 mMol/L (98-107); Creatinine (Component) 0.6 mg/dL (0.6-1.3); Estimated Creatinine Clearance 138.8 mL/min (>60); Globulin 2.4 gm/dL (2.3-3.5); Glucose 193 mg/dL (74-106); Magnesium 2.0 mg/dL (1.6-2.6); Osmolality,Calculated 262 (275-295); Phosphorous 3.2 mg/dL (2.4-5.1); Potassium 4.9 mMol/L (3.4-5.1); Sodium 128 mMol/L (136-145); Total Protein 5.0 gm/dL (5.7-8.2); eGFR > 60 See Note
[2025-04-30] MEDS: ENOXAPARIN SOD INJ 40 MG/0.4 ML SYRINGE SC (09:01)
[2025-04-30] MEDS: PANTOPRAZOLE 40 MG TABLET PO (09:02)
[2025-04-30] MEDS: ZINC SULFATE 220 MG CAPSULE PO (09:02)
[2025-04-30] MEDS: THIAMINE INJ 100 MG/ML VIAL 2 ML IVP (09:02)
[2025-04-30] MEDS: ASCORBIC ACID 250 MG TABLET 500 MG PO ×2 (09:03→20:05)
[2025-04-30] MEDS: LEVOFLOXACIN 250 MG TABLET 500 MG PO (09:03)
[2025-04-30] MEDS: ASPIRIN EC 81 MG TABEC PO (09:04)
[2025-04-30] MEDS: DOCUSATE SOD 100 MG CAPSULE PO ×2 (09:04→20:05)
[2025-04-30] MEDS: SODIUM CHLORIDE 1 GM TABLET PO (09:23)
--- NOTE | 2025-04-30 09:30 | PC.SS ---
SS went to bedside and spoke to pt and his LP Virginia in regards to SNF choices. All facilities in [place] have accepted pt. SS provided print out of list from [facility]. Per [place] she is still visiting places and will have an answer by later this afternoon.
--- NOTE | 2025-04-30 09:54 | ESPR_ITS ---
Subjective Subjective Interval history: afebrile on po levaquin and flagyl and moved to 3rd floor. hiv and hep c neg as documented. Exam Vital Signs Temp Pulse Resp BP Pulse Ox O2 Del Method O2 Flow Rate 97.8 F 93 20 123/62 95 Nasal Cannula 3 04/30/25 07:15 04/30/25 09:03 04/30/25 07:15 04/30/25 09:03 04/30/25 07:15 04/30/25 07:15 04/30/25 07:15 FiO2 30 04/26/25 16:00 Narrative Exam hiv and hep c neg. abd more benign but has some stated discomfort in mid abd as before Objective - Internal Medicine Labs 04/30/25 04:44 04/30/25 04:44 Labs: Laboratory Results - last 24 hr 04/30/25 04:44 WBC 16.6 H D RBC 3.89 L Hgb 11.2 L Hct 33.5 L MCV 86 MCH 28.8 MCHC 33.4 RDW Std Deviation 42.9 Plt Count 328 D Neut % (Auto) 82 H Lymph % (Auto) 6 L [place] % (Auto) 11 Eos % (Auto) 0 Baso % (Auto) 0 Neut # (Auto) 13.6 H Lymph # (Auto) 0.9 L [place] # (Auto) 1.8 H Eos # (Auto) 0.0 Baso # (Auto) 0.1 Immature Gran # (Auto) 0.29 H Absolute Nucleated RBC 0.00 Immature Gran % 2 H Nucleated RBC % 0 Sodium 128 L Potassium 4.9 D Chloride 94 L Carbon Dioxide 26.2 Anion Gap 8 BUN 15 Creatinine 0.6 Estim Creat Clear Calc 138.8 eGFR > 60 BUN/Creatinine Ratio 25 H Glucose 193 H Calculated Osmolality 262 L Calcium 8.1 L Corrected Calcium 9.2 Phosphorus 3.2 Magnesium 2.0 Total Bilirubin 0.3 AST 17 ALT 8 L Alkaline Phosphatase 131 H D Total Protein 5.0 L Albumin 2.6 L Globulin 2.4 Albumin/Globulin Ratio 1.1 L ABG Interpretation ABG results: 04/19/25 04/19/25 04/20/25 19:07 22:38 04:38 ABG pH 7.29 L 7.34 L 7.37 ABG pCO2 44 45 39 ABG pO2 297 H 43 L* D 146 H D ABG HCO3 21 24 22 ABG O2 Saturation 100 H 79 L 100 H ABG Base Excess -6 L -2 -3 VBG pH VBG pCO2 VBG pO2 VBG Base Excess 04/20/25 04/21/25 04/22/25 09:42 04:23 04:25 ABG pH 7.35 7.34 L ABG pCO2 44 50 H ABG pO2 96 D 73 L D ABG HCO3 24 27 H ABG O2 Saturation 98 95 ABG Base Excess -2 1 VBG pH 7.31 L VBG pCO2 46 VBG pO2 47 VBG Base Excess -3 Assessment & Plan A&P Narrative abd. process with 2 prior surgeries noted. 04/19 and 04/21 hld htn dm II. metformin rx, A1c 6.8 noted on admit bph changed to all po rx for abd process. zosyn will work but levaquin is same po as iv. he complains that po does not work but iv is problematic for senior living rx. finish planned levaquin and flagyl ok for po levaquin and flagyl at home if home planned. suggest a few more days po I can check in briefly on wed if still here. Time Spent With Patient Time: Total time spent is greater than 50% in coordination of care (as documented) at patient's floor/unit and/or counseling patient:
[2025-04-30] MEDS: FLUTICASONE/UMECLIDIN/VILANTEROL 100-62.5-25 MCG INHALER 1 PUFF INH (10:29)
--- NOTE | 2025-04-30 10:43 | PC.SS ---
Rounding: Pt on PPN, pending Faisal ferrari, DC plan SNF pending choice
[2025-04-30] MEDS: ACETAMINOPHEN IVPB 1,000 MG/100 ML VIAL 250 MG IV ×3 (11:14→21:09)
--- NOTE | 2025-04-30 12:57 | ESPR_ITS ---
Documentation for date of: 04/30/25 Subjective Subjective Interval history: Patient seen and examined at bedside this morning with present. He reports recurring diffuse body pain but otherwise feels improved overall. Denies chest pain or shortness of breath. States that pain around prior chest tube site is absent. Urinating normally with adequate urine output. assisting with feeds; patient tolerated 50% of breakfast and lunch yesterday, but had poor dinner intake. This morning he ate approximately 25% of breakfast. Went back to see patient after lunch nurse stated completed about 80%. No nausea, vomiting. Exam Vital Signs Temp Pulse Resp BP Pulse Ox O2 Del Method O2 Flow Rate 98.8 F 98 20 121/75 94 L Nasal Cannula 3 04/30/25 11:34 04/30/25 11:34 04/30/25 11:34 04/30/25 11:34 04/30/25 11:34 04/30/25 11:34 04/30/25 11:34 FiO2 30 04/26/25 16:00 Narrative Exam General: Comfortable, no acute distress. Wears cooling rag on forehead Resp: Clear to auscultation bilaterally, right axillary dressing in place from previous chest tube removal. CV: RRR, no murmurs. Abdomen: Soft, mildly distended, non-tender. Incision clean/dry. Colostomy pink, patent, edematous. Ext: Trace edema. Neuro: Alert, oriented, following commands. Skin: No rash. Objective Labs 05/02/25 04:50 05/02/25 04:50 Labs: Laboratory Results - last 24 hr 04/30/25 04:44 WBC 16.6 H D RBC 3.89 L Hgb 11.2 L Hct 33.5 L MCV 86 MCH 28.8 MCHC 33.4 RDW Std Deviation 42.9 Plt Count 328 D Neut % (Auto) 82 H Lymph % (Auto) 6 L Day % (Auto) 11 Eos % (Auto) 0 Baso % (Auto) 0 Neut # (Auto) 13.6 H Lymph # (Auto) 0.9 L Day # (Auto) 1.8 H Eos # (Auto) 0.0 Baso # (Auto) 0.1 Immature Gran # (Auto) 0.29 H Absolute Nucleated RBC 0.00 Immature Gran % 2 H Nucleated RBC % 0 Sodium 128 L Potassium 4.9 D Chloride 94 L Carbon Dioxide 26.2 Anion Gap 8 BUN 15 Creatinine 0.6 Estim Creat Clear Calc 138.8 eGFR > 60 BUN/Creatinine Ratio 25 H Glucose 193 H Calculated Osmolality 262 L Calcium 8.1 L Corrected Calcium 9.2 Phosphorus 3.2 Magnesium 2.0 Total Bilirubin 0.3 AST 17 ALT 8 L Alkaline Phosphatase 131 H D Total Protein 5.0 L Albumin 2.6 L Globulin 2.4 Albumin/Globulin Ratio 1.1 L ABG Interpretation ABG results: 04/19/25 04/19/25 04/20/25 19:07 22:38 04:38 ABG pH 7.29 L 7.34 L 7.37 ABG pCO2 44 45 39 ABG pO2 297 H 43 L* D 146 H D ABG HCO3 21 24 22 ABG O2 Saturation 100 H 79 L 100 H ABG Base Excess -6 L -2 -3 VBG pH VBG pCO2 VBG pO2 VBG Base Excess 04/20/25 04/21/25 04/22/25 09:42 04:23 04:25 ABG pH 7.35 7.34 L ABG pCO2 44 50 H ABG pO2 96 D 73 L D ABG HCO3 24 27 H ABG O2 Saturation 98 95 ABG Base Excess -2 1 VBG pH 7.31 L VBG pCO2 46 VBG pO2 47 VBG Base Excess -3 Quality Measures Quality Measures VTE prophylaxis Assessment & Plan Assessment Current Active Medications: Generic Name Dose Route Start Last Admin Trade Name Freq PRN Reason Stop Dose Admin Albuterol 2.5 mg 04/25/25 21:39 04/30/25 10:28 Albuterol Rt 2.5 Mg/0.5 Ml Nebu INH 05/25/25 22:59 2.5 mg Q4HRRT PRN Administration SHORTNESS OF BREATH OR WHEEZE Ascorbic Acid 500 mg 04/23/25 21:00 04/30/25 09:03 Ascorbic Acid 250 Mg Tablet PO 05/23/25 20:59 500 mg BID LYRIC Administration Aspirin 81 mg 04/28/25 09:00 04/30/25 09:04 Aspirin Ec 81 Mg Tabec PO 05/28/25 08:59 81 mg QDAY LYRIC Administration Carvedilol 3.125 mg 04/22/25 17:30 04/30/25 09:03 Carvedilol 3.125 Mg Tablet PO 05/22/25 17:29 3.125 mg BIDWM LYRIC Administration Dextrose 25 ml 04/22/25 11:17 Dextrose 50%-Water Inj 50 Ml Syringe IV 05/22/25 11:16 Q15MIN PRN BG 50-70 responsive npo pt Dextrose 50 ml 04/22/25 11:17 Dextrose 50%-Water Inj 50 Ml Syringe IV 05/22/25 11:16 Q15MIN PRN BG <50 OR BG <70 & pt unresponsive Docusate Sodium 100 mg 04/23/25 11:30 04/30/25 09:04 Docusate Sod 100 Mg Capsule PO 05/23/25 11:29 100 mg BID LYRIC Administration Protocol Enoxaparin Sodium 40 mg 04/18/25 09:00 04/30/25 09:01 Enoxaparin Sod Inj 40 Mg/0.4 Ml Syringe SC 05/02/25 08:59 40 mg QDAY LYRIC Administration Fluticasone/Umeclidinium/Vilanterol 1 puff 04/30/25 09:45 04/30/25 10:29 Fluticasone/Umeclidin/Vilanterol 100-62.5-25 Mcg Inhaler INH 05/30/25 09:44 1 puff QDAY LYRIC Administration Glucagon 1 mg 04/22/25 11:17 Glucagon Inj 1 Mg Vial IM Q15MIN PRN BG <70, and no IV access Fat Emulsion Intravenous 500 mls @ 32 mls/hr 04/27/25 18:00 04/27/25 17:47 Intralipid 20% Iv IV 05/27/25 17:59 32 mls/hr [id number] LYRIC Administration Acetaminophen 1,000 mg in 100 mls @ 250 mls/hr 04/27/25 15:30 04/30/25 11:14 Ofirmev Inj IV 05/01/25 09:53 250 mls/hr Q6H LYRIC Administration Sodium Phosphate 15 mmol/ 2,005 mls @ 75 mls/hr 04/29/25 18:00 04/29/25 17:16 Amino Acids/Electrolytes/ IV 04/30/25 17:59 75 mls/hr Dextrose Q24H LYRIC Administration Insulin Degludec 30 unit 04/29/25 21:00 04/29/25 22:04 Insulin Degludec 5 Unit/0.05 Ml (Per 5 Units) SC 05/29/25 20:59 30 unit HS LYRIC Administration Insulin Human Lispro 0 unit 04/26/25 18:00 04/30/25 12:08 Insulin Lispro (Admelog) 1 Unit/0.01 Ml Unit SC 05/26/25 17:59 4 unit Q6HR LYRIC Administration Protocol Levofloxacin 500 mg 04/26/25 09:00 04/30/25 09:03 Levofloxacin 250 Mg Tablet PO 05/03/25 08:59 500 mg QDAY LYRIC Administration Lidocaine 2 patch 04/27/25 15:20 Lidocaine 5% 1 Patch TOP 05/27/25 15:19 UD PRN PAIN Protocol Metronidazole 500 mg 04/25/25 14:00 04/30/25 05:21 Metronidazole 250 Mg Tablet PO 05/02/25 13:59 500 mg TID LYRIC Administration Ondansetron HCl 4 mg 04/17/25 09:45 04/17/25 10:06 Ondansetron Inj 2 Mg/Ml Inj 2 Ml IVP 05/17/25 09:44 4 mg Q6HR PRN Administration NAUSEA OR VOMITING Protocol Oxycodone HCl 10 mg 04/27/25 15:20 04/30/25 09:04 Oxycodone Hcl 5 Mg Ir Tab PO 05/02/25 15:19 10 mg Q4H PRN Administration PAIN SCALE 4-10(Mod-Sev Pantoprazole Sodium 40 mg 04/27/25 09:00 04/30/25 09:02 Pantoprazole 40 Mg Tablet PO 05/27/25 08:59 40 mg QDAY LYRIC Administration Protocol Sodium Chloride 5 ml 04/19/25 18:06 Sodium Chloride Rt 10% 15 Ml Nebu INH 05/19/25 18:05 X1 PRN SECRETIONS Sodium Chloride 3 ml 04/25/25 21:39 04/30/25 10:29 Sodium Chloride Rt Malou 0.9% 3 Ml Nebu INH 05/25/25 21:38 3 ml Q4HR PRN Administration SOLN Thiamine HCl 100 mg 04/26/25 18:00 04/30/25 09:02 Thiamine Inj 100 Mg/Ml Vial 2 Ml IVP 05/26/25 17:59 100 mg QDAY LYRIC Administration Zinc Sulfate 220 mg 04/23/25 11:30 04/30/25 09:02 Zinc Sulfate 220 Mg Capsule PO 12/24/25 11:29 220 mg QDAY LYRIC Administration Plan 64-year-old male with perforated sigmoid diverticulitis complicated by feculent peritonitis s/p exploratory laparotomy with sigmoid and partial colectomy and end colostomy, ESBL E. coli bacteremia, right pneumothorax s/p chest tube removal, and poor PO intake requiring PPN, now clinically improving with 80% of lunch eaten and infection markers down-trending. # Perforated diverticulitis with feculent peritonitis s/p colostomy placement POD#11 from exploratory laparotomy with sigmoid colectomy POD#9 from washout, partial colectomy and end colostomy IV Zosyn was given 04/20-04/25 IV levofloxacin was given 04/24-04/25 Plan: * Continue PO levofloxacin 500 qday * Continue PO metronidazole 500 mg TID * Dysphagia 3 diet per surgery * Monitor ostomy output * Continue zinc 220 mg qday * Continue ascorbic acid 500 mg BID * Daily CBC and CMP * Pain control PRN - increased [place] 5 mg to 10 mg * Continue PPI # ESBL E. coli bacteremia # Leukocytosis with left shift, improved Likely infectious but patient clinically has unchanged physical examination. 04/25/2025 ID changed antibiotic choice from IV Zosyn to PO levofloxacin and PO metronidazole. Patient was started on Zosyn 04/20/2025, started levothyroxine and metronidazole 04/24 will continue current antibiotic until 05/03/2025 for total course of 14 days effective antibiotics. Consider switching IV treatment to carbapenem antibiotic if no clinical improvement. Plan: * Continue PO levofloxacin 500 qday * Continue PO metronidazole 500 mg TID * Monitor vitals * Serial examinations * Repeat CBC tomorrow # Improving Nutrition / PO Intake # Hyponatremia secondary to PPN Patient on dysphagia diet however not meeting nutritional needs. Reports poor appetite. 04/26/2025 PPN was started. Sodium as of today is 128 given one tab salt tablet. 04/30: Significant improvement in intake; 80% of lunch today, after only 25% breakfast this AM. Plan: * Consulted medium cycle salesperson, following * Continue PPN today, monitor PO intake; encourage small, frequent meals. * If patient continues to eat >50% meals tomorrow, discontinue PPN, monitor nutrition status, reassess for TPN placement if necessary. * Continue thiamine 100 mg IV daily. # Acute hypoxic respiratory failure # Right lung atelectasis # History of COPD Patient has been hypoxic saturating low 90s on 4-5L NC Likely secondary to pulmonary atelectasis CXRs have not shown any pneumonia, there is however atelectasis in the right lower lung zone Plan: * Incentive spirometry * Continued home medication of trelegy qday * Continue duoneb as needed # History of CAD Patient reports history of 2 stents Plan: * Continue home aspirin 81 mg qday # Right pneumothorax, resolved S/p chest tube placement 04/21, removed 04/26 CXR on 04/24 shows interval improvement from 20% to <10%. CXR 04/25 shows complete resolution. 04/26 removed chest tube, 110 ml of translucent yellow fluid Plan: * Continue incentive spirometry * Work with PT towards ambulation * Repeatchest Xray showed no pneumothorax but noted to have mild atelectasis # Paroxysmal A-fib with RVR (04/21), resolved Likely secondary to underlying sepsis at that time and pneumothorax. Sinus rhythm since. Stopped amiodarone (per ICU team). Plan: * Telemetry monitoring. * Replete electrolytes (K >4, Mg >2). 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 Plan: * Will restart GDMT one med at a time. * Continue carvedilol 3.125 mg BID * Continue telemetry. # Type 2 diabetes A1c 6.8%. Plan: * Insulin degludec 12 U HS * Sliding scale insulin. * Clear liquids diet # Septic shock, resolved Off pressors, stable MAP, normal lactate, improving urine output. Plan: * Continue current antibiotic coverage. # Acute kidney injury, resolved Creatinine back to normal with good UOP. Plan: * Monitor BMP daily. * Avoid nephrotoxins. Health Maintenance: Disposition: Telemetry. Diet: Dysphagia 3 diet. DVT prophylaxis: Lovenox. GI prophylaxis: Protonix. Bowel regimen: None currently; monitor ostomy output. Code Status: Full Code. ----- Plan discussed with attending physician Dr. Abe Tena MD PGY-1 Internal Medicine Attending Provider Attestation/Addendum I have examined the patient, reviewed labs and imaging findings, discussed the case with the resident(s), and reviewed entered orders. I agree with the plan of care as outlined in this note, with these additional summaries/recommendations: Patient seen at bedside. No acute overnight events. Patient continues to report improvement in his intractable abdominal pain. Patient continues to report improvement in appetite. There appears to be a discrepancy between patient's intake and what is being documented and we will order strict I's/O's. We will continue artificial nutrition and we will attempt to wean off as appetite improves. Patient is postoperative day #9 status post sigmoid colectomy with abdominal washout for perforated diverticulitis with feculent peritonitis. General surgery following. Significant leukocytosis still present although improving daily. Patient developed a colocutaneous fistula and we will monitor output. Patient is status post chest tube for pneumothorax. Acute hypoxic respiratory failure still present although improving and we will continue supplemental oxygen and wean as tolerated. Encouraged I-S usage. Continue IV antibiotics for ESBL bacteremia and perforated diverticulitis. Continue insulin sliding scale for diabetes mellitus type 2 with Accu-Cheks. Target blood sugar 140-180 while hospitalized. Continue Jones catheter. Continue aspirin for history of CAD. Hyponatremia persists which is likely secondary to tube feeds versus pain. Sodium up trended and will continue to monitor for now. Patient updated on the plan and in agreement. All questions answered to satisfaction. Please see residents note for additional details and management. Dr. Abe MD
--- NOTE | 2025-04-30 14:10 | PD.SURPROG ---
Documentation for date of: 04/30/25 Subjective Subjective Narrative: Pt is seen and examined. His pain is improving. He is eating and tolerating diet well. Exam Vital Signs Temp Pulse Resp BP Pulse Ox O2 Del Method O2 Flow Rate 98.8 F 98 20 121/75 94 L Nasal Cannula 3 04/30/25 11:34 04/30/25 11:34 04/30/25 11:34 04/30/25 11:34 04/30/25 11:34 04/30/25 11:34 04/30/25 11:34 FiO2 30 04/26/25 16:00 Constitutional Constitutional: no acute distress Routine Abdominal Exam Comments: Abdomen is soft and nondistended. Colostomy is functioning. He has 2 areas of enterocutaneous fistula, on the lower and upper aspect of the incision Assessment & Plan Assessment Additional comments: Postop day #11 status post exploratory laparotomy, sigmoid colectomy and abdominal washout Postop day #9 status post reexploration, partial colectomy with end colostomy Plan Continue antibiotics. PROCEDURES: Procedures Reexploration of the abdomen with abdominal washout. Partial colectomy with end colostomy
[2025-04-30] MEDS: LIDOCAINE 5% 1 PATCH 2 PATCH TOP (15:44)
[2025-04-30 15:50] LABS: Triglycerides 66 mg/dL (30-150)
[2025-04-30] MEDS: FAT EMULSIONS 20% IV 500 ML 32 ML IV (17:58)
[2025-04-30] MEDS: INSULIN DEGLUDEC 5 UNIT/0.05 ML (PER 5 UNITS) 30 UNIT SC (21:13)
[2025-05-01] VITALS (20 sets, daily range): BP systolic 121–145; BP diastolic 80–88; PULSE 80–98; RESP 18–22; TEMP 36.1–36.9; O2SAT 93–98; BMI 34.2
--- NOTE | 2025-05-01 | XR_ITS ---
Examination: Ultrasound-guided needle placement right brachial vein. Dual-lumen central line placement (PICC line). Fluoroscopy AP chest, portable, single view Exam date and time: May 01, 2025, 1255 hours INDICATIONS: Need for long-term intravenous TPN A timeout was completed verifying correct patient, procedure, site, positioning Informed consent provided Technique: The patient's site was prepped and draped in sterile fashion. Maximum Sterile Barrier Technique used including cap, mask, sterile gown, sterile gloves, and sterile full body drape. If ultrasound technique used: sterile gel and sterile probe covers. Hand Hygiene performed using proper scrub, soap and water, or alcohol-based hand rub. Ultrasound site right portable apparatus utilized to confirm patency of the right brachial vein Utilizing ultrasonographic guidance successful 21-gauge needle puncture right brachial vein. Ultrasound images recorded and stored. 5 cc 1% lidocaine administered for local anesthetic. Successful micropuncture with a 21-gauge needle is performed. 0.18 wire guide is then introduced into the SVC under fluoroscopic guidance. Dual-lumen catheter dilator is then introduced, followed by the catheter in the SVC and proper position under fluoroscopic guidance. Successful aspiration of blood and flushing with heparinized saline is then performed in the 2 venous limbs. The catheter sutured in place. Findings: Under fluoroscopy, the tip of the catheter is in good position in the vena cava. Portable chest x-ray, post line placement is ordered. Estimated blood loss 3 cc The patient tolerated the procedure well and was in stable and satisfactory condition at completion of the procedure Impression: Successful ultrasound-guided needle placement right brachial vein Successful placement of dual lumen central line, percutaneous Fluoroscopy 8.1-minute radiation dose 1.54 mGy 1 spot fluoroscopic chest. AP chest completion procedure demonstrates satisfactory position central line. May use central line.
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
[2025-05-01] MEDS: INSULIN LISPRO (AdmeLOG) 1 UNIT/0.01 ML UNIT SC ×3 (00:16→12:10)
[2025-05-01] MEDS: oxyCODONE HCL 5 MG IR TAB 10 MG PO ×3 (00:18→17:27)
[2025-05-01] MEDS: ACETAMINOPHEN IVPB 1,000 MG/100 ML VIAL 250 MG IV ×2 (04:23→12:10)
[2025-05-01 06:06] LABS: Basophils # (Auto) 0.1 Thou/mm3 (0.0-0.2); Basophils % (Auto) 1 % (0-2.5); Eosinophils # (Auto) 0.0 Thou/mm3 (0.0-0.5); Eosinophils % (Auto) 0 % (0-10); Hematocrit 33.8 % (41.0-53.0); Hemoglobin 11.3 g/dL (13.5-16.0); Immature Granulocytes Auto 0.21 Thou/mm3 (0.00-0.00); Lymphocytes # (Auto) 0.8 Thou/mm3 (1.0-4.8); Lymphocytes % (Auto) 7 % (10-50); Mean Corpuscular HGB Conc 33.4 g/dl (31.0-37.0); Mean Corpuscular Hemoglobin 28.7 pg (25.0-35.0); Mean Corpuscular Volume 86 fL (80-100); Monocytes # (Auto) 1.3 Thou/mm3 (0.0-0.8); Monocytes % (Auto) 13 % (0-12); Neutrophils # (Auto) 8.0 Thou/mm3 (1.8-7.7); Neutrophils % (Auto) 77 % (37-80); Nucleated Red Blood Cell # 0.00 Thou/mm3 (0.00-0.00); Nucleated Red Blood Cell % 0 /100 WBC (0); Platelet Count 381 Thou/mm3 (140-440); RDW Standard Deviation 42.4 fL (35.1-43.9); Red Blood Count 3.94 Miln/mm3 (4.50-5.90); White Blood Count 10.4 Thou/mm3 (3.8-10.6)
[2025-05-01 06:39] LABS: Alanine Aminotransferase 9 U/L (10-49); Albumin, Serum 2.6 gm/dL (3.4-4.8); Alkaline Phosphatase 123 U/L (46-116); Anion Gap 8 (7-16); Aspartate Amino Transferase 17 U/L (0-34); BUN/Creatinine Ratio 20 Ratio (12-20); Bilirubin,Total 0.2 mg/dL (0.3-1.2); Blood Urea Nitrogen 10 mg/dL (9-23); Calcium 7.6 mg/dL (8.3-10.6); Calcium (Corrected) 8.7 mg/dL (8.5-10.1); Carbon Dioxide 23.5 mMol/L (20.0-31.0); Chloride 95 mMol/L (98-107); Creatinine (Component) 0.5 mg/dL (0.6-1.3); Estimated Creatinine Clearance 166.6 mL/min (>60); Glucose 271 mg/dL (74-106); Magnesium 1.5 mg/dL (1.6-2.6); Osmolality,Calculated 262 (275-295); Phosphorous 3.2 mg/dL (2.4-5.1); Potassium 4.6 mMol/L (3.4-5.1); Sodium 126 mMol/L (136-145); eGFR > 60 See Note
[2025-05-01] MEDS: FLUTICASONE/UMECLIDIN/VILANTEROL 100-62.5-25 MCG INHALER 1 PUFF INH (07:08)
[2025-05-01] MEDS: ALBUTEROL RT 2.5 MG/0.5 ML NEBU INH (07:09)
[2025-05-01] MEDS: SODIUM CHLORIDE RT SOL 0.9% 3 ML NEBU INH (07:10)
--- NOTE | 2025-05-01 07:22 | PC.NURSE ---
called Dr. Kovacs regarding patient states oxy 10 mg IR PO not working for pain, patient given at 0500, patient attempted to turn in bed to change pad but patient states he does not want to move unless the pain is gone. Informed charge nurse Zenia SAINI about situation. Per doctor will let the day team know.
[2025-05-01] MEDS: PANTOPRAZOLE 40 MG TABLET PO (08:52)
[2025-05-01] MEDS: ASCORBIC ACID 250 MG TABLET 500 MG PO ×2 (08:52→21:34)
[2025-05-01] MEDS: ZINC SULFATE 220 MG CAPSULE PO (08:52)
[2025-05-01] MEDS: ASPIRIN EC 81 MG TABEC PO (08:52)
[2025-05-01] MEDS: LEVOFLOXACIN 250 MG TABLET 500 MG PO (08:52)
[2025-05-01] MEDS: DOCUSATE SOD 100 MG CAPSULE PO ×2 (08:52→21:34)
[2025-05-01] MEDS: THIAMINE INJ 100 MG/ML VIAL 2 ML IVP (08:52)
[2025-05-01] MEDS: ENOXAPARIN SOD INJ 40 MG/0.4 ML SYRINGE SC (08:53)
[2025-05-01] MEDS: INSULIN DEGLUDEC 5 UNIT/0.05 ML (PER 5 UNITS) 6 UNIT SC (08:54)
--- NOTE | 2025-05-01 09:20 | PD.SURPROG ---
Documentation for date of: 05/01/25 Subjective Subjective Narrative: Patient is seen and examined. He is tolerating diet well without nausea or vomiting. His colostomy is functioning. His pain is improving Exam Vital Signs Temp Pulse Resp BP Pulse Ox O2 Del Method O2 Flow Rate 97.2 F 88 20 131/82 H 98 Nasal Cannula 2 05/01/25 07:15 05/01/25 08:51 05/01/25 07:15 05/01/25 08:51 05/01/25 07:15 05/01/25 07:15 05/01/25 07:15 FiO2 30 04/26/25 16:00 Constitutional Constitutional: no acute distress Routine Abdominal Exam Comments: Abdomen is soft and nondistended. Incision is intact except 2 areas of enterocutaneous fistula with over a liter output. Colostomy is functioning with soft stool Assessment & Plan Assessment Additional comments: Postop day #12 status post exploratory laparotomy, sigmoid colectomy and abdominal washout Postop day #10 status post reexploration, partial colectomy with end colostomy Clinically patient is improving, his WBC is normal and he has remained hemodynamically stable and afebrile. Plan Output from enterocutaneous fistulas are over a liter. Keep patient n.p.o. except meds. PICC line placement for long-term TPN in hopes of closure of enterocutaneous fistulas PROCEDURES: Procedures Reexploration of the abdomen with abdominal washout. Partial colectomy with end colostomy
[2025-05-01] MEDS: MORPHINE SULF INJ 4 MG/ML VIAL 2 MG IVP (10:01)
--- NOTE | 2025-05-01 10:15 | PC.SS ---
SS attempted to contact pt life partner Edel [phone], no answer, unable to leave voicemail. Will reattempt later.
--- NOTE | 2025-05-01 12:10 | ESPR_ITS ---
<Statement entered by Chandu Moy MD - 05/14/25 09:16> I reviewed above note and agree with findings and plans. I have also personally examined the patient with medicine team and went over assessment and plan with medical team including learning and development intern and resident physician. <Statement entered by Zenon Grant MD - 05/01/25 15:12> Patient was examined and case was reviewed with team including attending physician. Note reviewed, I agree with most of its contents and agree with the patient's care as documented by Dr. Tena patient seen today at the bedside found awake, alert, orientedx3. No overnight events reported. Vitals and labs reviewed. Still on PPN attempting to wean off however patient's p.o. intake is not adequate to meet caloric intake at this time. Per surgery will likely require TPN through PICC line will continue to encourage oral intake and will reevaluate in AM. Case discussed with my attending Dr. Farzaneh Grant MD PGY-2 Disclaimer: Despite multiple revisions, due to the dictation software being used, the document bellow may not be free of grammatical errors including phonetic/typographic errors. However, this does not deter from our commitment to providing health care in the patient's best interest in mind. Documentation for date of: 05/01/25 Subjective Subjective Interval history: Seen at bedside today: Patient reports feeling in pain, has right flank pain preventing him from eating. Did not eat dinner last night nor breakfast this morning. No nausea, vomiting, or abdominal bloating. Ostomy output continues to be non-bloody, stable. Denies shortness of breath or chest pain. Hip pain persists, still limiting PT but improving. Urine output is normal. Incentive spirometry continues 3?4x/day. PICC line to be placed today for TPN Exam Vital Signs Temp Pulse Resp BP Pulse Ox O2 Del Method O2 Flow Rate 98.4 F 90 22 H 134/83 H 95 Nasal Cannula 2 05/01/25 10:57 05/01/25 12:00 05/01/25 10:57 05/01/25 10:57 05/01/25 10:57 05/01/25 10:57 05/01/25 10:57 FiO2 30 04/26/25 16:00 Narrative Exam General: A&O x 3, comfortable in bed but limited by pain. Pulm: Clear bilateral breath sounds, no wheezes, mild decreased aeration at right base, prior right axillary dressing from chest tube removal clean and dry. CV: RRR, no murmurs. GI: Abdomen soft, mildly distended, non-tender. Colostomy functioning with normal output, non-bloody. Incision clean/dry. Flank: Right lower quadrant tenderness to palpation, no CVA tenderness, no rebound or guarding. Extremities: Trace edema, right hip tenderness but no swelling, warmth, or erythema. Neuro: Alert, following commands. Skin: No rashes or ulcers. Objective Labs 05/01/25 05:11 05/01/25 05:11 Labs: Laboratory Results - last 24 hr 04/30/25 05/01/25 14:53 05:11 WBC 10.4 D RBC 3.94 L Hgb 11.3 L Hct 33.8 L MCV 86 MCH 28.7 MCHC 33.4 RDW Std Deviation 42.4 Plt Count 381 D Neut % (Auto) 77 Lymph % (Auto) 7 L Glynn % (Auto) 13 H Eos % (Auto) 0 Baso % (Auto) 1 Neut # (Auto) 8.0 H Lymph # (Auto) 0.8 L Glynn # (Auto) 1.3 H Eos # (Auto) 0.0 Baso # (Auto) 0.1 Immature Gran # (Auto) 0.21 H Absolute Nucleated RBC 0.00 Immature Gran % 2 H Nucleated RBC % 0 Sodium 126 L Potassium 4.6 Chloride 95 L Carbon Dioxide 23.5 Anion Gap 8 BUN 10 Creatinine 0.5 L Estim Creat Clear Calc 166.6 eGFR > 60 BUN/Creatinine Ratio 20 Glucose 271 H D Calculated Osmolality 262 L Calcium 7.6 L Corrected Calcium 8.7 Phosphorus 3.2 Magnesium 1.5 L Total Bilirubin 0.2 L AST 17 ALT 9 L Alkaline Phosphatase 123 H Albumin 2.6 L Triglycerides 66 ABG Interpretation ABG results: 04/19/25 04/19/25 04/20/25 19:07 22:38 04:38 ABG pH 7.29 L 7.34 L 7.37 ABG pCO2 44 45 39 ABG pO2 297 H 43 L* D 146 H D ABG HCO3 21 24 22 ABG O2 Saturation 100 H 79 L 100 H ABG Base Excess -6 L -2 -3 VBG pH VBG pCO2 VBG pO2 VBG Base Excess 04/20/25 04/21/25 04/22/25 09:42 04:23 04:25 ABG pH 7.35 7.34 L ABG pCO2 44 50 H ABG pO2 96 D 73 L D ABG HCO3 24 27 H ABG O2 Saturation 98 95 ABG Base Excess -2 1 VBG pH 7.31 L VBG pCO2 46 VBG pO2 47 VBG Base Excess -3 Quality Measures Quality Measures VTE prophylaxis Assessment & Plan Assessment Current Active Medications: Generic Name Dose Route Start Last Admin Trade Name Freq PRN Reason Stop Dose Admin Albuterol 2.5 mg 04/25/25 21:39 05/01/25 07:09 Albuterol Rt 2.5 Mg/0.5 Ml Nebu INH 05/25/25 22:59 2.5 mg Q4HRRT PRN Administration SHORTNESS OF BREATH OR WHEEZE Ascorbic Acid 500 mg 04/23/25 21:00 05/01/25 08:52 Ascorbic Acid 250 Mg Tablet PO 05/23/25 20:59 500 mg BID LYRIC Administration Aspirin 81 mg 04/28/25 09:00 05/01/25 08:52 Aspirin Ec 81 Mg Tabec PO 05/28/25 08:59 81 mg QDAY LYRIC Administration Carvedilol 3.125 mg 04/22/25 17:30 05/01/25 08:51 Carvedilol 3.125 Mg Tablet PO 05/22/25 17:29 3.125 mg BIDWM LYRIC Administration Dextrose 25 ml 04/22/25 11:17 Dextrose 50%-Water Inj 50 Ml Syringe IV 05/22/25 11:16 Q15MIN PRN BG 50-70 responsive npo pt Dextrose 50 ml 04/22/25 11:17 Dextrose 50%-Water Inj 50 Ml Syringe IV 05/22/25 11:16 Q15MIN PRN BG <50 OR BG <70 & pt unresponsive Docusate Sodium 100 mg 04/23/25 11:30 05/01/25 08:52 Docusate Sod 100 Mg Capsule PO 05/23/25 11:29 100 mg BID LYRIC Administration Protocol Enoxaparin Sodium 40 mg 04/18/25 09:00 05/01/25 08:53 Enoxaparin Sod Inj 40 Mg/0.4 Ml Syringe SC 05/02/25 08:59 40 mg QDAY LYRIC Administration Fluticasone/Umeclidinium/Vilanterol 1 puff 04/30/25 09:45 05/01/25 07:08 Fluticasone/Umeclidin/Vilanterol 100-62.5-25 Mcg Inhaler INH 05/30/25 09:44 1 puff QDAY LYRIC Administration Glucagon 1 mg 04/22/25 11:17 Glucagon Inj 1 Mg Vial IM Q15MIN PRN BG <70, and no IV access Fat Emulsion Intravenous 500 mls @ 32 mls/hr 04/27/25 18:00 04/30/25 17:58 Intralipid 20% Iv IV 05/27/25 17:59 32 mls/hr [id number] LYRIC Administration Sodium Phosphate 30 mmol/ 2,044 mls @ 75 mls/hr 04/30/25 18:00 04/30/25 18:56 Sodium Chloride 120 meq/ IV 05/01/25 17:59 75 mls/hr Magnesium Sulfate 2 gm/ Amino QDAY@1800 LYRIC Administration Acids Insulin Degludec 35 unit 05/01/25 21:00 Insulin Degludec 5 Unit/0.05 Ml (Per 5 Units) [place] 05/31/25 20:59 HS [facility] Insulin Human Lispro 0 unit 04/26/25 18:00 05/01/25 05:03 Insulin Lispro (Admelog) 1 Unit/0.01 Ml Unit SC 05/26/25 17:59 5 unit Q6HR LYRIC Administration Protocol Levofloxacin 500 mg 04/26/25 09:00 05/01/25 08:52 Levofloxacin 250 Mg Tablet PO 05/03/25 08:59 500 mg QDAY LYRIC Administration Lidocaine 2 patch 04/27/25 15:20 04/30/25 15:44 Lidocaine 5% 1 Patch TOP 05/27/25 15:19 2 patch UD PRN Administration PAIN Protocol Metronidazole 500 mg 04/25/25 14:00 05/01/25 05:04 Metronidazole 250 Mg Tablet PO 05/02/25 13:59 500 mg TID LYRIC Administration Ondansetron HCl 4 mg 04/17/25 09:45 04/17/25 10:06 Ondansetron Inj 2 Mg/Ml Inj 2 Ml IVP 05/17/25 09:44 4 mg Q6HR PRN Administration NAUSEA OR VOMITING Protocol Oxycodone HCl 10 mg 04/27/25 15:20 05/01/25 05:12 Oxycodone Hcl 5 Mg Ir Tab PO 05/02/25 15:19 10 mg Q4H PRN Administration PAIN SCALE 4-10(Mod-Sev Pantoprazole Sodium 40 mg 04/27/25 09:00 05/01/25 08:52 Pantoprazole 40 Mg Tablet PO 05/27/25 08:59 40 mg QDAY LYRIC Administration Protocol Sodium Chloride 5 ml 04/19/25 18:06 Sodium Chloride Rt 10% 15 Ml Nebu INH 05/19/25 18:05 X1 PRN SECRETIONS Sodium Chloride 3 ml 04/25/25 21:39 05/01/25 07:10 Sodium Chloride Rt Malou 0.9% 3 Ml Nebu INH 05/25/25 21:38 3 ml Q4HR PRN Administration SOLN Thiamine HCl 100 mg 05/02/25 09:00 Thiamine 100 Mg Tablet PO 05/26/25 17:59 QDAY LYRIC Protocol Zinc Sulfate 220 mg 04/23/25 11:30 05/01/25 08:52 Zinc Sulfate 220 Mg Capsule PO 05/23/25 11:29 220 mg QDAY LYRIC Administration Plan 64-year-old male with perforated sigmoid diverticulitis complicated by feculent peritonitis, s/p exploratory laparotomy with sigmoid and partial colectomy and end colostomy, ESBL E. coli bacteremia, improving with stable infection markers, ongoing enterocutaneous fistula output, poor oral intake, and hyponatremia (Na 126). Currently on PPN, with plans for PICC line for long-term TPN. # Perforated diverticulitis with feculent peritonitis s/p colostomy placement POD#12 from exploratory laparotomy with sigmoid colectomy POD#10 from washout, partial colectomy and end colostomy IV Zosyn was given 04/20-04/25 IV levofloxacin was given 04/24-04/25 Plan: * Continue PO levofloxacin 500 qday * Continue PO metronidazole 500 mg TID * Monitor ostomy output * Continue zinc 220 mg qday * Continue ascorbic acid 500 mg BID * Daily CBC and CMP * Pain control PRN * Continue PPI # Enterocutaneous Fistulas Fistulas still outputting over 1L of fluid per day. Patient remains hemodynamically stable and afebrile. Plan: * Keep NPO except meds per general surgery. * PICC line placement for long-term TPN for better nutritional support. * Continue PPN until PICC line placed. * Monitor fluid balance and electrolytes closely, recheck BMP tomorrow. * Continue monitoring fistula output. # ESBL E. coli bacteremia # Leukocytosis with left shift, improved Likely infectious but patient clinically has unchanged physical examination. 04/25/2025 ID changed antibiotic choice from IV Zosyn to PO levofloxacin and PO metronidazole. Patient was started on Zosyn 04/20/2025, started levothyroxine and metronidazole 04/24 will continue current antibiotic until 05/03/2025 for total course of 14 days effective antibiotics. Plan: * Continue PO levofloxacin 500 qday * Continue PO metronidazole 500 mg TID * Monitor vitals * Serial examinations * Repeat CBC tomorrow # Poor Nutrition / PO Intake # Hyponatremia secondary to PPN Patient on dysphagia diet however not meeting nutritional needs. Reports poor appetite. 04/26/2025 PPN was started. Sodium as of today is 126 given one tab salt tablet. 04/30: Significant improvement in intake; 80% of lunch today, after only 25% breakfast this AM. 05/01: Patient did not have dinner or breakfast due to pain, surgery to start TPN and place PICC line. Plan: * Consulted rn intake, following * NPO except meds, per surgery * PICC line placement for long-term TPN for better nutritional support. * Continue thiamine 100 mg IV daily. # Acute hypoxic respiratory failure # Right lung atelectasis # History of COPD Patient has been hypoxic saturating low 90s on 4-5L NC Likely secondary to pulmonary atelectasis Latest CXRs have not shown any pneumonia, there is however atelectasis in the right lower lung zone Plan: * Incentive spirometry * Continued home medication of trelegy qday * Continue duoneb as needed # History of CAD Patient reports history of 2 stents Plan: * Continue home aspirin 81 mg qday # Right pneumothorax, resolved S/p chest tube placement 04/21, removed 04/26 CXR on 04/24 shows interval improvement from 20% to <10%. CXR 04/25 shows complete resolution. 04/26 removed chest tube, 110 ml of translucent yellow fluid Plan: * Continue incentive spirometry * Work with PT towards ambulation * Repeatchest Xray showed no pneumothorax but noted to have mild atelectasis # Paroxysmal A-fib with RVR (04/21), resolved Likely secondary to underlying sepsis at that time and pneumothorax. Sinus rhythm since. Stopped amiodarone (per ICU team). Plan: * Telemetry monitoring. * Replete electrolytes (K >4, Mg >2). 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 Plan: * Will restart GDMT one med at a time. * Continue carvedilol 3.125 mg BID * Continue telemetry. # Type 2 diabetes A1c 6.8%. Plan: * Insulin degludec 12 U HS * Sliding scale insulin. * Clear liquids diet # Septic shock, resolved Off pressors, stable MAP, normal lactate, improving urine output. Plan: * Continue current antibiotic coverage. # Acute kidney injury, resolved Creatinine back to normal with good UOP. Plan: * Monitor BMP daily. * Avoid nephrotoxins. Health Maintenance: Disposition: Telemetry. Diet: NPO, TPN through PICC line DVT prophylaxis: Lovenox. GI prophylaxis: Protonix. Bowel regimen: None currently; monitor ostomy output. Code Status: Full Code. ----- Plan discussed with attending physician Dr. Moy and senior resident Dr. Grant Tena MD PGY-1 Internal Medicine
[2025-05-01] MEDS: HEPARIN SOD LOCK SYR 100 UNIT/ML 500 UNIT STFIELD (13:10)
[2025-05-01 13:23] LABS: Albumin/Globulin Ratio 1.0 (1.2-2.2); Globulin 2.6 gm/dL (2.3-3.5); Total Protein 5.2 gm/dL (5.7-8.2)
[2025-05-01] MEDS: LIDOCAINE INJ PF 1% 5 ML VIAL INFL (13:36)
--- NOTE | 2025-05-01 14:32 | PC.DIETICIAN ---
Dietitian recommendation: consider switch to central parenteral nutrition mix if oral intake remains <50% of meal and supplements CPN: D20% AA5% at goal of 75 ml/hr with 500 ml 20% lipid 3 times a week (Mon-Wed-Fri). Start at 25 ml/hr for 8 hrs, then 50 ml/hr for 8 hrs, then advance to goal of 75 ml/hr. Provides: 1800 ml volume, 90 g AA, 360 g dextrose, 2013 total calories, NPC 1653. GIR=2.72 Thank you
[2025-05-01] MEDS: LIDOCAINE 5% 1 PATCH 2 PATCH TOP (17:16)
--- NOTE | 2025-05-01 21:30 | PC.NURSE ---
offered patient to be turned or to be changed, patient states maybe later . Patient educated on risk of pressure injury and other skin issues. Patient states understanding.
[2025-05-01] MEDS: INSULIN DEGLUDEC 5 UNIT/0.05 ML (PER 5 UNITS) 35 UNIT SC (21:34)
--- NOTE | 2025-05-01 23:35 | PC.NURSE ---
patient refused to turn or change padding, patient states it's not necessary for me to turn at night . Patient educated about risk of pressure injury. Patient states understanding.
[2025-05-02] VITALS (16 sets, daily range): BP systolic 121–133; BP diastolic 67–90; PULSE 76–92; RESP 18–20; TEMP 36.1–36.8; O2SAT 94–99; BMI 34.2; BMI 12.0
[2025-05-02] MEDS: INSULIN LISPRO (AdmeLOG) 1 UNIT/0.01 ML UNIT SC ×2 (00:13→12:23)
[2025-05-02] MEDS: oxyCODONE HCL 5 MG IR TAB 10 MG PO ×4 (01:21→17:06)
[2025-05-02 05:56] LABS: Basophils # (Auto) 0.1 Thou/mm3 (0.0-0.2); Basophils % (Auto) 1 % (0-2.5); Eosinophils # (Auto) 0.0 Thou/mm3 (0.0-0.5); Eosinophils % (Auto) 0 % (0-10); Hematocrit 32.3 % (41.0-53.0); Hemoglobin 10.9 g/dL (13.5-16.0); Immature Granulocytes Auto 0.22 Thou/mm3 (0.00-0.00); Lymphocytes # (Auto) 1.1 Thou/mm3 (1.0-4.8); Lymphocytes % (Auto) 11 % (10-50); Mean Corpuscular HGB Conc 33.7 g/dl (31.0-37.0); Mean Corpuscular Hemoglobin 28.8 pg (25.0-35.0); Mean Corpuscular Volume 85 fL (80-100); Monocytes # (Auto) 1.3 Thou/mm3 (0.0-0.8); Monocytes % (Auto) 14 % (0-12); Neutrophils # (Auto) 6.6 Thou/mm3 (1.8-7.7); Neutrophils % (Auto) 72 % (37-80); Nucleated Red Blood Cell # 0.00 Thou/mm3 (0.00-0.00); Nucleated Red Blood Cell % 0 /100 WBC (0); Platelet Count 475 Thou/mm3 (140-440); RDW Standard Deviation 42.2 fL (35.1-43.9); Red Blood Count 3.79 Miln/mm3 (4.50-5.90); White Blood Count 9.2 Thou/mm3 (3.8-10.6)
[2025-05-02 06:58] LABS: Alanine Aminotransferase 7 U/L (10-49); Albumin, Serum 2.6 gm/dL (3.4-4.8); Albumin/Globulin Ratio 1.0 (1.2-2.2); Alkaline Phosphatase 119 U/L (46-116); Anion Gap 7 (7-16); Aspartate Amino Transferase 12 U/L (0-34); BUN/Creatinine Ratio 32 Ratio (12-20); Bilirubin,Total 0.3 mg/dL (0.3-1.2); Blood Urea Nitrogen 16 mg/dL (9-23); Calcium 7.7 mg/dL (8.3-10.6); Calcium (Corrected) 8.8 mg/dL (8.5-10.1); Carbon Dioxide 27.6 mMol/L (20.0-31.0); Chloride 96 mMol/L (98-107); Creatinine (Component) 0.5 mg/dL (0.6-1.3); Estimated Creatinine Clearance 166.6 mL/min (>60); Globulin 2.6 gm/dL (2.3-3.5); Glucose 163 mg/dL (74-106); Magnesium 1.5 mg/dL (1.6-2.6); Osmolality,Calculated 267 (275-295); Phosphorous 2.8 mg/dL (2.4-5.1); Potassium 4.4 mMol/L (3.4-5.1); Sodium 131 mMol/L (136-145); Total Protein 5.2 gm/dL (5.7-8.2); eGFR > 60 See Note
[2025-05-02] MEDS: ACETAMINOPHEN 325 MG TABLET PO ×2 (06:58→18:06)
[2025-05-02] MEDS: ALBUTEROL RT 2.5 MG/0.5 ML NEBU INH ×2 (07:38→17:58)
[2025-05-02] MEDS: SODIUM CHLORIDE RT SOL 0.9% 3 ML NEBU INH ×2 (07:39→17:59)
[2025-05-02] MEDS: FLUTICASONE/UMECLIDIN/VILANTEROL 100-62.5-25 MCG INHALER 1 PUFF INH (07:39)
[2025-05-02] MEDS: LEVOFLOXACIN 250 MG TABLET 500 MG PO (08:29)
[2025-05-02] MEDS: DOCUSATE SOD 100 MG CAPSULE PO ×2 (08:29→21:18)
[2025-05-02] MEDS: ZINC SULFATE 220 MG CAPSULE PO (08:29)
[2025-05-02] MEDS: THIAMINE 100 MG TABLET PO (08:29)
[2025-05-02] MEDS: PANTOPRAZOLE 40 MG TABLET PO (08:29)
[2025-05-02] MEDS: ASCORBIC ACID 250 MG TABLET 500 MG PO ×2 (08:29→21:18)
[2025-05-02] MEDS: ASPIRIN EC 81 MG TABEC PO (08:29)
--- NOTE | 2025-05-02 09:26 | ESPR_ITS ---
<Statement entered by Chandu Moy MD - 05/14/25 09:17> I reviewed above note and agree with findings and plans. I have also personally examined the patient with medicine team and went over assessment and plan with medical team including corporate development intern and resident physician. <Statement entered by Zenon Grant MD - 05/02/25 15:25> Patient was examined and case was reviewed with team including attending physician. Note reviewed, I agree with most of its contents and agree with the patient's care as documented by Dr. Tena patient seen today at the bedside found awake, alert, orientedx3. No overnight events reported. Vitals and labs reviewed. Patient had PICC line placed for total parenteral nutrition as recommended by surgery services. Patient will be kept n.p.o. 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 Case discussed with my attending Dr. Farzaneh Grant MD PGY-2 Disclaimer: Despite multiple revisions, due to the dictation software being used, the document bellow may not be free of grammatical errors including phonetic/typographic errors. However, this does not deter from our commitment to providing health care in the patient's best interest in mind. Documentation for date of: 05/02/25 Subjective Subjective Interval history: Patient seen at bedside today; reports doing well, states pain is controlled. Feels more comfortable compared to prior days. No fever, chills, nausea, or vomiting. No shortness of breath or chest pain. Ostomy output stable and non-bloody. Right side abdomen discomfort improved with analgesia; no limitation noted today. Tolerating TPN via PICC line without issues. Exam Vital Signs Temp Pulse Resp BP Pulse Ox O2 Del Method O2 Flow Rate 97.9 F 87 20 122/67 95 Nasal Cannula 4 05/02/25 07:49 05/02/25 08:29 05/02/25 07:49 05/02/25 08:29 05/02/25 07:49 05/02/25 07:49 05/02/25 07:49 FiO2 30 05/02/25 00:00 Narrative Exam General: A&O x 3, comfortable, appears better than prior days. Pulm: Lungs clear bilaterally; no increased work of breathing. CV: RRR, no murmurs. GI: Soft, mildly distended, non-tender. Incision clean/dry. End colostomy pink and patent with normal output. Flank: Mild right flank tenderness improved from prior days, no CVA tenderness. Extremities: Trace edema; right hip nontender today. Neuro: Alert, following commands. Skin: No rash or lesions. Lines: PICC line in place, site clean/dry Objective Labs 05/02/25 04:50 05/02/25 04:50 Labs: Laboratory Results - last 24 hr 05/01/25 05/02/25 05:11 04:50 WBC 9.2 RBC 3.79 L Hgb 10.9 L Hct 32.3 L MCV 85 MCH 28.8 MCHC 33.7 RDW Std Deviation 42.2 Plt Count 475 H D Neut % (Auto) 72 Lymph % (Auto) 11 [place] % (Auto) 14 H Eos % (Auto) 0 Baso % (Auto) 1 Neut # (Auto) 6.6 Lymph # (Auto) 1.1 [place] # (Auto) 1.3 H Eos # (Auto) 0.0 Baso # (Auto) 0.1 Immature Gran # (Auto) 0.22 H Absolute Nucleated RBC 0.00 Immature Gran % 2 H Nucleated RBC % 0 Sodium 131 L Potassium 4.4 Chloride 96 L Carbon Dioxide 27.6 Anion Gap 7 BUN 16 Creatinine 0.5 L Estim Creat Clear Calc 166.6 eGFR > 60 BUN/Creatinine Ratio 32 H Glucose 163 H D Calculated Osmolality 267 L Calcium 7.7 L Corrected Calcium 8.8 Phosphorus 2.8 Magnesium 1.5 L Total Bilirubin 0.3 AST 12 ALT 7 L Alkaline Phosphatase 119 H Total Protein 5.2 L 5.2 L Albumin 2.6 L Globulin 2.6 2.6 Albumin/Globulin Ratio 1.0 L 1.0 L ABG Interpretation ABG results: 04/19/25 04/19/25 04/20/25 19:07 22:38 04:38 ABG pH 7.29 L 7.34 L 7.37 ABG pCO2 44 45 39 ABG pO2 297 H 43 L* D 146 H D ABG HCO3 21 24 22 ABG O2 Saturation 100 H 79 L 100 H ABG Base Excess -6 L -2 -3 VBG pH VBG pCO2 VBG pO2 VBG Base Excess 04/20/25 04/21/25 04/22/25 09:42 04:23 04:25 ABG pH 7.35 7.34 L ABG pCO2 44 50 H ABG pO2 96 D 73 L D ABG HCO3 24 27 H ABG O2 Saturation 98 95 ABG Base Excess -2 1 VBG pH 7.31 L VBG pCO2 46 VBG pO2 47 VBG Base Excess -3 Quality Measures Quality Measures VTE prophylaxis Assessment & Plan Assessment Current Active Medications: Generic Name Dose Route Start Last Admin Trade Name Freq PRN Reason Stop Dose Admin Acetaminophen 325 mg 05/02/25 06:41 05/02/25 06:58 Acetaminophen 325 Mg Tablet PO 06/01/25 06:40 325 mg Q4HR PRN Administration pain 1-3 Albuterol 2.5 mg 04/25/25 21:39 05/02/25 07:38 Albuterol Rt 2.5 Mg/0.5 Ml Nebu INH 05/25/25 22:59 2.5 mg Q4HRRT PRN Administration SHORTNESS OF BREATH OR WHEEZE Ascorbic Acid 500 mg 04/23/25 21:00 05/02/25 08:29 Ascorbic Acid 250 Mg Tablet PO 05/23/25 20:59 500 mg BID LYRIC Administration Aspirin 81 mg 04/28/25 09:00 05/02/25 08:29 Aspirin Ec 81 Mg Tabec PO 05/28/25 08:59 81 mg QDAY LYRIC Administration Carvedilol 3.125 mg 04/22/25 17:30 05/02/25 08:29 Carvedilol 3.125 Mg Tablet PO 05/22/25 17:29 3.125 mg BIDWM LYRIC Administration Dextrose 25 ml 04/22/25 11:17 Dextrose 50%-Water Inj 50 Ml Syringe IV 05/22/25 11:16 Q15MIN PRN BG 50-70 responsive npo pt Dextrose 50 ml 04/22/25 11:17 Dextrose 50%-Water Inj 50 Ml Syringe IV 05/22/25 11:16 Q15MIN PRN BG <50 OR BG <70 & pt unresponsive Docusate Sodium 100 mg 04/23/25 11:30 05/02/25 08:29 Docusate Sod 100 Mg Capsule PO 05/23/25 11:29 100 mg BID LYRIC Administration Protocol Fluticasone/Umeclidinium/Vilanterol 1 puff 04/30/25 09:45 05/02/25 07:39 Fluticasone/Umeclidin/Vilanterol 100-62.5-25 Mcg Inhaler INH 05/30/25 09:44 1 puff QDAY LYRIC Administration Glucagon 1 mg 04/22/25 11:17 Glucagon Inj 1 Mg Vial IM Q15MIN PRN BG <70, and no IV access Fat Emulsion Intravenous 500 mls @ 32 mls/hr 04/27/25 18:00 04/30/25 17:58 Intralipid 20% Iv IV 05/27/25 17:59 32 mls/hr [id number] LYRIC Administration Sodium Chloride 60 meq/ 1,029 mls @ 75 mls/hr 05/01/25 18:00 05/02/25 08:28 Magnesium Sulfate 2 gm/ IV 05/02/25 17:59 75 mls/hr Calcium Gluconate 1 gm/ Amino .[id number] LYRIC Administration Acids Magnesium Sulfate 50 mls @ 12.5 mls/hr 05/02/25 08:30 Magnesium Sulfate Ivpb IV 05/02/25 12:29 X1 ONE Insulin Degludec 40 unit 05/02/25 21:00 Insulin Degludec 5 Unit/0.05 Ml (Per 5 Units) SC 06/01/25 20:59 HS [facility] Insulin Human Lispro 0 unit 04/26/25 18:00 05/02/25 05:25 Insulin Lispro (Admelog) 1 Unit/0.01 Ml Unit SC 05/26/25 17:59 Not Given Q6HR [facility] Protocol Levofloxacin 500 mg 04/26/25 09:00 05/02/25 08:29 Levofloxacin 250 Mg Tablet PO 05/03/25 08:59 500 mg QDAY LYRIC Administration Lidocaine 2 patch 04/27/25 15:20 05/01/25 17:16 Lidocaine 5% 1 Patch TOP 05/27/25 15:19 2 patch UD PRN Administration PAIN Protocol Metronidazole 500 mg 04/25/25 14:00 05/02/25 05:25 Metronidazole 250 Mg Tablet PO 05/02/25 13:59 500 mg TID LYRIC Administration Ondansetron HCl 4 mg 04/17/25 09:45 04/17/25 10:06 Ondansetron Inj 2 Mg/Ml Inj 2 Ml IVP 05/17/25 09:44 4 mg Q6HR PRN Administration NAUSEA OR VOMITING Protocol Oxycodone HCl 10 mg 04/27/25 15:20 05/02/25 05:25 Oxycodone Hcl 5 Mg Ir Tab PO 05/02/25 15:19 10 mg Q4H PRN Administration PAIN SCALE 4-10(Mod-Sev Pantoprazole Sodium 40 mg 04/27/25 09:00 05/02/25 08:29 Pantoprazole 40 Mg Tablet PO 05/27/25 08:59 40 mg QDAY LYRIC Administration Protocol Sodium Chloride 5 ml 04/19/25 18:06 Sodium Chloride Rt 10% 15 Ml Nebu INH 05/19/25 18:05 X1 PRN SECRETIONS Sodium Chloride 3 ml 04/25/25 21:39 05/02/25 07:39 Sodium Chloride Rt Malou 0.9% 3 Ml Nebu INH 05/25/25 21:38 3 ml Q4HR PRN Administration SOLN Thiamine HCl 100 mg 05/02/25 09:00 05/02/25 08:29 Thiamine 100 Mg Tablet PO 05/26/25 17:59 100 mg QDAY LYRIC Administration Protocol Zinc Sulfate 220 mg 04/23/25 11:30 05/02/25 08:29 Zinc Sulfate 220 Mg Capsule PO 05/23/25 11:29 220 mg QDAY LYRIC Administration Plan 64-year-old male with perforated sigmoid diverticulitis complicated by feculent peritonitis, s/p exploratory laparotomy, re-exploration with partial colectomy and end colostomy, ESBL E. coli bacteremia, enterocutaneous fistulas now requiring TPN via PICC line, clinically improving with normalized WBC, improving sodium, and well-controlled pain today. # Perforated diverticulitis with feculent peritonitis s/p colostomy placement POD#13 from exploratory laparotomy with sigmoid colectomy POD#11 from washout, partial colectomy and end colostomy IV Zosyn was given 04/20-04/25 IV levofloxacin was given 04/24-04/25 Plan: * Continue PO levofloxacin 500 qday * Continue PO metronidazole 500 mg TID * Monitor ostomy output * Continue zinc 220 mg qday * Continue ascorbic acid 500 mg BID * Daily CBC and CMP * Pain control PRN * Continue PPI # Enterocutaneous Fistulas Fistulas had output over 1L of fluid yesterday day. Patient remains hemodynamically stable and afebrile. NPO for closure of fistula Plan: * Keep NPO except meds per general surgery. * PICC line placement done with TPN started. * Monitor fluid balance and electrolytes closely, recheck BMP tomorrow. * Continue monitoring fistula output. # ESBL E. coli bacteremia # Leukocytosis with left shift, improved Likely infectious but patient clinically has unchanged physical examination. 04/25/2025 ID changed antibiotic choice from IV Zosyn to PO levofloxacin and PO metronidazole. Patient was started on Zosyn 04/20/2025, started levothyroxine and metronidazole 04/24 will continue current antibiotic until 05/03/2025 for total course of 14 days effective antibiotics. Plan: * Continue PO levofloxacin 500 qday * Continue PO metronidazole 500 mg TID * Monitor vitals * Serial examinations * Repeat CBC tomorrow # Poor Nutrition / PO Intake # Hyponatremia secondary to PPN Patient on dysphagia diet however not meeting nutritional needs. Reports poor appetite. 04/26/2025 PPN was started. Sodium as of today is 126 given one tab salt tablet. 04/30: Significant improvement in intake; 80% of lunch today, after only 25% breakfast this AM. 05/01: Patient did not have dinner or breakfast due to pain, surgery to start TPN and place PICC line. 05/02: PICC line placed, TPN started. Patient tolerating well. 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 * Continue thiamine 100 mg IV daily. # Acute hypoxic respiratory failure # Right lung atelectasis # History of COPD Patient has been hypoxic saturating low 90s on 4-5L NC Likely secondary to pulmonary atelectasis Latest CXRs have not shown any pneumonia, there is however atelectasis in the right lower lung zone Plan: * Incentive spirometry * Continued home medication of trelegy qday * Continue duoneb as needed # History of CAD Patient reports history of 2 stents Plan: * Continue home aspirin 81 mg qday # Right pneumothorax, resolved S/p chest tube placement 04/21, removed 04/26 CXR on 04/24 shows interval improvement from 20% to <10%. CXR 04/25 shows complete resolution. 04/26 removed chest tube, 110 ml of translucent yellow fluid Plan: * Continue incentive spirometry * Work with PT towards ambulation * Repeatchest Xray showed no pneumothorax but noted to have mild atelectasis # Paroxysmal A-fib with RVR (04/21), resolved Likely secondary to underlying sepsis at that time and pneumothorax. Sinus rhythm since. Stopped amiodarone (per ICU team). Plan: * Telemetry monitoring. * Replete electrolytes (K >4, Mg >2). 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 Plan: * Will restart GDMT one med at a time. * Continue carvedilol 3.125 mg BID * Continue telemetry. # Type 2 diabetes A1c 6.8%. Plan: * Insulin degludec 12 U HS * Sliding scale insulin. * Clear liquids diet # Septic shock, resolved Off pressors, stable MAP, normal lactate, improving urine output. Plan: * Continue current antibiotic coverage. # Acute kidney injury, resolved Creatinine back to normal with good UOP. Plan: * Monitor BMP daily. * Avoid nephrotoxins. Health Maintenance: Disposition: Telemetry. Diet: NPO, TPN through PICC line DVT prophylaxis: Lovenox. GI prophylaxis: Protonix. Bowel regimen: None currently; monitor ostomy output. Code Status: Full Code. Lines: PICC line placed site clean/dry. ----- Plan discussed with attending physician Dr. Moy and senior resident Dr. Grant Tena MD PGY-1 Internal Medicine
[2025-05-02] MEDS: Magnesium Sulfate 2 GM Ivpb 50 ML IV (09:44)
--- NOTE | 2025-05-02 10:07 | PC.SS ---
Rounding: Penidng on TPN, pending SX reccs. DC plan RWCC> No auth needed.
--- NOTE | 2025-05-02 11:30 | PD.SURPROG ---
Documentation for date of: 05/02/25 Subjective Subjective Narrative: Patient is seen and examined. His pain continues to improve. Exam Vital Signs Temp Pulse Resp BP Pulse Ox O2 Del Method O2 Flow Rate 97.9 F 87 20 122/67 95 Nasal Cannula 4 05/02/25 07:49 05/02/25 08:29 05/02/25 07:49 05/02/25 08:29 05/02/25 07:49 05/02/25 07:49 05/02/25 07:49 FiO2 30 05/02/25 00:00 Constitutional Constitutional: no acute distress Routine Abdominal Exam Comments: Abdomen is soft and nondistended. Colostomy is functioning. Output from enterocutaneous fistula significantly decreased Assessment & Plan Assessment Additional comments: Postop day #13 status post exploratory laparotomy, sigmoid colectomy and abdominal washout Postop day #11 status post reexploration, partial colectomy with end colostomy Plan Keep n.p.o. except for oral medications and continue TPN. May consider blood works every other day rather than daily. PROCEDURES: Procedures Reexploration of the abdomen with abdominal washout. Partial colectomy with end colostomy
--- NOTE | 2025-05-02 15:16 | PD.IDPROG ---
Subjective Subjective Interval history: afebril neela current rx. will see again prn Exam Vital Signs Temp Pulse Resp BP Pulse Ox O2 Del Method O2 Flow Rate 97.9 F 76 20 127/82 95 Nasal Cannula 3 05/02/25 15:09 05/02/25 15:09 05/02/25 15:09 05/02/25 15:09 05/02/25 15:09 05/02/25 15:09 05/02/25 15:09 FiO2 30 05/02/25 00:00 Narrative Exam limited eval today Objective - Internal Medicine Labs 05/02/25 04:50 05/02/25 04:50 Labs: Laboratory Results - last 24 hr 05/02/25 04:50 WBC 9.2 RBC 3.79 L Hgb 10.9 L Hct 32.3 L MCV 85 MCH 28.8 MCHC 33.7 RDW Std Deviation 42.2 Plt Count 475 H D Neut % (Auto) 72 Lymph % (Auto) 11 [place] % (Auto) 14 H Eos % (Auto) 0 Baso % (Auto) 1 Neut # (Auto) 6.6 Lymph # (Auto) 1.1 [place] # (Auto) 1.3 H Eos # (Auto) 0.0 Baso # (Auto) 0.1 Immature Gran # (Auto) 0.22 H Absolute Nucleated RBC 0.00 Immature Gran % 2 H Nucleated RBC % 0 Sodium 131 L Potassium 4.4 Chloride 96 L Carbon Dioxide 27.6 Anion Gap 7 BUN 16 Creatinine 0.5 L Estim Creat Clear Calc 166.6 eGFR > 60 BUN/Creatinine Ratio 32 H Glucose 163 H D Calculated Osmolality 267 L Calcium 7.7 L Corrected Calcium 8.8 Phosphorus 2.8 Magnesium 1.5 L Total Bilirubin 0.3 AST 12 ALT 7 L Alkaline Phosphatase 119 H Total Protein 5.2 L Albumin 2.6 L Globulin 2.6 Albumin/Globulin Ratio 1.0 L ABG Interpretation ABG results: 04/19/25 04/19/25 04/20/25 19:07 22:38 04:38 ABG pH 7.29 L 7.34 L 7.37 ABG pCO2 44 45 39 ABG pO2 297 H 43 L* D 146 H D ABG HCO3 21 24 22 ABG O2 Saturation 100 H 79 L 100 H ABG Base Excess -6 L -2 -3 VBG pH VBG pCO2 VBG pO2 VBG Base Excess 04/20/25 04/21/25 04/22/25 09:42 04:23 04:25 ABG pH 7.35 7.34 L ABG pCO2 44 50 H ABG pO2 96 D 73 L D ABG HCO3 24 27 H ABG O2 Saturation 98 95 ABG Base Excess -2 1 VBG pH 7.31 L VBG pCO2 46 VBG pO2 47 VBG Base Excess -3 Assessment & Plan A&P Narrative abd. process with 2 prior surgeries noted. 04/19 and 04/21 hld htn dm II. metformin rx, A1c 6.8 noted on admit bph left on all po rx for abd process. zosyn will work but levaquin is same po as iv. he complains that po does not work but iv is problematic for long-term rx. finish planned levaquin and flagyl as ordered ok for po levaquin and flagyl at home if home planned. suggest a few more days po as ordered. I will see again prn. Time Spent With Patient Time: Total time spent is greater than 50% in coordination of care (as documented) at patient's floor/unit and/or counseling patient:
[2025-05-02] MEDS: FAT EMULSIONS 20% IV 500 ML 32 ML IV (18:06)
[2025-05-02] MEDS: INSULIN DEGLUDEC 5 UNIT/0.05 ML (PER 5 UNITS) 40 UNIT SC (21:18)
[2025-05-02] MEDS: LIDOCAINE 5% 1 PATCH 2 PATCH TOP (22:42)
[2025-05-03] VITALS (12 sets, daily range): BP systolic 121–134; BP diastolic 79–91; PULSE 64–101; RESP 17–22; TEMP 36.3–36.6; O2SAT 93–96; BMI 33.1
[2025-05-03] MEDS: INSULIN LISPRO (AdmeLOG) 1 UNIT/0.01 ML UNIT SC ×3 (00:20→23:26)
[2025-05-03] MEDS: oxyCODONE HCL 5 MG IR TAB 10 MG PO ×2 (01:05→17:51)
[2025-05-03 05:52] LABS: Basophils # (Auto) 0.1 Thou/mm3 (0.0-0.2); Basophils % (Auto) 1 % (0-2.5); Eosinophils # (Auto) 0.1 Thou/mm3 (0.0-0.5); Eosinophils % (Auto) 1 % (0-10); Hematocrit 28.7 % (41.0-53.0); Hemoglobin 9.3 g/dL (13.5-16.0); Immature Granulocytes Auto 0.26 Thou/mm3 (0.00-0.00); Lymphocytes # (Auto) 1.0 Thou/mm3 (1.0-4.8); Lymphocytes % (Auto) 10 % (10-50); Mean Corpuscular HGB Conc 32.4 g/dl (31.0-37.0); Mean Corpuscular Hemoglobin 27.6 pg (25.0-35.0); Mean Corpuscular Volume 85 fL (80-100); Monocytes # (Auto) 1.4 Thou/mm3 (0.0-0.8); Monocytes % (Auto) 15 % (0-12); Neutrophils # (Auto) 6.7 Thou/mm3 (1.8-7.7); Neutrophils % (Auto) 71 % (37-80); Nucleated Red Blood Cell # 0.00 Thou/mm3 (0.00-0.00); Nucleated Red Blood Cell % 0 /100 WBC (0); Platelet Count 476 Thou/mm3 (140-440); RDW Standard Deviation 42.1 fL (35.1-43.9); Red Blood Count 3.37 Miln/mm3 (4.50-5.90); White Blood Count 9.5 Thou/mm3 (3.8-10.6)
[2025-05-03] MEDS: FLUTICASONE/UMECLIDIN/VILANTEROL 100-62.5-25 MCG INHALER 1 PUFF INH (06:16)
[2025-05-03 06:38] LABS: Alanine Aminotransferase < 7 U/L (10-49); Albumin, Serum 2.5 gm/dL (3.4-4.8); Albumin/Globulin Ratio 1.0 (1.2-2.2); Alkaline Phosphatase 126 U/L (46-116); Anion Gap 7 (7-16); Aspartate Amino Transferase 14 U/L (0-34); BUN/Creatinine Ratio 28 Ratio (12-20); Bilirubin,Total 0.2 mg/dL (0.3-1.2); Blood Urea Nitrogen 14 mg/dL (9-23); Calcium 7.4 mg/dL (8.3-10.6); Calcium (Corrected) 8.6 mg/dL (8.5-10.1); Carbon Dioxide 28.1 mMol/L (20.0-31.0); Chloride 97 mMol/L (98-107); Creatinine (Component) 0.5 mg/dL (0.6-1.3); Estimated Creatinine Clearance 163.9 mL/min (>60); Globulin 2.5 gm/dL (2.3-3.5); Glucose 167 mg/dL (74-106); Magnesium 1.6 mg/dL (1.6-2.6); Osmolality,Calculated 269 (275-295); Phosphorous 3.1 mg/dL (2.4-5.1); Potassium 4.2 mMol/L (3.4-5.1); Sodium 132 mMol/L (136-145); Total Protein 5.0 gm/dL (5.7-8.2); eGFR > 60 See Note
[2025-05-03] MEDS: ZINC SULFATE 220 MG CAPSULE PO (08:15)
[2025-05-03] MEDS: PANTOPRAZOLE 40 MG TABLET PO (08:15)
[2025-05-03] MEDS: ASPIRIN EC 81 MG TABEC PO (08:15)
[2025-05-03] MEDS: DOCUSATE SOD 100 MG CAPSULE PO ×2 (08:15→20:11)
[2025-05-03] MEDS: THIAMINE 100 MG TABLET PO (08:15)
[2025-05-03] MEDS: ASCORBIC ACID 250 MG TABLET 500 MG PO ×2 (08:15→20:11)
[2025-05-03] MEDS: INSULIN DEGLUDEC 5 UNIT/0.05 ML (PER 5 UNITS) SC (08:55)
--- NOTE | 2025-05-03 10:43 | PC.SS ---
Addendum entered by Yee Christopher 05/04/25 09:16: SS was updated via [facility], [facility] accepted pt for TPN for 2 weeks but they need an stop date, SS spoke to Team A in regards to stop date in which they stated it would be up to . Dr. Mccurdy reached out to that Dr. Malone stated 4 weeks may be less. SS updated Dennise via JUAN to update on possible need for 4 weeks, per [facility] there needs to be a stop date in place. SS reached back out to Dr. Bazzi and updated him, SS pending documentation reflecting updated T:PN orders to send to [facility] Original Note: SS was informed by Team A that pt will need TPN for 2 weeks. Pt lives in the [facility], SS confirmed with Irene that HH will not be an option. 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 SS reached out to [facility] who stated they can not do TPN. SS was informed [facility] may be able to, SS reached out to [facility] who stated they have not taken TPN pts in a very long time and she would have to run it through Admin to see if it can be accommodated. Pt and LP [place] do not want pt to go to [facility]. SS explained it would only be during the duration of TPN and then they can coordinate with [facility] to transition pt to their facility for remainder of treatment and PT. Pt and [place] were okay with this plan. SS confirmed with [facility] that would be a possibility. [facility] is [facility] for morning and will be back later afternoon to review case and present to Admin for denial or approval. SS will remain available for any additional needs or concerns.
--- NOTE | 2025-05-03 17:03 | ESPR_ITS ---
<Statement entered by Chandu Moy MD - 05/14/25 09:18> I reviewed above note and agree with findings and plans. I have also personally examined the patient with medicine team and went over assessment and plan with medical team including internet technology manager and resident physician. Documentation for date of: 05/03/25 Subjective Subjective Interval history: Patient seen at bedside today; reports doing well, states pain is controlled. Feels more comfortable compared to prior days. No fever, chills, nausea, or vomiting. No shortness of breath or chest pain. Ostomy output stable and non-bloody. Right side abdomen discomfort improved with analgesia; no limitation noted today. Tolerating TPN via PICC line without issues. Pending SNF placement due to TPN TPN to stay on until 05/29/2025 Exam Vital Signs Temp Pulse Resp BP Pulse Ox O2 Del Method O2 Flow Rate 97.3 F 94 18 130/91 H 93 L Nasal Cannula 3 05/03/25 16:00 05/03/25 16:00 05/03/25 16:00 05/03/25 16:00 05/03/25 16:00 05/03/25 16:00 05/03/25 16:00 FiO2 30 05/03/25 04:00 Narrative Exam General: A&O x 3, comfortable, appears better than prior days. Pulm: Lungs clear bilaterally; no increased work of breathing. CV: RRR, no murmurs. GI: Soft, mildly distended, non-tender. Incision clean/dry. End colostomy pink and patent with normal output. Flank: Mild right flank tenderness improved from prior days, no CVA tenderness. Extremities: Trace edema; right hip nontender today. Neuro: Alert, following commands. Skin: No rash or lesions. Lines: PICC line in place, site clean/dry Objective Labs 05/04/25 04:25 05/04/25 04:25 Labs: Laboratory Results - last 24 hr 05/03/25 05:00 WBC 9.5 RBC 3.37 L Hgb 9.3 L Hct 28.7 L MCV 85 MCH 27.6 MCHC 32.4 RDW Std Deviation 42.1 Plt Count 476 H Neut % (Auto) 71 Lymph % (Auto) 10 Sully % (Auto) 15 H Eos % (Auto) 1 Baso % (Auto) 1 Neut # (Auto) 6.7 Lymph # (Auto) 1.0 Sully # (Auto) 1.4 H Eos # (Auto) 0.1 Baso # (Auto) 0.1 Immature Gran # (Auto) 0.26 H Absolute Nucleated RBC 0.00 Immature Gran % 3 H Nucleated RBC % 0 Sodium 132 L Potassium 4.2 Chloride 97 L Carbon Dioxide 28.1 Anion Gap 7 BUN 14 Creatinine 0.5 L Estim Creat Clear Calc 163.9 eGFR > 60 BUN/Creatinine Ratio 28 H Glucose 167 H Calculated Osmolality 269 L Calcium 7.4 L Corrected Calcium 8.6 Phosphorus 3.1 Magnesium 1.6 Total Bilirubin 0.2 L AST 14 ALT < 7 L Alkaline Phosphatase 126 H Total Protein 5.0 L Albumin 2.5 L Globulin 2.5 Albumin/Globulin Ratio 1.0 L ABG Interpretation ABG results: 04/19/25 04/19/25 04/20/25 19:07 22:38 04:38 ABG pH 7.29 L 7.34 L 7.37 ABG pCO2 44 45 39 ABG pO2 297 H 43 L* D 146 H D ABG HCO3 21 24 22 ABG O2 Saturation 100 H 79 L 100 H ABG Base Excess -6 L -2 -3 VBG pH VBG pCO2 VBG pO2 VBG Base Excess 04/20/25 04/21/25 04/22/25 09:42 04:23 04:25 ABG pH 7.35 7.34 L ABG pCO2 44 50 H ABG pO2 96 D 73 L D ABG HCO3 24 27 H ABG O2 Saturation 98 95 ABG Base Excess -2 1 VBG pH 7.31 L VBG pCO2 46 VBG pO2 47 VBG Base Excess -3 Quality Measures Quality Measures VTE prophylaxis Assessment & Plan Assessment Current Active Medications: Generic Name Dose Route Start Last Admin Trade Name Freq PRN Reason Stop Dose Admin Acetaminophen 325 mg 05/02/25 06:41 05/02/25 18:06 Acetaminophen 325 Mg Tablet PO 06/01/25 06:40 325 mg Q4HR PRN Administration pain 1-3 Albuterol 2.5 mg 04/25/25 21:39 05/02/25 17:58 Albuterol Rt 2.5 Mg/0.5 Ml Nebu INH 05/25/25 22:59 2.5 mg Q4HRRT PRN Administration SHORTNESS OF BREATH OR WHEEZE Ascorbic Acid 500 mg 04/23/25 21:00 05/03/25 08:15 Ascorbic Acid 250 Mg Tablet PO 05/23/25 20:59 500 mg BID LYRIC Administration Aspirin 81 mg 04/28/25 09:00 05/03/25 08:15 Aspirin Ec 81 Mg Tabec PO 05/28/25 08:59 81 mg QDAY LYRIC Administration Carvedilol 3.125 mg 04/22/25 17:30 05/03/25 08:15 Carvedilol 3.125 Mg Tablet PO 05/22/25 17:29 3.125 mg BIDWM LYRIC Administration Dextrose 25 ml 04/22/25 11:17 Dextrose 50%-Water Inj 50 Ml Syringe IV 05/22/25 11:16 Q15MIN PRN BG 50-70 responsive npo pt Dextrose 50 ml 04/22/25 11:17 Dextrose 50%-Water Inj 50 Ml Syringe IV 05/22/25 11:16 Q15MIN PRN BG <50 OR BG <70 & pt unresponsive Docusate Sodium 100 mg 04/23/25 11:30 05/03/25 08:15 Docusate Sod 100 Mg Capsule PO 05/23/25 11:29 100 mg BID LYRIC Administration Protocol Fluticasone/Umeclidinium/Vilanterol 1 puff 04/30/25 09:45 05/03/25 06:16 Fluticasone/Umeclidin/Vilanterol 100-62.5-25 Mcg Inhaler INH 05/30/25 09:44 1 puff QDAY LYRIC Administration Glucagon 1 mg 04/22/25 11:17 Glucagon Inj 1 Mg Vial IM Q15MIN PRN BG <70, and no IV access Fat Emulsion Intravenous 500 mls @ 32 mls/hr 04/27/25 18:00 05/02/25 18:06 Intralipid 20% Iv IV 05/27/25 17:59 32 mls/hr [id number] LYRIC Administration Sodium Chloride 120 meq/ 2,061 mls @ 75 mls/hr 05/03/25 16:00 05/03/25 16:14 Potassium Phosphate 15 mmol/ IV 05/04/25 17:59 75 mls/hr Magnesium Sulfate 3 gm/ X1 ONE Administration Calcium Gluconate 2 gm/ Amino Protocol Acids Insulin Degludec 45 unit 05/03/25 21:00 Insulin Degludec 5 Unit/0.05 Ml (Per 5 Units) SC 06/02/25 20:59 HS LYRIC Insulin Human Lispro 0 unit 04/26/25 18:00 05/03/25 11:42 Insulin Lispro (Admelog) 1 Unit/0.01 Ml Unit SC 05/26/25 17:59 Not Given Q6HR LYRIC Protocol Lidocaine 2 patch 04/27/25 15:20 05/02/25 22:42 Lidocaine 5% 1 Patch TOP 05/27/25 15:19 2 patch UD PRN Administration PAIN Protocol Ondansetron HCl 4 mg 04/17/25 09:45 04/17/25 10:06 Ondansetron Inj 2 Mg/Ml Inj 2 Ml IVP 05/17/25 09:44 4 mg Q6HR PRN Administration NAUSEA OR VOMITING Protocol Oxycodone HCl 10 mg 05/02/25 16:43 05/03/25 01:05 Oxycodone Hcl 5 Mg Ir Tab PO 05/07/25 16:42 10 mg Q4HR PRN Administration pain 4-10 Pantoprazole Sodium 40 mg 04/27/25 09:00 05/03/25 08:15 Pantoprazole 40 Mg Tablet PO 05/27/25 08:59 40 mg QDAY [facility] Administration Protocol Sodium Chloride 5 ml 04/19/25 18:06 Sodium Chloride Rt 10% 15 Ml Nebu INH 05/19/25 18:05 X1 PRN SECRETIONS Sodium Chloride 3 ml 04/25/25 21:39 05/02/25 17:59 Sodium Chloride Rt Malou 0.9% 3 Ml Nebu INH 05/25/25 21:38 3 ml Q4HR PRN Administration SOLN Thiamine HCl 100 mg 05/02/25 09:00 05/03/25 08:15 Thiamine 100 Mg Tablet PO 05/26/25 17:59 100 mg QDAY [facility] Administration Protocol Zinc Sulfate 220 mg 04/23/25 11:30 05/03/25 08:15 Zinc Sulfate 220 Mg Capsule PO 05/23/25 11:29 220 mg QDAY LYRIC Administration Plan 64-year-old male with perforated sigmoid diverticulitis complicated by feculent peritonitis, s/p exploratory laparotomy, re-exploration with partial colectomy and end colostomy, ESBL E. coli bacteremia, enterocutaneous fistulas now requiring TPN via PICC line, clinically improving with normalized WBC, improving sodium, and well-controlled pain today. Pending SNF placement to care for TPN. # Perforated diverticulitis with feculent peritonitis s/p colostomy placement POD#13 from exploratory laparotomy with sigmoid colectomy POD#11 from washout, partial colectomy and end colostomy IV Zosyn was given 04/20-04/25 IV levofloxacin was given 04/24-04/25 Plan: * Continue PO levofloxacin 500 qday * Continue PO metronidazole 500 mg TID * Monitor ostomy output * Continue zinc 220 mg qday * Continue ascorbic acid 500 mg BID * Daily CBC and CMP * Pain control PRN * Continue PPI # Enterocutaneous Fistulas Fistulas had output over 1L of fluid yesterday day. Patient remains hemodynamically stable and afebrile. NPO for closure of fistula Plan: * Keep NPO except meds per general surgery. * PICC line placement done with TPN started. * Monitor fluid balance and electrolytes closely, recheck BMP tomorrow. * Continue monitoring fistula output. # ESBL E. coli bacteremia # Leukocytosis with left shift, improved Likely infectious but patient clinically has unchanged physical examination. 04/25/2025 ID changed antibiotic choice from IV Zosyn to PO levofloxacin and PO metronidazole. Patient was started on Zosyn 04/20/2025, started levothyroxine and metronidazole 04/24 will continue current antibiotic until 05/03/2025 for total course of 14 days effective antibiotics. Completed 14 day course today but per ID continue few more days will do 5 more days until 05/08/2025 Plan: * Continue PO levofloxacin 500 qday per ID * Continue PO metronidazole 500 mg TID per ID * Monitor vitals * Serial examinations * Repeat CBC tomorrow # Poor Nutrition / PO Intake # Hyponatremia secondary to PPN Patient on dysphagia diet however not meeting nutritional needs. Reports poor appetite. 04/26/2025 PPN was started. Sodium as of today is 126 given one tab salt tablet. 04/30: Significant improvement in intake; 80% of lunch today, after only 25% breakfast this AM. 05/01: Patient did not have dinner or breakfast due to pain, surgery to start TPN and place PICC line. 05/02: PICC line placed, TPN started. Patient tolerating well. 05/03: PICC line placed, TPN started. Patient tolerating well. TPN to stay on until 05/29/2025 Plan: * Consulted sweet potato disintegrator, following * NPO except meds, per surgery * PICC line placement done with TPN started. * Continue thiamine 100 mg IV daily. # Acute hypoxic respiratory failure # Right lung atelectasis # History of COPD Patient has been hypoxic saturating low 90s on 4-5L NC Likely secondary to pulmonary atelectasis Latest CXRs have not shown any pneumonia, there is however atelectasis in the right lower lung zone Plan: * Incentive spirometry * Continued home medication of trelegy qday * Continue duoneb as needed # History of CAD Patient reports history of 2 stents Plan: * Continue home aspirin 81 mg qday # Right pneumothorax, resolved S/p chest tube placement 04/21, removed 04/26 CXR on 04/24 shows interval improvement from 20% to <10%. CXR 04/25 shows complete resolution. 04/26 removed chest tube, 110 ml of translucent yellow fluid Plan: * Continue incentive spirometry * Work with PT towards ambulation * Repeatchest Xray showed no pneumothorax but noted to have mild atelectasis # Paroxysmal A-fib with RVR (04/21), resolved Likely secondary to underlying sepsis at that time and pneumothorax. Sinus rhythm since. Stopped amiodarone (per ICU team). Plan: * Telemetry monitoring. * Replete electrolytes (K >4, Mg >2). 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 Plan: * Will restart GDMT one med at a time. * Continue carvedilol 3.125 mg BID * Continue telemetry. # Type 2 diabetes A1c 6.8%. Plan: * Insulin degludec 45 U HS * Sliding scale insulin. # Septic shock, resolved Off pressors, stable MAP, normal lactate, improving urine output. Plan: * Continue current antibiotic coverage. # Acute kidney injury, resolved Creatinine back to normal with good UOP. Plan: * Monitor BMP daily. * Avoid nephrotoxins. Health Maintenance: Disposition: Pending SNF placement Diet: NPO, TPN through PICC line DVT prophylaxis: Lovenox. GI prophylaxis: Protonix. Bowel regimen: None currently; monitor ostomy output. Code Status: Full Code. Lines: PICC line placed site clean/dry. ----- Plan discussed with attending physician Dr. Farzaneh Tena MD PGY-1 Internal Medicine
[2025-05-03] MEDS: INSULIN DEGLUDEC 5 UNIT/0.05 ML (PER 5 UNITS) 45 UNIT SC (20:11)
[2025-05-04] VITALS (12 sets, daily range): BP systolic 126–139; BP diastolic 74–85; PULSE 85–98; RESP 17–20; TEMP 36.2–37.2; O2SAT 93–99; BMI 33.1
[2025-05-04] MEDS: oxyCODONE HCL 5 MG IR TAB 10 MG PO ×4 (01:43→21:28)
[2025-05-04] MEDS: INSULIN LISPRO (AdmeLOG) 1 UNIT/0.01 ML UNIT SC ×3 (05:09→18:16)
[2025-05-04 05:50] LABS: Basophils # (Auto) 0.1 Thou/mm3 (0.0-0.2); Basophils % (Auto) 1 % (0-2.5); Eosinophils # (Auto) 0.0 Thou/mm3 (0.0-0.5); Eosinophils % (Auto) 0 % (0-10); Hematocrit 29.0 % (41.0-53.0); Hemoglobin 9.5 g/dL (13.5-16.0); Immature Granulocytes Auto 0.23 Thou/mm3 (0.00-0.00); Lymphocytes # (Auto) 0.9 Thou/mm3 (1.0-4.8); Lymphocytes % (Auto) 11 % (10-50); Mean Corpuscular HGB Conc 32.8 g/dl (31.0-37.0); Mean Corpuscular Hemoglobin 27.9 pg (25.0-35.0); Mean Corpuscular Volume 85 fL (80-100); Monocytes # (Auto) 1.3 Thou/mm3 (0.0-0.8); Monocytes % (Auto) 16 % (0-12); Neutrophils # (Auto) 5.9 Thou/mm3 (1.8-7.7); Neutrophils % (Auto) 70 % (37-80); Nucleated Red Blood Cell # 0.00 Thou/mm3 (0.00-0.00); Nucleated Red Blood Cell % 0 /100 WBC (0); Platelet Count 424 Thou/mm3 (140-440); RDW Standard Deviation 42.1 fL (35.1-43.9); Red Blood Count 3.41 Miln/mm3 (4.50-5.90); White Blood Count 8.5 Thou/mm3 (3.8-10.6)
[2025-05-04 06:40] LABS: Alanine Aminotransferase < 7 U/L (10-49); Albumin, Serum 2.4 gm/dL (3.4-4.8); Albumin/Globulin Ratio 0.9 (1.2-2.2); Alkaline Phosphatase 121 U/L (46-116); Anion Gap 7 (7-16); Aspartate Amino Transferase 13 U/L (0-34); BUN/Creatinine Ratio 35 Ratio (12-20); Bilirubin,Total 0.3 mg/dL (0.3-1.2); Blood Urea Nitrogen 14 mg/dL (9-23); Calcium 7.4 mg/dL (8.3-10.6); Calcium (Corrected) 8.7 mg/dL (8.5-10.1); Carbon Dioxide 27.7 mMol/L (20.0-31.0); Chloride 98 mMol/L (98-107); Creatinine (Component) 0.4 mg/dL (0.6-1.3); Estimated Creatinine Clearance 204.8 mL/min (>60); Globulin 2.6 gm/dL (2.3-3.5); Glucose 186 mg/dL (74-106); Magnesium 1.6 mg/dL (1.6-2.6); Osmolality,Calculated 271 (275-295); Phosphorous 2.9 mg/dL (2.4-5.1); Potassium 4.0 mMol/L (3.4-5.1); Sodium 133 mMol/L (136-145); Total Protein 5.0 gm/dL (5.7-8.2); eGFR > 60 See Note
[2025-05-04] MEDS: THIAMINE 100 MG TABLET PO (08:01)
[2025-05-04] MEDS: ASPIRIN EC 81 MG TABEC PO (08:01)
[2025-05-04] MEDS: PANTOPRAZOLE 40 MG TABLET PO (08:01)
[2025-05-04] MEDS: ASCORBIC ACID 250 MG TABLET 500 MG PO ×2 (08:01→21:09)
[2025-05-04] MEDS: DOCUSATE SOD 100 MG CAPSULE PO ×2 (08:02→21:09)
[2025-05-04] MEDS: ZINC SULFATE 220 MG CAPSULE PO (08:02)
[2025-05-04] MEDS: ALBUTEROL RT 2.5 MG/0.5 ML NEBU INH ×2 (09:03→23:37)
[2025-05-04] MEDS: FLUTICASONE/UMECLIDIN/VILANTEROL 100-62.5-25 MCG INHALER 1 PUFF INH (09:03)
--- NOTE | 2025-05-04 12:34 | PC.SS ---
Addendum entered by Yee Christopher 05/04/25 13:43: SS reached out to [facility], no answer. Message via [employer] also left. Pending response for DC to their facility today. Original Note: [facility] sent all updated clinicals, DC packets and updated progress note [facility] Pending response. [facility] is aware pt is ready for DC today.
--- NOTE | 2025-05-04 13:06 | PD.RESDS ---
Planned Discharge Date 05/04/25 DS: Providers Provider Date of admission: 04/17/25 12:17 Primary care physician: Mae Asher NP Admitting Provider: Adam Gardiner DO Attending Provider on Admission: Chandu Moy MD Consults: 04/18/25 00:05 Consult to General Surgery Routine Comment: Consulting Provider: Tania Malone 04/19/25 18:12 Consult to Machine Stripper Cutter Routine Comment: Consulting Provider: Kimberley Teixeira 04/23/25 11:27 PT [Referral Physical Therapy] Routine Comment: Physician Instructions: Instructions: Please assist patient ambulate 04/24/25 10:42 Consult to Infectious Diseases Routine Comment: ESBL bactremia Consulting Provider: Aakash Francois 04/26/25 09:58 Referral Registered Dietitian Routine Comment: PPN recommendations and orders Attending Provider on DC: Maria D Tena MD Discharging Provider: Maria D Tena MD Hospital Course Hospital Course Hospital course: Patient seen at bedside today; reports doing well, states pain is controlled. Feels more comfortable compared to prior days. No fever, chills, nausea, or vomiting. No shortness of breath or chest pain. Ostomy output stable and non-bloody. Right side abdomen discomfort improved with analgesia; no limitation noted today. Tolerating TPN via PICC line without issues. Pending SNF placement due to TPN TPN to stay on until 05/29/2025 Time Spent with Patient Time attestation: Total time spent providing and/or coordinating discharge services: Exam Vital Signs Temp Pulse Resp BP Pulse Ox O2 Del Method O2 Flow Rate 98.1 F 90 19 131/81 H 98 Nasal Cannula 4 05/04/25 11:41 05/04/25 11:41 05/04/25 11:41 05/04/25 11:41 05/04/25 11:41 05/04/25 11:41 05/04/25 11:41 FiO2 30 05/03/25 04:00 Discharge Plan Plan Patient Disposition: Xfer Skilled Nsg Fac (SNF) Disposition Comment: [facility] Patient condition on transfer: Stable Care Plan Goals: Discharge Instructions: Activity Resume activity as tolerated. Avoid heavy lifting until cleared by your surgeon. Continue using your incentive spirometer several times a day. (very important) Diet Remain NPO (nothing by mouth) unless your surgeon specifically changes this. You may take medications with small sips of water only. Do NOT eat or drink anything else until cleared by Dr. Malone. Nutrition / TPN You will receive Total Parenteral Nutrition (TPN) at [facility] through your PICC line. Home health will assist with TPN administration, line care, and dressing changes. Keep the PICC line dry, clean, and intact at all times. Wound / Colostomy Care Remove midline abdominal filiberto in [address] Malone Continue routine LLQ colostomy care as instructed. Currently pouching system: Kavitha 2 3/4 in 2 piece, last applied 05/04/25. Change weekly and PRN Midline abdominal incision with 21 filiberto and 2 fistulas- superior and inferior incision. Current pouching system for drainage management: Eakins wound pouch 6.9 x 4.3 and stoma adhesive paste. Last applied 05/04/25. Change weekly and PRN Watch for increased redness, swelling, bleeding, or foul odor around the surgical site. Medications Continue all medications as directed on your discharge medication list. Use pain medication only as needed. Follow-Up Follow up with Dr. Malone (General Surgery) in 2 weeks. He will guide the plan for fistula closure and determine when you may resume eating. Call your doctor or return to the ER if you experience: Fever >100.4?F Worsening abdominal pain Increased drainage from fistula site or colostomy Redness, swelling, or pain at your PICC line site Shortness of breath or persistent vomiting Sudden weakness or dizziness Prescriptions/Referrals Prescriptions/Med Rec: New zinc sulfate 50 mg zinc (220 mg) Capsule 220 mg PO QDAY Qty: 30 0RF thiamine mononitrate (vit B1) 100 mg Tablet 100 mg PO QDAY Qty: 30 0RF ascorbic acid (vitamin C) 500 mg capsule 500 mg PO BID Qty: 60 0RF oxycodone 10 mg tablet 10 mg PO Q4H MDD 40 mg daily PRN (Reason: pain (scale score 7-10)) 14 Days Qty: 56 0RF Continued metformin 500 mg tablet 500 mg PO BID Patient Comments: TAKE 1 TABLET BY MOUTH TWICE DAILY atorvastatin 20 mg tablet 20 mg PO HS Patient Comments: TAKE 1 TABLET BY MOUTH EVERY DAY tamsulosin 0.4 mg capsule 0.8 mg PO HS Patient Comments: TAKE 2 CAPSULES BY MOUTH AT NIGHT losartan 25 mg tablet 25 mg PO DAILY Patient Comments: TAKE 1 TABLET BY MOUTH DAILY albuterol sulfate [Ventolin HFA] 90 mcg/actuation HFA aerosol inhaler 90 mcg INHALATION Q4HR PRN (Reason: WHEEZING) Patient Comments: INHALE 2 PUFFS BY MOUTH EVERY 4 HOURS NEEDED bupropion HCl 150 mg tablet extended release 24 hr 150 mg PO DAILY Patient Comments: TAKE 1 TABLET BY MOUTH EVERY DAY aripiprazole 2 mg tablet 2 mg PO HS Patient Comments: TAKE 1 TABLET BY MOUTH EVERY NIGHT AT BEDTIME Spiriva Respimat 2.5 mcg/actuation mist 2 puff INHALATION DAILY Patient Comments: INHALE 2 PUFFS BY MOUTH DAILY ascorbic acid (vitamin C) [Vitamin C] 1,000 mg Tablet 1 g PO DAILY Glucosamine Chondroitin 550-30-1 mg Capsule 1 cap PO BID aspirin 81 mg Tablet,Delayed Release (Dr/Ec) 81 mg PO QDAY docusate sodium [Colace] 100 mg capsule 100 mg PO BID Qty: 40 0RF Trelegy Ellipta 100-62.5-25 mcg blister with device 1 inh inhalation QDAY Patient Comments: sometimes if I don't need it I don't take it. losartan 50 mg tablet 50 mg PO HS montelukast 10 mg tablet 10 mg PO DAILY meloxicam 15 mg tablet 15 mg PO DAILY Patient Comments: TAKE 1 TABLET BY MOUTH EVERY DAY hydroxyzine HCl 25 mg tablet 25 mg PO .Qevening Patient Comments: TAKE 1 TABLET BY MOUTH EVERY EVENING pantoprazole 40 mg tablet,delayed release (DR/EC) 40 mg PO HS Patient Comments: TAKE 1 TABLET BY MOUTH EVERYDAY AT BEDTIME ondansetron HCl 4 mg tablet 4 mg PO Q8H PRN (Reason: nausea and vomiting) Patient Comments: TAKE 1 TO 2 TABLETS BY MOUTH EVERY 8 HOURS NEEDED sennosides-docusate sodium [Colace 2-In-1] 8.6-50 mg tablet 1 tab-cap PO QDAY PRN (Reason: constipation) Patient Comments: otc- new, pt was trying to have a bm but did not work. melatonin 5 mg tablet 25 mg PO HS Patient Comments: 25mg 1 tablet. otc. Melatonin extra strength. Midol Complete 500-60-15 mg tablet 2 tab PO BID PRN (Reason: abdominal pain) Patient Comments: otc ibuprofen 200 mg tablet 200 mg PO QDAY PRN (Reason: abdominal pain) Patient Comments: otc Discontinued hydrocodone-acetaminophen 5-325 mg tablet 1 tab PO Q6H MDD 4 PRN (Reason: pain (scale score 7-10)) Qty: 20 0RF ibuprofen 600 mg tablet 600 mg PO Q8H PRN (Reason: pain (scale score 4-6)) Qty: 15 0RF aspirin 81 mg tablet 81 mg PO QDAY Rx Instructions: chewable Referrals: Mae Asher NP [Primary Care Provider] Patient/Caregiver Discharge Instructions Print Language: Kazakh Stand Alone Forms: Paulina Award Info., Patient Portal Info Letter Discharge Order Discharge Orders: Discharge (Routine); Ordered 05/04/25 Ordered By: Heriberto Aguilar
--- NOTE | 2025-05-04 13:35 | PD.SURPROG ---
Documentation for date of: 05/04/25 Subjective Subjective Narrative: Patient is seen and examined. He does not have significant pain, nausea or vomiting Exam Vital Signs Temp Pulse Resp BP Pulse Ox O2 Del Method O2 Flow Rate 98.1 F 90 19 131/81 H 98 Nasal Cannula 4 05/04/25 11:41 05/04/25 11:41 05/04/25 11:41 05/04/25 11:41 05/04/25 11:41 05/04/25 11:41 05/04/25 11:41 FiO2 30 05/03/25 04:00 Constitutional Constitutional: no acute distress Routine Abdominal Exam Comments: Abdomen is soft and nondistended. Colostomy is functioning. Incision is clean, dry and intact, except 2 areas of enterocutaneous fistula with significantly less drainage Assessment & Plan Assessment Additional comments: Postop day #15 status post exploratory laparotomy, sigmoid colectomy and abdominal washout Postop day #13 status post reexploration, partial colectomy with end colostomy Plan Continue TPN possibly for additional 2 to 4 weeks until enterocutaneous fistula is closed. Routine colostomy care PROCEDURES: Procedures Reexploration of the abdomen with abdominal washout. Partial colectomy with end colostomy
--- NOTE | 2025-05-04 14:36 | ESPR_ITS ---
<Statement entered by Chandu Moy MD - 05/14/25 09:19> I reviewed above note and agree with findings and plans. I have also personally examined the patient with medicine team and went over assessment and plan with medical team including events intern and resident physician. Documentation for date of: 05/04/25 Subjective Subjective Interval history: Patient seen at bedside today; reports doing well, states pain is controlled. Feels more comfortable compared to prior days. No fever, chills, nausea, or vomiting. No shortness of breath or chest pain. Ostomy output stable and non-bloody. Right side abdomen discomfort improved with analgesia; no limitation noted today. Tolerating TPN via PICC line without issues. Pending SNF placement due to TPN TPN to stay on until 05/29/2025 Exam Vital Signs Temp Pulse Resp BP Pulse Ox O2 Del Method O2 Flow Rate 98.1 F 87 19 131/81 H 98 Nasal Cannula 4 05/04/25 11:41 05/04/25 12:00 05/04/25 11:41 05/04/25 11:41 05/04/25 11:41 05/04/25 11:41 05/04/25 11:41 FiO2 30 05/03/25 04:00 Narrative Exam General: A&O x 3, comfortable, appears better than prior days. Pulm: Lungs clear bilaterally; no increased work of breathing. CV: RRR, no murmurs. GI: Soft, mildly distended, non-tender. Incision clean/dry. End colostomy pink and patent with normal output. Flank: Mild right flank tenderness improved from prior days, no CVA tenderness. Extremities: Trace edema; right hip nontender today. Neuro: Alert, following commands. Skin: No rash or lesions. Lines: PICC line in place, site clean/dry Objective Labs 05/04/25 04:25 05/04/25 04:25 Labs: Laboratory Results - last 24 hr 05/04/25 04:25 WBC 8.5 RBC 3.41 L Hgb 9.5 L Hct 29.0 L MCV 85 MCH 27.9 MCHC 32.8 RDW Std Deviation 42.1 Plt Count 424 D Neut % (Auto) 70 Lymph % (Auto) 11 [place] % (Auto) 16 H Eos % (Auto) 0 Baso % (Auto) 1 Neut # (Auto) 5.9 Lymph # (Auto) 0.9 L [place] # (Auto) 1.3 H Eos # (Auto) 0.0 Baso # (Auto) 0.1 Immature Gran # (Auto) 0.23 H Absolute Nucleated RBC 0.00 Immature Gran % 3 H Nucleated RBC % 0 Sodium 133 L Potassium 4.0 Chloride 98 Carbon Dioxide 27.7 Anion Gap 7 BUN 14 Creatinine 0.4 L Estim Creat Clear Calc 204.8 eGFR > 60 BUN/Creatinine Ratio 35 H Glucose 186 H Calculated Osmolality 271 L Calcium 7.4 L Corrected Calcium 8.7 Phosphorus 2.9 Magnesium 1.6 Total Bilirubin 0.3 AST 13 ALT < 7 L Alkaline Phosphatase 121 H Total Protein 5.0 L Albumin 2.4 L Globulin 2.6 Albumin/Globulin Ratio 0.9 L ABG Interpretation ABG results: 04/19/25 04/19/25 04/20/25 19:07 22:38 04:38 ABG pH 7.29 L 7.34 L 7.37 ABG pCO2 44 45 39 ABG pO2 297 H 43 L* D 146 H D ABG HCO3 21 24 22 ABG O2 Saturation 100 H 79 L 100 H ABG Base Excess -6 L -2 -3 VBG pH VBG pCO2 VBG pO2 VBG Base Excess 04/20/25 04/21/25 04/22/25 09:42 04:23 04:25 ABG pH 7.35 7.34 L ABG pCO2 44 50 H ABG pO2 96 D 73 L D ABG HCO3 24 27 H ABG O2 Saturation 98 95 ABG Base Excess -2 1 VBG pH 7.31 L VBG pCO2 46 VBG pO2 47 VBG Base Excess -3 Quality Measures Quality Measures VTE prophylaxis Assessment & Plan Assessment Current Active Medications: Generic Name Dose Route Start Last Admin Trade Name Freq PRN Reason Stop Dose Admin Acetaminophen 325 mg 05/02/25 06:41 05/02/25 18:06 Acetaminophen 325 Mg Tablet PO 06/01/25 06:40 325 mg Q4HR PRN Administration pain 1-3 Albuterol 2.5 mg 04/25/25 21:39 05/04/25 09:03 Albuterol Rt 2.5 Mg/0.5 Ml Nebu INH 05/25/25 22:59 2.5 mg Q4HRRT PRN Administration SHORTNESS OF BREATH OR WHEEZE Ascorbic Acid 500 mg 04/23/25 21:00 05/04/25 08:01 Ascorbic Acid 250 Mg Tablet PO 05/23/25 20:59 500 mg BID LYRIC Administration Aspirin 81 mg 04/28/25 09:00 05/04/25 08:01 Aspirin Ec 81 Mg Tabec PO 05/28/25 08:59 81 mg QDAY LYRIC Administration Carvedilol 3.125 mg 04/22/25 17:30 05/04/25 08:02 Carvedilol 3.125 Mg Tablet PO 05/22/25 17:29 3.125 mg BIDWM LYRIC Administration Dextrose 25 ml 04/22/25 11:17 Dextrose 50%-Water Inj 50 Ml Syringe IV 05/22/25 11:16 Q15MIN PRN BG 50-70 responsive npo pt Dextrose 50 ml 04/22/25 11:17 Dextrose 50%-Water Inj 50 Ml Syringe IV 05/22/25 11:16 Q15MIN PRN BG <50 OR BG <70 & pt unresponsive Docusate Sodium 100 mg 04/23/25 11:30 05/04/25 08:02 Docusate Sod 100 Mg Capsule PO 05/23/25 11:29 100 mg BID LYRIC Administration Protocol Fluticasone/Umeclidinium/Vilanterol 1 puff 04/30/25 09:45 05/04/25 09:03 Fluticasone/Umeclidin/Vilanterol 100-62.5-25 Mcg Inhaler INH 05/30/25 09:44 1 puff QDAY LYRIC Administration Glucagon 1 mg 04/22/25 11:17 Glucagon Inj 1 Mg Vial IM Q15MIN PRN BG <70, and no IV access Fat Emulsion Intravenous 500 mls @ 32 mls/hr 04/27/25 18:00 05/02/25 18:06 Intralipid 20% Iv IV 05/27/25 17:59 32 mls/hr [id number] LYRIC Administration Sodium Chloride 120 meq/ 2,061 mls @ 75 mls/hr 05/03/25 16:00 05/03/25 16:14 Potassium Phosphate 15 mmol/ IV 05/04/25 17:59 75 mls/hr Magnesium Sulfate 3 gm/ X1 ONE Administration Calcium Gluconate 2 gm/ Amino Protocol Acids Insulin Degludec 45 unit 05/03/25 21:00 05/03/25 20:11 Insulin Degludec 5 Unit/0.05 Ml (Per 5 Units) SC 06/02/25 20:59 45 unit HS LYRIC Administration Insulin Human Lispro 0 unit 04/26/25 18:00 05/04/25 11:54 Insulin Lispro (Admelog) 1 Unit/0.01 Ml Unit SC 05/26/25 17:59 3 unit Q6HR LYRIC Administration Protocol Levofloxacin 500 mg 05/04/25 14:30 Levofloxacin 250 Mg Tablet PO 05/11/25 14:29 QDAY LYRIC Lidocaine 2 patch 04/27/25 15:20 05/02/25 22:42 Lidocaine 5% 1 Patch TOP 05/27/25 15:19 2 patch UD PRN Administration PAIN Protocol Metronidazole 500 mg 05/04/25 14:30 Metronidazole 250 Mg Tablet PO 05/11/25 14:29 TID LYRIC Ondansetron HCl 4 mg 04/17/25 09:45 04/17/25 10:06 Ondansetron Inj 2 Mg/Ml Inj 2 Ml IVP 05/17/25 09:44 4 mg Q6HR PRN Administration NAUSEA OR VOMITING Protocol Oxycodone HCl 10 mg 05/02/25 16:43 05/04/25 10:37 Oxycodone Hcl 5 Mg Ir Tab PO 05/07/25 16:42 10 mg Q4HR PRN Administration pain 4-10 Pantoprazole Sodium 40 mg 04/27/25 09:00 05/04/25 08:01 Pantoprazole 40 Mg Tablet PO 05/27/25 08:59 40 mg QDAY LYRIC Administration Protocol Sodium Chloride 5 ml 04/19/25 18:06 Sodium Chloride Rt 10% 15 Ml Nebu INH 05/19/25 18:05 X1 PRN SECRETIONS Sodium Chloride 3 ml 04/25/25 21:39 05/02/25 17:59 Sodium Chloride Rt Malou 0.9% 3 Ml Nebu INH 05/25/25 21:38 3 ml Q4HR PRN Administration SOLN Thiamine HCl 100 mg 05/02/25 09:00 05/04/25 08:01 Thiamine 100 Mg Tablet PO 05/26/25 17:59 100 mg QDAY LYRIC Administration Protocol Zinc Sulfate 220 mg 04/23/25 11:30 05/04/25 08:02 Zinc Sulfate 220 Mg Capsule PO 05/23/25 11:29 220 mg QDAY LYRIC Administration Plan 64-year-old male with perforated sigmoid diverticulitis complicated by feculent peritonitis, s/p exploratory laparotomy, re-exploration with partial colectomy and end colostomy, ESBL E. coli bacteremia, enterocutaneous fistulas now requiring TPN via PICC line, clinically improving with normalized WBC, improving sodium, and well-controlled pain today. Pending SNF placement to care for TPN. # Perforated diverticulitis with feculent peritonitis s/p colostomy placement POD#13 from exploratory laparotomy with sigmoid colectomy POD#11 from washout, partial colectomy and end colostomy IV Zosyn was given 04/20-04/25 IV levofloxacin was given 04/24-04/25 Plan: * Continue PO levofloxacin 500 qday * Continue PO metronidazole 500 mg TID * Monitor ostomy output * Continue zinc 220 mg qday * Continue ascorbic acid 500 mg BID * Daily CBC and CMP * Pain control PRN * Continue PPI # Enterocutaneous Fistulas Fistulas had output over 1L of fluid yesterday day. Patient remains hemodynamically stable and afebrile. NPO for closure of fistula Plan: * Keep NPO except meds per general surgery. * PICC line placement done with TPN started. * Monitor fluid balance and electrolytes closely, recheck BMP tomorrow. * Continue monitoring fistula output. # ESBL E. coli bacteremia # Leukocytosis with left shift, improved Likely infectious but patient clinically has unchanged physical examination. 04/25/2025 ID changed antibiotic choice from IV Zosyn to PO levofloxacin and PO metronidazole. Patient was started on Zosyn 04/20/2025, started levothyroxine and metronidazole 04/24 will continue current antibiotic until 05/03/2025 for total course of 14 days effective antibiotics. Completed 14 day course today but per ID continue few more days will do 5 more days until 05/08/2025 Plan: * Continue PO levofloxacin 500 qday per ID * Continue PO metronidazole 500 mg TID per ID * Monitor vitals * Serial examinations * Repeat CBC tomorrow # Poor Nutrition / PO Intake # Hyponatremia secondary to PPN Patient on dysphagia diet however not meeting nutritional needs. Reports poor appetite. 04/26/2025 PPN was started. Sodium as of today is 126 given one tab salt tablet. 04/30: Significant improvement in intake; 80% of lunch today, after only 25% breakfast this AM. 05/01: Patient did not have dinner or breakfast due to pain, surgery to start TPN and place PICC line. 05/02: PICC line placed, TPN started. Patient tolerating well. 05/03: PICC line placed, TPN started. Patient tolerating well. TPN to stay on until 05/29/202505/04: Continue TPN. Patient tolerating well. TPN to stay on until 05/29/2025 Plan: * Consulted manager intensive care unit, following * NPO except meds, per surgery * PICC line placement done with TPN started. * Continue thiamine 100 mg IV daily. # Acute hypoxic respiratory failure # Right lung atelectasis # History of COPD Patient has been hypoxic saturating low 90s on 4-5L NC Likely secondary to pulmonary atelectasis Latest CXRs have not shown any pneumonia, there is however atelectasis in the right lower lung zone Plan: * Incentive spirometry * Continued home medication of trelegy qday * Continue duoneb as needed # History of CAD Patient reports history of 2 stents Plan: * Continue home aspirin 81 mg qday # Right pneumothorax, resolved S/p chest tube placement 04/21, removed 04/26 CXR on 04/24 shows interval improvement from 20% to <10%. CXR 04/25 shows complete resolution. 04/26 removed chest tube, 110 ml of translucent yellow fluid Plan: * Continue incentive spirometry * Work with PT towards ambulation * Repeatchest Xray showed no pneumothorax but noted to have mild atelectasis # Paroxysmal A-fib with RVR (04/21), resolved Likely secondary to underlying sepsis at that time and pneumothorax. Sinus rhythm since. Stopped amiodarone (per ICU team). Plan: * Telemetry monitoring. * Replete electrolytes (K >4, Mg >2). 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 Plan: * Will restart GDMT one med at a time. * Continue carvedilol 3.125 mg BID * Continue telemetry. # Type 2 diabetes A1c 6.8%. Plan: * Insulin degludec 45 U HS * Sliding scale insulin. # Septic shock, resolved Off pressors, stable MAP, normal lactate, improving urine output. Plan: * Continue current antibiotic coverage. # Acute kidney injury, resolved Creatinine back to normal with good UOP. Plan: * Monitor BMP daily. * Avoid nephrotoxins. Health Maintenance: Disposition: Pending SNF placement Diet: NPO, TPN through PICC line DVT prophylaxis: Lovenox. GI prophylaxis: Protonix. Bowel regimen: None currently; monitor ostomy output. Code Status: Full Code. Lines: PICC line placed site clean/dry. ----- Plan discussed with attending physician Dr. Farzaneh Tena MD PGY-1 Internal Medicine
--- NOTE | 2025-05-04 15:03 | PC.SS ---
SS received call from [facility] with questions in regards to TPN orders. SS requested DON to call RN, Karen to better explain. After conversation Dennise stated they need to order supplies for pt and they can have them there at their facility by tomorrow. SS updated Team A. SS also met with pt at [facility] and [facility] to answer all questions. Pt wanted to ensure he can transfer from [facility] to [facility] after TPN. SS informed pt, SS told Dennise at [facility] that was the plan as well as Farzana at [facility] who is an agreement with plan. Pt wishes are priorty per Dennise at [facility]. DC plan for tomorrow once [facility] has confirmed all supplies have been obtained to manage TPN.
--- NOTE | 2025-05-04 15:13 | PC.SS ---
PASRR file exchanged to [facility]
[2025-05-04] MEDS: FAT EMULSIONS 20% IV 500 ML 32 ML IV (18:08)
[2025-05-04] MEDS: LIDOCAINE 5% 1 PATCH 2 PATCH TOP (21:09)
[2025-05-04] MEDS: INSULIN DEGLUDEC 5 UNIT/0.05 ML (PER 5 UNITS) 45 UNIT SC (21:10)
[2025-05-05] VITALS (21 sets, daily range): BP systolic 122–140; BP diastolic 74–79; PULSE 88–100; RESP 16–30; TEMP 36.1–36.8; O2SAT 95–100; BMI 33.1
[2025-05-05] MEDS: INSULIN LISPRO (AdmeLOG) 1 UNIT/0.01 ML UNIT SC ×5 (00:03→23:38)
[2025-05-05] MEDS: ALBUTEROL RT 2.5 MG/0.5 ML NEBU INH ×6 (00:59→22:27)
[2025-05-05] MEDS: SODIUM CHLORIDE RT SOL 0.9% 3 ML NEBU INH ×5 (00:59→22:27)
[2025-05-05] MEDS: oxyCODONE HCL 5 MG IR TAB 10 MG PO ×3 (01:48→17:17)
[2025-05-05 05:35] LABS: Basophils # (Auto) 0.1 Thou/mm3 (0.0-0.2); Basophils % (Auto) 1 % (0-2.5); Eosinophils # (Auto) 0.1 Thou/mm3 (0.0-0.5); Eosinophils % (Auto) 1 % (0-10); Hematocrit 28.6 % (41.0-53.0); Hemoglobin 9.5 g/dL (13.5-16.0); Immature Granulocytes Auto 0.40 Thou/mm3 (0.00-0.00); Lymphocytes # (Auto) 0.9 Thou/mm3 (1.0-4.8); Lymphocytes % (Auto) 11 % (10-50); Mean Corpuscular HGB Conc 33.2 g/dl (31.0-37.0); Mean Corpuscular Hemoglobin 28.4 pg (25.0-35.0); Mean Corpuscular Volume 85 fL (80-100); Monocytes # (Auto) 1.3 Thou/mm3 (0.0-0.8); Monocytes % (Auto) 15 % (0-12); Neutrophils # (Auto) 5.5 Thou/mm3 (1.8-7.7); Neutrophils % (Auto) 68 % (37-80); Nucleated Red Blood Cell # 0.00 Thou/mm3 (0.00-0.00); Nucleated Red Blood Cell % 0 /100 WBC (0); Platelet Count 395 Thou/mm3 (140-440); RDW Standard Deviation 41.9 fL (35.1-43.9); Red Blood Count 3.35 Miln/mm3 (4.50-5.90); White Blood Count 8.2 Thou/mm3 (3.8-10.6)
[2025-05-05 06:22] LABS: Alanine Aminotransferase < 7 U/L (10-49); Albumin, Serum 2.4 gm/dL (3.4-4.8); Albumin/Globulin Ratio 1.0 (1.2-2.2); Alkaline Phosphatase 126 U/L (46-116); Anion Gap 8 (7-16); Aspartate Amino Transferase 13 U/L (0-34); BUN/Creatinine Ratio 24 Ratio (12-20); Bilirubin,Total 0.2 mg/dL (0.3-1.2); Blood Urea Nitrogen 12 mg/dL (9-23); Calcium 7.4 mg/dL (8.3-10.6); Calcium (Corrected) 8.7 mg/dL (8.5-10.1); Carbon Dioxide 27.2 mMol/L (20.0-31.0); Chloride 97 mMol/L (98-107); Creatinine (Component) 0.5 mg/dL (0.6-1.3); Estimated Creatinine Clearance 163.8 mL/min (>60); Globulin 2.5 gm/dL (2.3-3.5); Glucose 238 mg/dL (74-106); Magnesium 1.7 mg/dL (1.6-2.6); Osmolality,Calculated 272 (275-295); Phosphorous 2.7 mg/dL (2.4-5.1); Potassium 3.8 mMol/L (3.4-5.1); Sodium 132 mMol/L (136-145); Total Protein 4.9 gm/dL (5.7-8.2); eGFR > 60 See Note
[2025-05-05] MEDS: FLUTICASONE/UMECLIDIN/VILANTEROL 100-62.5-25 MCG INHALER 1 PUFF INH (07:29)
[2025-05-05] MEDS: ZINC SULFATE 220 MG CAPSULE PO (08:48)
[2025-05-05] MEDS: THIAMINE 100 MG TABLET PO (08:48)
[2025-05-05] MEDS: ASCORBIC ACID 250 MG TABLET 500 MG PO ×2 (08:48→21:02)
[2025-05-05] MEDS: ASPIRIN EC 81 MG TABEC PO (08:48)
[2025-05-05] MEDS: DOCUSATE SOD 100 MG CAPSULE PO ×2 (08:49→21:03)
[2025-05-05] MEDS: PANTOPRAZOLE 40 MG TABLET PO (08:49)
--- NOTE | 2025-05-05 08:54 | PC.NURSE ---
DR. DENNIS CALLED VIA TELEPHONE, ORDER TO INCREASE TPN TO 90ML/HR, PHARMACY MADE AWARE. ORDER RECEIVED, READ BACK AND CARRIED OUT.
--- NOTE | 2025-05-05 09:58 | PC.SS ---
SS received call from Dennise at [facility] who explained she sent the TPN information (which was sent yesterday by HORACE Padilla) to their pharmacy and was informed the formula was as not specific. Per Dennise, the information has to contain the specific formula (for ex. how much magnesium and how much calcium). Dennise is requesting the specific formula order for TPN. Physician residents provided SS with the RD note which contain specific TPN formula. HORACE has sent [facility] RD note using [employer]. SS confirmed with Dennise from [facility] the RD note is correct and she has sent the information to their pharmacy.
[2025-05-05 10:17] LABS: Triglycerides 74 mg/dL (30-150)
--- NOTE | 2025-05-05 11:36 | EVENTNT_ITS ---
Documentation for date of: 05/05/25 Event Note Event Note: Updated TPN Administration Rate [facility]LEN[facility] PAGAN [facility] 1960 [id number] 05/01/25 14:32 - Dietitian Note by Kristine Mcgovern RD Acct Num: [id number] : 1960 Patient Age: 64 Dietitian recommendation: consider switch to central parenteral nutrition mix if oral intake remains <50% of meal and supplements CPN: D20% AA5% at goal of 90 ml/hr with 500 ml 20% lipid 3 times a week (Mon-Wed-Fri). Start at 25 ml/hr for 8 hrs, then 50 ml/hr for 8 hrs, then advance to goal of 90 ml/hr. Provides: 1800 ml volume, 90 g AA, 360 g dextrose, 2013 total calories, NPC 1653. GIR=2.72 Thank you Case was discussed with attending physician. Heriberto Aguilar DO PGY II This document was transcribed using voice recognition technology. Minor inaccuracies may be present.
--- NOTE | 2025-05-05 12:53 | PD.SURPROG ---
Documentation for date of: 05/05/25 Subjective Subjective Narrative: Patient is seen and examined., Clinically improving. He has remained afebrile with normal WBC. Colostomy is functioning, output from enterocutaneous fistula decreased Exam Vital Signs Temp Pulse Resp BP Pulse Ox O2 Del Method O2 Flow Rate 98.1 F 100 18 140/76 H 95 Nasal Cannula 4 05/05/25 12:00 05/05/25 12:00 05/05/25 12:00 05/05/25 12:00 05/05/25 12:00 05/05/25 12:00 05/05/25 12:00 FiO2 30 05/05/25 12:00 Constitutional Constitutional: no acute distress Routine Abdominal Exam Comments: Abdomen is soft and nondistended. Colostomy is functioning. Incision is clean, dry and intact, 2 areas of enteric cutaneous fistula with appliances in place Assessment & Plan Assessment Additional comments: Postop day #16 status post exploratory laparotomy, sigmoid colectomy and abdominal washout Postop day #14 status post reexploration, partial colectomy with end colostomy Plan Increase the TPN rate to 90 as his albumin is trending downwards PROCEDURES: Procedures Reexploration of the abdomen with abdominal washout. Partial colectomy with end colostomy
--- NOTE | 2025-05-05 15:47 | ESPR_ITS ---
<Statement entered by Chandu Moy MD - 05/14/25 09:23> I reviewed above note and agree with findings and plans. I have also personally examined the patient with medicine team and went over assessment and plan with medical team including marketing pr intern and resident physician. Documentation for date of: 05/05/25 Subjective Subjective Interval history: Patient seen today at the bedside found awake, alert, orientedx3. No overnight events reported. Vitals and labs reviewed. Patient still on TPN will require at least 4 weeks of TPN while enterocutaneous fistula heals. Recommendations were sent to the alf facility and at the time of arrival to said facility can increase the rate of TPN to 90 mL/h we will continue with current rate during hospitalization or as per general surgery. Exam Vital Signs Temp Pulse Resp BP Pulse Ox O2 Del Method O2 Flow Rate 98.1 F 99 16 140/76 H 97 Nasal Cannula 4 05/05/25 12:00 05/05/25 14:48 05/05/25 14:48 05/05/25 12:00 05/05/25 14:48 05/05/25 12:00 05/05/25 14:48 FiO2 30 05/05/25 12:00 Narrative Exam General: A&O x 3, comfortable, appears better than prior days. Pulm: Lungs clear bilaterally; no increased work of breathing. CV: RRR, no murmurs. GI: Soft, mildly distended, non-tender. Incision clean/dry. End colostomy pink and patent with normal output. Flank: Mild right flank tenderness improved from prior days, no CVA tenderness. Extremities: Trace edema; right hip nontender today. Neuro: Alert, following commands. Skin: No rash or lesions. Lines: PICC line in place, site clean/dry Objective Labs 05/05/25 04:45 05/05/25 04:45 Labs: Laboratory Results - last 24 hr 05/05/25 04:45 WBC 8.2 RBC 3.35 L Hgb 9.5 L Hct 28.6 L MCV 85 MCH 28.4 MCHC 33.2 RDW Std Deviation 41.9 Plt Count 395 Neut % (Auto) 68 Lymph % (Auto) 11 [place] % (Auto) 15 H Eos % (Auto) 1 Baso % (Auto) 1 Neut # (Auto) 5.5 Lymph # (Auto) 0.9 L [place] # (Auto) 1.3 H Eos # (Auto) 0.1 Baso # (Auto) 0.1 Immature Gran # (Auto) 0.40 H Absolute Nucleated RBC 0.00 Immature Gran % 5 H Nucleated RBC % 0 Sodium 132 L Potassium 3.8 Chloride 97 L Carbon Dioxide 27.2 Anion Gap 8 BUN 12 Creatinine 0.5 L Estim Creat Clear Calc 163.8 eGFR > 60 BUN/Creatinine Ratio 24 H Glucose 238 H D Calculated Osmolality 272 L Calcium 7.4 L Corrected Calcium 8.7 Phosphorus 2.7 Magnesium 1.7 Total Bilirubin 0.2 L AST 13 ALT < 7 L Alkaline Phosphatase 126 H Total Protein 4.9 L Albumin 2.4 L Globulin 2.5 Albumin/Globulin Ratio 1.0 L Triglycerides 74 ABG Interpretation ABG results: 04/19/25 04/19/25 04/20/25 19:07 22:38 04:38 ABG pH 7.29 L 7.34 L 7.37 ABG pCO2 44 45 39 ABG pO2 297 H 43 L* D 146 H D ABG HCO3 21 24 22 ABG O2 Saturation 100 H 79 L 100 H ABG Base Excess -6 L -2 -3 VBG pH VBG pCO2 VBG pO2 VBG Base Excess 04/20/25 04/21/25 04/22/25 09:42 04:23 04:25 ABG pH 7.35 7.34 L ABG pCO2 44 50 H ABG pO2 96 D 73 L D ABG HCO3 24 27 H ABG O2 Saturation 98 95 ABG Base Excess -2 1 VBG pH 7.31 L VBG pCO2 46 VBG pO2 47 VBG Base Excess -3 Quality Measures Quality Measures VTE prophylaxis Assessment & Plan Assessment Current Active Medications: Generic Name Dose Route Start Last Admin Trade Name Freq PRN Reason Stop Dose Admin Acetaminophen 325 mg 05/02/25 06:41 05/02/25 18:06 Acetaminophen 325 Mg Tablet PO 06/01/25 06:40 325 mg Q4HR PRN Administration pain 1-3 Albuterol 2.5 mg 05/05/25 09:30 05/05/25 14:47 Albuterol Rt 2.5 Mg/0.5 Ml Nebu INH 06/04/25 09:29 2.5 mg Q4HRRT LYRIC Administration Albuterol/Ipratropium 3 ml 05/05/25 09:19 Albuterol/Ipratropium (Duoneb) Rt Malou 3 Ml Nebu INH 06/04/25 09:18 Q2HR PRN SHORTNESS OF BREATH OR WHEEZE Ascorbic Acid 500 mg 04/23/25 21:00 05/05/25 08:48 Ascorbic Acid 250 Mg Tablet PO 05/23/25 20:59 500 mg BID LYRIC Administration Aspirin 81 mg 04/28/25 09:00 05/05/25 08:48 Aspirin Ec 81 Mg Tabec PO 05/28/25 08:59 81 mg QDAY LYRIC Administration Carvedilol 3.125 mg 04/22/25 17:30 05/05/25 08:49 Carvedilol 3.125 Mg Tablet PO 05/22/25 17:29 3.125 mg BIDWM LYRIC Administration Dextrose 25 ml 04/22/25 11:17 Dextrose 50%-Water Inj 50 Ml Syringe IV 05/22/25 11:16 Q15MIN PRN BG 50-70 responsive npo pt Dextrose 50 ml 04/22/25 11:17 Dextrose 50%-Water Inj 50 Ml Syringe IV 05/22/25 11:16 Q15MIN PRN BG <50 OR BG <70 & pt unresponsive Docusate Sodium 100 mg 04/23/25 11:30 05/05/25 08:49 Docusate Sod 100 Mg Capsule PO 05/23/25 11:29 100 mg BID LYRIC Administration Protocol Fluticasone/Umeclidinium/Vilanterol 1 puff 04/30/25 09:45 05/05/25 07:29 Fluticasone/Umeclidin/Vilanterol 100-62.5-25 Mcg Inhaler INH 05/30/25 09:44 1 puff QDAY LYRIC Administration Glucagon 1 mg 04/22/25 11:17 Glucagon Inj 1 Mg Vial IM Q15MIN PRN BG <70, and no IV access Fat Emulsion Intravenous 500 mls @ 32 mls/hr 04/27/25 18:00 05/04/25 18:08 Intralipid 20% Iv IV 05/27/25 17:59 32 mls/hr [email or web address] LYRIC Administration Sodium Chloride 120 meq/ 2,061 mls @ 75 mls/hr 05/04/25 18:00 05/05/25 08:56 Potassium Phosphate 15 mmol/ IV 05/05/25 21:28 90 mls/hr Magnesium Sulfate 3 gm/ X1 ONE Infusion Calcium Gluconate 2 gm/ Amino Protocol Acids Sodium Chloride 120 meq/ 2,061 mls @ 90 mls/hr 05/05/25 18:00 Potassium Phosphate 15 mmol/ IV 05/06/25 16:53 Magnesium Sulfate 3 gm/ Q24H LYRIC Calcium Gluconate 2 gm/ Amino Protocol Acids Insulin Degludec 45 unit 05/03/25 21:00 05/04/25 21:10 Insulin Degludec 5 Unit/0.05 Ml (Per 5 Units) SC 06/02/25 20:59 45 unit HS LYRIC Administration Insulin Human Lispro 0 unit 04/26/25 18:00 05/05/25 12:27 Insulin Lispro (Admelog) 1 Unit/0.01 Ml Unit SC 05/26/25 17:59 4 unit Q6HR LYRIC Administration Protocol Levofloxacin 500 mg 05/04/25 14:30 05/05/25 08:49 Levofloxacin 250 Mg Tablet PO 05/11/25 14:29 500 mg QDAY LYRIC Administration Lidocaine 2 patch 04/27/25 15:20 05/04/25 21:09 Lidocaine 5% 1 Patch TOP 05/27/25 15:19 2 patch UD PRN Administration PAIN Protocol Metronidazole 500 mg 05/04/25 14:30 05/05/25 14:29 Metronidazole 250 Mg Tablet PO 05/11/25 14:29 500 mg TID LYRIC Administration Ondansetron HCl 4 mg 04/17/25 09:45 04/17/25 10:06 Ondansetron Inj 2 Mg/Ml Inj 2 Ml IVP 05/17/25 09:44 4 mg Q6HR PRN Administration NAUSEA OR VOMITING Protocol Oxycodone HCl 10 mg 05/02/25 16:43 05/05/25 09:26 Oxycodone Hcl 5 Mg Ir Tab PO 05/07/25 16:42 10 mg Q4HR PRN Administration pain 4-10 Pantoprazole Sodium 40 mg 04/27/25 09:00 05/05/25 08:49 Pantoprazole 40 Mg Tablet PO 05/27/25 08:59 40 mg QDAY LYRIC Administration Protocol Sodium Chloride 3 ml 04/25/25 21:39 05/05/25 14:47 Sodium Chloride Rt Malou 0.9% 3 Ml Nebu INH 05/25/25 21:38 3 ml Q4HR PRN Administration SOLN Thiamine HCl 100 mg 05/02/25 09:00 05/05/25 08:48 Thiamine 100 Mg Tablet PO 05/26/25 17:59 100 mg QDAY LYRIC Administration Protocol Zinc Sulfate 220 mg 04/23/25 11:30 05/05/25 08:48 Zinc Sulfate 220 Mg Capsule PO 05/23/25 11:29 220 mg QDAY LYRIC Administration Plan 64-year-old male with perforated sigmoid diverticulitis complicated by feculent peritonitis, s/p exploratory laparotomy, re-exploration with partial colectomy and end colostomy, ESBL E. coli bacteremia, enterocutaneous fistulas now requiring TPN via PICC line, clinically improving with normalized WBC, improving sodium, and well-controlled pain today. Pending SNF placement to care for TPN. # Perforated diverticulitis with feculent peritonitis s/p colostomy placement POD#13 from exploratory laparotomy with sigmoid colectomy POD#11 from washout, partial colectomy and end colostomy IV Zosyn was given 04/20-04/25 IV levofloxacin was given 04/24-04/25 -Continue PO levofloxacin 500 qday -Continue PO metronidazole 500 mg TID -Monitor ostomy output -Continue zinc 220 mg qday -Continue ascorbic acid 500 mg BID -Daily CBC and CMP -Pain control PRN -Continue PPI #Enterocutaneous Fistulas Fistulas had output over 1L of fluid yesterday day. Patient remains hemodynamically stable and afebrile. NPO for closure of fistula -Keep NPO except meds per general surgery. -PICC line placement done with TPN started. -Monitor fluid balance and electrolytes closely, recheck BMP tomorrow. -Continue monitoring fistula output. # ESBL E. coli bacteremia # Leukocytosis with left shift, improved Likely infectious but patient clinically has unchanged physical examination. 04/25/2025 ID changed antibiotic choice from IV Zosyn to PO levofloxacin and PO metronidazole. Patient was started on Zosyn 04/20/2025, started levothyroxine and metronidazole 04/24 will continue current antibiotic until 05/03/2025 for total course of 14 days effective antibiotics. Completed 14 day course today but per ID continue few more days will do 5 more days until 05/08/2025 -Continue PO levofloxacin 500 qday per ID -Continue PO metronidazole 500 mg TID per ID -Monitor vitals -Serial examinations -Repeat CBC tomorrow # Poor Nutrition / PO Intake # Hyponatremia secondary to PPN Patient on dysphagia diet however not meeting nutritional needs. Reports poor appetite. 04/26/2025 PPN was started. Sodium as of today is 126 given one tab salt tablet. 04/30: Significant improvement in intake; 80% of lunch today, after only 25% breakfast this AM. 05/01: Patient did not have dinner or breakfast due to pain, surgery to start TPN and place PICC line. 05/02: PICC line placed, TPN started. Patient tolerating well. 05/03: PICC line placed, TPN started. Patient tolerating well. TPN to stay on until 05/29/202505/04: Continue TPN. Patient tolerating well. TPN to stay on until 05/29/2025 TPN reccs by diet: consider switch to central parenteral nutrition mix if oral intake remains <50% of meal and supplements CPN: D20% AA5% at goal of 75 ml/hr with 500 ml 20% lipid 3 times a week (Mon-Wed-Wed). Start at 25 ml/hr for 8 hrs, then 50 ml/hr for 8 hrs, then advance to goal of 75 ml/hr. Provides: 1800 ml volume, 90 g AA, 360 g dextrose, 2013 total calories, NPC 1653. GIR=2.72 -Consulted energy engineer, following -NPO except meds, per surgery -PICC line placement done with TPN started. -Continue thiamine 100 mg IV daily. # Acute hypoxic respiratory failure # Right lung atelectasis # History of COPD Patient has been hypoxic saturating low 90s on 4-5L NC Likely secondary to pulmonary atelectasis Latest CXRs have not shown any pneumonia, there is however atelectasis in the right lower lung zone -Incentive spirometry -Continued home medication of trelegy qday -Continue duoneb as needed # History of CAD Patient reports history of 2 stents -Continue home aspirin 81 mg qday # Right pneumothorax, resolved S/p chest tube placement 04/21, removed 04/26 CXR on 04/24 shows interval improvement from 20% to <10%. CXR 04/25 shows complete resolution. 04/26 removed chest tube, 110 ml of translucent yellow fluid -Continue incentive spirometry -Work with PT towards ambulation -Repeatchest Xray showed no pneumothorax but noted to have mild atelectasis # Paroxysmal A-fib with RVR (04/21), resolved Likely secondary to underlying sepsis at that time and pneumothorax. Sinus rhythm since. Stopped amiodarone (per ICU team). -Telemetry monitoring. -Replete electrolytes (K >4, Mg >2). 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 -Continue carvedilol 3.125 mg BID -Continue telemetry. # Type 2 diabetes A1c 6.8%. -Insulin degludec 45 U HS -Sliding scale insulin. # Septic shock, resolved Off pressors, stable MAP, normal lactate, improving urine output. -Continue current antibiotic coverage. # Acute kidney injury, resolved Creatinine back to normal with good UOP. -Monitor BMP daily. -Avoid nephrotoxins. Health Maintenance: Disposition: Pending SNF placement Diet: NPO, TPN through PICC line DVT prophylaxis: Lovenox. GI prophylaxis: Protonix. Bowel regimen: None currently; monitor ostomy output. Code Status: Full Code. Lines: PICC line placed site clean/dry. Plan discussed with attending physician Dr. Farzaneh Grant MD PGY-2
[2025-05-05] MEDS: INSULIN DEGLUDEC 5 UNIT/0.05 ML (PER 5 UNITS) 45 UNIT SC (21:03)
[2025-05-06] VITALS (21 sets, daily range): BP systolic 108–132; BP diastolic 63–82; PULSE 77–98; RESP 16–98; TEMP 36.2–37; O2SAT 93–99; BMI 33.1
[2025-05-06] MEDS: oxyCODONE HCL 5 MG IR TAB 10 MG PO ×3 (01:37→23:40)
[2025-05-06] MEDS: ALBUTEROL RT 2.5 MG/0.5 ML NEBU INH ×6 (03:04→22:45)
[2025-05-06] MEDS: SODIUM CHLORIDE RT SOL 0.9% 3 ML NEBU INH ×5 (03:04→22:45)
[2025-05-06] MEDS: LIDOCAINE 5% 1 PATCH 2 PATCH TOP (05:31)
[2025-05-06] MEDS: INSULIN LISPRO (AdmeLOG) 1 UNIT/0.01 ML UNIT SC ×4 (05:36→23:49)
[2025-05-06 05:57] LABS: Eosinophils # (Auto) 0.1 Thou/mm3 (0.0-0.5); Eosinophils % (Auto) 1 % (0-10); Nucleated Red Blood Cell # 0.00 Thou/mm3 (0.00-0.00); Nucleated Red Blood Cell % 0 /100 WBC (0)
[2025-05-06] MEDS: FLUTICASONE/UMECLIDIN/VILANTEROL 100-62.5-25 MCG INHALER 1 PUFF INH (06:43)
[2025-05-06 06:45] LABS: Albumin, Serum 2.3 gm/dL (3.4-4.8); Albumin/Globulin Ratio 0.9 (1.2-2.2); Alkaline Phosphatase 117 U/L (46-116); Anion Gap 6 (7-16); Aspartate Amino Transferase < 10 U/L (0-34); BUN/Creatinine Ratio 30 Ratio (12-20); Bilirubin,Total 0.3 mg/dL (0.3-1.2); Blood Urea Nitrogen 15 mg/dL (9-23); Calcium 7.5 mg/dL (8.3-10.6); Calcium (Corrected) 8.9 mg/dL (8.5-10.1); Carbon Dioxide 29.2 mMol/L (20.0-31.0); Chloride 98 mMol/L (98-107); Creatinine (Component) 0.5 mg/dL (0.6-1.3); Estimated Creatinine Clearance 163.8 mL/min (>60); Globulin 2.6 gm/dL (2.3-3.5); Glucose 220 mg/dL (74-106); Magnesium 1.6 mg/dL (1.6-2.6); Osmolality,Calculated 274 (275-295); Phosphorous 2.7 mg/dL (2.4-5.1); Potassium 4.0 mMol/L (3.4-5.1); Sodium 133 mMol/L (136-145); Total Protein 4.9 gm/dL (5.7-8.2); eGFR > 60 See Note
[2025-05-06 06:49] LABS: Alanine Aminotransferase < 7 U/L (10-49)
[2025-05-06 08:02] LABS: Basophils # (Auto) 0.1 Thou/mm3 (0.0-0.2); Basophils % (Auto) 1 % (0-2.5); Immature Granulocytes Auto 0.32 Thou/mm3 (0.00-0.00); Lymphocytes # (Auto) 0.8 Thou/mm3 (1.0-4.8); Lymphocytes % (Auto) 10 % (10-50); Mean Corpuscular HGB Conc 33.0 g/dl (31.0-37.0); Mean Corpuscular Hemoglobin 28.2 pg (25.0-35.0); Mean Corpuscular Volume 86 fL (80-100); Monocytes # (Auto) 1.2 Thou/mm3 (0.0-0.8); Monocytes % (Auto) 14 % (0-12); Neutrophils # (Auto) 6.0 Thou/mm3 (1.8-7.7); Neutrophils % (Auto) 71 % (37-80); Platelet Count 339 Thou/mm3 (140-440); RDW Standard Deviation 42.7 fL (35.1-43.9); Red Blood Count 3.40 Miln/mm3 (4.50-5.90); White Blood Count 8.5 Thou/mm3 (3.8-10.6)
[2025-05-06 08:17] LABS: Hematocrit 29.1 % (41.0-53.0); Hemoglobin 9.6 g/dL (13.5-16.0)
[2025-05-06] MEDS: INSULIN LISPRO (AdmeLOG) 1 UNIT/0.01 ML UNIT 5 UNIT SC ×3 (08:39→22:10)
[2025-05-06] MEDS: PANTOPRAZOLE 40 MG TABLET PO (08:40)
[2025-05-06] MEDS: ASCORBIC ACID 250 MG TABLET 500 MG PO ×2 (08:40→22:05)
[2025-05-06] MEDS: Magnesium Sulfate 2 GM Ivpb 2 GM/50 ML BAG IV (08:40)
[2025-05-06] MEDS: ZINC SULFATE 220 MG CAPSULE PO (08:41)
[2025-05-06] MEDS: DOCUSATE SOD 100 MG CAPSULE PO ×2 (08:41→22:05)
[2025-05-06] MEDS: ASPIRIN EC 81 MG TABEC PO (08:45)
[2025-05-06] MEDS: THIAMINE 100 MG TABLET PO (08:45)
--- NOTE | 2025-05-06 14:36 | ESPR_ITS ---
<Statement entered by Chandu Moy MD - 05/14/25 09:23> I reviewed above note and agree with findings and plans. I have also personally examined the patient with medicine team and went over assessment and plan with medical team including technical internship and resident physician. Documentation for date of: 05/06/25 Subjective Subjective Interval history: No acute overnight events. Patient seen at bedside today; reports doing well, states pain is controlled. Feels more comfortable compared to prior days. No fever, chills, nausea, or vomiting. No shortness of breath or chest pain. Ostomy output stable and non-bloody. Tolerating TPN via PICC line without issues. Pending SNF placement due to TPN TPN to stay on until 05/29/2025 Exam Vital Signs Temp Pulse Resp BP Pulse Ox O2 Del Method O2 Flow Rate 98.5 F 77 21 H 114/74 98 Nasal Cannula 2 05/06/25 12:00 05/06/25 14:21 05/06/25 14:21 05/06/25 12:00 05/06/25 14:21 05/06/25 12:00 05/06/25 14:21 FiO2 30 05/06/25 12:00 Narrative Exam General: A&O x 3, comfortable, appears better than prior days. Pulm: Lungs clear bilaterally; no increased work of breathing. CV: RRR, no murmurs. GI: Soft, mildly distended, non-tender. Incision clean/dry. End colostomy pink and patent with normal output. Flank: Mild right flank tenderness improved from prior days, no CVA tenderness. Extremities: Trace edema; right hip nontender today. Neuro: Alert, following commands. Skin: No rash or lesions. Lines: PICC line in place, site clean/dry Objective Labs 05/06/25 04:00 05/06/25 04:50 Labs: Laboratory Results - last 24 hr 05/06/25 05/06/25 04:00 04:50 WBC 8.5 RBC 3.40 L Hgb 9.6 L Hct 29.1 L MCV 86 MCH 28.2 MCHC 33.0 RDW Std Deviation 42.7 Plt Count 339 D Neut % (Auto) 71 Lymph % (Auto) 10 [place] % (Auto) 14 H Eos % (Auto) 1 Baso % (Auto) 1 Neut # (Auto) 6.0 Lymph # (Auto) 0.8 L [place] # (Auto) 1.2 H Eos # (Auto) 0.1 Baso # (Auto) 0.1 Immature Gran # (Auto) 0.32 H Absolute Nucleated RBC 0.00 Immature Gran % 4 H Nucleated RBC % 0 Sodium 133 L Potassium 4.0 Chloride 98 Carbon Dioxide 29.2 Anion Gap 6 L BUN 15 Creatinine 0.5 L Estim Creat Clear Calc 163.8 eGFR > 60 BUN/Creatinine Ratio 30 H Glucose 220 H Calculated Osmolality 274 L Calcium 7.5 L Corrected Calcium 8.9 Phosphorus 2.7 Magnesium 1.6 Total Bilirubin 0.3 AST < 10 ALT < 7 L Alkaline Phosphatase 117 H Total Protein 4.9 L Albumin 2.3 L Globulin 2.6 Albumin/Globulin Ratio 0.9 L ABG Interpretation ABG results: 04/19/25 04/19/25 04/20/25 19:07 22:38 04:38 ABG pH 7.29 L 7.34 L 7.37 ABG pCO2 44 45 39 ABG pO2 297 H 43 L* D 146 H D ABG HCO3 21 24 22 ABG O2 Saturation 100 H 79 L 100 H ABG Base Excess -6 L -2 -3 VBG pH VBG pCO2 VBG pO2 VBG Base Excess 04/20/25 04/21/25 04/22/25 09:42 04:23 04:25 ABG pH 7.35 7.34 L ABG pCO2 44 50 H ABG pO2 96 D 73 L D ABG HCO3 24 27 H ABG O2 Saturation 98 95 ABG Base Excess -2 1 VBG pH 7.31 L VBG pCO2 46 VBG pO2 47 VBG Base Excess -3 Quality Measures Quality Measures VTE prophylaxis Assessment & Plan Assessment Current Active Medications: Generic Name Dose Route Start Last Admin Trade Name Freq PRN Reason Stop Dose Admin Acetaminophen 325 mg 05/02/25 06:41 05/02/25 18:06 Acetaminophen 325 Mg Tablet PO 06/01/25 06:40 325 mg Q4HR PRN Administration pain 1-3 Albuterol 2.5 mg 05/05/25 09:30 05/06/25 14:19 Albuterol Rt 2.5 Mg/0.5 Ml Nebu INH 06/04/25 09:29 2.5 mg Q4HRRT LYRIC Administration Albuterol/Ipratropium 3 ml 05/05/25 09:19 Albuterol/Ipratropium (Duoneb) Rt Malou 3 Ml Nebu INH 06/04/25 09:18 Q2HR PRN SHORTNESS OF BREATH OR WHEEZE Ascorbic Acid 500 mg 04/23/25 21:00 05/06/25 08:40 Ascorbic Acid 250 Mg Tablet PO 05/23/25 20:59 500 mg BID LYRIC Administration Aspirin 81 mg 04/28/25 09:00 05/06/25 08:45 Aspirin Ec 81 Mg Tabec PO 05/28/25 08:59 81 mg QDAY LYRIC Administration Carvedilol 3.125 mg 04/22/25 17:30 05/06/25 08:41 Carvedilol 3.125 Mg Tablet PO 05/22/25 17:29 3.125 mg BIDWM LYRIC Administration Dextrose 25 ml 04/22/25 11:17 Dextrose 50%-Water Inj 50 Ml Syringe IV 05/22/25 11:16 Q15MIN PRN BG 50-70 responsive npo pt Dextrose 50 ml 04/22/25 11:17 Dextrose 50%-Water Inj 50 Ml Syringe IV 05/22/25 11:16 Q15MIN PRN BG <50 OR BG <70 & pt unresponsive Docusate Sodium 100 mg 04/23/25 11:30 05/06/25 08:41 Docusate Sod 100 Mg Capsule PO 05/23/25 11:29 100 mg BID LYRIC Administration Protocol Fluticasone/Umeclidinium/Vilanterol 1 puff 04/30/25 09:45 05/06/25 06:43 Fluticasone/Umeclidin/Vilanterol 100-62.5-25 Mcg Inhaler INH 05/30/25 09:44 1 puff QDAY LYRIC Administration Glucagon 1 mg 04/22/25 11:17 Glucagon Inj 1 Mg Vial IM Q15MIN PRN BG <70, and no IV access Fat Emulsion Intravenous 500 mls @ 32 mls/hr 04/27/25 18:00 05/04/25 18:08 Intralipid 20% Iv IV 05/27/25 17:59 32 mls/hr [email or web address] LYRIC Administration Sodium Chloride 120 meq/ 2,061 mls @ 90 mls/hr 05/05/25 18:00 05/05/25 17:16 Potassium Phosphate 15 mmol/ IV 05/06/25 16:53 90 mls/hr Magnesium Sulfate 3 gm/ Q24H LYRIC Administration Calcium Gluconate 2 gm/ Amino Protocol Acids Sodium Chloride 120 meq/ 2,061 mls @ 90 mls/hr 05/06/25 16:54 Potassium Phosphate 15 mmol/ IV 05/07/25 15:47 Magnesium Sulfate 3 gm/ Q24H COUNT INCLUDES THE [facility] Calcium Gluconate 2 gm/ Amino Protocol Acids Insulin Degludec 50 unit 05/06/25 21:00 Insulin Degludec 5 Unit/0.05 Ml (Per 5 Units) SC 06/05/25 20:59 HS LYRIC Insulin Human Lispro 0 unit 04/26/25 18:00 05/06/25 11:33 Insulin Lispro (Admelog) 1 Unit/0.01 Ml Unit SC 05/26/25 17:59 4 unit Q6HR LYRIC Administration Protocol Insulin Human Lispro 5 unit 05/06/25 08:15 05/06/25 08:39 Insulin Lispro (Admelog) 1 Unit/0.01 Ml Unit SC 06/05/25 08:14 5 unit TID COUNT INCLUDES THE [facility] Administration Levofloxacin 500 mg 05/04/25 14:30 05/06/25 08:40 Levofloxacin 250 Mg Tablet PO 05/11/25 14:29 500 mg QDAY COUNT INCLUDES THE [facility] Administration Lidocaine 2 patch 04/27/25 15:20 05/06/25 05:31 Lidocaine 5% 1 Patch TOP 05/27/25 15:19 2 patch UD PRN Administration PAIN Protocol Metronidazole 500 mg 05/04/25 14:30 05/06/25 05:36 Metronidazole 250 Mg Tablet PO 05/11/25 14:29 500 mg TID LYRIC Administration Ondansetron HCl 4 mg 04/17/25 09:45 04/17/25 10:06 Ondansetron Inj 2 Mg/Ml Inj 2 Ml IVP 05/17/25 09:44 4 mg Q6HR PRN Administration NAUSEA OR VOMITING Protocol Oxycodone HCl 10 mg 05/02/25 16:43 05/06/25 08:44 Oxycodone Hcl 5 Mg Ir Tab PO 05/07/25 16:42 10 mg Q4HR PRN Administration pain 4-10 Pantoprazole Sodium 40 mg 04/27/25 09:00 05/06/25 08:40 Pantoprazole 40 Mg Tablet PO 05/27/25 08:59 40 mg QDAY LYRIC Administration Protocol Sodium Chloride 3 ml 04/25/25 21:39 05/06/25 14:20 Sodium Chloride Rt Malou 0.9% 3 Ml Nebu INH 05/25/25 21:38 3 ml Q4HR PRN Administration SOLN Thiamine HCl 100 mg 05/02/25 09:00 05/06/25 08:45 Thiamine 100 Mg Tablet PO 05/26/25 17:59 100 mg QDAY LYRCI Administration Protocol Zinc Sulfate 220 mg 04/23/25 11:30 05/06/25 08:41 Zinc Sulfate 220 Mg Capsule PO 05/23/25 11:29 220 mg QDAY LYRIC Administration Plan 64-year-old male with perforated sigmoid diverticulitis complicated by feculent peritonitis, s/p exploratory laparotomy, re-exploration with partial colectomy and end colostomy, ESBL E. coli bacteremia, enterocutaneous fistulas now requiring TPN via PICC line, clinically improving with normalized WBC, improving sodium, and well-controlled pain today. Pending SNF placement to care for TPN. # Perforated diverticulitis with feculent peritonitis s/p colostomy placement POD#17 from exploratory laparotomy with sigmoid colectomy POD#15 from washout, partial colectomy and end colostomy IV Zosyn was given 04/20-04/25 IV levofloxacin was given 04/24-04/25 -Continue PO levofloxacin 500 qday -Continue PO metronidazole 500 mg TID -Monitor ostomy output -Continue zinc 220 mg qday -Continue ascorbic acid 500 mg BID -Daily CBC and CMP -Pain control PRN -Continue PPI #Enterocutaneous Fistulas Fistulas had output over 1L of fluid yesterday day. Patient remains hemodynamically stable and afebrile. NPO for closure of fistula -Keep NPO except meds per general surgery. -PICC line placement done with TPN started. -Monitor fluid balance and electrolytes closely, recheck BMP tomorrow. -Continue monitoring fistula output. # ESBL E. coli bacteremia # Leukocytosis with left shift, improved Likely infectious but patient clinically has unchanged physical examination. 04/25/2025 ID changed antibiotic choice from IV Zosyn to PO levofloxacin and PO metronidazole. Patient was started on Zosyn 04/20/2025, started levothyroxine and metronidazole 04/24 will continue current antibiotic until 05/03/2025 for total course of 14 days effective antibiotics. Completed 14 day course today but per ID continue few more days will do 5 more days until 05/08/2025 -Continue PO levofloxacin 500 qday per ID -Continue PO metronidazole 500 mg TID per ID -Monitor vitals -Serial examinations -Repeat CBC tomorrow # Poor Nutrition / PO Intake # Hyponatremia secondary to PPN Patient on dysphagia diet however not meeting nutritional needs. Reports poor appetite. 04/26/2025 PPN was started. Sodium as of today is 126 given one tab salt tablet. 04/30: Significant improvement in intake; 80% of lunch today, after only 25% breakfast this AM. 05/01: Patient did not have dinner or breakfast due to pain, surgery to start TPN and place PICC line. 05/02: PICC line placed, TPN started. Patient tolerating well. 05/03: PICC line placed, TPN started. Patient tolerating well. TPN to stay on until 05/29/202505/04: Continue TPN. Patient tolerating well. TPN to stay on until 05/29/2025 TPN reccs by diet: consider switch to central parenteral nutrition mix if oral intake remains <50% of meal and supplements CPN: D20% AA5% at goal of 75 ml/hr with 500 ml 20% lipid 3 times a week (Mon-Wed-Wed). Start at 25 ml/hr for 8 hrs, then 50 ml/hr for 8 hrs, then advance to goal of 75 ml/hr. Provides: 1800 ml volume, 90 g AA, 360 g dextrose, 2013 total calories, NPC 1653. GIR=2.72 -Consulted director cloud transformation, following -NPO except meds, per surgery -PICC line placement done with TPN started. -Continue thiamine 100 mg IV daily. # Acute hypoxic respiratory failure # Right lung atelectasis # History of COPD Patient has been hypoxic saturating low 90s on 4-5L NC Likely secondary to pulmonary atelectasis Latest CXRs have not shown any pneumonia, there is however atelectasis in the right lower lung zone -Incentive spirometry -Continued home medication of trelegy qday -Continue duoneb as needed # History of CAD Patient reports history of 2 stents -Continue home aspirin 81 mg qday # Right pneumothorax, resolved S/p chest tube placement 04/21, removed 04/26 CXR on 04/24 shows interval improvement from 20% to <10%. CXR 04/25 shows complete resolution. 04/26 removed chest tube, 110 ml of translucent yellow fluid -Continue incentive spirometry -Work with PT towards ambulation -Repeatchest Xray showed no pneumothorax but noted to have mild atelectasis # Paroxysmal A-fib with RVR (04/21), resolved Likely secondary to underlying sepsis at that time and pneumothorax. Sinus rhythm since. Stopped amiodarone (per ICU team). -Telemetry monitoring. -Replete electrolytes (K >4, Mg >2). 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 -Continue carvedilol 3.125 mg BID -Continue telemetry. # Type 2 diabetes A1c 6.8%. -Insulin degludec 45 U HS -Sliding scale insulin. # Septic shock, resolved Off pressors, stable MAP, normal lactate, improving urine output. -Continue current antibiotic coverage. # Acute kidney injury, resolved Creatinine back to normal with good UOP. -Monitor BMP daily. -Avoid nephrotoxins. Health Maintenance: Disposition: Pending SNF placement Diet: NPO, TPN through PICC line DVT prophylaxis: Lovenox. GI prophylaxis: Protonix. Bowel regimen: None currently; monitor ostomy output. Code Status: Full Code. Lines: PICC line placed site clean/dry. ----- Plan discussed with attending physician Dr. Farzaneh Tena MD PGY-1 Internal Medicine
[2025-05-06] MEDS: INSULIN DEGLUDEC 5 UNIT/0.05 ML (PER 5 UNITS) 50 UNIT SC (22:10)
[2025-05-07] VITALS (19 sets, daily range): BP systolic 114–125; BP diastolic 73–84; PULSE 72–112; RESP 17–29; TEMP 36.1–36.8; O2SAT 92–100; BMI 33.1
[2025-05-07] MEDS: ALBUTEROL RT 2.5 MG/0.5 ML NEBU INH ×5 (02:49→18:56)
[2025-05-07] MEDS: INSULIN LISPRO (AdmeLOG) 1 UNIT/0.01 ML UNIT SC ×2 (05:26→12:20)
[2025-05-07] MEDS: INSULIN LISPRO (AdmeLOG) 1 UNIT/0.01 ML UNIT 5 UNIT SC (05:27)
[2025-05-07 06:15] LABS: Basophils # (Auto) 0.1 Thou/mm3 (0.0-0.2); Basophils % (Auto) 1 % (0-2.5); Eosinophils # (Auto) 0.1 Thou/mm3 (0.0-0.5); Eosinophils % (Auto) 1 % (0-10); Hematocrit 27.6 % (41.0-53.0); Hemoglobin 8.9 g/dL (13.5-16.0); Immature Granulocytes Auto 0.36 Thou/mm3 (0.00-0.00); Lymphocytes # (Auto) 0.7 Thou/mm3 (1.0-4.8); Lymphocytes % (Auto) 8 % (10-50); Mean Corpuscular HGB Conc 32.2 g/dl (31.0-37.0); Mean Corpuscular Hemoglobin 27.6 pg (25.0-35.0); Mean Corpuscular Volume 86 fL (80-100); Monocytes # (Auto) 1.0 Thou/mm3 (0.0-0.8); Monocytes % (Auto) 12 % (0-12); Neutrophils # (Auto) 6.4 Thou/mm3 (1.8-7.7); Neutrophils % (Auto) 75 % (37-80); Nucleated Red Blood Cell # 0.00 Thou/mm3 (0.00-0.00); Nucleated Red Blood Cell % 0 /100 WBC (0); Platelet Count 311 Thou/mm3 (140-440); RDW Standard Deviation 42.8 fL (35.1-43.9); Red Blood Count 3.22 Miln/mm3 (4.50-5.90); White Blood Count 8.6 Thou/mm3 (3.8-10.6)
[2025-05-07] MEDS: FLUTICASONE/UMECLIDIN/VILANTEROL 100-62.5-25 MCG INHALER 1 PUFF INH (06:19)
[2025-05-07 06:54] LABS: Alanine Aminotransferase < 7 U/L (10-49); Albumin, Serum 2.4 gm/dL (3.4-4.8); Albumin/Globulin Ratio 0.9 (1.2-2.2); Alkaline Phosphatase 123 U/L (46-116); Anion Gap 8 (7-16); Aspartate Amino Transferase 10 U/L (0-34); BUN/Creatinine Ratio 35 Ratio (12-20); Bilirubin,Total 0.3 mg/dL (0.3-1.2); Blood Urea Nitrogen 14 mg/dL (9-23); Calcium 7.5 mg/dL (8.3-10.6); Calcium (Corrected) 8.8 mg/dL (8.5-10.1); Carbon Dioxide 28.5 mMol/L (20.0-31.0); Chloride 97 mMol/L (98-107); Creatinine (Component) 0.4 mg/dL (0.6-1.3); Estimated Creatinine Clearance 204.8 mL/min (>60); Globulin 2.6 gm/dL (2.3-3.5); Glucose 210 mg/dL (74-106); Magnesium 1.6 mg/dL (1.6-2.6); Osmolality,Calculated 272 (275-295); Phosphorous 2.4 mg/dL (2.4-5.1); Potassium 3.9 mMol/L (3.4-5.1); Sodium 133 mMol/L (136-145); Total Protein 5.0 gm/dL (5.7-8.2); eGFR > 60 See Note
[2025-05-07] MEDS: PANTOPRAZOLE 40 MG TABLET PO (09:17)
[2025-05-07] MEDS: ZINC SULFATE 220 MG CAPSULE PO (09:17)
[2025-05-07] MEDS: THIAMINE 100 MG TABLET PO (09:17)
[2025-05-07] MEDS: DOCUSATE SOD 100 MG CAPSULE PO ×2 (09:17→21:57)
[2025-05-07] MEDS: ASPIRIN EC 81 MG TABEC PO (09:17)
[2025-05-07] MEDS: ASCORBIC ACID 250 MG TABLET 500 MG PO ×2 (09:18→21:57)
--- NOTE | 2025-05-07 09:18 | PC.SS ---
[facility] informed by [facility] staff, Dennise Grant; that delivery of formula remains pending. Per [facility], staff all formula documentation has been submitted. [facility] staff to follow up with [facility] once delivery of formula confirmed.
[2025-05-07] MEDS: oxyCODONE HCL 5 MG IR TAB 10 MG PO ×2 (09:24→14:58)
[2025-05-07] MEDS: SODIUM CHLORIDE RT SOL 0.9% 3 ML NEBU INH ×3 (10:28→18:56)
--- NOTE | 2025-05-07 13:02 | PC.SS ---
ADDICTIONS THERAPIST attempted phone contact with [facility] staff, Dennise Grant; to obtain update on patient's formula delivery. No response ADDICTIONS THERAPIST left voicemail requesting return call.
--- NOTE | 2025-05-07 13:06 | PC.SS ---
DISTRIBUTION SYSTEM OPERATOR confirmed with [facility] staff that patient's formula would be delivered today at 4:30 pm.
--- NOTE | 2025-05-07 13:53 | PC.SS ---
Transport scheduled for 05:30 pm. Reference #[id number]. Preferred vendor [employer]. Awaiting authorization. SNF and bedside nurse notified.
--- NOTE | 2025-05-07 14:38 | ESDS_ITS ---
<Statement entered by Chandu Moy MD - 05/24/25 08:24> I reviewed above note and agree with findings and plans. I have also personally examined the patient with medicine team and went over assessment and plan with medical team including international trade teacher and resident physician. Planned Discharge Date 05/07/25 DS: Providers Provider Date of admission: 04/17/25 12:17 Primary care physician: Mae Asher NP Admitting Provider: Adam Gardiner DO Attending Provider on Admission: Chandu Moy MD Consults: 04/18/25 00:05 Consult to General Surgery Routine Comment: Consulting Provider: Tania Malone 04/19/25 18:12 Consult to Body Corporate Manager Routine Comment: Consulting Provider: Kimberley Teixeira 04/23/25 11:27 PT [Referral Physical Therapy] Routine Comment: Physician Instructions: Instructions: Please assist patient ambulate 04/24/25 10:42 Consult to Infectious Diseases Routine Comment: ESBL bactremia Consulting Provider: Aakash Francois 04/26/25 09:58 Referral Registered Dietitian Routine Comment: PPN recommendations and orders Attending Provider on DC: Chandu Moy MD Discharging Provider: Maria D Tena MD DS: Diagnosis Problem List Completed Was Problem List Reviewed/Reconciled?: Yes Hospital Course Hospital Course Hospital course: 64-year-old male admitted initially with perforated sigmoid diverticulitis co mplicated by feculent peritonitis. He underwent an exploratory laparotomy with sigmoid colectomy and colostomy, followed by a second operation consisting of abdominal washout and partial colectomy with creation of an end colostomy. His postoperative recovery was complicated by ESBL E. coli bacteremia, which was treated successfully with IV and oral antibiotics, and a right-sided pneumothorax requiring chest tube placement that has since resolved. During the admission, the patient developed high-output enterocutaneous fistulas draining over one liter per day. Due to inadequate oral intake and the need to promote fistula closure, he was placed NPO and started on parenteral nutrition. Initially, PPN was trialed but was insufficient due to worsening hyponatremia; a PICC line was subsequently placed and the patient was transitioned to full TPN. His nutritional markers began to stabilize, and his sodium gradually improved. Glucose levels increased secondary to TPN, requiring escalation of his insulin regimen, including increasing his nightly degludec dose and adding scheduled lispro. Throughout the hospitalization, the patient remained hemodynamically stable and afebrile. His white blood cell count, which was markedly elevated earlier in the course, steadily normalized. His abdominal pain improved and remained well controlled with oral analgesics. The pneumothorax fully resolved following chest tube removal, and his respiratory status remained stable on room air. The surgical team monitored his fistula output daily and recommended continued bowel rest with strict NPO status until outpatient reassessment. By the time of discharge, the patient was clinically stable, tolerating TPN through the PICC line without complications, reporting good pain control, and showing no signs of active infection. He expressed understanding of the need to remain NPO to facilitate fistula healing and agreed to home health support for ongoing TPN management. Diagnosis during admission: # Perforated diverticulitis with feculent peritonitis s/p colostomy placement # Enterocutaneous Fistulas # ESBL E. 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 * Avoid heavy lifting until cleared by your surgeon. * Continue using your incentive spirometer several times a day. (very important) Diet * Remain NPO (nothing by mouth) unless your surgeon specifically changes this. * You may take medications with small sips of water only. * Do NOT eat or drink anything else until cleared by Dr. Malone. Nutrition / TPN * You will receive Total Parenteral Nutrition (TPN) at SNF through your PICC line. * Home health will assist with TPN administration, line care, and dressing changes. * Keep the PICC line dry, clean, and intact at all times. Wound / Colostomy Care * Remove midline abdominal filiberto in [address] Malone * Continue routine LLQ colostomy care as instructed. Currently pouching system: Kavitha 2 3/4 in 2 piece, last applied 05/04/25. Change weekly and PRN * Midline abdominal incision with 21 filiberto and 2 fistulas- superior and inferior incision. Current pouching system for drainage management: Eakins wound pouch 6.9 x 4.3 and stoma adhesive paste. Last applied 05/04/25. Change weekly and PRN * Watch for increased redness, swelling, bleeding, or foul odor around the surgical site. Medications * Continue all medications as directed on your discharge medication list. * Use pain medication only as needed. Follow-Up * Follow up with Dr. Malone (General Surgery) in 2 weeks. * He will guide the plan for fistula closure and determine when you may resume eating. Call your doctor or return to the ER if you experience: * Fever >100.4?F * Worsening abdominal pain * Increased drainage from fistula site or colostomy * Redness, swelling, or pain at your PICC line site * Shortness of breath or persistent vomiting * Sudden weakness or dizziness * Dietitian recommendation: consider switch to central parenteral nutrition mix if oral intake remains <50% of meal and supplements CPN: D20% AA5% at goal of 90 ml/hr with 500 ml 20% lipid 3 times a week (Mon-Wed-Fri). Start at 25 ml/hr for 8 hrs, then 50 ml/hr for 8 hrs, then advance to goal of 90 ml/hr. Provides: 1800 ml volume, 90 g AA, 360 g dextrose, 2013 total calories, NPC 1653. GIR=2.72 Thank you ----- Plan discussed with attending physician Dr. Farzaneh Tena MD PGY-1 Internal Medicine Time Spent with Patient Time attestation: Total time spent providing and/or coordinating discharge services: Time spent: Greater than 30 minutes Exam Vital Signs Temp Pulse Resp BP Pulse Ox O2 Del Method O2 Flow Rate 97.0 F 91 25 H 121/78 96 Nasal Cannula 2 05/07/25 12:00 05/07/25 12:00 05/07/25 12:00 05/07/25 12:00 05/07/25 12:00 05/07/25 12:00 05/07/25 12:00 FiO2 30 05/06/25 16:00 Narrative Exam General: A&O x 3, comfortable, appears better than prior days. Pulm: Lungs clear bilaterally; no increased work of breathing. CV: RRR, no murmurs. GI: Soft, mildly distended, non-tender. Incision clean/dry. End colostomy pink and patent with normal output. Flank: Mild right flank tenderness improved from prior days, no CVA tenderness. Extremities: Trace edema; right hip nontender today. Neuro: Alert, following commands. Skin: No rash or lesions. Lines: PICC line in place, site clean/dry Discharge Plan Plan Patient Disposition: Xfer Skilled Nsg Fac ([facility]) Disposition Comment: [facility] Patient condition on transfer: Stable Care Plan Goals: Discharge Instructions: Activity * Resume activity as tolerated. * Avoid heavy lifting until cleared by your surgeon. * Continue using your incentive spirometer several times a day. (very important) Diet * Remain NPO (nothing by mouth) unless your surgeon specifically changes this. * You may take medications with small sips of water only. * Do NOT eat or drink anything else until cleared by Dr. Malone. Nutrition / TPN * You will receive Total Parenteral Nutrition (TPN) at [facility] through your PICC line. * Home health will assist with TPN administration, line care, and dressing changes. * Keep the PICC line dry, clean, and intact at all times. Wound / Colostomy Care * Remove midline abdominal filiberto in [address] Malone * Continue routine LLQ colostomy care as instructed. Currently pouching system: Haslett 2 3/4 in 2 piece, last applied 05/04/25. Change weekly and PRN * Midline abdominal incision with 21 filiberto and 2 fistulas- superior and inferior incision. Current pouching system for drainage management: Eakins wound pouch 6.9 x 4.3 and stoma adhesive paste. Last applied 05/04/25. Change weekly and PRN * Watch for increased redness, swelling, bleeding, or foul odor around the surgical site. Medications * Continue all medications as directed on your discharge medication list. * Use pain medication only as needed. Follow-Up * Follow up with Dr. Malone (General Surgery) in 2 weeks. * He will guide the plan for fistula closure and determine when you may resume eating. Call your doctor or return to the ER if you experience: * Fever >100.4?F * Worsening abdominal pain * Increased drainage from fistula site or colostomy * Redness, swelling, or pain at your PICC line site * Shortness of breath or persistent vomiting * Sudden weakness or dizziness * Dietitian recommendation: consider switch to central parenteral nutrition mix if oral intake remains <50% of meal and supplements CPN: D20% AA5% at goal of 90 ml/hr with 500 ml 20% lipid 3 times a week (Mon-Wed-Fri). Start at 25 ml/hr for 8 hrs, then 50 ml/hr for 8 hrs, then advance to goal of 90 ml/hr. Provides: 1800 ml volume, 90 g AA, 360 g dextrose, 2012 total calories, NPC 1653. GIR=2.72 Thank you Prescriptions/Referrals Prescriptions/Med Rec: New zinc sulfate 50 mg zinc (220 mg) Capsule 220 mg PO QDAY Qty: 30 0RF thiamine mononitrate (vit B1) 100 mg Tablet 100 mg PO QDAY Qty: 30 0RF ascorbic acid (vitamin C) 500 mg capsule 500 mg PO BID Qty: 60 0RF oxycodone 10 mg tablet 10 mg PO Q4H MDD 40 mg daily PRN (Reason: pain (scale score 7-10)) 14 Days Qty: 56 0RF metronidazole 500 mg tablet 500 mg PO Q8H 5 Days Qty: 15 0RF levofloxacin 250 mg Tablet 500 mg PO QDAY 2 Days Qty: 4 0RF levofloxacin 500 mg tablet 500 mg PO QDAY Qty: 2 0RF Continued metformin 500 mg tablet 500 mg PO BID Patient Comments: TAKE 1 TABLET BY MOUTH TWICE DAILY atorvastatin 20 mg tablet 20 mg PO HS Patient Comments: TAKE 1 TABLET BY MOUTH EVERY DAY tamsulosin 0.4 mg capsule 0.8 mg PO HS Patient Comments: TAKE 2 CAPSULES BY MOUTH AT NIGHT losartan 25 mg tablet 25 mg PO DAILY Patient Comments: TAKE 1 TABLET BY MOUTH DAILY albuterol sulfate [Ventolin HFA] 90 mcg/actuation HFA aerosol inhaler 90 mcg INHALATION Q4HR PRN (Reason: WHEEZING) Patient Comments: INHALE 2 PUFFS BY MOUTH EVERY 4 HOURS NEEDED bupropion HCl 150 mg tablet extended release 24 hr 150 mg PO DAILY Patient Comments: TAKE 1 TABLET BY MOUTH EVERY DAY aripiprazole 2 mg tablet 2 mg PO HS Patient Comments: TAKE 1 TABLET BY MOUTH EVERY NIGHT AT BEDTIME Spiriva Respimat 2.5 mcg/actuation mist 2 puff INHALATION DAILY Patient Comments: INHALE 2 PUFFS BY MOUTH DAILY ascorbic acid (vitamin C) [Vitamin C] 1,000 mg Tablet 1 g PO DAILY Glucosamine Chondroitin 550-30-1 mg Capsule 1 cap PO BID aspirin 81 mg Tablet,Delayed Release (Dr/Ec) 81 mg PO QDAY docusate sodium [Colace] 100 mg capsule 100 mg PO BID Qty: 40 0RF Trelegy Ellipta 100-62.5-25 mcg blister with device 1 inh inhalation QDAY Patient Comments: sometimes if I don't need it I don't take it. losartan 50 mg tablet 50 mg PO HS montelukast 10 mg tablet 10 mg PO DAILY meloxicam 15 mg tablet 15 mg PO DAILY Patient Comments: TAKE 1 TABLET BY MOUTH EVERY DAY hydroxyzine HCl 25 mg tablet 25 mg PO .Qevening Patient Comments: TAKE 1 TABLET BY MOUTH EVERY EVENING pantoprazole 40 mg tablet,delayed release (DR/EC) 40 mg PO HS Patient Comments: TAKE 1 TABLET BY MOUTH EVERYDAY AT BEDTIME ondansetron HCl 4 mg tablet 4 mg PO Q8H PRN (Reason: nausea and vomiting) Patient Comments: TAKE 1 TO 2 TABLETS BY MOUTH EVERY 8 HOURS NEEDED sennosides-docusate sodium [Colace 2-In-1] 8.6-50 mg tablet 1 tab-cap PO QDAY PRN (Reason: constipation) Patient Comments: otc- new, pt was trying to have a bm but did not work. melatonin 5 mg tablet 25 mg PO HS Patient Comments: 25mg 1 tablet. otc. Melatonin extra strength. Midol Complete 500-60-15 mg tablet 2 tab PO BID PRN (Reason: abdominal pain) Patient Comments: otc ibuprofen 200 mg tablet 200 mg PO QDAY PRN (Reason: abdominal pain) Patient Comments: otc Discontinued hydrocodone-acetaminophen 5-325 mg tablet 1 tab PO Q6H MDD 4 PRN (Reason: pain (scale score 7-10)) Qty: 20 0RF ibuprofen 600 mg tablet 600 mg PO Q8H PRN (Reason: pain (scale score 4-6)) Qty: 15 0RF aspirin 81 mg tablet 81 mg PO QDAY Rx Instructions: chewable Referrals: Mae Asher NP [Primary Care Provider] Patient/Caregiver Discharge Instructions Print Language: Cook Islander Stand Alone Forms: Paulina Award Info., Patient Portal Info Letter Discharge Order Discharge Orders: Discharge (Routine); Ordered 05/07/25 Ordered By: Maria D Tena Quality Discharge Quality Measures VTE prophylaxis
[2025-05-07] MEDS: INSULIN LISPRO (AdmeLOG) 1 UNIT/0.01 ML UNIT 6 UNIT SC ×2 (14:50→17:54)
[2025-05-07] MEDS: LIDOCAINE 5% 1 PATCH 2 PATCH TOP (15:18)
--- NOTE | 2025-05-07 16:34 | PC.NURSE ---
PATIENT ENCOURAGED TO TURN AND REPOSITION, PT REFUSES. EDUCATION PROVIDED ON WOUND PREVENTION PT VERBALIZE UNDERSTANDING.
--- NOTE | 2025-05-07 17:27 | PC.NURSE ---
Needle Loom Operator Helper Mary cancelled [facility] transportation per PARVEEN Hart.
--- NOTE | 2025-05-07 17:48 | PC.CC ---
received call from bedside nurse Hailey. She informed me that DC has been held and transport has been canceled. SNF is unable to manage TPN. I informed her that most SNF's wont accept TPN and it was not mentioned in rounding that the patient was on TPN. She stated that Dr. Tena told her to call SW, however SW is not available at this time so she call me. I encouraged her to call Dr. Moy for further direction.
[2025-05-07] MEDS: FAT EMULSIONS 20% IV 500 ML 32 ML IV (17:53)
--- NOTE | 2025-05-07 19:31 | PC.NURSE ---
1630: CALLED PLACED TO [facility] TO FOR REPORT, ELVA SAINI INFORMED THAT SNF HAD NOT RECEIVED TPN RX AND WOULD NOT TAKE PT. DR. HOLLIS MADE AWARE. NO NEW ORDERS GIVEN. 1640: PLACED CALL TO MANAGER GENERATION NO ANSWER. 1642: PLACED CALL TO TRANSFER NURSE TO MAKE HER AWARE OF ISSUE WITH PRESCRIPTION AND PHARMACY. TORO SHE WILL COMMUNICATE ISSUE WITH MEDICAL TEAM AND MANAGER GENERATION TOMORROW.
[2025-05-07] MEDS: INSULIN DEGLUDEC 5 UNIT/0.05 ML (PER 5 UNITS) 57 UNIT SC (22:00)
[2025-05-08] VITALS (12 sets, daily range): BP systolic 119–129; BP diastolic 76–84; PULSE 86–101; RESP 18–29; TEMP 36.2–36.9; O2SAT 94–100; BMI 33.8
[2025-05-08] MEDS: ALBUTEROL RT 2.5 MG/0.5 ML NEBU INH ×4 (00:23→10:52)
[2025-05-08] MEDS: INSULIN LISPRO (AdmeLOG) 1 UNIT/0.01 ML UNIT SC ×3 (00:26→11:51)
--- NOTE | 2025-05-08 02:24 | PC.NURSE ---
Patient refusing to be turned tonight.
[2025-05-08] MEDS: INSULIN LISPRO (AdmeLOG) 1 UNIT/0.01 ML UNIT 6 UNIT SC (05:05)
[2025-05-08 05:27] LABS: Basophils # (Auto) 0.1 Thou/mm3 (0.0-0.2); Basophils % (Auto) 1 % (0-2.5); Eosinophils # (Auto) 0.1 Thou/mm3 (0.0-0.5); Eosinophils % (Auto) 1 % (0-10); Hematocrit 27.9 % (41.0-53.0); Hemoglobin 9.4 g/dL (13.5-16.0); Immature Granulocytes Auto 0.51 Thou/mm3 (0.00-0.00); Lymphocytes # (Auto) 1.0 Thou/mm3 (1.0-4.8); Lymphocytes % (Auto) 10 % (10-50); Mean Corpuscular HGB Conc 33.7 g/dl (31.0-37.0); Mean Corpuscular Hemoglobin 28.5 pg (25.0-35.0); Mean Corpuscular Volume 85 fL (80-100); Monocytes # (Auto) 1.2 Thou/mm3 (0.0-0.8); Monocytes % (Auto) 12 % (0-12); Neutrophils # (Auto) 7.3 Thou/mm3 (1.8-7.7); Neutrophils % (Auto) 72 % (37-80); Nucleated Red Blood Cell # 0.00 Thou/mm3 (0.00-0.00); Nucleated Red Blood Cell % 0 /100 WBC (0); Platelet Count 310 Thou/mm3 (140-440); RDW Standard Deviation 42.2 fL (35.1-43.9); Red Blood Count 3.30 Miln/mm3 (4.50-5.90); White Blood Count 10.2 Thou/mm3 (3.8-10.6)
[2025-05-08 05:59] LABS: Alanine Aminotransferase < 7 U/L (10-49); Albumin, Serum 2.3 gm/dL (3.4-4.8); Albumin/Globulin Ratio 0.9 (1.2-2.2); Alkaline Phosphatase 123 U/L (46-116); Anion Gap 7 (7-16); Aspartate Amino Transferase 10 U/L (0-34); BUN/Creatinine Ratio 30 Ratio (12-20); Bilirubin,Total 0.2 mg/dL (0.3-1.2); Blood Urea Nitrogen 15 mg/dL (9-23); Calcium 7.5 mg/dL (8.3-10.6); Calcium (Corrected) 8.9 mg/dL (8.5-10.1); Carbon Dioxide 28.0 mMol/L (20.0-31.0); Chloride 98 mMol/L (98-107); Creatinine (Component) 0.5 mg/dL (0.6-1.3); Estimated Creatinine Clearance 163.8 mL/min (>60); Globulin 2.6 gm/dL (2.3-3.5); Glucose 242 mg/dL (74-106); Magnesium 1.5 mg/dL (1.6-2.6); Osmolality,Calculated 275 (275-295); Phosphorous 2.9 mg/dL (2.4-5.1); Potassium 3.8 mMol/L (3.4-5.1); Sodium 133 mMol/L (136-145); Total Protein 4.9 gm/dL (5.7-8.2); eGFR > 60 See Note
[2025-05-08] MEDS: SODIUM CHLORIDE RT SOL 0.9% 3 ML NEBU INH (06:46)
[2025-05-08] MEDS: FLUTICASONE/UMECLIDIN/VILANTEROL 100-62.5-25 MCG INHALER 1 PUFF INH (06:51)
[2025-05-08] MEDS: DOCUSATE SOD 100 MG CAPSULE PO (08:00)
[2025-05-08] MEDS: PANTOPRAZOLE 40 MG TABLET PO (08:00)
[2025-05-08] MEDS: ASPIRIN EC 81 MG TABEC PO (08:00)
[2025-05-08] MEDS: THIAMINE 100 MG TABLET PO (08:01)
[2025-05-08] MEDS: ZINC SULFATE 220 MG CAPSULE PO (08:01)
[2025-05-08] MEDS: ASCORBIC ACID 250 MG TABLET 500 MG PO (08:01)
--- NOTE | 2025-05-08 09:19 | PC.SS ---
Addendum entered by Yee Christopher 05/08/25 09:49: [facility] Trip #[id number], ETA est 1330 Original Note: SS spoke to Dennise at [facility] who stated they were missing the flow rate for TPN, per Dennise yesterday when their RN asked in report information was not given. SS sent over order for TPN with all information attached. Pt to be DC to [facility] on TPN. [facility] has agreed to plan. Transport to be set up.
[2025-05-08] MEDS: Magnesium Sulfate 2 GM Ivpb 2 GM/50 ML BAG IV (10:42)
--- NOTE | 2025-05-08 11:26 | PC.NURSE ---
Report given to Cele BAR at [facility]
--- NOTE | 2025-05-08 11:39 | ESDS_ITS ---
Planned Discharge Date 05/08/25 DS: Providers Provider Date of admission: 04/17/25 12:17 Primary care physician: Mae Asher NP Admitting Provider: Adam Gardiner DO Attending Provider on Admission: Chandu Moy MD Consults: 04/18/25 00:05 Consult to General Surgery Routine Comment: Consulting Provider: Tania Malone 04/19/25 18:12 Consult to Gravity Meter Operator Routine Comment: Consulting Provider: Kimberley Teixeira 04/23/25 11:27 PT [Referral Physical Therapy] Routine Comment: Physician Instructions: Instructions: Please assist patient ambulate 04/24/25 10:42 Consult to Infectious Diseases Routine Comment: ESBL bactremia Consulting Provider: Aakash Francois 04/26/25 09:58 Referral Registered Dietitian Routine Comment: PPN recommendations and orders Attending Provider on DC: Sonny Forbes MD Discharging Provider: Maria D Tena MD DS: Diagnosis Problem List Completed Was Problem List Reviewed/Reconciled?: Yes Hospital Course Hospital Course Hospital course: 64-year-old male admitted initially with perforated sigmoid diverticulitis complicated by feculent peritonitis. He underwent an exploratory laparotomy with sigmoid colectomy and colostomy, followed by a second operation consisting of abdominal washout and partial colectomy with creation of an end colostomy. His postoperative recovery was complicated by ESBL E. coli bacteremia, which was treated successfully with IV and oral antibiotics, and a right-sided pneumothorax requiring chest tube placement that has since resolved. During the admission, the patient developed high-output enterocutaneous fistulas draining over one liter per day. Due to inadequate oral intake and the need to promote fistula closure, he was placed NPO and started on parenteral nutrition. Initially, PPN was trialed but was insufficient due to worsening hyponatremia; a PICC line was subsequently placed and the patient was transitioned to full TPN. His nutritional markers began to stabilize, and his sodium gradually improved. Glucose levels increased secondary to TPN, requiring escalation of his insulin regimen, including increasing his nightly degludec dose and adding scheduled lis pro. Throughout the hospitalization, the patient remained hemodynamically stable and afebrile. His white blood cell count, which was markedly elevated earlier in the course, steadily normalized. His abdominal pain improved and remained well controlled with oral analgesics. The pneumothorax fully resolved following chest tube removal, and his respiratory status remained stable on room air. The [facility] gical team monitored his fistula output daily and recommended continued bowel rest with strict NPO status until outpatient reassessment. By the time of discharge, the patient was clinically stable, tolerating TPN through the PICC line without complications, reporting good pain control, and showing no signs of active infection. He expressed understanding of the need to remain NPO to facilitate fistula healing and agreed to home health support for ongoing TPN management. Diagnosis during admission: # Perforated diverticulitis with feculent peritonitis s/p colostomy placement # Enterocutaneous Fistulas # ESBL E. 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 * Avoid heavy lifting until cleared by your surgeon. * Continue using your incentive spirometer several times a day. (very important) Diet * Remain NPO (nothing by mouth) unless your surgeon specifically changes this. * You may take medications with small sips of water only. * Do NOT eat or drink anything else until cleared by Dr. Malone. Nutrition / TPN * You will receive Total Parenteral Nutrition (TPN) at SNF through your PICC line. * Home health will assist with TPN administration, line care, and dressing changes. * Keep the PICC line dry, clean, and intact at all times. Wound / Colostomy Care * Remove midline abdominal filiberto in [address] Malone * Continue routine LLQ colostomy care as instructed. Currently pouching system: Kavitha 2 3/4 in 2 piece, last applied 05/04/25. Change weekly and PRN * Midline abdominal incision with 21 filiberto and 2 fistulas- superior and inferior incision. Current pouching system for drainage management: Eakins wound pouch 6.9 x 4.3 and stoma adhesive paste. Last applied 05/04/25. Change weekly and PRN * Watch for increased redness, swelling, bleeding, or foul odor around the surgical site. Medications * Continue all medications as directed on your discharge medication list. * Use pain medication only as needed. Follow-Up * Follow up with Dr. Malone (General Surgery) in 2 weeks. * He will guide the plan for fistula closure and determine when you may resume eating. Call your doctor or return to the ER if you experience: * Fever >100.4?F * Worsening abdominal pain * Increased drainage from fistula site or colostomy * Redness, swelling, or pain at your PICC line site * Shortness of breath or persistent vomiting * Sudden weakness or dizziness * Dietitian recommendation: consider switch to central parenteral nutrition mix if oral intake remains <50% of meal and supplements CPN: D20% AA5% at goal of 90 ml/hr with 500 ml 20% lipid 3 times a week (Mon-Wed-Fri). Start at 25 ml/hr for 8 hrs, then 50 ml/hr for 8 hrs, then advance to goal of 90 ml/hr. Provides: 1800 ml volume, 90 g AA, 360 g dextrose, 2013 total calories, NPC 1653. GIR=2.72 Thank you ----- Plan discussed with attending physician Dr. Andrei Tena MD PGY-1 Internal Medicine Time Spent with Patient Time attestation: Total time spent providing and/or coordinating discharge services: 39 minutes Time spent: Greater than 30 minutes Exam Vital Signs Temp Pulse Resp BP Pulse Ox O2 Del Method O2 Flow Rate 97.1 F 95 24 H 119/76 99 Room Air 3 05/08/25 08:00 05/08/25 10:53 05/08/25 10:53 05/08/25 08:00 05/08/25 10:53 05/08/25 08:00 05/08/25 10:53 FiO2 30 05/06/25 16:00 Narrative Exam General: A&O x 3, comfortable, appears better than prior days. Pulm: Lungs clear bilaterally; no increased work of breathing. CV: RRR, no murmurs. GI: Soft, mildly distended, non-tender. Incision clean/dry. End colostomy pink and patent with normal output. Flank: Mild right flank tenderness improved from prior days, no CVA tenderness. Extremities: Trace edema; right hip nontender today. Neuro: Alert, following commands. Skin: No rash or lesions. Lines: PICC line in place, site clean/dry Discharge Plan Plan Patient Disposition: Xfer Skilled Nsg Fac (SNF) Disposition Comment: [facility] Patient condition on transfer: Stable Care Plan Goals: Discharge Instructions: Activity * Resume activity as tolerated. * Avoid heavy lifting until cleared by your surgeon. * Continue using your incentive spirometer several times a day. (very important) Diet * Remain NPO (nothing by mouth) unless your surgeon specifically changes this. * You may take medications with small sips of water only. * Do NOT eat or drink anything else until cleared by Dr. Malone. Nutrition / TPN * You will receive Total Parenteral Nutrition (TPN) at [facility] through your PICC line. * Home health will assist with TPN administration, line care, and dressing changes. * Keep the PICC line dry, clean, and intact at all times. Wound / Colostomy Care * Remove midline abdominal filiberto in [address] Malone * Continue routine LLQ colostomy care as instructed. Currently pouching system: Kavitha 2 3/4 in 2 piece, last applied 05/04/25. Change weekly and PRN * Midline abdominal incision with 21 filiberto and 2 fistulas- superior and inferior incision. Current pouching system for drainage management: Eakins wound pouch 6.9 x 4.3 and stoma adhesive paste. Last applied 05/04/25. Change weekly and PRN * Watch for increased redness, swelling, bleeding, or foul odor around the surgical site. Medications * Continue all medications as directed on your discharge medication list. * Use pain medication only as needed. Follow-Up * Follow up with Dr. Malone (General Surgery) in 2 weeks. * He will guide the plan for fistula closure and determine when you may resume eating. Call your doctor or return to the ER if you experience: * Fever >100.4?F * Worsening abdominal pain * Increased drainage from fistula site or colostomy * Redness, swelling, or pain at your PICC line site * Shortness of breath or persistent vomiting * Sudden weakness or dizziness * Dietitian recommendation: consider switch to central parenteral nutrition mix if oral intake remains <50% of meal and supplements CPN: D20% AA5% at goal of 90 ml/hr with 500 ml 20% lipid 3 times a week (Mon-Wed-Fri). Start at 25 ml/hr for 8 hrs, then 50 ml/hr for 8 hrs, then advance to goal of 90 ml/hr. Provides: 1800 ml volume, 90 g AA, 360 g dextrose, 2012 total calories, NPC 1653. GIR=2.72 Thank you Prescriptions/Referrals Prescriptions/Med Rec: New zinc sulfate 50 mg zinc (220 mg) Capsule 220 mg PO QDAY Qty: 30 0RF thiamine mononitrate (vit B1) 100 mg Tablet 100 mg PO QDAY Qty: 30 0RF oxycodone 10 mg tablet 10 mg PO Q4H MDD 40 mg daily PRN (Reason: pain (scale score 7-10)) 14 Days Qt y: 56 0RF levofloxacin 750 mg tablet 750 mg feeding tube QDAY 3 Days Qty: 3 0RF metronidazole 500 mg tablet 500 mg PO Q8H 3 Days Qty: 9 0RF insulin lispro [Admelog U-100 Insulin lispro] 100 unit/mL solution 10 unit subcut TID Qty: 10 0RF (DME) pen needle, diabetic [1st Tier Unifine Pentips] 29 gauge x 1/2 needle See Rx Instructions .Route Qty: 100 0RF Rx Instructions: As directed insulin glargine [Lantus Solostar U-100 Insulin] 100 unit/mL (3 mL) insulin pen 30 unit subcut BID 30 Days Qty: 18 0RF ascorbic acid (vitamin C) [Vitamin C] 250 mg Tablet 500 mg PO BID 30 Days Qty: 120 0RF Continued metformin 500 mg tablet 500 mg PO BID Patient Comments: TAKE 1 TABLET BY MOUTH TWICE DAILY atorvastatin 20 mg tablet 20 mg PO HS Patient Comments: TAKE 1 TABLET BY MOUTH EVERY DAY tamsulosin 0.4 mg capsule 0.8 mg PO HS Patient Comments: TAKE 2 CAPSULES BY MOUTH AT NIGHT albuterol sulfate [Ventolin HFA] 90 mcg/actuation HFA aerosol inhaler 90 mcg INHALATION Q4HR PRN (Reason: WHEEZING) Patient Comments: INHALE 2 PUFFS BY MOUTH EVERY 4 HOURS NEEDED bupropion HCl 150 mg tablet extended release 24 hr 150 mg PO DAILY Patient Comments: TAKE 1 TABLET BY MOUTH EVERY DAY aripiprazole 2 mg tablet 2 mg PO HS Patient Comments: TAKE 1 TABLET BY MOUTH EVERY NIGHT AT BEDTIME Spiriva Respimat 2.5 mcg/actuation mist 2 puff INHALATION DAILY Patient Comments: INHALE 2 PUFFS BY MOUTH DAILY Glucosamine Chondroitin 550-30-1 mg Capsule 1 cap PO BID aspirin 81 mg Tablet,Delayed Release (Dr/Ec) 81 mg PO QDAY docusate sodium [Colace] 100 mg capsule 100 mg PO BID Qty: 40 0RF Trelegy Ellipta 100-62.5-25 mcg blister with device 1 inh inhalation QDAY Patient Comments: sometimes if I don't need it I don't take it. losartan 50 mg tablet 50 mg PO HS montelukast 10 mg tablet 10 mg PO DAILY meloxicam 15 mg tablet 15 mg PO DAILY Patient Comments: TAKE 1 TABLET BY MOUTH EVERY DAY hydroxyzine HCl 25 mg tablet 25 mg PO .Qevening Patient Comments: TAKE 1 TABLET BY MOUTH EVERY EVENING pantoprazole 40 mg tablet,delayed release (DR/EC) 40 mg PO HS Patient Comments: TAKE 1 TABLET BY MOUTH EVERYDAY AT BEDTIME ondansetron HCl 4 mg tablet 4 mg PO Q8H PRN (Reason: nausea and vomiting) Patient Comments: TAKE 1 TO 2 TABLETS BY MOUTH EVERY 8 HOURS NEEDED sennosides-docusate sodium [Colace 2-In-1] 8.6-50 mg tablet 1 tab-cap PO QDAY PRN (Reason: constipation) Patient Comments: otc- new, pt was trying to have a bm but did not work. melatonin 5 mg tablet 25 mg PO HS Patient Comments: 25mg 1 tablet. otc. Melatonin extra strength. Midol Complete 500-60-15 mg tablet 2 tab PO BID PRN (Reason: abdominal pain) Patient Comments: otc ibuprofen 200 mg tablet 200 mg PO QDAY PRN (Reason: abdominal pain) Patient Comments: otc Discontinued losartan 25 mg tablet 25 mg PO DAILY Patient Comments: TAKE 1 TABLET BY MOUTH DAILY ascorbic acid (vitamin C) [Vitamin C] 1,000 mg Tablet 1 g PO DAILY hydrocodone-acetaminophen 5-325 mg tablet 1 tab PO Q6H MDD 4 PRN (Reason: pain (scale score 7-10)) Qty: 20 0RF ibuprofen 600 mg tablet 600 mg PO Q8H PRN (Reason: pain (scale score 4-6)) Qty: 15 0RF aspirin 81 mg tablet 81 mg PO QDAY Rx Instructions: chewable Referrals: Mae Asher NP [Primary Care Provider] Patient/Caregiver Discharge Instructions Print Language: French Stand Alone Forms: Paulina Award Info., Patient Portal Info Letter Discharge Order Discharge Orders: Discharge (Routine); Ordered 05/08/25 Ordered By: Zenon Grant Quality Discharge Quality Measures VTE prophylaxis Attestestation MD Attestation I have seen and examined the patient. I was physically present for the johnson portions of the services provided including history, physical exam, diagnosis, treatment plans and orders. I agree with assessment and plan of care as documented by residents. Even though this this note was carefully revised there may still be minor errors in anger control counselor due to voice recognition software. Sonny Forbes MD
[2025-05-08] MEDS: oxyCODONE HCL 5 MG IR TAB 10 MG PO (11:51)
== END 2025-05-08 12:40 | disposition skilled nursing facility (03) | DRG 329 ==
LOC: SERX 12:39 → SERHOLD 12:45 → S3NX 15:32 → S2SX 04-19 17:59 → S2NX 04-23 11:49 → S2SX 04-23 11:49 → S2NX 04-27 11:40 → S3NX 04-27 23:02
PROVIDERS: Internal Medicine Infectious Disease; Student in an Organized Health Care Education/Training Program; Surgery; Admitting Provider Student in an Organized Health Care Education/Training Program; Emergency Provider Emergency Medicine; PCP Nurse Practitioner Family; Visit Provider Internal Medicine
PROC: 0DTN0ZZ Resection of Sigmoid Colon, Open Approach (ICD-10-PCS; principal; 2025-04-19 17:30)
DX: K57.20 Diverticulitis of large intestine with perforation and abscess without bleeding (principal); J96.01 Acute respiratory failure with hypoxia; K65.8 Other peritonitis; E87.1 Hypo-osmolality and hyponatremia; I50.20 Unspecified systolic (congestive) heart failure; N17.9 Acute kidney failure, unspecified; J93.82 Other air leak; J98.11 Atelectasis; I31.39 Other pericardial effusion (noninflammatory); K63.2 Fistula of intestine; C91.10 Chronic lymphocytic leukemia of B-cell type not having achieved remission; R78.81 Bacteremia; K59.00 Constipation, unspecified; I25.10 Atherosclerotic heart disease of native coronary artery without angina pectoris; E78.5 Hyperlipidemia, unspecified; Z95.5 Presence of coronary angioplasty implant and graft; Z87.891 Personal history of nicotine dependence; K57.92 Diverticulitis of intestine, part unspecified, without perforation or abscess without bleeding; E11.9 Type 2 diabetes mellitus without complications; E87.6 Hypokalemia; I11.0 Hypertensive heart disease with heart failure; I48.0 Paroxysmal atrial fibrillation; J44.89 Other specified chronic obstructive pulmonary disease; N28.1 Cyst of kidney, acquired; K59.09 Other constipation; E86.1 Hypovolemia; D64.9 Anemia, unspecified; E87.8 Other disorders of electrolyte and fluid balance, not elsewhere classified; N40.0 Benign prostatic hyperplasia without lower urinary tract symptoms; Z79.4 Long term (current) use of insulin; Z79.82 Long term (current) use of aspirin; Z79.84 Long term (current) use of oral hypoglycemic drugs; Z79.899 Other long term (current) drug therapy; Z88.2 Allergy status to sulfonamides; B96.20 Unspecified Escherichia coli [E. coli] as the cause of diseases classified elsewhere
CPT/HCPCS: 36415; 36600; 71045; 74018; 74177; 76705; 76770; 80053; 80069; 80307; 81001; 82010; 82803; 83036; 83605; 83690; 83735; 83880; 84100; 84145; 84478; 85014; 85018; 85025; 85652; 86703; 86803; 87040; 87077; 87186; 87205; 93005; 93225; 93306; 94002; 94003; 94640; 94664; 96365; 96366; 96375; 97162; 99284; A4217; A4649; C1751; C1765; C1894; J0131; J0283; J0612; J0694; J0696; J1171; J1642; J1650; J1815; J1885; J1956; J2250; J2270; J2371; J2405; J2470; J2543; J2598; J2704; J3010; J3411; J3475; J3480; J3490; J3535; J7030; J7050; J7120; J7131; J7999; P9045; Q9967; A9270; J1805; J1836